=== PATIENT | male | born 1950 | race Caucasian/White ===

== ENCOUNTER 2016-08-07 19:14 | Inpatient (IN) | payer OTHER ==
[~2016-08-07] VITALS: Ht 182.9 cm; Wt 99.8 kg
[~2016-08-07 19:14] MED LIST: ASPEC81 PO; CRS10 PO; FINA5TAB PO; FLUNISOLIDE; METO25TA56 PO; OMEG10007 PO; TERA5CAP PO
[2016-08-07] MEDS ORDERED: SODIUM CHLORIDE 0.9% 1000ML 1,000 ML IV STA (19:28)
[2016-08-07 19:46] LABS: BASO % 0.2 %; BASO ABS # 0.03 K/uL (0-0.2); COMPLETE YES; EOS % 0.6 %; HEMATOCRIT 42.4 % (42-52); IG% 0.2 %; LYMPH ABS # 1.37 K/uL (1.2-3.4); MEAN CELL VOLUME 89.3 fL (80-100); MEAN CORPUSCULAR HEMOGLOBIN 30.9 pg (25-34); MEAN CORPUSCULAR HGB CONC 34.7 g/dl (32-36); MEAN PLATELET VOLUME 11.3 fL (7.4-10.4); MONO % 8.5 %; NEUT % 79.5 %; PLATELET COUNT 212 K/uL (130-400); RED BLOOD COUNT 4.75 M/uL (4.7-6.1); WHITE BLOOD COUNT 12.42 K/uL (4.8-10.8)
[2016-08-07 19:54] LABS: INR 1.1 (0.9-1.1); PROTHROMBIN TIME (PATIENT) 11.5 SECONDS (9.0-12.0)
[2016-08-07 20:07] LABS: BUN/CREATININE RATIO 10.4 (10-20); CALCIUM 8.3 mg/dl (8.5-10.1); CREATININE 1.1 mg/dl (0.60-1.40); MAGNESIUM 2.1 mg/dl (1.8-2.4); POTASSIUM 3.6 mmol/L (3.5-5.1)
[2016-08-07] MEDS ORDERED: MULT-190 PO (20:08)
[2016-08-07] MEDS ORDERED: FLUN0.02 NAE (20:08)
[2016-08-07] MEDS ORDERED: ROSU40TA PO (20:08)
[2016-08-07] MEDS ORDERED: ASPI81TA28 PO (20:09)
--- NOTE | 2016-08-07 20:19 | DIAGNOSTIC IMAGING REPORT ---
SINGLE VIEW CHEST CLINICAL HISTORY: Generalized abdominal pain. FINDINGS: An AP, portable, upright chest radiograph is compared to study dated 12/04/2013. The patient is status post midline sternotomy. The heart is enlarged and there is atherosclerotic calcification of the thoracic aorta. Mild pulmonary vascular congestion is observed. Enlargement of the main pulmonary arteries suggests pulmonary artery hypertension and is similar to previous. Foci of linear atelectasis are present in both lungs. There is no focal consolidation typical for pneumonia or large pleural effusion. No pneumothorax is seen. The skeletal structures are osteopenic. The bony thorax is grossly intact. IMPRESSION: 1. Cardiomegaly with mild pulmonary vascular congestion. 2. No airspace consolidation or large pleural effusion is identified. Electronically signed by: Zac Lopez M.D. 08/07/2016 8:18 PM Dictated Date/Time: 08/07/2016 8:16 PM
[2016-08-07 20:33] LABS: CKMB/CK RATIO 5.1 (0-3.0); THYROID STIMULATING HORMONE 2.62 uIu/ml (0.300-4.500)
[2016-08-07] MEDS ORDERED: POTASSIUM CHLORIDE 10 MEQ TABCR PO STA (21:07)
--- NOTE | 2016-08-07 21:18 | EMERGENCY ROOM VISIT NOTE ---
History Report prepared by Carmen: Marilou Wilder Under the Supervision of: Dr. Jean-Pierre Yarbrough D.O. First contact with patient: 19:21 Chief Complaint: CARDIAC ASSESSMENT Stated Complaint: CARDIAC History of Present Illness The patient is a 65 year old male who presents to the Emergency Room with complaints of persistent epigastric discomfort with onset this evening. Per patient, he started to experience some indigestion after dinner. As the patient has a history of three heart attacks and catheterization he took one dose of nitroglycerin and some aspirin. When EMS arrived, the patient was in SVT. The patient was given one dose of adenosine and the SVT then broke. The patient denies trouble breathing, nausea, vomiting. He is not on blood thinners. Source of History: patient Onset: this evening Position: chest Quality: other (epigastric discomfort ) Timing: other (persistent) Modifying Factors (Relieving): other (aspirin, nitroglycerin) Associated Symptoms: No SOB, No nausea, No vomiting Review of Systems See HPI for pertinent positives & negatives. A total of 10 systems reviewed and were otherwise negative. Past Medical & Surgical Medical Problems: (1) ACS (acute coronary syndrome) (2) PSVT (paroxysmal supraventricular tachycardia) (3) SOB (shortness of breath) Surgical Problems: (1) H/O heart bypass surgery Family History Heart disease Hypertension Social History Smoking Status: Current Every Day Smoker Alcohol Use: none Drug Use: none Marital Status: Occupation Status: retired Current/Historical Medications Scheduled Aspirin (Aspirin Ec), 81 MG PO DAILY Finasteride (Proscar), 5 MG PO HS Metoprolol Tartrate (Lopressor) (Lopressor), 12.5 MG PO BID Ocuvite Preservision (Ocuvite Preservision), 1 TAB PO AMHS Rosuvastatin Calcium (Crestor), 40 MG PO QPM Terazosin (Hytrin), 5 MG PO HS Scheduled PRN Flunisolide (Nasal) (Flunisolide), 1-2 SPRY CHEY HS PRN for Nasal Congestion Allergies Coded Allergies: No Known Allergies (Verified , 11/15/04) Physical Exam Vital Signs Date Time Temp Pulse Resp B/P Pulse Ox O2 Delivery O2 Flow Rate FiO2 08/07/16 20:40 75 20 132/76 96 Room Air 08/07/16 19:29 97 Room Air 08/07/16 19:28 97 Room Air 08/07/16 19:24 77 08/07/16 19:20 77 20 110/72 96 Room Air Physical Exam GENERAL: Patient is awake, alert, and in no acute distress. Patient is resting comfortably and showing no signs of anxiety EYES: The conjunctivae are clear. The pupils are round and reactive. EARS, NOSE, MOUTH AND THROAT: The nose is without any evidence of any deformity. Mucous membranes are moist tongue is midline NECK: The neck is nontender and supple. RESPIRATORY: Normal respiratory effort is noted there is no evidence of wheezing rhonchi or rales CARDIOVASCULAR: Regular rate and rhythm noted there no murmurs rubs or gallops normal S1 normal S2 GASTROINTESTINAL: The abdomen is soft. Bowel sounds are present in all quadrants. Abdomen is nontender MUSCULOSKELETAL/EXTREMITIES: There is no evidence of gross deformity full range of motion is noted in the hips and shoulders SKIN: There is no obvious evidence of any rash. There are no petechiae, pallor or cyanosis noted. NEUROLOGIC: Patient is awake alert and oriented x3 strength is symmetric patellar reflexes are 2+ bilaterally Medical Decision & Procedures ER Provider Diagnostic Interpretation: X ray results and stated below per my interpretation and radiology interpretation. SINGLE VIEW CHEST CLINICAL HISTORY: Generalized abdominal pain. FINDINGS: An AP, portable, upright chest radiograph is compared to study dated 12/04/2013. The patient is status post midline sternotomy. The heart is enlarged and there is atherosclerotic calcification of the thoracic aorta. Mild pulmonary vascular congestion is observed. Enlargement of the main pulmonary arteries suggests pulmonary artery hypertension and is similar to previous. Foci of linear atelectasis are present in both lungs. There is no focal consolidation typical for pneumonia or large pleural effusion. No pneumothorax is seen. The skeletal structures are osteopenic. The bony thorax is grossly intact. IMPRESSION: 1. Cardiomegaly with mild pulmonary vascular congestion. 2. No airspace consolidation or large pleural effusion is identified. Electronically signed by: Zac Lopez M.D. 08/07/2016 8:18 PM Dictated Date/Time: 08/07/2016 8:16 PM Laboratory Results 08/07/16 19:40 Red Blood Count 4.75, Mean Corpuscular Volume 89.3, Mean Corpuscular Hemoglobin 30.9, Mean Corpuscular Hemoglobin Concent 34.7, Mean Platelet Volume 11.3, Neutrophils (%) (Auto) 79.5, Lymphocytes (%) (Auto) 11.0, Monocytes (%) (Auto) 8.5, Eosinophils (%) (Auto) 0.6, Basophils (%) (Auto) 0.2, Neutrophils # (Auto) 9.85, Lymphocytes # (Auto) 1.37, Monocytes # (Auto) 1.06, Eosinophils # (Auto) 0.08, Basophils # (Auto) 0.03 08/07/16 19:40 Test 08/07/16 19:40 08/07/16 20:53 White Blood Count 12.42 K/uL (4.8-10.8) Red Blood Count 4.75 M/uL (4.7-6.1) Hemoglobin 14.7 g/dL (14.0-18.0) Hematocrit 42.4 % (42-52) Mean Corpuscular Volume 89.3 fL (80-100) Mean Corpuscular Hemoglobin 30.9 pg (25-34) Mean Corpuscular Hemoglobin Concent 34.7 g/dl (32-36) Platelet Count 212 K/uL (130-400) Mean Platelet Volume 11.3 fL (7.4-10.4) Neutrophils (%) (Auto) 79.5 % Lymphocytes (%) (Auto) 11.0 % Monocytes (%) (Auto) 8.5 % Eosinophils (%) (Auto) 0.6 % Basophils (%) (Auto) 0.2 % Neutrophils # (Auto) 9.85 K/uL (1.4-6.5) Lymphocytes # (Auto) 1.37 K/uL (1.2-3.4) Monocytes # (Auto) 1.06 K/uL (0.11-0.59) Eosinophils # (Auto) 0.08 K/uL (0-0.5) Basophils # (Auto) 0.03 K/uL (0-0.2) RDW Standard Deviation 43.6 fL (36.4-46.3) RDW Coefficient of Variation 13.3 % (11.5-14.5) Immature Granulocyte % (Auto) 0.2 % Immature Granulocyte # (Auto) 0.03 K/uL (0.00-0.02) Prothrombin Time 11.5 SECONDS (9.0-12.0) Prothromb Time International Ratio 1.1 (0.9-1.1) Activated Partial Thromboplast Time 26.9 SECONDS (21.0-31.0) Partial Thromboplastin Ratio 1.0 Anion Gap 8.0 mmol/L (3-11) Est Creatinine Clear Calc Drug Dose 81.9 ml/min Estimated GFR () 80.6 Estimated GFR (Non- 69.6 BUN/Creatinine Ratio 10.4 (10-20) Calcium Level 8.3 mg/dl (8.5-10.1) Magnesium Level 2.1 mg/dl (1.8-2.4) Total Bilirubin 0.7 mg/dl (0.2-1) Direct Bilirubin 0.1 mg/dl (0-0.2) Aspartate Amino Transf (AST/SGOT) 18 U/L (15-37) Alanine Aminotransferase (ALT/SGPT) 25 U/L (12-78) Alkaline Phosphatase 68 U/L (45-117) Total Creatine Kinase 168 U/L (39-308) Creatine Kinase MB 8.6 ng/ml (0.5-3.6) Creatine Kinase MB Ratio 5.1 (0-3.0) Pro-B-Type Natriuretic Peptide 256 pg/ml (0-900) Total Protein 6.4 gm/dl (6.4-8.2) Albumin 3.5 gm/dl (3.4-5.0) Lipase 163 U/L (73-393) Thyroid Stimulating Hormone (TSH) 2.620 uIu/ml (0.300-4.500) Free Thyroxine 0.91 ng/dl (0.80-1.60) Urine Color YELLOW Urine Appearance CLEAR (CLEAR) Urine pH 6.0 (4.5-7.5) Urine Specific [place] 1.013 (1.000-1.030) Urine Protein NEG (NEG) Urine Glucose (UA) NEG (NEG) Urine Ketones NEG (NEG) Urine Occult Blood NEG (NEG) Urine Nitrite NEG (NEG) Urine Bilirubin NEG (NEG) Urine Urobilinogen NEG (NEG) Urine Leukocyte Esterase TRACE (NEG) Urine WBC (Auto) 5-10 /hpf (0-5) Urine RBC (Auto) 0-4 /hpf (0-4) Urine Hyaline Casts (Auto) 1-5 /lpf (0-5) Urine Epithelial Cells (Auto) 20-30 /lpf (0-5) Urine Bacteria (Auto) NEG (NEG) Laboratory results per my review. Medications Administered Medications (Trade) Dose Ordered Sig/Michaela Route Start Time Stop Time Status Last Admin Dose Admin Sodium Chloride (Nss 1000ml) 1,000 ml @ 999 mls/hr Q1H1M STAT IV 08/07/16 19:28 08/07/16 20:28 DC 08/07/16 19:52 999 MLS/HR Potassium Chloride (Klor-Con M10) 40 meq NOW STAT PO 08/07/16 21:07 08/07/16 21:23 DC 08/07/16 21:41 40 MEQ ECG Indication: other (epigastric discomfort) Rate (beats per minute): 74 Rhythm: normal sinus Findings: no ectopy, other (no acute ST segment abnormalities) Comparison ECG Date: April 11, 2011 Change: no significant change Change: Pre-hospital EKG 1: narrow complex tachycardia, rate of 158, anterior and lateral ST depressions noted, likely related to rate related ischemia Repeat pre-hospital EKG: normal sinus rhythm at a rate of 61, no ectopy, no acute ST segment abnormalities ED Course 1919: The patient was evaluated in room A10. A complete history and physical examination were performed. 1927: NSS 1,000 ml @ 999 mls/hr IV 2040: I discussed the case with Dr. Mendoza (Cardiology); he advised that the further disposition of the patient is up to the patient's wishes. 2044: I updated the patient on my conversation with Dr. Mendoza. I discussed results and treatment plan with the patient. He verbalizes agreement and understanding. The patient will be evaluated for further management and care. 2052: I discussed the case with Dr. Reid ([facility]); he will further evaluate the patient. Medical Decision Differential diagnosis: Etiologies such as cardiac ischemia, aortic dissection, pulmonary embolism, pneumonia, pneumothorax, musculoskeletal, infections, pericarditis, myocarditis , esophageal rupture, gastrointestinal, as well as others were entertained. Nursing notes reviewed. Additional history is obtained from the patient's family members. Additional history is obtained from the prehospital personnel. The patient is a 65-year-old male who presented to the emergency department for an evaluation of epigastric discomfort. The patient has a history of coronary artery disease. He's had bypass in the past. His most recent catheterization was from 2013. It was felt that at that time he still has severe coronary artery disease but is felt to be medical management only no intervention was done at that time. The patient was found to be in SVT with a narrow complex tachycardia close to 160 by the prehospital personnel. He was given a dentist seen. He arrived at the emergency department in normal sinus rhythm. He had significant ST segment depressions noted on his SVT 12-lead that was brought to the emergency department with the patient by the prehospital personnel. I discussed the patient's laboratory and radiographic studies with him. He was treated with IV fluids in the emergency department. He was treated with aspirin and nitroglycerin prior to arrival. He was asymptomatic on final reevaluation. The patient was found have a mild elevation in his troponin. This is likely related to his rate-related ischemia noted on the SVT 12-lead. I discussed his case with the patient's primary marketing analytics analyst. I also discussed his case with the on-call [facility] hospitalist group. They've agreed to evaluate the patient in emergency department for further management and disposition. Given the patient is asymptomatic he will likely require serial troponin measurements to evaluate if this represents an NSTEMI. Consults Time Called: 1938 Consulting Physician: Dr. Mendoza (Cardiology) Returned Call: 1940 I discussed the case with Dr. Mendoza (Cardiology); he advised that the further disposition of the patient is up to the patient's wishes. Additional Consults: Time Called: 2049 Consulted Physician: Dr. Reid ([facility]) Returned Call: 2052 Additional Comments: I discussed the case with Dr. Reid ([facility]); he will further evaluate the patient. Impression Primary Impression: Epigastric abdominal pain Additional Impressions: SVT (supraventricular tachycardia) Elevated troponin Scribe Attestation The scribe's documentation has been prepared under my direction and personally reviewed by me in its entirety. I confirm that the note above accurately reflects all work, treatment, procedures, and medical decision making performed by me. Departure Information Dispostion Being Evaluated By Hospitalist Referrals Patric Butcher M.D. (PCP) Patient Instructions My [facility] Problem Qualifiers
[2016-08-07 21:20] LABS: URINE APPEARANCE CLEAR (CLEAR); URINE BILIRUBIN NEG (NEG); URINE COLOR YELLOW; URINE EPITHELIAL CELL AUTO 20-30 /lpf (0-5); URINE NITRITE NEG (NEG); URINE SPECIFIC GRAVITY 1.013 (1.000-1.030); UROBILINOGEN NEG (NEG)
[2016-08-07 21:26] LABS: MANUAL MICROSCOPIC REQUIRED? NO; REVIEW REQ? NO
[2016-08-07] MEDS ORDERED: IV FLUIDS COMPLETED PRN (22:15)
[2016-08-07] MEDS ORDERED: ACETAMINOPHEN 325 MG TAB PO PRN (22:15)
[2016-08-07] MEDS ORDERED: LACTATED RINGER'S 1000ML 1,000 ML IV SCH (22:15)
[2016-08-07] MEDS ORDERED: ONDANSETRON INJ 2 MG/ML 2 ML VIAL IV PRN (22:15)
[2016-08-07] MEDS ORDERED: NITROGLYCERIN 0.4 MG SL PER TAB CHARGE SL PRN (22:15)
[2016-08-07] MEDS ORDERED: MoRPHine SULFATE 4 MG/ML 1 ML CARP\\VIAL IV PRN (22:15)
[2016-08-07] MEDS ORDERED: TRAMADOL HCL 50 MG TAB PO PRN (22:15)
[2016-08-07] MEDS ORDERED: LORAZEPAM 2 MG/ML 1 ML VIAL IV PRN (22:15)
[2016-08-07 22:50] VITALS: BP 117/79; PULSE 69; TEMP 36.5; O2SAT 97; Ht 182.9 cm; Wt 99.8 kg
[2016-08-07] MEDS ORDERED: CALCIUM GLUCONATE 10% 1,000 MG in SODIUM CHLORIDE 0.9% 50ML 50 ML IV STA (23:04)
[2016-08-07] MEDS ORDERED: METOPROLOL TARTRATE 25 MG TAB PO ONE (23:15)
[2016-08-07] MEDS ORDERED: LORAZEPAM INJ 0.5 MG in SYRINGE 0.75 ML IV PRN (23:15)
[2016-08-08] MEDS ORDERED: IV FLUIDS COMPLETED PRN (01:00)
--- NOTE | 2016-08-08 01:06 | HISTORY & PHYSICAL EXAMINATION ---
DATE OF ADMISSION: 08/07/2016 PRIMARY CARE DOCTOR: Dr. Delgado CHIEF COMPLAINT: Epigastric discomfort. HISTORY OF PRESENT ILLNESS: Medical history is significant for CAD status post CABG, hypertension, BPH, hyperlipidemia and ongoing tobacco abuse. Patient was having dinner last night when he had epigastric discomfort, nonradiating, achy, not burning. No chest pain, no shortness of breath, no diaphoresis, different from heart attack in the past, some relief with nitroglycerin. En route to the hospital the patient was noted to be in SVT. Patient was given adenosine. Patient converted to normal sinus rhythm _ Patient compliant with home medications. Denies unusual stress at home. MEDICAL HISTORY: As above. A 2D echo from December 2013 showed EF of 55-59%_ posterior wall akinesis. SURGERIES: CABG, orthopedic surgery. HOME MEDICATIONS: acetaminophen, metoprolol, cyclobenzaprine, atorvastatin, Flonase, Proscar, terazosin, aspirin and nitroglycerin. ALLERGIES: No known drug allergies. FAMILY HISTORY: Heart disease. PERSONAL AND SOCIAL HISTORY: Smokes 15 cigarettes a day. No chronic intake of alcoholic beverages. Retired from [employer]. REVIEW OF SYSTEMS: As per HPI. All other ROS negative. PHYSICAL EXAMINATION: VITAL SIGNS: Blood pressure was 120/60, pulse rate 77 RR 20, temperature 36.6 and sats 98 on room air. GENERAL: Slightly anxious, no respiratory distress. SKIN: Normal color. HEENT: [place] palpebral conjunctivae. Dry mucosa. NECK: No JVD. Supple. CHEST: Clear to auscultation. HEART: Regular rate and rhythm ABDOMEN: Soft. EXTREMITIES: No edema, no tenderness. NEUROLOGIC: No gross focality. LABORATORIES: Hemoglobin was 14, hematocrit 42 white cells 12.4, platelets 212. Sodium 140, potassium 3.6, chloride 105, CO2 22, BUN 11, creatinine 1.1, glucose was 129. Troponin was noted to be 0.47 BNP was normal. Chest x-ray; cardiomegaly, mild pulmonary congestion. EKG; rate 75, normal sinus rhythm, left atrial enlargement, poor R-wave progression. ASSESSMENT: 1. Epigastric discomfort, troponinemia, paroxysmal supraventricular tachycardia. question of anginal equivalent, hx CAD sp CABG Patient is currently in normal sinus rhythm after IV adenosine given by EMS 2. hypertension stable, 3. hyperlipidemia on statin therapy 4. ongoing tobacco abuse. PLAN: Observation PCU double home beta shalom maintenance dose for now continue aspirin, statin Follow cardiac markers. 2D echo. Cardiology consult. RE PSVT. ER MD already in touch with Dr. Mendoza, supervisor body assembly simulation engineer. Nicotine patch. DVT prophylaxis Lovenox subQ. Full code. MTDD
--- NOTE | 2016-08-08 01:16 | Progress Note ---
Internal Med Progress Note Date of Service: Aug 08, 2016. Provider Documentation: Made aware by RN of 2nd set troponin = 5 AP ACS change to full admission IV heparin NPO/sips for now until seen by Cardio in AM Vital Signs: Date Time Temp Pulse Resp B/P Pulse Ox O2 Delivery O2 Flow Rate FiO2 08/08/16 08:02 36.8 55 18 124/70 95 08/08/16 05:10 37.1 61 18 116/76 97 Room Air 08/08/16 04:00 Room Air 08/08/16 03:52 37.1 61 18 116/76 97 Room Air 08/08/16 00:00 Room Air 08/07/16 22:50 36.5 69 18 117/79 97 Room Air 08/07/16 22:29 50 20 114/72 97 Room Air 08/07/16 20:40 75 20 132/76 96 Room Air 08/07/16 19:29 97 Room Air 08/07/16 19:28 97 Room Air 08/07/16 19:24 77 08/07/16 19:20 77 20 110/72 96 Room Air Lab Results: Results Past 24 Hours Test 08/07/16 19:40 08/07/16 20:53 08/08/16 00:24 08/08/16 06:20 Range/Units White Blood Count 12.42 13.37 4.8-10.8 K/uL Red Blood Count 4.75 4.63 4.7-6.1 M/uL Hemoglobin 14.7 14.2 14.0-18.0 g/dL Hematocrit 42.4 41.9 42-52 % Mean Corpuscular Volume 89.3 90.5 80-100 fL Mean Corpuscular Hemoglobin 30.9 30.7 25-34 pg Mean Corpuscular Hemoglobin Concent 34.7 33.9 32-36 g/dl Platelet Count 212 208 130-400 K/uL Mean Platelet Volume 11.3 11.9 7.4-10.4 fL Neutrophils (%) (Auto) 79.5 66.6 % Lymphocytes (%) (Auto) 11.0 18.8 % Monocytes (%) (Auto) 8.5 12.6 % Eosinophils (%) (Auto) 0.6 1.6 % Basophils (%) (Auto) 0.2 0.3 % Neutrophils # (Auto) 9.85 8.89 1.4-6.5 K/uL Lymphocytes # (Auto) 1.37 2.51 1.2-3.4 K/uL Monocytes # (Auto) 1.06 1.69 0.11-0.59 K/uL Eosinophils # (Auto) 0.08 0.22 0-0.5 K/uL Basophils # (Auto) 0.03 0.04 0-0.2 K/uL RDW Standard Deviation 43.6 45.4 36.4-46.3 fL RDW Coefficient of Variation 13.3 13.7 11.5-14.5 % Immature Granulocyte % (Auto) 0.2 0.1 % Immature Granulocyte # (Auto) 0.03 0.02 0.00-0.02 K/uL Prothrombin Time 11.5 9.0-12.0 SECONDS Prothromb Time International Ratio 1.1 0.9-1.1 Activated Partial Thromboplast Time 26.9 21.0-31.0 SECONDS Partial Thromboplastin Ratio 1.0 Sodium Level 142 144 136-145 mmol/L Potassium Level 3.6 3.9 3.5-5.1 mmol/L Chloride Level 107 110 98-107 mmol/L Carbon Dioxide Level 27 24 21-32 mmol/L Anion Gap 8.0 10.0 3-11 mmol/L Blood Urea Nitrogen 11 11 7-18 mg/dl Creatinine 1.10 0.86 0.60-1.40 mg/dl Est Creatinine Clear Calc Drug Dose 81.9 103.4 ml/min Estimated GFR () 80.6 104.7 Estimated GFR (Non- 69.6 90.4 BUN/Creatinine Ratio 10.4 12.8 10-20 Random Glucose 129 95 70-99 mg/dl Calcium Level 8.3 8.1 8.5-10.1 mg/dl Magnesium Level 2.1 1.8-2.4 mg/dl Total Bilirubin 0.7 0.2-1 mg/dl Direct Bilirubin 0.1 0-0.2 mg/dl Aspartate Amino Transf (AST/SGOT) 18 15-37 U/L Alanine Aminotransferase (ALT/SGPT) 25 12-78 U/L Alkaline Phosphatase 68 45-117 U/L Total Creatine Kinase 168 39-308 U/L Creatine Kinase MB 8.6 0.5-3.6 ng/ml Creatine Kinase MB Ratio 5.1 0-3.0 Troponin I 0.477 5.440 5.830 0-0.045 ng/ml Pro-B-Type Natriuretic Peptide 256 0-900 pg/ml Total Protein 6.4 6.4-8.2 gm/dl Albumin 3.5 3.4-5.0 gm/dl Lipase 163 73-393 U/L Thyroid Stimulating Hormone (TSH) 2.620 0.300-4.500 uIu/ml Free Thyroxine 0.91 0.80-1.60 ng/dl Urine Color YELLOW Urine Appearance CLEAR CLEAR Urine pH 6.0 4.5-7.5 Urine Specific [place] 1.013 1.000-1.030 Urine Protein NEG NEG Urine Glucose (UA) NEG NEG Urine Ketones NEG NEG Urine Occult Blood NEG NEG Urine Nitrite NEG NEG Urine Bilirubin NEG NEG Urine Urobilinogen NEG NEG Urine Leukocyte Esterase TRACE NEG Urine WBC (Auto) 5-10 0-5 /hpf Urine RBC (Auto) 0-4 0-4 /hpf Urine Hyaline Casts (Auto) 1-5 0-5 /lpf Urine Epithelial Cells (Auto) 20-30 0-5 /lpf Urine Bacteria (Auto) NEG NEG Triglycerides Level 85 0-150 mg/dl Cholesterol Level 130 0-200 mg/dl HDL Cholesterol 48 mg/dl LDL Cholesterol, Calculated 65 mg/dl VLDL Cholesterol, Calculated 17 mg/dl Cholesterol/HDL Ratio 2.7 Test 08/08/16 08:03 Range/Units Activated Partial Thromboplast Time 49.9 21.0-31.0 SECONDS Partial Thromboplastin Ratio 1.9
[2016-08-08] MEDS ORDERED: HEPARIN 25,000 UNIT/500ML D5W 500 ML IV PRN (01:45)
[2016-08-08] MEDS ORDERED: LACTATED RINGER'S 1000ML 1,000 ML IV SCH (03:00)
[2016-08-08 03:52] VITALS: BP 116/76; PULSE 61; TEMP 37.1; O2SAT 97
[2016-08-08 05:10] VITALS: BP 116/76; PULSE 61; TEMP 37.1; O2SAT 97
[2016-08-08 06:42] LABS: BASO % 0.3 %; BASO ABS # 0.04 K/uL (0-0.2); COMPLETE YES; EOS % 1.6 %; HEMATOCRIT 41.9 % (42-52); IG% 0.1 %; LYMPH % 18.8 %; LYMPH ABS # 2.51 K/uL (1.2-3.4); MEAN CELL VOLUME 90.5 fL (80-100); MEAN CORPUSCULAR HEMOGLOBIN 30.7 pg (25-34); MEAN CORPUSCULAR HGB CONC 33.9 g/dl (32-36); MEAN PLATELET VOLUME 11.9 fL (7.4-10.4); MONO % 12.6 %; NEUT % 66.6 %; PLATELET COUNT 208 K/uL (130-400); RED BLOOD COUNT 4.63 M/uL (4.7-6.1); WHITE BLOOD COUNT 13.37 K/uL (4.8-10.8)
[2016-08-08 07:16] LABS: BUN/CREATININE RATIO 12.8 (10-20); CALCIUM 8.1 mg/dl (8.5-10.1); CREATININE 0.86 mg/dl (0.60-1.40); POTASSIUM 3.9 mmol/L (3.5-5.1)
[2016-08-08 07:33] LABS: CHOLESTEROL/HDL RATIO 2.7
[2016-08-08 08:02] VITALS: BP 124/70; PULSE 55; TEMP 36.8; O2SAT 95
[2016-08-08 08:25] LABS: PARTIAL THROMBOPLASTIN RATIO 1.9
[2016-08-08] MEDS ORDERED: CEROVITE ADV FORMULA TAB PO SCH (09:00)
[2016-08-08] MEDS ORDERED: ENOXAPARIN 40 MG/0.4 ML SYR SC SCH (09:00)
[2016-08-08] MEDS ORDERED: METOPROLOL TARTRATE 25 MG TAB PO SCH ×2 (09:00)
[2016-08-08] MEDS ORDERED: ASPIRIN 81 MG ECTAB PO SCH (09:00)
[2016-08-08] MEDS ORDERED: NICOTINE 14 MG/24 HR TDSY TD SCH (09:00)
--- NOTE | 2016-08-08 09:45 | Cardiology Consultation ---
Cardiology Consultation Cardiology Consultation: Date: 08/08/16 Requesting Physician: Dr. Guy Attending Loaf Counter: Dr. Mendoza HPI: Patient is a 65 year old male who follows with Dr. Mendoza as an outpatient for routine cardiac care. He carries a PMH significant for atherosclerotic coronary disease status post coronary artery bypass grafting, in 1995, after inferior myocardial infarction, receiving KENNEDY graft to LAD, saphenous vein graft to circumflex and obtuse marginal, saphenous vein graft to the right coronary artery. He had recurrent thrombotic non-ST elevation myocardial infarction, 2004 and acute inferior posterior myocardial infarction, November 2013, secondary saphenous vein graft to the circumflex marginal occlusion per cath at that time and managed conservatively. Other history includes hypertension, chronic tobacco abuse, dyslipidemia and BPH. Patient states he has been in his usual state of health feeling well, except a mild chest cold/cough over the last few weeks which has been slowly improving. Last night he had eaten a large supper and started to experience epigastric pain , which he perceived as indigestion. He went to relax on the sofa and became diaphoretic. Symptoms were ongoing for about 30-45 minutes without improvement. He decided to take 1 SL nitro and called EMS. He states his symptoms greatly improved after 1 SL nitro. EMS found patient to have SVT. Although strips are not currently available to review. Patient is uncertain if he had arrhythmia when they arrived or converted during ambulance ride. He denied symptoms of palpitations or tachypalpitations. He was treated with IV adenosine and SVT resolved en route to hospital. Patient reports feeling much improved upon arrival to ER. No recurrent epigastric pain. No nausea, vomiting. Diaphoresis improved. He was found to have minimally elevated cardiac enzymes with troponin of 0.47. EKG without ischemic changes. Otherwise labs/findings were unremarkable. At time of consult, patient sitting in bed feeling well. He denies chest pain or recurrent epigastric discomfort. No SOB, orthopnea, PND or LE edema. No dizziness or palpitations. No recurrent since admission. Patient denies recent chest pain/anginal symptoms. He has been active around the house as usual without exertional symptoms. He also reports shoveling snow without exertional symptoms. He states his discomfort last night was "different than prior heart attacks", therefore he was attributing his symptoms to indigestion after eating large meal. Review of Systems: See HPI for pertinent positives. All other 10 point review of systems is negative. PMH - As above Surgical History Procedure Laterality Date Comment CABG, ARTERIAL, THREE 1998 Dr. Pastrana REPAIR OF KNEE CARTILAGE 2011 left knee SINUS SURGERY PROCEDURE NEC 5-6 years ago Social History: . Chronic tobacco abuse 1/2-1 PPD for 30+ years. Rare alcohol. Retired from [employer]. Family History: +ischemic heart disease ALLERGIES: Review of patient's allergies indicates: No Known Allergies MEDICATIONS: Reported Home Medications Medications Dose Route/Sig Max Daily Dose Days Date Category Aspirin Ec (Aspirin) 81 Mg Tab 81 Mg PO DAILY 08/07/16 Reported Ocuvite Preservision (Multivitamins/Minerals) 1 Tab Tab 1 Tab PO AMHS 08/07/16 Reported Flunisolide (Flunisolide (Nasal)) 0.025 % Spr 1-2 [place]mann CHEY HS PRN 08/07/16 Reported Crestor (Rosuvastatin Calcium) 40 Mg Tab 40 Mg PO QPM 08/07/16 Reported Lopressor (Metoprolol Tartrate) 25 Mg Tab 12.5 Mg PO BID 07/05/12 Reported Proscar (Finasteride) 5 Mg Tab 5 Mg PO HS 07/30/08 Reported Hytrin (Terazosin HCl) 5 Mg Cap 5 Mg PO HS 07/30/08 Reported PHYSICAL EXAMINATION: Last 8 Hrs Date Time Temp Pulse Resp B/P Pulse Ox O2 Delivery O2 Flow Rate FiO2 08/08/16 08:02 36.8 55 18 124/70 95 08/08/16 05:10 37.1 61 18 116/76 97 Room Air 08/08/16 04:00 Room Air 08/08/16 03:52 37.1 61 18 116/76 97 Room Air General: A+Ox3. NAD Head: Normocephalic atraumatic Eyes: conjunctiva are pink and non-injected, sclera clear Neck: normal jugular venous pulse, no hepatojugular reflux There are no carotid bruits Chest: normal shape and normal respiratory effort Lungs: CTA B/L. No rales or wheezing Cardiac Exam: Regular. No audible murmurs. Abdomen: abdomen soft, non-tender Musculoskeletal: no gait disturbance, no weakness Extremities: No ankle or pretibial edema b/l Neuro: grossly normal exam Psych: appropriate affect and insight. DATA: EKG on admission: Normal sinus rhythm Possible Left atrial enlargement Borderline ECG When compared with ECG of 04-DEC-2013 13:37, No significant change was found Repeat EKG this AM, 08/08/16: Sinus bradycardia Low voltage QRS Borderline ECG When compared with ECG of 07-AUG-2016 19:27, (unconfirmed) Vent. rate has decreased BY 26 BPM Chest xray on admission: IMPRESSION: 1. Cardiomegaly with mild pulmonary vascular congestion. 2. No airspace consolidation or large pleural effusion is identified. Telemetry reviewed - NSR/Sinus bradycardia in 40's and 50's. No tachyarrhythmias. Occ PVC. Labs: Last 24 Hours Test 08/07/16 19:40 08/07/16 20:53 08/08/16 00:24 08/08/16 06:20 White Blood Count 12.42 K/uL 13.37 K/uL Red Blood Count 4.75 M/uL 4.63 M/uL Hemoglobin 14.7 g/dL 14.2 g/dL Hematocrit 42.4 % 41.9 % Mean Corpuscular Volume 89.3 fL 90.5 fL Mean Corpuscular Hemoglobin 30.9 pg 30.7 pg Mean Corpuscular Hemoglobin Concent 34.7 g/dl 33.9 g/dl Platelet Count 212 K/uL 208 K/uL Mean Platelet Volume 11.3 fL 11.9 fL Neutrophils (%) (Auto) 79.5 % 66.6 % Lymphocytes (%) (Auto) 11.0 % 18.8 % Monocytes (%) (Auto) 8.5 % 12.6 % Eosinophils (%) (Auto) 0.6 % 1.6 % Basophils (%) (Auto) 0.2 % 0.3 % Neutrophils # (Auto) 9.85 K/uL 8.89 K/uL Lymphocytes # (Auto) 1.37 K/uL 2.51 K/uL Monocytes # (Auto) 1.06 K/uL 1.69 K/uL Eosinophils # (Auto) 0.08 K/uL 0.22 K/uL Basophils # (Auto) 0.03 K/uL 0.04 K/uL RDW Standard Deviation 43.6 fL 45.4 fL RDW Coefficient of Variation 13.3 % 13.7 % Immature Granulocyte % (Auto) 0.2 % 0.1 % Immature Granulocyte # (Auto) 0.03 K/uL 0.02 K/uL Prothrombin Time 11.5 SECONDS Prothromb Time International Ratio 1.1 Activated Partial Thromboplast Time 26.9 SECONDS Partial Thromboplastin Ratio 1.0 Sodium Level 142 mmol/L 144 mmol/L Potassium Level 3.6 mmol/L 3.9 mmol/L Chloride Level 107 mmol/L 110 mmol/L Carbon Dioxide Level 27 mmol/L 24 mmol/L Anion Gap 8.0 mmol/L 10.0 mmol/L Blood Urea Nitrogen 11 mg/dl 11 mg/dl Creatinine 1.10 mg/dl 0.86 mg/dl Est Creatinine Clear Calc Drug Dose 81.9 ml/min 103.4 ml/min Estimated GFR () 80.6 104.7 Estimated GFR (Non- 69.6 90.4 BUN/Creatinine Ratio 10.4 12.8 Random Glucose 129 mg/dl 95 mg/dl Calcium Level 8.3 mg/dl 8.1 mg/dl Magnesium Level 2.1 mg/dl Total Bilirubin 0.7 mg/dl Direct Bilirubin 0.1 mg/dl Aspartate Amino Transf (AST/SGOT) 18 U/L Alanine Aminotransferase (ALT/SGPT) 25 U/L Alkaline Phosphatase 68 U/L Total Creatine Kinase 168 U/L Creatine Kinase MB 8.6 ng/ml Creatine Kinase MB Ratio 5.1 Troponin I 0.477 ng/ml 5.440 ng/ml 5.830 ng/ml Pro-B-Type Natriuretic Peptide 256 pg/ml Total Protein 6.4 gm/dl Albumin 3.5 gm/dl Lipase 163 U/L Thyroid Stimulating Hormone (TSH) 2.620 uIu/ml Free Thyroxine 0.91 ng/dl Urine Color YELLOW Urine Appearance CLEAR Urine pH 6.0 Urine Specific [place] 1.013 Urine Protein NEG Urine Glucose (UA) NEG Urine Ketones NEG Urine Occult Blood NEG Urine Nitrite NEG Urine Bilirubin NEG Urine Urobilinogen NEG Urine Leukocyte Esterase TRACE Urine WBC (Auto) 5-10 /hpf Urine RBC (Auto) 0-4 /hpf Urine Hyaline Casts (Auto) 1-5 /lpf Urine Epithelial Cells (Auto) 20-30 /lpf Urine Bacteria (Auto) NEG Triglycerides Level 85 mg/dl Cholesterol Level 130 mg/dl HDL Cholesterol 48 mg/dl LDL Cholesterol, Calculated 65 mg/dl VLDL Cholesterol, Calculated 17 mg/dl Cholesterol/HDL Ratio 2.7 Test 08/08/16 08:03 Activated Partial Thromboplast Time 49.9 SECONDS Partial Thromboplastin Ratio 1.9 Prior Data: Echocardiogram reviewed in 2014 s/p NSTEMI: Interpretation Summary The examination is adequate to evaluate the referral indication. There is a small sized posterior wall motion abnormality with akinesis of the segments. The qualitative LV ejection fraction is 55-59% (normal). No significant valvular disease IMPRESSION: 65-year-old male 1. epigastric pain with associated elevated cardiac enzymes, consistent with possible NSTEMI in setting of ischemic heart disease -currently asymptomatic -no ischemic EKG changes -Troponin at 5.8 this AM -continue hep gtt for now -echocardiogram pending -continue ASA, beta shalom, statin and home meds 2. SVT per EMS -converting with adenosine en route to ER -strips not currently available. -metoprolol increased to 25 mg BID on admission. Monitor. May need to reduce back to 12.5 mg BID as he is now mildly bradycardic with HR 45-55. 3. Ischemic heart disease s/p remote CABG in 1995 with KENNEDY to LAD, SVG to LCx and OM, SVG to RCA. -last cardiac cath in 2013 with SVG to OM occlusion. Other grafts patent. Med management recommended at this time -continue home meds -Await echo results Further plans pending completion and review of 2D echocardiogram and evaluation by Dr. Mendoza. Will follow. (Lizet Antunez, PA-C) Patient seen and examined, assessment as above. Rhythm strip, prehospital EKG reflects SVT with rapid ventricular response with normal ekg post conversion to sinus then and this am. Event appears secondary to arrhythmia with demand ischemia base troponin elevation. now asymptomatic Plan Continue metoprolol 25 mg am 12.5 mg pm Stop IV heparin Ambulate If no complaints D/C with OP stress echo to follow Davis Mendoza MD (Davis Mendoza M.D.)
[2016-08-08 11:20] VITALS: BP 128/79; PULSE 56; TEMP 36.8; O2SAT 96
--- NOTE | 2016-08-08 13:41 | ECHOCARDIOGRAM REPORT ---
*NOTICE TO RECEIVING [employer]Y This information is strictly Confidential and protected under [place] law. [place] law prohibits you from making any further disclosure of this information unless further disclosure is expressly permitted by the written consent of the person to whom it pertains or is authorized by law. A general authorization for the release of medical or other information is not sufficient for this purpose. Hospital accepts no responsibility if the information is made available to any other person, INCLUDING THE PATIENT. Interpretation Summary * Name: MICHELLE HERNANDEZ Study Date: 08/08/2016 10:41 AM BP: 116/76 mmHg * Patient Location: C.2E\S\E208\S\1 HR: 61 * : 1950 (M/d/yyyy) Gender: Male Height: 72 in * Age: 65 yrs Ethnicity: CA Weight: 226 lb * Ordering Physician: Jose Guy * Performed By: Yudelka Cheney RDCS * * Reason For Study: SVT * BSA: 2.2 m2 * -- Conclusions -- * The left ventricle is normal in size. * There is mild hypokinesis of the posterior lateral wall with all other wall segments tasha normally. * Left ventricular systolic function is normal. * Ejection Fraction = 55-60%. * Aortic valve sclerosis moderate, without significant aortic valvular stenosis. * There is mild mitral regurgitation. Procedure Details * A complete two-dimensional transthoracic echocardiogram was performed (2D, M-mode, Doppler and color flow Doppler). Left Ventricle * The left ventricle is normal in size. * There is normal left ventricular wall thickness. * Ejection Fraction = 55-60%. * Left ventricular systolic function is normal. * There is mild hypokinesis of the posterior lateral wall with all other wall segments tasha normally. Atria * The left atrium is mildly dilated. * Right atrial size is normal. * No ASD detected; PFO is not assessed. Mitral Valve * The mitral valve anatomy is normal. * There is no mitral valve stenosis. * There is mild mitral regurgitation. Tricuspid Valve * The tricuspid valve anatomy is normal. * There is no tricuspid stenosis. * Significant tricuspid regurgitation is absent. Aortic Valve * The aortic valve is trileaflet. * Aortic valve sclerosis moderate, without significant aortic valvular stenosis. * There is no significant aortic regurgitation. Pulmonic Valve * The pulmonic valve is not well visualized. Great Vessels * The aortic root is normal size. Pericardium/Pleural * There is no pericardial effusion. MMode 2D Measurements and Calculations IVSd 0.95 cm LVIDd 5.7 cm LVIDs 4.0 cm LVPWd 0.92 cm IVS/LVPW 1.0 FS 28.4 % EDV(Teich) 157.0 ml ESV(Teich) 72.0 ml EF(Teich) 54.1 % EDV(cubed) 180.6 ml ESV(cubed) 66.4 ml EF(cubed) 63.3 % LV mass(C)d 204.1 grams LV mass(C)dI 90.9 grams/m\S\2 CO(Teich) 5.1 l/min CI(Teich) 2.3 l/min/m\S\2 SV(Teich) 85.0 ml SI(Teich) 37.9 ml/m\S\2 CO(cubed) 6.9 l/min CI(cubed) 3.1 l/min/m\S\2 SV(cubed) 114.3 ml SI(cubed) 50.9 ml/m\S\2 Ao root diam 3.3 cm Ao root area 8.7 cm\S\2 ACS 1.5 cm LA dimension 4.8 cm asc Aorta Diam 2.5 cm LA/Ao 1.5 LVOT diam 2.0 cm LVOT area 3.1 cm\S\2 LVAd ap4 33.7 cm\S\2 LVLd ap4 8.3 cm EDV(MOD-sp4) 113.0 ml LVAs ap4 19.5 cm\S\2 LVLs ap4 7.3 cm ESV(MOD-sp4) 44.0 ml EF(MOD-sp4) 61.1 % LVAd ap2 31.1 cm\S\2 LVLd ap2 8.3 cm EDV(MOD-sp2) 98.0 ml LVAs ap2 19.2 cm\S\2 LVLs ap2 7.5 cm ESV(MOD-sp2) 42.0 ml EF(MOD-sp2) 57.1 % CO(MOD-sp4) 4.1 l/min CI(MOD-sp4) 1.8 l/min/m\S\2 SV(MOD-sp4) 69.0 ml SI(MOD-sp4) 30.7 ml/m\S\2 CO(MOD-sp2) 3.4 l/min CI(MOD-sp2) 1.5 l/min/m\S\2 SV(MOD-sp2) 56.0 ml SI(MOD-sp2) 25.0 ml/m\S\2 Doppler Measurements and Calculations MV E max jamar 82.4 cm/sec MV A max jamar 55.3 cm/sec MV E/A 1.5 MV dec time 0.23 sec Ao V2 max 123.3 cm/sec Ao max PG 6.1 mmHg Ao max PG (full) 0.52 mmHg RAIZA(V,A) 2.9 cm\S\2 RAIZA(V,D) 2.9 cm\S\2 LV V1 max PG 5.6 mmHg LV V1 max 118.0 cm/sec PA V2 max 97.7 cm/sec PA max PG 3.8 mmHg PA acc slope 306.3 cm/sec\S\2 PA acc time 0.19 sec PI max jamar 171.0 cm/sec PI max PG 11.7 mmHg PI dec slope 89.3 cm/sec\S\2 PI P1/2t 560.8 msec TR max jamar 374.7 cm/sec PA pr(Accel) -6.56 mmHg
[2016-08-08] MEDS ORDERED: METO25TA56 PO (14:54)
--- NOTE | 2016-08-08 14:57 | Discharge Instructions ---
Discharge Instructions Admission Reason for Admission: Cardiac Discharge Discharge Diagnosis / Problem: EPIGASTRIC PAIN, SVT Discharge Goals Goal(s): Decrease discomfort, Improve function Activity Recommendations Activity Limitations: resume your previous activity Lifting Limitations: no more than 5 pounds (UNTIL SEEN BY CARDIOLOGY) . Instructions / Follow-Up Instructions / Follow-Up FOLLOWUP WITH FAMILY DOCTOR ON Aug AT 10:50AM FOLLOWUP WITH CARDIOLOGY SCHEDULED FOR STRESS TEST Current Hospital Diet Patient's current hospital diet: AHA Diet (Heart Healthy) Discharge Diet Recommended Diet: AHA Diet (Heart Healthy) Pending Studies Studies pending at discharge: no Laboratory Results Lipid Panel Test 08/08/16 06:20 Range/Units Triglycerides Level 85 0-150 mg/dl Cholesterol Level 130 0-200 mg/dl HDL Cholesterol 48 mg/dl Cholesterol/HDL Ratio 2.7 LDL Cholesterol, Calculated 65 mg/dl Medical Emergencies . Who to Call and When: Medical Emergencies: If at any time you feel your situation is an emergency, please call 911 immediately. . Non-Emergent Contact Non-Emergency issues call your: Primary Care Provider . . "Provider Documentation" section prepared by Nghia Chow. VTE Core Measure Inpt VTE Proph given/why not?: Other Anticoagulation (IV HEPARIN)
[2016-08-08 14:59] VITALS: BP 128/79; PULSE 56; TEMP 36.8; O2SAT 96
--- NOTE | 2016-08-08 15:01 | PROGRESS NOTE ---
DATE: 08/08/2016 Please refer to full note from earlier today and reviewed all studies. DATA: Echocardiogram demonstrates mild left ventricular hypertrophy with mild hypokinesis of the posterolateral wall consistent with prior outpatient echoes dating back to 2013, ejection fraction 55-60% with moderate aortic sclerosis and no other significant valvular disease other than mild mitral insufficiency. The patient has been ambulatory here in the hallway today without recurrent symptoms or complaints. Telemetry strips reviewed in detail, which demonstrated supraventricular tachycardia with rapid ventricular response with spontaneous conversion to sinus rhythm. IMPRESSION: A 65-year-old male with a history of diffuse coronary disease, remote coronary artery bypass grafting with stable class 2 angina pectoris, admitted with chest discomfort and tachypalpitations secondary to supraventricular tachycardia. Troponins are elevated secondary to heart rate and demand based ischemia. EKGs immediately post-conversion to sinus rhythm were normal, as were the ones this morning. Echocardiogram reveals no acute changes. PLAN: Discharge to home with slightly increased beta shalom as ordered. Follow up with stress echocardiography in the next week's time. Instructed patient in detail regarding monitoring heart rate and pulse, especially with any adverse symptoms. If atrial arrhythmias recur, further investigation may be warranted. Routine followup will be scheduled.
--- NOTE | 2016-08-08 17:30 | Progress Note ---
Internal Med Progress Note Date of Service: Aug 08, 2016. Provider Documentation: SUBJECTIVE: no epigastric pain today no chest pain no sob no nausea afebrile ambulated with out any issues OBJECTIVE: Vital Signs-as noted below Exam: General-alert and oriented ENT-normal hearing Neck-no neck masses Lungs-cta b/l no wheezing no crackles Heart-s1 and s2 heard regular rate and rhythm no murmurs Abdomen-soft bowel sounds present non tender no distension Extremities-no erythema no edema Neuro-alert and awake moves extremities Lab data as noted below. ASSESSMENT & PLAN: 1. Epigastric discomfort, troponinemia, paroxysmal supraventricular tachycardia. received adenosine in Er elevated troponin mostly demand ischemia from SVT as per cardiology Ekg after conversion to SR unremarkable echo no new findings currently asymptomatic Lopressor dose slightly increased to 25mg in am and 12.5mg in pm plan for out patient stress test soon and followup with cardiology cardiology ok for discharge. Hx of cad s/p cabg continue home meds and change in Lopressor as above. 2. hypertension stable, 3. hyperlipidemia on statin therapy. LDL 65. HDL 48. 4. ongoing tobacco abuse. Discharged home Vital Signs: Date Time Temp Pulse Resp B/P Pulse Ox O2 Delivery O2 Flow Rate FiO2 08/08/16 14:59 36.8 56 18 96 Room Air 08/08/16 12:00 Room Air 08/08/16 11:20 36.8 56 18 128/79 96 08/08/16 08:02 36.8 55 18 124/70 95 08/08/16 08:00 Nasal Cannula 08/08/16 05:10 37.1 61 18 116/76 97 Room Air 08/08/16 04:00 Room Air 08/08/16 03:52 37.1 61 18 116/76 97 Room Air 08/08/16 00:00 Room Air 08/07/16 22:50 36.5 69 18 117/79 97 Room Air 08/07/16 22:29 50 20 114/72 97 Room Air 08/07/16 20:40 75 20 132/76 96 Room Air 08/07/16 19:29 97 Room Air 08/07/16 19:28 97 Room Air 08/07/16 19:24 77 08/07/16 19:20 77 20 110/72 96 Room Air Lab Results: Results Past 24 Hours Test 08/07/16 19:40 08/07/16 20:53 08/08/16 00:24 08/08/16 06:20 Range/Units White Blood Count 12.42 13.37 4.8-10.8 K/uL Red Blood Count 4.75 4.63 4.7-6.1 M/uL Hemoglobin 14.7 14.2 14.0-18.0 g/dL Hematocrit 42.4 41.9 42-52 % Mean Corpuscular Volume 89.3 90.5 80-100 fL Mean Corpuscular Hemoglobin 30.9 30.7 25-34 pg Mean Corpuscular Hemoglobin Concent 34.7 33.9 32-36 g/dl Platelet Count 212 208 130-400 K/uL Mean Platelet Volume 11.3 11.9 7.4-10.4 fL Neutrophils (%) (Auto) 79.5 66.6 % Lymphocytes (%) (Auto) 11.0 18.8 % Monocytes (%) (Auto) 8.5 12.6 % Eosinophils (%) (Auto) 0.6 1.6 % Basophils (%) (Auto) 0.2 0.3 % Neutrophils # (Auto) 9.85 8.89 1.4-6.5 K/uL Lymphocytes # (Auto) 1.37 2.51 1.2-3.4 K/uL Monocytes # (Auto) 1.06 1.69 0.11-0.59 K/uL Eosinophils # (Auto) 0.08 0.22 0-0.5 K/uL Basophils # (Auto) 0.03 0.04 0-0.2 K/uL RDW Standard Deviation 43.6 45.4 36.4-46.3 fL RDW Coefficient of Variation 13.3 13.7 11.5-14.5 % Immature Granulocyte % (Auto) 0.2 0.1 % Immature Granulocyte # (Auto) 0.03 0.02 0.00-0.02 K/uL Prothrombin Time 11.5 9.0-12.0 SECONDS Prothromb Time International Ratio 1.1 0.9-1.1 Activated Partial Thromboplast Time 26.9 21.0-31.0 SECONDS Partial Thromboplastin Ratio 1.0 Sodium Level 142 144 136-145 mmol/L Potassium Level 3.6 3.9 3.5-5.1 mmol/L Chloride Level 107 110 98-107 mmol/L Carbon Dioxide Level 27 24 21-32 mmol/L Anion Gap 8.0 10.0 3-11 mmol/L Blood Urea Nitrogen 11 11 7-18 mg/dl Creatinine 1.10 0.86 0.60-1.40 mg/dl Est Creatinine Clear Calc Drug Dose 81.9 103.4 ml/min Estimated GFR () 80.6 104.7 Estimated GFR (Non- 69.6 90.4 BUN/Creatinine Ratio 10.4 12.8 10-20 Random Glucose 129 95 70-99 mg/dl Calcium Level 8.3 8.1 8.5-10.1 mg/dl Magnesium Level 2.1 1.8-2.4 mg/dl Total Bilirubin 0.7 0.2-1 mg/dl Direct Bilirubin 0.1 0-0.2 mg/dl Aspartate Amino Transf (AST/SGOT) 18 15-37 U/L Alanine Aminotransferase (ALT/SGPT) 25 12-78 U/L Alkaline Phosphatase 68 45-117 U/L Total Creatine Kinase 168 39-308 U/L Creatine Kinase MB 8.6 0.5-3.6 ng/ml Creatine Kinase MB Ratio 5.1 0-3.0 Troponin I 0.477 5.440 5.830 0-0.045 ng/ml Pro-B-Type Natriuretic Peptide 256 0-900 pg/ml Total Protein 6.4 6.4-8.2 gm/dl Albumin 3.5 3.4-5.0 gm/dl Lipase 163 73-393 U/L Thyroid Stimulating Hormone (TSH) 2.620 0.300-4.500 uIu/ml Free Thyroxine 0.91 0.80-1.60 ng/dl Urine Color YELLOW Urine Appearance CLEAR CLEAR Urine pH 6.0 4.5-7.5 Urine Specific [place] 1.013 1.000-1.030 Urine Protein NEG NEG Urine Glucose (UA) NEG NEG Urine Ketones NEG NEG Urine Occult Blood NEG NEG Urine Nitrite NEG NEG Urine Bilirubin NEG NEG Urine Urobilinogen NEG NEG Urine Leukocyte Esterase TRACE NEG Urine WBC (Auto) 5-10 0-5 /hpf Urine RBC (Auto) 0-4 0-4 /hpf Urine Hyaline Casts (Auto) 1-5 0-5 /lpf Urine Epithelial Cells (Auto) 20-30 0-5 /lpf Urine Bacteria (Auto) NEG NEG Triglycerides Level 85 0-150 mg/dl Cholesterol Level 130 0-200 mg/dl HDL Cholesterol 48 mg/dl LDL Cholesterol, Calculated 65 mg/dl VLDL Cholesterol, Calculated 17 mg/dl Cholesterol/HDL Ratio 2.7 Hepatitis C Antibody Screen NEG NEG Test 08/08/16 08:03 Range/Units Activated Partial Thromboplast Time 49.9 21.0-31.0 SECONDS Partial Thromboplastin Ratio 1.9
--- NOTE | 2016-08-08 17:46 | Discharge Summary ---
Discharge Summary Admission Date: Aug 08, 2016 at 01:16 Discharge Date: Aug 08, 2016 Discharge Disposition: Home Principal Diagnosis: EPIGASTRIC PAIN ELEVATED TROPONIN SVT Secondary Diagnoses/Problems: CAD status post CABG, hypertension, BPH, hyperlipidemia and ongoing tobacco abuse Procedures: CXR: 1. Cardiomegaly with mild pulmonary vascular congestion. 2. No airspace consolidation or large pleural effusion is identified. ECHO: * The left ventricle is normal in size. * There is mild hypokinesis of the posterior lateral wall with all other wall segments tasha normally. * Left ventricular systolic function is normal. * Ejection Fraction = 55-60%. * Aortic valve sclerosis moderate, without significant aortic valvular stenosis. * There is mild mitral regurgitation. Consultations: CARDIOLOGY Medication Reconciliation New Medications: Metoprolol Tartrate (Lopressor) (Lopressor) 25 Mg Tab 25 MG PO DIRECTED for 30 Days, TAB 1 Refill METOPROLOL 25MG PO DAILY IN AM AND METOPROLOL 12.5MG PO DAILY IN PM. Continued Medications: Aspirin (Aspirin Ec) 81 Mg Tab 81 MG PO DAILY Finasteride (Proscar) 5 Mg Tab 5 MG PO HS, 0 Refills Flunisolide (Nasal) (Flunisolide) 0.025 % Spr 1-2 SPRY CHEY HS PRN for Nasal Congestion, #25 ML 3 Refills Ocuvite Preservision (Ocuvite Preservision) 1 Tab Tab 1 TAB PO AMHS, TAB Rosuvastatin Calcium (Crestor) 40 Mg Tab 40 MG PO QPM, TAB Terazosin (Hytrin) 5 Mg Cap 5 MG PO HS, 0 Refills Discontinued Medications: Metoprolol Tartrate (Lopressor) (Lopressor) 25 Mg Tab 12.5 MG PO BID, TAB Admission Information HPI (per Admitting provider): Medical history is significant for CAD status post CABG, hypertension, BPH, hyperlipidemia and ongoing tobacco abuse. Patient was having dinner last night when he had epigastric discomfort, nonradiating, achy, not burning. No chest pain, no shortness of breath, no diaphoresis, different from heart attack in the past, some relief with nitroglycerin. En route to the hospital the patient was noted to be in SVT. Patient was given adenosine. Patient converted to normal sinus rhythm _ Patient compliant with home medications. Denies unusual stress at home. Physical Exam (per Admitting): VITAL SIGNS: Blood pressure was 120/60, pulse rate 77 RR 20, temperature 36.6 and sats 98 on room air. GENERAL: Slightly anxious, no respiratory distress. SKIN: Normal color. HEENT: [place] palpebral conjunctivae. Dry mucosa. NECK: No JVD. Supple. CHEST: Clear to auscultation. HEART: Regular rate and rhythm ABDOMEN: Soft. EXTREMITIES: No edema, no tenderness. NEUROLOGIC: No gross focality. Hospital Course 1. Epigastric discomfort, troponinemia, paroxysmal supraventricular tachycardia. received adenosine in Er elevated troponin mostly demand ischemia from SVT as per cardiology Ekg after conversion to SR unremarkable echo no new findings currently asymptomatic Lopressor dose slightly increased to 25mg in am and 12.5mg in pm plan for out patient stress test soon and followup with cardiology cardiology ok for discharge. Hx of cad s/p cabg continue home meds and change in Lopressor as above. 2. hypertension stable, 3. hyperlipidemia on statin therapy. LDL 65. HDL 48. 4. ongoing tobacco abuse. Discharged home Total time spent on discharge = 40MINUTES This includes examination of the patient, discharge planning, medication reconciliation, and communication with other providers. Discharge Instructions Discharge Instructions Admission Reason for Admission: Cardiac Discharge Discharge Diagnosis / Problem: EPIGASTRIC PAIN, SVT Discharge Goals Goal(s): Decrease discomfort, Improve function Activity Recommendations Activity Limitations: resume your previous activity Lifting Limitations: no more than 5 pounds (UNTIL SEEN BY CARDIOLOGY) . Instructions / Follow-Up Instructions / Follow-Up FOLLOWUP WITH FAMILY DOCTOR ON Aug AT 10:50AM FOLLOWUP WITH CARDIOLOGY SCHEDULED FOR STRESS TEST Current Hospital Diet Patient's current hospital diet: AHA Diet (Heart Healthy) Discharge Diet Recommended Diet: AHA Diet (Heart Healthy) Pending Studies Studies pending at discharge: no Laboratory Results Lipid Panel Test 08/08/16 06:20 Range/Units Triglycerides Level 85 0-150 mg/dl Cholesterol Level 130 0-200 mg/dl HDL Cholesterol 48 mg/dl Cholesterol/HDL Ratio 2.7 LDL Cholesterol, Calculated 65 mg/dl Medical Emergencies . Who to Call and When: Medical Emergencies: If at any time you feel your situation is an emergency, please call 911 immediately. . Non-Emergent Contact Non-Emergency issues call your: Primary Care Provider . . "Provider Documentation" section prepared by Nghia P Palepu. VTE Core Measure Inpt VTE Proph given/why not?: Other Anticoagulation (IV HEPARIN)
[2016-08-08] MEDS ORDERED: FINASTERIDE 5 MG TAB PO SCH (21:00)
[2016-08-08] MEDS ORDERED: ROSUVASTATIN CALCIUM 20 MG TAB PO SCH (21:00)
== END 2016-08-08 15:13 | disposition home or self-care (01) | DRG 309 ==
LOC: ENRESERVTM → ENRESERVDT → EDBD 19:14 → C.EDA 19:15 → C.2E 21:48 → EDBEDREQ 21:58 → OBSVTOIN 08-08 01:16
PROVIDERS: ADMIT Internal Medicine; ATTEND Internal Medicine
DX: I47.1 Supraventricular tachycardia (principal); I24.8 Other forms of acute ischemic heart disease; R10.13 Epigastric pain; I25.10 Atherosclerotic heart disease of native coronary artery without angina pectoris; I10 Essential (primary) hypertension; N40.0 Benign prostatic hyperplasia without lower urinary tract symptoms; E78.5 Hyperlipidemia, unspecified; F17.210 Nicotine dependence, cigarettes, uncomplicated; I25.2 Old myocardial infarction; Z95.1 Presence of aortocoronary bypass graft; Z79.82 Long term (current) use of aspirin; Z79.899 Other long term (current) drug therapy

== ENCOUNTER 2017-10-14 16:52 | Emergency (ER) | payer OTHER ==
[~2017-10-14] VITALS: Ht 182.9 cm; Wt 102.8 kg
[~2017-10-14 16:52] MED LIST changes: -ASPEC81 PO; -CRS10 PO; +FLUN0.02 NAE; -FLUNISOLIDE; +MULT-190 PO; -OMEG10007 PO; +ROSU40TA PO
[2017-10-14 17:01] VITALS: TEMP 36; Ht 182.9 cm; Wt 102.8 kg
[2017-10-14 17:08] VITALS: O2SAT 100
--- NOTE | 2017-10-14 17:15 | EMERGENCY ROOM VISIT NOTE ---
History Report prepared by Carmen: Roberto Ng Under the Supervision of: Dr. Chelle Brown D.O. First contact with patient: 16:59 Stated Complaint: SYNCOPE History of Present Illness The patient is a 67 year old male who presents to the Emergency Room via EMS with complaints of a syncopal episode that occurred prior to arrival this afternoon. He states that he was driving home from the grocery store, and when he was driving into the garage he started sweating. The patient states that he then started sweating hard when he parked the car, which was unusual for him. He notes that he has a history of a triple bypass surgery 20 years ago. The patient states that he took a Nitro when he walked into the house, and he sat down in the house still sweating but feeling fine otherwise. He notes that he has no fast pulse rate or heavy breathing. The patient says that he got up a few seconds later to urinate, and after he finished urinating, his noted that his hand slid slowly down the wall, and he slowly fell to the ground, wedged between the bath tub and the commode. The patient notes that he was out for 2 to 3 seconds. He says he felt completely fine afterward, and denies any headaches, chest pain, dizziness, abdominal pain, jaw pain, or arm pain. The patient notes that he has never had anything like this before. The patient says his blood sugar was 102 after the incident. He notes that he sees Dr. Mendoza once per year. He says that he had a cold 3 to 4 weeks ago but has gotten over it. He says that he ate a little breakfast (crackers). The patient notes that he has kept up with his fluids recently but is drinking a lot of lemonade. He denies any recent diarrhea, hematochezia, or new urinary symptoms. He says he has never blacked out before. 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 Review of Systems See HPI for pertinent positives & negatives. A total of 10 systems reviewed and were otherwise negative. Past Medical & Surgical Medical Problems: (1) ACS (acute coronary syndrome) (2) PSVT (paroxysmal supraventricular tachycardia) (3) SOB (shortness of breath) Surgical Problems: (1) H/O heart bypass surgery Family History Heart disease Hypertension Social History Smoking Status: Current Every Day Smoker Alcohol Use: none Drug Use: none Marital Status: Occupation Status: retired Current/Historical Medications Scheduled Aspirin (Aspirin Ec), 81 MG PO DAILY Atorvastatin (Lipitor), 80 MG PO HS Finasteride (Proscar), 5 MG PO HS Fluticasone Propionate (Nasal) (Flonase Allergy Relief), 2 SPRAYS CHEY HS Metoprolol Tartrate (Lopressor) (Lopressor), 50 MG PO QAM Metoprolol Tartrate (Lopressor) (Lopressor), 25 MG PO QPM Multivitamin (Multivitamin), 1 TAB PO DAILY Terazosin (Hytrin), 5 MG PO HS Scheduled PRN Cyclobenzaprine Hcl (Flexeril), 10 MG PO HS PRN for Muscle Spasm Allergies Coded Allergies: No Known Allergies (Verified , 11/15/04) Physical Exam Vital Signs Date Time Temp Pulse Resp B/P (MAP) Pulse Ox O2 Delivery O2 Flow Rate FiO2 10/14/17 22:09 62 20 135/85 98 10/14/17 21:53 58 10/14/17 20:34 81 20 129/81 96 Room Air 10/14/17 18:59 60 18 135/94 94 Room Air 10/14/17 18:35 57 121/78 98 Room Air 62 126/80 64 127/82 10/14/17 17:22 56 10/14/17 17:08 100 Room Air 10/14/17 17:01 36.0 60 16 125/78 100 Room Air Physical Exam GENERAL: alert, well appearing, well nourished, no distress, non-toxic EYE EXAM: normal conjunctiva, PERRL and EOM's grossly intact, no visual field deficits OROPHARYNX: no exudate, no erythema, lips, buccal mucosa, and tongue normal and mucous membranes are moist NECK: supple, no nuchal rigidity, no adenopathy, non-tender, no carotid bruits LUNGS: Clear to auscultation. Normal chest wall mechanics, no W/R/R HEART: no murmurs, S1 normal and S2 normal ABDOMEN: abdomen soft, non-tender, normo-active bowel sounds, no masses, no rebound or guarding. No pulsatile mass. BACK: Back is symmetrical on inspection and there is no deformity, no midline tenderness, no CVA tenderness. SKIN: no rashes and no bruising, no petechiae UPPER EXTREMITIES: upper extremities are grossly normal. Full range of motion, normal pulses bilaterally. LOWER EXTREMITIES: No pitting edema. Full range of motion, normal pulses bilaterally. NEURO EXAM: Normal sensorium, cranial nerves II-XII grossly intact, normal speech, no gross weakness of arms, no gross weakness of legs. Normal sensory exam. Steady gait, no facial droop, no ataxia. Medical Decision & Procedures ER Provider Diagnostic Interpretation: Radiology results have been interpreted by the radiologist and reviewed by me. CT SCAN OF THE BRAIN WITHOUT IV CONTRAST CLINICAL HISTORY: Syncope. COMPARISON STUDY: No priors. TECHNIQUE: Unenhanced axial CT scan of the brain is performed from the vertex to the skull base. A dose lowering technique was utilized adhering to the principles of ALARA. CT DOSE: 614.27 mGy.cm FINDINGS: Brain parenchyma: There is minimal subcortical and periventricular microangiopathic change. There is no hemorrhage, mass effect, or evidence of acute territorial ischemia by CT criteria. [place]-white matter is preserved. No extra-axial fluid collection is seen. Ventricles, sulci, cisterns: Prominent secondary to involutional change. Intracranial vasculature: There is atherosclerotic calcification of the cavernous carotid and vertebral arteries. Calvarium: There is no depressed calvarial fracture. Sinuses and mastoids: There is no mucosal thickening and a retention cyst in the right maxillary antrum. Findings suggest previous ethmoid sinus resection. The remaining visualized paranasal sinuses are clear. The mastoid air cells are well pneumatized. Orbits: The bony orbits are grossly intact. IMPRESSION: There is no hemorrhage, mass effect, or evidence of acute territorial ischemia by CT criteria. Electronically signed by: Zac Lopez M.D. 10/14/2017 6:09 PM Dictated Date/Time: 10/14/2017 6:07 PM SINGLE VIEW CHEST CLINICAL HISTORY: Syncope. FINDINGS: An AP, portable, upright chest radiograph is compared to study dated 08/07/2016. The examination is degraded by portable technique and patient rotation. The patient is status post midline sternotomy. The heart is enlarged and there is atherosclerotic calcification of the thoracic aorta. The pulmonary vasculature is noncongested. Bibasilar atelectasis is observed. No airspace consolidation or large pleural effusion is identified. No pneumothorax is seen. The skeletal structures are osteopenic. The bony thorax is grossly intact. IMPRESSION: Cardiomegaly with no acute cardiopulmonary abnormality. Electronically signed by: Zac Lopez M.D. 10/14/2017 5:47 PM Dictated Date/Time: 10/14/2017 5:46 PM Laboratory Results 10/14/17 17:50 Red Blood Count 5.11, Mean Corpuscular Volume 88.3, Mean Corpuscular Hemoglobin 31.3, Mean Corpuscular Hemoglobin Concent 35.5, Mean Platelet Volume 11.6, Neutrophils (%) (Auto) 81.0, Lymphocytes (%) (Auto) 9.2, Monocytes (%) (Auto) 8.7, Eosinophils (%) (Auto) 0.5, Basophils (%) (Auto) 0.3, Neutrophils # (Auto) 12.77, Lymphocytes # (Auto) 1.45, Monocytes # (Auto) 1.37, Eosinophils # (Auto) 0.08, Basophils # (Auto) 0.04 10/14/17 17:50 10/14/17 19:22 Test 10/14/17 17:50 10/14/17 18:20 10/14/17 19:22 10/14/17 21:17 White Blood Count 15.75 K/uL (4.8-10.8) Red Blood Count 5.11 M/uL (4.7-6.1) Hemoglobin 16.0 g/dL (14.0-18.0) Hematocrit 45.1 % (42-52) Mean Corpuscular Volume 88.3 fL (80-100) Mean Corpuscular Hemoglobin 31.3 pg (25-34) Mean Corpuscular Hemoglobin Concent 35.5 g/dl (32-36) Platelet Count 236 K/uL (130-400) Mean Platelet Volume 11.6 fL (7.4-10.4) Neutrophils (%) (Auto) 81.0 % Lymphocytes (%) (Auto) 9.2 % Monocytes (%) (Auto) 8.7 % Eosinophils (%) (Auto) 0.5 % Basophils (%) (Auto) 0.3 % Neutrophils # (Auto) 12.77 K/uL (1.4-6.5) Lymphocytes # (Auto) 1.45 K/uL (1.2-3.4) Monocytes # (Auto) 1.37 K/uL (0.11-0.59) Eosinophils # (Auto) 0.08 K/uL (0-0.5) Basophils # (Auto) 0.04 K/uL (0-0.2) RDW Standard Deviation 44.8 fL (36.4-46.3) RDW Coefficient of Variation 13.8 % (11.5-14.5) Immature Granulocyte % (Auto) 0.3 % Immature Granulocyte # (Auto) 0.04 K/uL (0.00-0.02) Prothrombin Time 10.8 SECONDS (9.0-12.0) Prothromb Time International Ratio 1.0 (0.9-1.1) D-Dimer 240 ug/L FEU (0-500) Anion Gap 10.0 mmol/L (3-11) Est Creatinine Clear Calc Drug Dose 116.9 ml/min Estimated GFR () 109.2 Estimated GFR (Non- 94.3 BUN/Creatinine Ratio 13.7 (10-20) Calcium Level 8.6 mg/dl (8.5-10.1) Total Bilirubin 0.8 mg/dl (0.2-1) Alanine Aminotransferase (ALT/SGPT) 32 U/L (12-78) Alkaline Phosphatase 72 U/L (45-117) Pro-B-Type Natriuretic Peptide 324 pg/ml (0-900) Total Protein 6.8 gm/dl (6.4-8.2) Albumin 3.7 gm/dl (3.4-5.0) Globulin 3.1 gm/dl (2.5-4.0) Albumin/Globulin Ratio 1.2 (0.9-2) Thyroid Stimulating Hormone (TSH) 1.760 uIu/ml (0.300-4.500) Urine Color YELLOW Urine Appearance CLEAR (CLEAR) Urine pH 5.0 (4.5-7.5) Urine Specific [place] 1.015 (1.000-1.030) Urine Protein NEG (NEG) Urine Glucose (UA) NEG (NEG) Urine Ketones NEG (NEG) Urine Occult Blood NEG (NEG) Urine Nitrite NEG (NEG) Urine Bilirubin NEG (NEG) Urine Urobilinogen NEG (NEG) Urine Leukocyte Esterase NEG (NEG) Magnesium Level 2.3 mg/dl (1.8-2.4) Aspartate Amino Transf (AST/SGOT) 21 U/L (15-37) Troponin I 0.029 ng/ml (0-0.045) Laboratory results per my review. ECG Per My Interpretation Indication: syncope Rate (beats per minute): 54 Rhythm: sinus bradycardia Findings: T-wave inversion (in AVL), no acute ischemic change (no other), left axis deviation, no ectopy, other (normal intervals, low voltage) ED Course 1701: The patient was evaluated in room C8. A complete history and physical exam was performed. 1853: I reevaluated the patient and discussed with family. The patient notes no recurrence of any symptoms. 2003: I discussed the patient with Dr. Taran Jones cardiology - he says that if the second troponin is negative, he can go home and follow-up in the office. Medical Decision Differential diagnosis includes etiologies such as vasovagal event, infection, hypoglycemia, electrolyte abnormalities, cardiac sources, intracerebral event, toxicologic, neurologic, as well as others were entertained. Patient with atypical event early this morning. The patient admits to poor p.o. intake in the morning, he states this is normal for him. Otherwise unclear etiology for the patient's sudden diaphoresis without any other coming symptoms. I feel the patient's syncopal event in the bathroom is more likely related to continued exertion following the ingestion of nitroglycerin. The patient had no chest pain or trouble breathing, he felt that he should try his nitroglycerin given his prior cardiac history. He did not sit down or rest during this interval, and following taking his nitroglycerin instead walked through the house to the bathroom. Patient felt himself starting to get dizzy and had prodromal symptoms prior to event. Patient did not sustain any significant trauma as both he and state that he had a "slow crumple" to the floor without striking his head on anything. I feel this is most likely orthostatic hypotension in the setting of nitroglycerin use. Patient with a normal nonfocal neuro exam on arrival here and had no symptoms on my initial as well as subsequent examinations. Patient was stable vital signs throughout. Labs and imaging here reassuring. Given patient's significant cardiac history, continued tobacco abuse, and no other apparent acute changes in routine, or obvious explanation for the sudden diaphoresis this morning. I discussed the case with cardiology. They agreed the given patient's well-appearing and negative evaluation here, if he can continued to remain stable and had a second negative troponin, the patient could be safely discharged to follow closely in their office. I discussed with the patient he may need additional cardiology evaluation as he is uncertain when the last time was that he had an echo or stress test. No dysrhythmia was noted on telemetry throughout his stay. Patient ambulatory with a steady gait, no neuro abnormalities reported by the patient otherwise and none found on physical examination. Patient tolerating p.o. here without difficulty. Patient had no other coming symptoms throughout his stay. Discussed with patient possible differential diagnosis, discussed the results with patient, discussed with him importance of close follow-up as a precaution given his history, discussed symptoms to watch and return for, he verbalized understanding was agreeable with plan. I do not suspect any occult traumatic injury secondary to his syncope. I do not suspect acute vascular etiology such as leaking AAA or dissection. Medication Reconcilliation Current Medication List: was personally reviewed by me Blood Pressure Screening Patient's blood pressure: Normal blood pressure Consults Time Called: 1999 Consulting Physician: Dr. Taran Jones cardiology Returned Call: 2003 I discussed the patient with Dr. Taran Jones cardiology - he says that if the second troponin at 3 hrs is negative, he can go home and follow-up in the office this week. Impression Primary Impression: Syncope Additional Impression: Diaphoresis Scribe Attestation The scribe's documentation has been prepared under my direction and personally reviewed by me in its entirety. I confirm that the note above accurately reflects all work, treatment, procedures, and medical decision making performed by me. Departure Information Dispostion Home / Self-Care Referrals No Doctor, Assigned (PCP) Additional Instructions Please call your research instrumentation technician office in the morning to schedule close follow-up in the office this week. Please continue your regular medications as prescribed. If you have any recurrent episodes of sweating or passing out, develop chest pain or pressure, dizziness, trouble breathing, vomiting, fevers, or you have any other new and concerning symptoms, please return the emergency room. Please consider quitting smoking. Problem Qualifiers Primary Impression: Syncope Syncope type: unspecified Qualified Codes: R55 - Syncope and collapse
[2017-10-14] MEDS ORDERED: FLUT0.15 NAE (17:26)
[2017-10-14] MEDS ORDERED: METO50TA16 PO ×2 (17:26)
[2017-10-14] MEDS ORDERED: CYCL10TA6 PO (17:26)
[2017-10-14] MEDS ORDERED: MULT-506 PO (17:26)
[2017-10-14] MEDS ORDERED: ATOR-26 PO (17:26)
--- NOTE | 2017-10-14 17:49 | DIAGNOSTIC IMAGING REPORT ---
SINGLE VIEW CHEST CLINICAL HISTORY: Syncope. FINDINGS: An AP, portable, upright chest radiograph is compared to study dated 08/07/2016. The examination is degraded by portable technique and patient rotation. The patient is status post midline sternotomy. The heart is enlarged and there is atherosclerotic calcification of the thoracic aorta. The pulmonary vasculature is noncongested. Bibasilar atelectasis is observed. No airspace consolidation or large pleural effusion is identified. No pneumothorax is seen. The skeletal structures are osteopenic. The bony thorax is grossly intact. IMPRESSION: Cardiomegaly with no acute cardiopulmonary abnormality. Electronically signed by: Zac Lopez M.D. 10/14/2017 5:47 PM Dictated Date/Time: 10/14/2017 5:46 PM
[2017-10-14 18:02] LABS: BASO % 0.3 %; BASO ABS # 0.04 K/uL (0-0.2); EOS % 0.5 %; EOS ABS # 0.08 K/uL (0-0.5); HEMATOCRIT 45.1 % (42-52); IG# 0.04 K/uL (0.00-0.02); LYMPH % 9.2 %; LYMPH ABS # 1.45 K/uL (1.2-3.4); MEAN CELL VOLUME 88.3 fL (80-100); MEAN CORPUSCULAR HEMOGLOBIN 31.3 pg (25-34); MEAN CORPUSCULAR HGB CONC 35.5 g/dl (32-36); MEAN PLATELET VOLUME 11.6 fL (7.4-10.4); MONO % 8.7 %; MONO ABS # 1.37 K/uL (0.11-0.59); NEUT ABS # 12.77 K/uL (1.4-6.5); PLATELET COUNT 236 K/uL (130-400); RED CELL DISTRIBUTION WIDTH CV 13.8 % (11.5-14.5); RED CELL DISTRIBUTION WIDTH SD 44.8 fL (36.4-46.3); WHITE BLOOD COUNT 15.75 K/uL (4.8-10.8)
--- NOTE | 2017-10-14 18:10 | DIAGNOSTIC IMAGING REPORT ---
CT SCAN OF THE BRAIN WITHOUT IV CONTRAST CLINICAL HISTORY: Syncope. COMPARISON STUDY: No priors. TECHNIQUE: Unenhanced axial CT scan of the brain is performed from the vertex to the skull base. A dose lowering technique was utilized adhering to the principles of ALARA. CT DOSE: 614.27 mGy.cm FINDINGS: Brain parenchyma: There is minimal subcortical and periventricular microangiopathic change. There is no hemorrhage, mass effect, or evidence of acute territorial ischemia by CT criteria. [place]-white matter is preserved. No extra-axial fluid collection is seen. Ventricles, sulci, cisterns: Prominent secondary to involutional change. Intracranial vasculature: There is atherosclerotic calcification of the cavernous carotid and vertebral arteries. Calvarium: There is no depressed calvarial fracture. Sinuses and mastoids: There is no mucosal thickening and a retention cyst in the right maxillary antrum. Findings suggest previous ethmoid sinus resection. The remaining visualized paranasal sinuses are clear. The mastoid air cells are well pneumatized. Orbits: The bony orbits are grossly intact. IMPRESSION: There is no hemorrhage, mass effect, or evidence of acute territorial ischemia by CT criteria. Electronically signed by: Zac Lopez M.D. 10/14/2017 6:09 PM Dictated Date/Time: 10/14/2017 6:07 PM
[2017-10-14 18:27] LABS: ALBUMIN 3.7 gm/dl (3.4-5.0); CALCIUM 8.6 mg/dl (8.5-10.1); CREATININE 0.75 mg/dl (0.60-1.40); TOTAL PROTEIN 6.8 gm/dl (6.4-8.2)
[2017-10-14] MEDS ORDERED: ASPI81TA28 PO (20:09)
[2017-10-14 20:48] LABS: POTASSIUM 3.9 mmol/L (3.5-5.1)
[2017-10-14 22:09] VITALS: BP 135/85; PULSE 62; O2SAT 98
== END 2017-10-14 22:10 | disposition home or self-care (01) ==
LOC: EDBD 16:52 → C.EDC 16:53
DX: R55 Syncope and collapse (principal); R61 Generalized hyperhidrosis; I24.9 Acute ischemic heart disease, unspecified; I47.1 Supraventricular tachycardia; Z95.1 Presence of aortocoronary bypass graft; Z82.49 Family history of ischemic heart disease and other diseases of the circulatory system; F17.210 Nicotine dependence, cigarettes, uncomplicated; Z79.82 Long term (current) use of aspirin; Z79.899 Other long term (current) drug therapy

== ENCOUNTER 2020-01-28 20:45 | Inpatient (IN) ==
--- OUTSIDE RECORDS SUMMARY | 2020-01-28 20:49 | External Medical Summary | Continuity of Care Document ---
:1950 Author Name Man Fields, Provider Address Unavailable Unavailable , Care Team Providers Name Role Phone Unavailable Unavailable Unavailable STEVIE STERLING M.D. Unavailable Unavailable Unavailable Unavailable Unavailable Problems Enlarged prostate without lower urinary tract symptoms (luts ) (600.00) (N40.0) Atherosclerotic heart disease of [place] coronary artery without angina pectoris (414.01) (I25.10) Hypertension (401.9) (I10) Hypercholesterolemia (272.0) (E78.00) Arthritis (716.90) (M19.90) Agent orange exposure (V87.2) (Z77.098) Hearing loss (389.9) (H91.90) Functional Status Hearing loss Allergies and Adverse Reactions No Known Allergies (Allergy) Medications Lutein OMAYRA M.DThor Refills: 0 Atorvastatin Calcium 80 MG Oral Tablet; TAKE 1 TABLET DAILY. Diamond Start: 18-Oct-2015 Refills: 0 Metoprolol Tartrate 50 MG Oral Tablet; TAKE 1 TABLET TWICE D Diamond [place] Start: 18-Oct-2015 Refills: 0 Terazosin HCl - 5 MG Oral Capsule; TAKE 1 CAPSULE DAILY. Noah Start: 18-Oct-2015 Refills: 0 Aspirin 81 MG TABS; TAKE 1 TABLET DAILY. Diamond Start: 18-Oct-2015 Refills: 0 Finasteride 5 MG Oral Tablet; TAKE 1 TABLET DAILY DIRECTE Diamond [place] Start: 18-Oct-2015 Refills: 0 Meloxicam 15 MG Oral Tablet; TAKE 1 TABLET DAILY NEEDED. Diamond Start: 18-Oct-2015 Refills: 0 Fluticasone Propionate 50 MCG/ACT Nasal Suspension; USE 1 TO 2 SPRAYS IN EACH NOSTRIL ONCE DAILY. Diamond Start: 18-Oct-2015 Refills: 0 Nicotine 21 MG/24HR Transdermal Patch 24 Hour; APPLY 1 PATCH DAILY DIRECTED. Diamond Start: 18-Oct-2015 Refills: 0 Procedures History of Sinus Surgery Status: Complet ed History of Knee Surgery Status: Complete d History of CABG Status: Completed Immunizations Influenza On: May-2015 Zoster (Zostavax) On: Feb-2016 Family History Father Family history of cardiac disorder (V17.49) (Z82.49) Status: Active Family history of myocardial infarction (V17.3) (Z82.49) Sta tus: Active Mother Family history of hypertension (V17.49) (Z82.49) Status: Act satish Sister Family history of diabetes mellitus (V18.0) (Z83.3) Status: Active Social History - Smoking Status Smoker Plan of Treatment Planned Observations Planned Goals not documented Results No Known Results Results not documented
[2020-01-28] MEDS ORDERED: MoRPHine SULFATE 4 MG/ML 1 ML CARP\\VIAL IV STA (20:53)
[2020-01-28] MEDS ORDERED: MoRPHine SULFATE 4 MG/ML 1 ML CARP\\VIAL ONE (20:54)
[2020-01-28] MEDS ORDERED: fentaNYL citrate 100 MCG/2 ML VIAL ONE ×3 (21:06→22:59)
--- NOTE | 2020-01-28 21:09 | Emergency Department Note ---
History of Present Illness General Chief Complaint: Heart Alert Stated Complaint: CHEST PAIN Time Seen by Provider: 01/28/20 20:48 History of Present Illness Provider Complaint: chest pain Onset (ago): day(s) 2 Duration: intermittent Pain Location: substernal Pain Radiation: RUE and LUE Severity: moderate Maximum Pain Intensity: 4 Current Pain Intensity: 4 Quality: + other (pressure) Relieved By: not by nitroglycerin Exacerbated By: + nothing Associated symptoms: + dyspnea Home Medications Home Medications Medication Instructions Recorded Confirmed Type Ophthantiox 1 dose UD 03/05/18 03/05/18 History aspirin [Aspir-81] 1 tab PO QAM 03/05/18 03/05/18 History atorvastatin 80 mg PO PM 03/05/18 03/05/18 History cyclobenzaprine 10 mg PO PM PRN 03/05/18 03/05/18 History finasteride 1 tab PO PM 03/05/18 03/05/18 History fluticasone propionate [Flonase 2 spray INTRANASAL DAILY 03/05/18 03/05/18 History Allergy Relief] metoprolol tartrate 25 mg PO BID 03/05/18 03/05/18 History terazosin 5 mg PO HS 03/05/18 03/05/18 History Allergies Allergy/AdvReac Type Severity Reaction Status Date / Time No Known Allergies Allergy Unknown Verified 03/20/18 10:23 Past Med/Surg History Medical History BPH (benign prostatic hyperplasia) Deep vein thrombosis H/O agent [place] exposure Hearing deficit Hyperlipidemia Hypertension Myocardial Infarction 21 YEARS AGO Osteoarthritis PSVT (paroxysmal supraventricular tachycardia) Typical AVNRT s/p slow pathway modification 01/21/[address] Humphreys. 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 Beliefs That Will Affect Care: None Current Living Situation: Spouse Other Information That Helps Us Care for You: No Feels Safe at Home: Yes Safety Concerns: Feels Safe At This Time Review of Systems A total of 10 systems reviewed and were otherwise negative Physical Exam Vital Signs Vital Signs - 24 hr 01/28/20 20:53 01/28/20 21:12 Temperature 36.9 C Temperature Source Oral Pulse Rate 74 Respiratory Rate 20 Blood Pressure 117/74 Blood Pressure Mean 88 Pulse Oximetry 96 Oxygen Delivery Method Room Air Room Air Sepsis Recent Fever Within 48 Hours No Sepsis New/Unexplained Change in Mental Status No Sepsis Action Taken by Nursing No Action Required Physical Exam GENERAL: He is oriented to person, place, and time. He appears well-developed and well-nourished. He does not appear distressed. HENT: Exam performed. - Head: Normocephalic and atraumatic. - Right Ear: External ear normal. No mastoid tenderness. - Left Ear: External ear normal. No mastoid tenderness. - Mouth/Throat: The oropharynx is clear and moist. No trismus in the jaw. No dental abscesses or uvula swelling. No oropharyngeal exudate or tonsillar abscesses. EYES: Conjunctivae and EOM are normal. Pupils are equal, round, and reactive to light. Right eye exhibits no discharge. Left eye exhibits no discharge. No scleral icterus. NECK: Normal range of motion. Neck supple. No JVD present. No spinous process tenderness present. No carotid bruit present. No rigidity. No tracheal deviation and normal range of motion present. No Brudzinski's sign and no Kernig's sign noted. CV: Normal rate, regular rhythm, normal heart sounds and intact distal pulses. There is no peripheral edema. Palpable radial pulses bue. PULM/CHEST: Effort normal and breath sounds normal. No respiratory distress. No stridor. He has no wheezes. He has no rales. - Chest Wall: He exhibits no tenderness. ABD: The abdomen is soft. Bowel sounds are normal. He has no distension. No mass is present. There is no tenderness. There is no rebound, no guarding, no Min's sign and no tenderness at McBurney's point. Rovsig negative. MUSC/SKEL: Normal range of motion. There is no peripheral edema, tenderness or deformity. LYMPH: No cervical adenopathy. NEURO: He is alert and oriented to person, place, and time. He has normal strength. No cranial nerve deficit or sensory deficit. Coordination and gait normal. GCS eye subscore is 4. GCS verbal subscore is 5. GCS motor subscore is 6. Cerebellar tests wnl. SKIN: Skin is warm and dry. He is not diaphoretic. PSYCH: He has a normal mood and affect. Behavior is normal. Judgment and thought content normal. Course Course 2042: EMS called as the patient is having increasing chest pain. They transmitted to EKGs. First EKG done at 2007 shows sinus rhythm with a rate of 62. MS QRS and QTc intervals are within normal limits. There is no ST elevation or ST depression. PVCs are present. Second EKG which is labeled as EKG #4 done at 2030 showed sinus rhythm with rate of 65. MS QRS and QTc intervals are within normal limits. There is mild ST elevation in leads II, III and aVF with some mild ST depression in leads V2 and V3. I told EMS we would evaluate the patient and repeat EKGs when the patient is in the ER to see if there is truly a STEMI. 2042: The patient was evaluated in room B7. A complete history and physical exam was performed. 2048: Heart alert called 2114: Dr. Parkinson at bedside. 2119: Patient will be taken to Time Study Engineer by Dr. Parkinson. Administered Medications Sodium Chloride (Nss 1000ml) 1,000 mls @ 100 mls/hr IV .Q10H [facility] Stop: 01/29/20 06:44 Last Admin: 01/29/20 00:10 Dose: 100 mls/hr Documented by: [id number] Eptifibatide (Integrilin) 75 mg in 100 mls @ 16.32 mls/hr IV .Q6H8M [facility]; Protocol Stop: 01/29/20 03:00 Last Admin: 01/28/20 23:15 Dose: 2 mcg/kg/min, 16.3 mls/hr Documented by: [id number] Cosigned by: [id number] Discontinued Medications Atropine Sulfate (Atropine Sulfate) Confirm Administered Dose 1 mg IV .STFilmaster-MED ONE Stop: 01/28/20 23:03 Last Admin: 01/28/20 23:04 Dose: 0.5 mg Documented by: [id number] Eptifibatide (Integrilin (Time Study Engineer Use Only)) Confirm Administered Dose 40 mg IV .STK-MED ONE Stop: 01/28/20 21:55 Last Admin: 01/28/20 23:03 Dose: 18 ml Documented by: [id number] Fentanyl Citrate (Fentanyl Citrate) Confirm Administered Dose 100 mcg .ROUTE .STK-MED ONE Stop: 01/28/20 21:07 Last Increment: 01/28/20 21:09 Dose: 50 mcg Documented by: [id number] Fentanyl Citrate (Fentanyl Citrate) Confirm Administered Dose 100 mcg .ROUTE .STK-MED ONE Stop: 01/28/20 21:13 Last Admin: 01/28/20 22:57 Dose: 100 mcg Documented by: [id number] Fentanyl Citrate (Fentanyl Citrate) Confirm Administered Dose 100 mcg .ROUTE .STK-MED ONE Stop: 01/28/20 23:00 Last Admin: 01/28/20 23:04 Dose: 25 mcg Documented by: [id number] Heparin Sodium (Porcine) (Heparin Iv Bolus (Time Study Engineer Use Only)) Confirm Adminis tered Dose 10,000 units .ROUTE .STK-MED ONE Stop: 01/28/20 21:13 Last Admin: 01/28/20 22:57 Dose: 10,000 units Documented by: [id number] Heparin Sodium (Porcine) (Heparin Iv Bolus (Time Study Engineer Use Only)) Confirm Administered Dose 10,000 units .ROUTE .STK-MED ONE Stop: 01/28/20 22:40 Last Admin: 01/28/20 22:58 Dose: 3,000 units Documented by: [id number] Heparin Sodium/Sodium Chloride (Heparin/Nss 1000 Unit/500ml Flush Bag) Confirm Administered Dose 3,000 units IV .STK-MED ONE Stop: 01/28/20 21:13 Last Admin: 01/28/20 22:58 Dose: 3,000 units Documented by: [id number] Midazolam HCl (Versed) Confirm Administered Dose 2 mg .ROUTE .STK-MED ONE Stop: 01/28/20 21:13 Last Admin: 01/28/20 22:58 Dose: 2 mg Documented by: [id number] Morphine Sulfate (Morphine Sulfate) 4 mg IV NOW STA Stop: 01/28/20 20:54 Last Admin: 01/28/20 20:55 Dose: 2 mg Documented by: [id number] Morphine Sulfate (Morphine Sulfate) Confirm Administered Dose 4 mg .ROUTE .STK- MED ONE Stop: 01/28/20 20:55 Last Admin: 01/28/20 21:44 Dose: Not Given Documented by: [id number] Nicardipine HCl (Cardene) Confirm Administered Dose 25 mg .ROUTE .STK-MED ONE Stop: 01/28/20 21:13 Last Admin: 01/28/20 22:57 Dose: 25 mg Documented by: [id number] Nitroglycerin/Dextrose (Nitroglycerin/D5w 100 Mcg/Ml 20ml Syringe) Confirm Administered Dose 2,000 mcg .ROUTE .STK-MED ONE Stop: 01/28/20 21:14 Last Admin: 01/28/20 22:58 Dose: 2,000 mcg Documented by: [id number] Norepinephrine Bitartrate (Levophed (Time Study Engineer Use Only)) Confirm Administered Dose 4 mg .ROUTE .STK-MED ONE Stop: 01/28/20 22:03 Last Admin: 01/28/20 22:58 Dose: Not Given Documented by: [id number] Norepinephrine Bitartrate (Levophed (Time Study Engineer Use Only)) Confirm Administered Dose 4 mg .ROUTE .STK-MED ONE Stop: 01/28/20 22:03 Last Admin: 01/28/20 22:58 Dose: Not Given Documented by: [id number] Ticagrelor (Brilinta) Confirm Administered Dose 180 mg PO .STK-MED ONE Stop: 01/28/20 23:15 Last Admin: 01/28/20 23:25 Dose: 180 mg Documented by: [id number] Medical Decision Making Laboratory Data Result diagrams: 01/28/20 20:15 01/28/20 20:15 Labs: Lab Results 01/28/20 01/28/20 01/28/20 Range/Units 20:15 20:15 20:15 WBC 18.01 H (4.8-10.8) K/uL RBC 5.11 (4.7-6.1) M/uL Hgb 15.9 (14.0-18.0) g/dL Hct 46.0 (42-52) % MCV 90.0 (80-100) fL MCH 31.1 (25-34) pg MCHC 34.6 (32-36) g/dL RDW Std Deviation 46.5 H (36.4-46.3) fL RDW Coeff of Caesar 14.0 (11.5-14.5) % Plt Count 326 (130-400) K/uL MPV 11.3 H (7.4-10.4) fL Immature Gran % (Auto) 0.2 % Neut % (Auto) 80.8 % Lymph % (Auto) 6.7 % [place] % (Auto) 11.8 % Eos % (Auto) 0.3 % Baso % (Auto) 0.2 % Neut # (Auto) 14.55 H (1.4-6.5) K/uL Lymph # (Auto) 1.20 (1.2-3.4) K/uL [place] # (Auto) 2.12 H (0.11-0.59) K/uL Eos # (Auto) 0.06 (0-0.5) K/uL Baso # (Auto) 0.04 (0-0.2) K/uL Immature Gran # (Auto) 0.04 H (0.00-0.02) K/uL PT 11.4 (9.0-12.0) Seconds INR 1.1 (0.9-1.1) APTT 26.5 (21.0-31.0) Seconds PTT Ratio 0.9 Activ Coag Time Kaolin (94-140) SECONDS Sodium 140 (136-145) mmol/L Potassium 3.8 (3.5-5.1) mmol/L Chloride 109 H (98-107) mmol/L Carbon Dioxide 26 (21-32) mmol/L Anion Gap 5.0 (3-11) BUN 16 (7-18) mg/dl Creatinine 1.10 (0.6-1.4) mg/dl Est Cr Clr Drug Dosing 78.4 ml/min Est GFR ( Amer) 78.4 Est GFR (Non-Af Amer) 67.7 BUN/Creatinine Ratio 14.9 (10-20) Glucose 107 H (70-99) mg/dl Calcium 8.6 (8.5-10.1) mg/dl Magnesium 2.3 (1.8-2.4) mg/dl Total Bilirubin 0.9 (0.2-1) mg/dl AST 16 (15-37) U/L ALT 25 (12-78) U/L Alkaline Phosphatase 73 (45-117) U/L Total Creatine Kinase 106 (39-308) U/L CK-MB (CK-2) 3.1 (0.5-3.6) ng/ml CK/CKMB % Calc 2.9 (0-3.0) Troponin I 0.132 H* (0-0.045) ng/ml Total Protein 6.8 (6.4-8.2) gm/dl Albumin 3.6 (3.4-5.0) gm/dl Globulin 3.2 (2.5-4.0) gm/dl Albumin/Globulin Ratio 1.1 (0.9-2) Lipase 102 (73-393) U/L TSH 2.670 (0.300-4.500) uIu/ml 01/28/20 01/28/20 Range/Units 22:04 22:31 WBC (4.8-10.8) K/uL RBC (4.7-6.1) M/uL Hgb (14.0-18.0) g/dL Hct (42-52) % MCV (80-100) fL MCH (25-34) pg MCHC (32-36) g/dL RDW Std Deviation (36.4-46.3) fL RDW Coeff of Caesar (11.5-14.5) % Plt Count (130-400) K/uL MPV (7.4-10.4) fL Immature Gran % (Auto) % Neut % (Auto) % Lymph % (Auto) % [place] % (Auto) % Eos % (Auto) % Baso % (Auto) % Neut # (Auto) (1.4-6.5) K/uL Lymph # (Auto) (1.2-3.4) K/uL [place] # (Auto) (0.11-0.59) K/uL Eos # (Auto) (0-0.5) K/uL Baso # (Auto) (0-0.2) K/uL Immature Gran # (Auto) (0.00-0.02) K/uL PT (9.0-12.0) Seconds INR (0.9-1.1) APTT (21.0-31.0) Seconds PTT Ratio Activ Coag Time Kaolin 219 H 235 H (94-140) SECONDS Sodium (136-145) mmol/L Potassium (3.5-5.1) mmol/L Chloride (98-107) mmol/L Carbon Dioxide (21-32) mmol/L Anion Gap (3-11) BUN (7-18) mg/dl Creatinine (0.6-1.4) mg/dl Est Cr Clr Drug Dosing ml/min Est GFR ( Amer) Est GFR (Non-Af Amer) BUN/Creatinine Ratio (10-20) Glucose (70-99) mg/dl Calcium (8.5-10.1) mg/dl Magnesium (1.8-2.4) mg/dl Total Bilirubin (0.2-1) mg/dl AST (15-37) U/L ALT (12-78) U/L Alkaline Phosphatase (45-117) U/L Total Creatine Kinase (39-308) U/L CK-MB (CK-2) (0.5-3.6) ng/ml CK/CKMB % Calc (0-3.0) Troponin I (0-0.045) ng/ml Total Protein (6.4-8.2) gm/dl Albumin (3.4-5.0) gm/dl Globulin (2.5-4.0) gm/dl Albumin/Globulin Ratio (0.9-2) Lipase (73-393) U/L TSH (0.300-4.500) uIu/ml Imaging Data Chest x-ray: My impression: Chest x-ray negative. Airway clear. No pneumothorax. No consolidation. No cardiomegaly or cephalization.. No free air under the diaphragm. No fractures of the skeletal structures. ECG Data Additional Comments: EKG #1 at 9: Sinus rhythm with rate of 63. MS QRS and QTc intervals within normal limits. Mild ST elevation in leads II, III and aVF. There is ST depression in leads V2, V3 and V4. T wave inversion in lead aVL. The ST elevation, ST depression and T wave inversion are new when compared with the EKG from January 2018. EKG #2 at 2051 was a posterior EKG: Sinus rhythm with rate of 75. MS QRS and Q Tc intervals within normal limits. There is no ST elevation in leads V1 through V4 however there is ST elevation in leads II, III and aVF. [facility] Narrative 2042: EMS called as the patient is having increasing chest pain. They transmitted to EKGs. First EKG done at 2007 shows sinus rhythm with a rate of 62. MS QRS and QTc intervals are within normal limits. There is no ST elevation or ST depression. PVCs are present. Second EKG which is labeled as EKG #4 done at 2030 showed sinus rhythm with rate of 65. MS QRS and QTc intervals are within normal limits. There is mild ST elevation in leads II, III and aVF with some mild ST depression in leads V2 and V3. I told EMS we would evaluate the patient and repeat EKGs when the patient is in the ER to see if there is truly a STEMI. 2042: The patient was evaluated in room B7. A complete history and physical exam was performed. 2048: Heart alert called 2114: Dr. Parkinson at bedside. 2119: Patient will be taken to Time Study Engineer by Dr. Parkinson. Impression & Plan ST elevation (STEMI) myocardial infarction Critical Care Time Critical Care Time: Yes Total Critical Care Time: 37 I have personally spent greater than 37 minutes of critical care time in the direct management of this patient. This includes bedside care, interpretation of diagnostic studies, and testing, discussion with consultants, patient, and family members, and other required patient management activities. This 37 minutes is in excess of all separately billable procedures. Discharge Plan Visit Data *Final* Discharge Date/Time: 01/28/20 21:28 Chief Complaint: Heart Alert Stated Complaint: CHEST PAIN ED Provider: Jaime Garsia Discharge Problem: ST elevation (STEMI) myocardial infarction Patient Disposition: Admitted As Inpatient Discharge Problem: ST elevation (STEMI) myocardial infarction Qualifiers: Involved coronary artery: unspecified coronary artery Qualified Code(s): I21.3 - ST elevation (STEMI) myocardial infarction of unspecified site
[2020-01-28 21:12] LABS: INR 1.1 (0.9-1.1); Partial Thromboplastin Ratio 0.9; Partial Thromboplastin Time 26.5 Seconds (21.0-31.0); Prothrombin Time 11.4 Seconds (9.0-12.0)
[2020-01-28] MEDS ORDERED: HEPARIN (PORCINE) 1000 UNIT/ML 10 ML (CATH LAB USE ONLY) ONE ×2 (21:12→22:39)
[2020-01-28] MEDS ORDERED: NiCARDipine HCL INJ 2.5 MG/ML 10 ML AMP ONE (21:12)
[2020-01-28] MEDS ORDERED: MIDAZOLAM HCL 1 MG/ML 2ML VIAL ONE (21:12)
[2020-01-28] MEDS ORDERED: NITROGLYCERIN/D5W 100MCG/ML 20ML SYR ONE (21:13)
[2020-01-28 21:19] LABS: Basophils # (auto) 0.04 K/uL (0-0.2); Basophils % (auto) 0.2 %; Eosinophils # (auto) 0.06 K/uL (0-0.5); Eosinophils % (auto) 0.3 %; Hemoglobin 15.9 g/dL (14.0-18.0); Immature Granulocytes # (auto) 0.04 K/uL (0.00-0.02); Immature Granulocytes % (auto) 0.2 %; Lymphocytes % (auto) 6.7 %; Mean Corpuscular Hemoglobin 31.1 pg (25-34); Mean Corpuscular Hgb Conc 34.6 g/dL (32-36); Mean Platelet Volume 11.3 fL (7.4-10.4); Monocytes # (auto) 2.12 K/uL (0.11-0.59); Monocytes % (auto) 11.8 %; Neutrophils # (auto) 14.55 K/uL (1.4-6.5); Neutrophils % (auto) 80.8 %; Platelet Count 326 K/uL (130-400); RDW Standard Deviation 46.5 fL (36.4-46.3); Red Blood Count 5.11 M/uL (4.7-6.1); White Blood Count 18.01 K/uL (4.8-10.8)
[2020-01-28 21:29] LABS: Albumin Level 3.6 gm/dl (3.4-5.0); BUN Creatinine Ratio 14.9 (10-20); Calcium 8.6 mg/dl (8.5-10.1); Creatinine Clr Calc Pharmacy 78.4 ml/min; Est GFR (African American) 78.4; Est GFR (Non-African American) 67.7; Magnesium 2.3 mg/dl (1.8-2.4); Potassium 3.8 mmol/L (3.5-5.1)
--- NOTE | 2020-01-28 21:31 | Pre Anesthesia Assessment ---
Date of Service January 28, 2020 Pre Sedation Assessment Vital Signs Temp Pulse Resp BP Pulse Ox 01/28/20 21:12 98.4 F 74 20 117/74 96 Cardiovascular RRR, no murmur, no edema Respiratory normal respiratory effort, lungs clear to auscultation Pre-Sedation Airway Assessment Smoking Status: Current every day smoker Hx Sleep Apnea: No Hx Difficult Intubation: No Short, Thick Neck: No Thyromental Distance: > or= 3.5 Finger Breadths Oral Cavity: + WNL Mallampati Class: III ASA: ASA3 Procedure Planning Contraindications for Sedation: none Current Medications Reviewed: Yes Notes The planned sedation has been discussed with the patient. Informed Consent was obtained. I have identified the patient, determined the appropriateness of sedation and have assessed the patient immediately prior to the procedure. All medicine(s) and interventions are by my order.
--- NOTE | 2020-01-28 21:34 | Cardiology Consultation ---
Date of Consultation January 28, 2020 Assessment & Plan (1) Acute MN: Presentation consistent with inferoposterior STEMI and recommend proceeding with emergent cardiac catheterization and likely primary PCI. No apparent contraindications to procedure. Discussed risks, benefits, alternatives of procedure with patient and they are willing to proceed. Further recommendations pending findings of coronary angiography. History of Present Illness Attending Physician: Paresh Parkinson MD History of Present Illness 69-year-old man here with acute chest pain and ECG concerning for acute MN. Patient seen emergently in the ED after heart alert activated upon arrival. Past cardiac history remarkable for coronary artery disease post three-vessel CABG (KENNEDY to LAD, vein graft to circumflex, vein graft to RCA). Patient with prior MN in 2013 at which time had severely diseased vein graft to circumflex which was managed medically. Also has a history of SVT post ablation. Other medical issues include hypertension, BPH. Chest pain began approximately an hour prior to arrival [place]. Describes substernal chest pressure reminiscent of prior pain with MIs. Given aspirin, sublingual nitroglycerin and morphine upon arrival. Chest pain at time of arrival 09/14. Hemodynamically stable. EKG showed subtle inferior, posterior ST elevations, Allergies Allergy/AdvReac Type Severity Reaction Status Date / Time No Known Allergies Allergy Unknown Verified 03/20/18 10:23 Home Medications Home Medications Medication Instructions Recorded Confirmed Type Ophthantiox 1 dose UD 03/05/18 03/05/18 History aspirin [Aspir-81] 1 tab PO QAM 03/05/18 03/05/18 History atorvastatin 80 mg PO PM 03/05/18 03/05/18 History cyclobenzaprine 10 mg PO PM PRN 03/05/18 03/05/18 History finasteride 1 tab PO PM 03/05/18 03/05/18 History fluticasone propionate [Flonase 2 spray INTRANASAL DAILY 03/05/18 03/05/18 History Allergy Relief] metoprolol tartrate 25 mg PO BID 03/05/18 03/05/18 History terazosin 5 mg PO HS 03/05/18 03/05/18 History Patient History Medical History BPH (benign prostatic hyperplasia) Deep vein thrombosis H/O agent [place] exposure Hearing deficit Hyperlipidemia Hypertension Myocardial Infarction 21 YEARS AGO Osteoarthritis PSVT (paroxysmal supraventricular tachycardia) Typical AVNRT s/p slow pathway modification 01/21/[address] Humphreys. Surgical History H/O sinus surgery History of arthroscopy LEFT KNEE History of cardiac cath X3 - MOST RECENT 2-3 YEARS AGO - NO STENTS/ANGIOPLASTY History of cardiac radiofrequency ablation 3-4 WEEKS AGO AT [facility] R/T PSVT History of coronary artery bypass graft 21 YEARS AGO Social History Smoking Status: Current every day smoker Cigarettes Per Day: 10-15 CIG PER DAY; Hx Alcohol Use: Yes Alcohol type: wine and hard liquor Hx Substance Use: No Preferred Language: Lao Communication Ability: Effective Water Resource Engineering Specialist Required: No Beliefs That Will Affect Care: None Current Living Situation: Spouse Feels Safe at Home: Yes Review of Systems Review of Systems: Not obtained in the setting of emergent situation Physical Exam Physical Exam: General: Comfortable, no acute distress HEENT: Sclerae anicteric, mucous membranes moist Lungs: Clear to auscultation bilaterally, no rhonchi or wheezes Cardiac: Regular rate and rhythm, no murmurs. No JVD. Abdomen: Soft, nontender, nondistended, positive bowel sounds. Extremities: Warm, well perfused, no edema. 2+ radial pulses Skin: No rashes or lesions. Neuro: Nonfocal Psych: Alert orient x3, normal affect and mood Results & Data ([facility]) Vital Signs (Past 12 Hours) Vital Signs Temp Pulse Resp BP Pulse Ox 01/28/20 21:12 98.4 F 74 20 117/74 96 PG Care Time/CCT Total # of Minutes Spent Total Time Spent with Patient: Total time spent is greater than 50% in coordination of care (as documented) at patient's floor/unit and/or counseling patient: Coding Level of Care Code 25722 Initial Inpt Care Lvl 3 Diagnoses Acute MN I21.9
[2020-01-28 21:54] LABS: Albumin Globulin Ratio 1.1 (0.9-2); Bilirubin,Total 0.9 mg/dl (0.2-1); Creatine Kinase MB 3.1 ng/ml (0.5-3.6); Globulin 3.2 gm/dl (2.5-4.0); Thyroid Stimulating Hormone 2.67 uIu/ml (0.300-4.500); Total Protein 6.8 gm/dl (6.4-8.2); Troponin I 0.132 ng/ml (0-0.045)
[2020-01-28] MEDS ORDERED: EPTIFIBATIDE 2 MG/ML 10 ML VIAL (CATH LAB USE ONLY) IV ONE (21:54)
[2020-01-28] MEDS ORDERED: NOREPINEPHRINE BITARTRATE 1 MG/ML 4 ML VIAL (CATH LAB USE ONLY) ONE ×2 (22:02)
[2020-01-28] MEDS ORDERED: ATROPINE SULFATE 0.1 MG/ML 10ML SYR IV ONE (23:02)
[2020-01-28] MEDS ORDERED: TICAGRELOR 90 MG TAB PO ONE (23:14)
[2020-01-28] MEDS ORDERED: ACETAMINOPHEN 325 MG TAB PO PRN (23:15)
[2020-01-28] MEDS ORDERED: EPTIFIBATIDE 75 MG/100 ML VIAL IV SCH (23:15)
[2020-01-28] MEDS ORDERED: STAT IV Infusion **Titration per Protocol STA (23:15)
[2020-01-28] MEDS ORDERED: EPTIFIBATIDE BOLUS/DRIP IV STA (23:15)
[2020-01-28] MEDS ORDERED: NITROGLYCERIN SL 0.4 MG/TAB TAB SL PRN (23:15)
[2020-01-28] MEDS ORDERED: SODIUM CHLORIDE 0.9% 1000ML 1,000 ML IV SCH (23:15)
[2020-01-28] MEDS ORDERED: ICU PROTOCOL FOR HYPERGLYCEMIA PRN (23:20)
--- NOTE | 2020-01-28 23:33 | Cardiac Catheterization ---
ACC Data: Allocation Analyst Cardiac Status Clinical evaluation leading to the procedure CAD Presenation: STEMI Anginal Classification: CCS IV Heart Failure: No Cardiogenic Shock within 24 Hours: No Cardiac Arrest within 24 Hours: No Imaging Studies Past 6 Months: No Stress Studies Past 6 Months: No Diagnostic Physicians Name: Paresh Parkinson MD Status: Emergency Closure Device Percutaneous Entry Location: Femoral Closure Device: StarClose Recommendations: PCI without planned CABG PCI Indication: Immediate PCI for STEMI First Noted: First EKG Lesion Segment Name: Mid vein graft to RCA Culprit Artery: Yes Stenosis Prior to Rx (%): 100 Chronic Total Occlusion: No IVUS: No Pre-Procedure ANI Flow: 0 Previously Treated Lesion: No Lesion Complexity: High/C Lesion Length (mm): 28 Thrombus Present: Yes Bifurcation Lesion: No Guidewire Across Lesion: Stenosis Post-Procedure (%): 0 Post-Procedure ANI Flow: 3 Devices(s) Deployed: Yes Yes Lesion #2 Segment Name: Proximal right PDA Culprit Artery: No Stenosis Prior to Rx (%): 90 Chronic Total Occlusion: No IVUS: No FFR: No Pre-Procedure ANI Flow: 0 Previously Treated Lesion: No Lesion Complexity: Non-High/Non-C Lesion Length (mm): 8 Thrombus Present: No Bifurcation Lesion: No Guidewire Across Lesion: Yes Stenosis Post-Procedure (%): 0 Post-Procedure ANI Flow: 3 Devices(s) Deployed: Yes Intraprocedure Events Significant Disection: No Perforation: No Cardiac Cath Procedure Full Procedure Date January 28, 2020 Pre-Procedure Diagnosis Pre-Procedure Diagnosis: STEMI AUC Score AUC Score: 9 Post-Procedure Diagnosis Post-Procedure Diagnosis: Severe CAD, Successful PCI and Elevated Intracardiac Pressures Procedure(s) Performed Procedure(s) Performed: Coronary Angiography, Left Heart Cath, Drug Eluting Stent, Bypass Graft Angiography and Femoral Artery Angiography Casing Soaker Paresh Parkinson MD Horse Doctor(s) Jc Estimated Blood Loss Estimated Blood Loss: 15 Medication(s) Medication(s): Fentanyl, Heparin, Integrilin, Lidocaine 1%, Nicardipine, Nitroglycerin and Versed Medication(s): Ticagrelor Summary of Findings Indication: STEMI/Heart Alert Access: 6 Fr right common femoral artery Catheters: JR4, AUTUMN, MPA, MPA guide, pigtail, JL4 Findings: LM -medium caliber, luminal regularities LAD -medium caliber vessel, proximal luminal irregularities. 100% chronic total occlusion just after takeoff of large first septal. Gives off a small first diagonal. Circumflex -medium caliber vessel. Small OM 2 with mild diffuse disease. Bifurcating medium caliber OM 3 (prior target of vein graft) fills via left to left collaterals RCA -dominant, medium caliber, 80 to 90% mid segment disease prior to 100% chronic total occlusion just after takeoff of acute marginal KENNEDY to LAD widely patent. Medium caliber LAD after anastomosis with luminal irregularities and wraps around apex. Retrofilled into medium caliber diagonal. Provides left to left collaterals to OM. Vein graft to [id number]% acute mid occlusion. Post reestablish flow had 40% stenosis at the anastomosis and 90% hazy appearing stenosis in proximal aspect of PDA. Vein graft to OM 3occluded at ostium LVEDP -24 -- PCI -- Antithrombotic therapy: Heparin, Integrilin, ticagrelor Procedure: Vein graft to RCA cannulated with MPA guide BMW wire passed across lesion into distal vessel Aspiration thrombectomy performed with export catheter to vein graft Mid vein graft to RCA lesion predilated with 2.5 compliant balloon Dilated vein graft lesion stented with 4.0 x 34 mm [place] drug-eluting stent Stent post-dilated with 4.5 noncompliant balloon After post dilation had no reflow post stent Repeat aspiration thrombectomy performed IC Integrilin, vasodilators administered distally via export catheter Post vasodilators had reestablished flow. Was noted to have a significant hazy stenosis in his proximal PDA PDA wired with dispatcher ship pilot 50 wire and dilated with 2.5 balloon Proximal PDA stented with 3.0 x 12 mm [place] drug-eluting stent Post procedure ANI 3 flow, stents well expanded with minimal residual stenosis and no apparent cardiac complications. Arterial Closure: Multiple attempts to place Angio-Seal but unable to deliver Angio-Seal catheter through dense scar tissue. Eventually placed Star close. Summary: 1. Inferior STEMI/acute 100% mid vein graft to RCA occlusion -90% downstream hazy stenosis in proximal right PDA 2. Severe chronic multivessel disease -100% chronic total occlusion of mid LAD after large septal 100% ostial occlusion of OM 3 100% mid RCA occlusion after acute marginal 3. Patent KENNEDY to LAD 4. Occluded vein graft to OM 3. OM 3 fills via left to left collaterals. 5. Elevated intracardiac filling pressure 6. Successful PCI of mid vein graft to RCA with 4.0 x 34 mm [place] drug-eluting stent (postdilated with 4.5 NC). 7. Successful PCI of proximal right PDA with 3.0 x 12 mm [place] drug-eluting stent. Recommendations: Admit to ICU for continued monitoring Continue Integrilin for 4 hours in the setting of initial no reflow post stenting and likely distal emboli Loaded with ticagrelor 180 mg in Allocation Analyst Continue dual-antiplatelet therapy for at least 1 year, likely extended. Trend troponins until peak, Check Echo Continue beta-shalom, start VARUN High-dose statin Consult cardiac Rehab Hemodynamics Rest Ao:: 106/61/125 Final Ao: 122/68/91 LV: 124/24 Recommendations Recommendations: PCI without planned CABG Specimens Specimens: None Radiation Exposure (mGy) 3180 Contrast (mls) 190 Fluids (cc crystalloids) Fluids (cc crystalloids): 550 Drains Drains: None Anesthesia Moderate Procedural Complication(s) None Disposition ICU I attest to the content of the Intraoperative Record and any orders documented therein. Any exceptions are noted below. [facility] Card Cath Procedure Codes Cardiac Catheterization Procedure 1: Cardiovascular Cath Procedures: 25292 Coronaries & LHC (+/-LV) & Grafts/IM (arterial & venous) Moderate Sedation Procedure 1: Sedation/Anesthesia: 25670 Mod Sedation by the same physician;Init15 Min Child Age 5 & Up Procedure 2: Sedation/Anesthesia: 91166 Mod Sedation by the same physician; Ea [id number] Minutes Stenting Procedure 1: Cardiovascular Stent Procedures: 47196 Perc transluminal revascularization of acute sub/total occl, aMI PG Care Time/CCT Total # of Minutes Spent Total Time Spent with Patient: Total time spent is greater than 50% in coordination of care (as documented) at patient's floor/unit and/or counseling patient:
[2020-01-28] MEDS ORDERED: MoRPHine SULFATE 2 MG/ML CARP IV PRN (23:41)
--- NOTE | 2020-01-29 00:29 | Critical Care Consultation ---
Date of Consultation January 29, 2020 Assessment & Plan (1) Admitted to intensive care unit: Reason Critically Ill: 69-year-old male with acute inferior STEMI status post PTCA with ALEXX x2 requiring close hemodynamic monitoring status post coronary intervention. NEURO - * CAM ICU: NEGATIVE CARDIAC/VASCULAR - * Acute STEMI s/p PTCA w/ ALEXX x1 (PDA x1, RCA Graft x1) * Nearly chest pain-free status post intervention. * Continue Integrilin drip. * Plan to transition to Brilinta per interventionalist. * Continue ASCVD Rx per typical. * Trend troponin. * Monitor on telemetry. RESPIRATORY - * No history of pulmonary disease. * Saturating well on room air. GI/NUTRITION - * Heart healthy diet RENAL/LYTES - * No significant electrolyte derangements. - * No concerns at this time. ENDO - * No h/o DM or Thyroid Dz * BSGs per unit protocol. ISS --> gtt per unit policy. HEME - * Stable H&H * Monitor for s/s of bleeding s/p intervention. ID - * No concerns for infection at this time. LINES/IV ACCESS - * PIVs x2 DVT PROPHYLAXIS - * Hold s/p collaborating supervising physician Rx. * SCDs I have personally spent 35 minutes of critical care time in the direct management of this patient. This is a life/limb threatening event. This includes time spent evaluating patient, direct bedside care, chart review, placing orders , interpretation of diagnostic studies, discussion with consultants, patient, and family members, as well as other required patient management activities. This time is exclusive of all separately billable procedures, and teaching time and separate from and in addition to any other critical care service time. Thank you for allowing us to participate in the care of this patient. Please refer to my attending physician's documentation for any further recommendations. (2) ST elevation (STEMI) myocardial infarction: (3) S/P PTCA (percutaneous transluminal coronary angioplasty): (4) S/P drug eluting coronary stent placement: Supervising Physician Co-Signing Physician Notes I have personally evaluated and examined this patient. I agree with assessment and plan of Mei Hess PA-C. I was advised of this patient from the overnight. Stable for downgrade out of the ICU later today. History of Present Illness Attending Physician: Nghia Chow MD History of Present Illness Patient is a 69-year-old male with a significant past medical history of coronary artery disease status post CABG with AR of graft in 2013 who presented to the emergency department today with abrupt onset of substernal chest pain with radiation to his LEFT-sided back. He reports that he was at [employer] when the pain started. He does note that a few days ago a grandchild did jump in his chest and he was having some discomfort, but felt this to be related to the initial trauma. The pain did resolve with the use of Tylenol. He was not having exertional chest pain. He reports that the pain he is experienced today was different and the pain earlier in the week. He reports feeling diaphoretic as well. The pain was a 5/10 when most intense. He is described the pain as a 0.5-1 out of 10 in intensity at this point. Patient currently denies any headaches, dizziness, lightheadedness, palpitations, pleuritic pain, shortness of breath, nausea, vomiting, or abdominal pain Allergies Allergy/AdvReac Type Severity Reaction Status Date / Time No Known Allergies Allergy Unknown Verified 03/20/18 10:23 Home Medications Home Medications Medication Instructions Recorded Confirmed Type Ophthantiox 1 dose UD 03/05/18 03/05/18 History cyclobenzaprine 10 mg PO PM PRN 03/05/18 03/05/18 History finasteride 1 tab PO PM 03/05/18 03/05/18 History fluticasone propionate [Flonase 2 spray INTRANASAL DAILY 03/05/18 03/05/18 History Allergy Relief] terazosin 5 mg PO HS 03/05/18 03/05/18 History aspirin 81 mg PO QAM 30 Days #30 tab 01/30/20 Rx atorvastatin 80 mg PO PM 30 Days #60 tab 01/30/20 Rx lisinopril [Zestril] 5 mg PO QAM 30 Days #30 tab 01/30/20 Rx metoprolol tartrate 25 mg PO BID 30 Days #60 tab 01/30/20 Rx nicotine [Nicoderm CQ] 21 mg TRANSDERMAL QAM 30 Days #30 01/30/20 Rx ea nitroglycerin [Nitrostat] 0.4 mg SUBLINGUAL UD PRN 30 Days 01/30/20 Rx #30 tab ticagrelor [Brilinta] 90 mg PO BID 30 Days #60 tab 01/30/20 Rx Patient History Medical History BPH (benign prostatic hyperplasia) Deep vein thrombosis H/O agent Justice exposure Hearing deficit Hyperlipidemia Hypertension Myocardial Infarction 21 YEARS AGO Osteoarthritis PSVT (paroxysmal supraventricular tachycardia) Typical AVNRT s/p slow pathway modification 01/21/[address] Humphreys. Surgical History H/O sinus surgery History of arthroscopy LEFT KNEE History of cardiac cath X3 - MOST RECENT 2-3 YEARS AGO - NO STENTS/ANGIOPLASTY History of cardiac radiofrequency ablation 3-4 WEEKS AGO AT [facility] R/T PSVT History of coronary artery bypass graft 21 YEARS AGO Social History Smoking Status: Current every day smoker Cigarettes Per Day: 10-15 CIG PER DAY; Hx Alcohol Use: Yes Alcohol type: hard liquor Hx Substance Use: No Preferred Language: French Communication Ability: Effective Laboratory Aide Required: No Beliefs That Will Affect Care: None Current Living Situation: Spouse Feels Safe at Home: Yes Review of Systems Review of Systems: A complete 10 point review of systems was reviewed with the patient with pertinent positives and negatives as per history of present illness. All else were negative. Physical Exam Physical Exam: VITAL SIGNS - Vital signs and nursing notes were reviewed. GENERAL - 69-year-old male appearing his stated age who is in no acute distress. Communicates well with provider and answers questions appropriately. HEAD - NC/AT. EYES - PERRL with EOMI bilaterally. Sclera anicteric. Palpebral conjunctiva pink and moist with no injection noted. EARS - No deformities of external structures noted on gross examination bilaterally. NOSE - Midline and without cyanosis. MOUTH/OROPHARYNX - Without perioral cyanosis. NECK - Neck with FROM. LUNGS - Chest wall symmetric without accessory muscle use, intercostals retractions, or central cyanosis. Normal vesicular breath sounds CTA B/L. No wheezes, rales, or rhonchi appreciated. CARDIAC - RRR with S1/S2. No murmur, rubs, or gallops appreciated. No reproducible tenderness to palpation appreciated over the anterior chest wall. ABDOMEN - Abdominal contour obese without pulsations or visible masses. BS normoactive all four quadrants. No tenderness, palpable masses, hepatosplenomegaly, or ascites noted. EXTREMITIES - No clubbing or peripheral cyanosis. No pretibial edema present. +3/5 radial and dorsalis pedis pulses palpated throughout. +5/5 strength noted in UE/LE bilaterally. NEUROLOGIC - Cranial nerves II through XII grossly intact. Sensory intact to light touch throughout. PSYCH - A&Ox3 and cooperates fully with examiner. Pt is very pleasant and interacts well with examiner. Results & Data Results & Data ([facility]) Vital Signs (Past 12 Hours) Vital Signs Temp Pulse Pulse Resp BP Pulse Ox 01/29/20 00:13 76 20 129/84 97 01/28/20 23:58 65 18 128/80 96 01/28/20 23:43 75 13 123/84 95 01/28/20 23:32 36.4 C L 73 16 94 01/28/20 23:27 36.7 C 77 20 122/78 95 01/28/20 21:12 36.9 C 74 20 117/74 96 Coding Level of Care Code Critical Care 1st 30-74 mins Diagnoses Admitted to intensive care unit Z78.9 ST elevation (STEMI) myocardial infarction I21.3 Involved coronary artery: unspecified coronary artery S/P PTCA (percutaneous transluminal coronary angioplasty) Z98.61 S/P drug eluting coronary stent placement Z95.5 Time Spent (min) 35 (1) ST elevation (STEMI) myocardial infarction Involved coronary artery: unspecified coronary artery Qualified Code(s): I21.3 - ST elevation (STEMI) myocardial infarction of unspecified site
[2020-01-29] MEDS ORDERED: ICU PROTOCOL FOR HYPERGLYCEMIA PRN (00:56)
--- NOTE | 2020-01-29 01:51 | History and Physical Report ---
DATE OF ADMISSION: 01/29/2020 CHIEF COMPLAINT: Chest pain, ST elevated myocardial infarction. HISTORY OF PRESENT ILLNESS: This 69-year-old male with past medical history significant for hyperlipidemia, history of BPH, CAD status post CABG, history of symptomatic atrioventricular alisa reentry tachycardia status post successful radiofrequency ablation on 01/21/2018, history of non-ST elevated myocardial infarction in 2004, history of inferior posterior NM in November 2013 secondary to saphenous vein graft occlusion to the obtuse marginal, managed conservatively, history of hypertension, chronic tobacco abuse, history of mild ectasia of ascending aorta, presents with chest pain. The patient was at [employer] when he noticed chest pain around 6:20 p.m. on evening. He took nitro, he says the pain in the center of the chest, radiating to the back. Initially he had sweating prior to the pain started, his house was nearby, he walked to the house and took another nitro and came here. EKG showed ST elevated NM in inferior posterior area and was taken to cardiac catheterization, and was found to have 100% occlusion of the mid vein graft to RCA and 90% stenosis in the proximal right PDA status post stent to the vein graft to the RCA and right PDA, and also found to have severe chronic multivessel disease. He has patent KENNEDY to LAD.As there was initial no reflow post-stenting, thought to be likely distal emboli and Cardiology giving Integrilin for 4 hours. Currently, patient is in the ICU, resting comfortably. The patient says the pain is about now 1/10 in severity, feeling fine. No other complaints. No shortness of breath, hemodynamics are stable. Denies any headache, no blurred vision, no runny nose, no sore throat, no cough, no dysphagia. Appetite is okay. No nausea, no abdominal pain. Normal bowel and bladder movements. No blood in stools or black stools. No swelling in the legs. Lives with his . Until this episode, he was active. ALLERGIES: No known drug allergies. PAST MEDICAL HISTORY: As mentioned above. PAST SURGICAL HISTORY: CABG, repair of knee cartilage, sinus surgery, ablation of the subsequent traumatic AVNRT. MEDICATIONS AT HOME: The patient is on Lopressor 25 mg p.o. b.i.d., atorvastatin 80 mg p.o. a.m., multivitamin with minerals 1 tablet daily, Tylenol 500 mg p.o. p.r.n., Lutein 10 mg p.o. daily, Flexeril 10 mg p.o. b.i.d. p.r.n., Flonase 2 puffs in each nostril daily, Proscar 5 mg p.o. daily, terazosin 5 mg p.o. daily, aspirin 81 mg p.o. daily, nitroglycerin 0.4 mg sublingual p.r.n. FAMILY HISTORY: Significant for no family history on file. SOCIAL HISTORY: and lives with his . Smoked 0.5 pack a day for 30 years. Occasional alcohol, occasional rum and vodka. REVIEW OF SYMPTOMS: As per HPI. Rest of review of symptoms negative. PHYSICAL EXAMINATION: GENERAL: The patient is of moderate build, not in acute distress. VITAL SIGNS: Temperature 36.4, pulse 76, respiratory rate 20, blood pressure 129/84, oxygen 97% on room air. HEENT: Atraumatic. NECK: No JVD seen. No neck masses. Supple. CARDIOVASCULAR: S1, S2 heard, regular rate and rhythm, no murmur, no gallop. RESPIRATORY SYSTEM: Normal AP diameter. No accessory muscle use. No wheezing, no crackles. ABDOMEN: Soft, bowel sounds present, nontender. No distention. Right groin cardiac cath site, no oozing seen. CENTRAL NERVOUS SYSTEM: Nonfocal. EXTREMITIES: No edema, no erythema. LABORATORY DATA: WBC 18, hemoglobin 15.9, hematocrit 46, platelets 326. PT 11.4, INR 1.1, APTT 26.5. Sodium 140, potassium 3.8, chloride 109, bicarbonate 26, BUN 16, creatinine 1.1, serum glucose 107, calcium 8.6, magnesium 2.3, total bilirubin 0.9, AST 16, ALT 25, alkaline phosphatase 73. Total creatinine kinase 106. Troponin I 0.13, lipase 102. TSH 2.6. IMAGING: Chest x-ray, no acute findings. EKG: Normal sinus rhythm, rate of 75. ST elevation inferior and posterior regions. ASSESSMENT AND PLAN: This is [id number] male who presents with ST elevated myocardial infarction. 1. ST elevated myocardial infarction inferior posterior region status post stent to the 100% occluded mid vein graft to RCA and 90% occluded proximal right PDA. Post-procedure, the patient is doing okay. Post-catheter management as per cardiology. The patient is on dual platelets, on aspirin, and started on Brilinta. The patient is on high dose statin, which we will continue.Lisinopril is added and home dose of Lopressor was continued.Close monitor. 2. Hyperlipidemia: On statin. Follow lipid profile. 3. Hypertension: Currently on Lopressor and lisinopril. Monitor the blood pressure. 4. Tobacco abuse: Needs counseling. 5. Deep venous thrombosis prophylaxis: Sequential compression devices. DISPOSITION: Closely monitor in the ICU. Level 1 full code. Expect discharge home and follow with family doctor and cardiology. DUSTIN
[2020-01-29 05:13] LABS: Appearance Urine Clear (Clear); Bilirubin Urine Negative (Negative); Blood Urine Negative (Negative); Color Urine Yellow; Glucose Urine UA Negative (Negative); Ketones Urine 1+ (Negative); Leukocyte Esterase Urine Negative (Negative); Nitrite Urine Negative (Negative); Protein Urine Negative (Negative); Specific Gravity Urine > 1.045 (1.000-1.030); Urobilinogen Urine Negative (Negative); pH Urine 5.5 (4.5-7.5)
[2020-01-29 05:23] LABS: Basophils # (auto) 0.05 K/uL (0-0.2); Basophils % (auto) 0.3 %; Eosinophils # (auto) 0.05 K/uL (0-0.5); Eosinophils % (auto) 0.3 %; Hematocrit (blood only) 47.5 % (42-52); Hemoglobin 15.9 g/dL (14.0-18.0); Immature Granulocytes # (auto) 0.04 K/uL (0.00-0.02); Immature Granulocytes % (auto) 0.2 %; Lymphocytes % (auto) 10.1 %; Mean Corpuscular Hemoglobin 30.5 pg (25-34); Mean Corpuscular Hgb Conc 33.5 g/dL (32-36); Mean Platelet Volume 11.3 fL (7.4-10.4); Monocytes # (auto) 2.41 K/uL (0.11-0.59); Monocytes % (auto) 13.6 %; Neutrophils # (auto) 13.39 K/uL (1.4-6.5); Neutrophils % (auto) 75.5 %; Platelet Count 340 K/uL (130-400); RDW Coefficient of Variation 14.3 % (11.5-14.5); RDW Standard Deviation 48.5 fL (36.4-46.3); Red Blood Count 5.22 M/uL (4.7-6.1); White Blood Count 17.74 K/uL (4.8-10.8)
[2020-01-29 05:52] LABS: BUN Creatinine Ratio 20.9 (10-20); Creatinine Clr Calc Pharmacy 123.7 ml/min; Est GFR (African American) 111.5; Est GFR (Non-African American) 96.2; Potassium 3.8 mmol/L (3.5-5.1)
--- NOTE | 2020-01-29 07:38 | XRay Report ---
XR chest 1V portable CLINICAL HISTORY: Chest pain COMPARISON STUDY: Chest radiograph October 14, 2017. FINDINGS: There are mediastinal wires and mediastinal surgical clips. No pneumothorax or pleural effu james is noted. There is no consolidation or evidence for pulmonary edema. The appearance of the chest is unchanged. Left basilar opacity favors atelectasis or scarring. IMPRESSION: No acute cardiopulmonary findings. No change in appearance of the chest. ACT 112: Negative or not required by law. Electronically signed by: Murray Gary M.D. 01/29/2020 7:36 AM
[2020-01-29] MEDS: METOPROLOL TARTRATE 25 MG TAB PO SCH ×2 (07:53→20:34)
[2020-01-29] MEDS: lisinopriL 5 MG TAB PO SCH (07:53)
[2020-01-29] MEDS: TICAGRELOR 90 MG TAB PO SCH ×2 (07:53→20:32)
[2020-01-29] MEDS: ASPIRIN 81 MG ECTAB PO SCH (07:54)
[2020-01-29] MEDS: FLUTICASONE PROPIONATE NA SPR 16 GM BTL SCH (08:04)
--- NOTE | 2020-01-29 09:00 | Cardiology Consultation ---
Date of Consultation January 29, 2020 Assessment & Plan (1) ST elevation (STEMI) myocardial infarction: Inferior STEMI Status post successful PCI of mid vein graft to RCA with 4.0 x 34 mm Eirc drug- eluting stent, PCI of proximal right PDA with 3.0 x 12 mm Sod drug-eluting stent. Hypertension, well controlled. Dyslipidemia, chronically prescribed high intensity status therapy (atorvastatin 80 mg/day) with an LDL cholesterol of 61 mg/dL on 01/29/2020 Chronic tobacco abuse Await resting echocardiography Continue beta-shalom (metoprolol tartrate unless EF decreased and changed to metoprolol succinate) Continue dual-antiplatelet therapy for at least 1 year, likely extended. Continue high intensity statin therapy, atorvastatin 80 mg/day Continue low-dose tana inhibitor therapy (new medication this admission) Tobacco sensation Further recommendations pending evaluation by Dr. Nikko Chirinos. History of Present Illness Reason for Consultation: STEMI Requesting Physician: Claudine Attending Physician: Tyshawn History of Present Illness Patient is a 69-year-old male with past medical history detailed below who was in his usual state of health until last evening. Approximately 20 minutes into [facility] service last night the patient broke out in a cold sweat. This was followed by substernal chest pressure that was highly reminiscent of the discomfort he felt with his prior [place]. He notes taking 2 sublingual nitroglycerin at [facility] then walking home (right next door). At home he took a third sublingual nitroglycerin, each with mild improvement though with persistent pressure. Thereafter he presented to the [facility] ER where EKG showed ST segment elevation inferior posteriorly. He was taken to the cardiac catheterization laboratory by Dr. Parkinson where he was found to have an acute 100% mid vein graft to the RCA occlusion with 90% downstream hazy stenosis in the proximal right PDA, undergoing successful PCI of the mid vein graft to the RCA with a 4.0 x 34 mm eric drug-eluting stent as well as PCI of the proximal right PDA with a 3.0 x 12 mm eric drug-eluting stent. He was loaded with ticagrelor 180 mg in the lab and continued on Integrilin for 4 hours due to initial no reflow post stenting and likely distal emboli. Following cardiac catheterization intervention the patient was admitted to the ICU for continued monitoring. Continuous telemetry monitoring shows no arrhythmias overnight on review as of 8:30 AM. Overnight, he has fared well. He has not had any recurrent chest pressure/angina. He does note, on questioning, some mild chest soreness that is reproducible with palpation. He also notes some mild dizziness that is been present in the past, without positional change, visual changes, blurred vision, etc. Past Medical and Surgical History: ASCVD Multivessel coronary artery disease. Status post coronary artery bypass grafting in 1995 following an inferior myocardial infarction, receiving KENNEDY graft to LAD, saphenous vein graft to circumflex obtuse marginal, saphenous vein graft to the right coronary artery. 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 Hypertension Dyslipidemia Chronic tobacco abuse. BPH Chart history of DVT Osteoarthritis Arthroscopic left knee surgery. Remote sinus surgery. Cataract extraction Recent laser eye surgery, January 2020 Family History: + For heart disease in his father (CAD, ? aneurysm), and uncle (CAD) Social History: Smoker x 55 years. No significant alcohol. Retired from the [employer] [place]. Followed by [facility] Complete review of system is otherwise as stated above, negative, noncontributory. Allergies Allergy/AdvReac Type Severity Reaction Status Date / Time No Known Allergies Allergy Unknown Verified 03/20/18 10:23 Home Medications Home Medications Medication Instructions Recorded Confirmed Type Ophthantiox 1 dose UD 03/05/18 03/05/18 History aspirin [Aspir-81] 1 tab PO QAM 03/05/18 03/05/18 History atorvastatin 80 mg PO PM 03/05/18 03/05/18 History cyclobenzaprine 10 mg PO PM PRN 03/05/18 03/05/18 History finasteride 1 tab PO PM 03/05/18 03/05/18 History fluticasone propionate [Flonase 2 spray INTRANASAL DAILY 03/05/18 03/05/18 History Allergy Relief] metoprolol tartrate 25 mg PO BID 03/05/18 03/05/18 History terazosin 5 mg PO HS 03/05/18 03/05/18 History Patient History Medical History BPH (benign prostatic hyperplasia) Deep vein thrombosis H/O agent [place] exposure Hearing deficit Hyperlipidemia Hypertension Myocardial Infarction 21 YEARS AGO Osteoarthritis PSVT (paroxysmal supraventricular tachycardia) Typical AVNRT s/p slow pathway modification 01/21/[address] Humphreys. Surgical History H/O sinus surgery History of arthroscopy LEFT KNEE History of cardiac cath X3 - MOST RECENT 2-3 YEARS AGO - NO STENTS/ANGIOPLASTY History of cardiac radiofrequency ablation 3-4 WEEKS AGO AT [facility] R/T PSVT History of coronary artery bypass graft 21 YEARS AGO Social History Smoking Status: Current every day smoker Cigarettes Per Day: 10-15 CIG PER DAY; Tobacco Cessation Education Requested by Patient: No Hx Alcohol Use: Yes Alcohol type: hard liquor Hx Substance Use: No Preferred Language: Hungarian Communication Ability: Effective Director Employee Communications Required: No Beliefs That Will Affect Care: None Current Living Situation: Spouse Other Information That Helps Us Care for You: No Feels Safe at Home: Yes Safety Concerns: Feels Safe At This Time Review of Systems Review of Systems: All systems reviewed & are unremarkable except as noted in HPI & below Constitutional: no fever, no chills and no weight loss Ear, Nose, Mouth, Throat: + dizziness Respiratory: + cough, + dyspnea and + dyspnea on exertion; no hemoptysis Cardiovascular: no dyspnea at rest, no paroxysmal nocturnal dyspnea and no edema Gastrointestinal: + nausea; no vomiting Genitourinary: + nocturia Integumentary: no rash Physical Exam Physical Exam: General: A&Ox3. NAD. HEENT: Normocephalic. Atraumatic. PER. Conjunctiva pink, sclera clear. Neck: Bilateral carotid bruits. No overt JVD. Heart: RRR, 66 bpm. Soft systolic murmur. No diastolic murmur. No rub. PMI is nondisplaced. Lungs: Diminished Decreased. Right anterior rhonchi. Right posterior wheeze. Abdomen: +BS. Soft. Nontender. No masses or organomegaly. Extremities: No clubbing, cyanosis, or distal edema. Limited neurological examination is without focal deficits. Pulses: radial=2/4, posterior tibial=1/4. Results & Data ([facility]) Vital Signs (Past 12 Hours) Vital Signs Temp Pulse Pulse Resp BP BP Pulse Ox 01/29/20 08:00 37.2 C 65 64 20 133/91 99 01/29/20 06:08 57 L 25 H 154/89 H 01/29/20 05:37 37.2 C 72 22 137/85 99 01/29/20 04:37 71 23 127/84 96 01/29/20 04:07 60 22 125/76 97 01/29/20 03:37 61 24 125/79 97 01/29/20 03:07 58 L 20 115/77 97 01/29/20 02:37 64 23 132/82 97 01/29/20 01:58 68 25 H 116/82 97 01/29/20 01:43 60 25 H 107/70 95 01/29/20 01:28 69 23 104/74 95 01/29/20 01:13 75 24 114/75 94 01/29/20 00:58 74 24 116/76 95 01/29/20 00:43 77 25 H 121/74 94 01/29/20 00:28 59 L 19 122/72 98 01/29/20 00:13 76 20 129/84 97 01/28/20 23:58 65 18 128/80 96 01/28/20 23:43 75 13 123/84 95 01/28/20 23:32 36.4 C L 73 16 94 01/28/20 23:27 36.7 C 77 20 122/78 95 01/28/20 23:20 91 H 01/28/20 21:12 36.9 C 74 20 117/74 96 Laboratory Results Laboratory Results - last 24 hr 01/28/20 01/28/20 01/28/20 20:15 20:15 20:15 WBC 18.01 H RBC 5.11 Hgb 15.9 Hct 46.0 MCV 90.0 MCH 31.1 MCHC 34.6 RDW Std Deviation 46.5 H RDW Coeff of Caesar 14.0 Plt Count 326 MPV 11.3 H Immature Gran % (Auto) 0.2 Neut % (Auto) 80.8 Lymph % (Auto) 6.7 Kern % (Auto) 11.8 Eos % (Auto) 0.3 Baso % (Auto) 0.2 Neut # (Auto) 14.55 H Lymph # (Auto) 1.20 Kern # (Auto) 2.12 H Eos # (Auto) 0.06 Baso # (Auto) 0.04 Immature Gran # (Auto) 0.04 H PT 11.4 INR 1.1 APTT 26.5 PTT Ratio 0.9 Activ Coag Time Kaolin Sodium 140 Potassium 3.8 Chloride 109 H Carbon Dioxide 26 Anion Gap 5.0 BUN 16 Creatinine 1.10 Est Cr Clr Drug Dosing 78.4 Est GFR ( Amer) 78.4 Est GFR (Non-Af Amer) 67.7 BUN/Creatinine Ratio 14.9 Glucose 107 H Estimat Average Glucose Hemoglobin A1c Calcium 8.6 Phosphorus Magnesium 2.3 Total Bilirubin 0.9 AST 16 ALT 25 Alkaline Phosphatase 73 Total Creatine Kinase 106 CK-MB (CK-2) 3.1 CK/CKMB % Calc 2.9 Troponin I 0.132 H* Total Protein 6.8 Albumin 3.6 Globulin 3.2 Albumin/Globulin Ratio 1.1 Triglycerides Cholesterol LDL Cholesterol, Calc VLDL Cholesterol, Calc HDL Cholesterol Cholesterol/HDL Ratio Lipase 102 TSH 2.670 Urine Color Urine Appearance Urine pH Ur Specific [place] Urine Protein Urine Glucose (UA) Urine Ketones Urine Blood Urine Nitrite Urine Bilirubin Urine Urobilinogen Ur Leukocyte Esterase Nasal Screen MRSA (PCR) 01/28/20 01/28/20 01/28/20 22:04 22:31 23:45 WBC RBC Hgb Hct MCV MCH MCHC RDW Std Deviation RDW Coeff of Caesar Plt Count MPV Immature Gran % (Auto) Neut % (Auto) Lymph % (Auto) Kern % (Auto) Eos % (Auto) Baso % (Auto) Neut # (Auto) Lymph # (Auto) Kern # (Auto) Eos # (Auto) Baso # (Auto) Immature Gran # (Auto) PT INR APTT PTT Ratio Activ Coag Time Kaolin 219 H 235 H Sodium Potassium Chloride Carbon Dioxide Anion Gap BUN Creatinine Est Cr Clr Drug Dosing Est GFR ( Amer) Est GFR (Non-Af Amer) BUN/Creatinine Ratio Glucose Estimat Average Glucose Hemoglobin A1c Calcium Phosphorus Magnesium Total Bilirubin AST ALT Alkaline Phosphatase Total Creatine Kinase CK-MB (CK-2) CK/CKMB % Calc Troponin I Total Protein Albumin Globulin Albumin/Globulin Ratio Triglycerides Cholesterol LDL Cholesterol, Calc VLDL Cholesterol, Calc HDL Cholesterol Cholesterol/HDL Ratio Lipase TSH Urine Color Urine Appearance Urine pH Ur Specific [place] Urine Protein Urine Glucose (UA) Urine Ketones Urine Blood Urine Nitrite Urine Bilirubin Urine Urobilinogen Ur Leukocyte Esterase Nasal Screen MRSA (PCR) Negative 01/29/20 01/29/20 01/29/20 04:30 05:03 05:03 WBC 17.74 H RBC 5.22 Hgb 15.9 Hct 47.5 MCV 91.0 MCH 30.5 MCHC 33.5 RDW Std Deviation 48.5 H RDW Coeff of Caesar 14.3 Plt Count 340 MPV 11.3 H Immature Gran % (Auto) 0.2 Neut % (Auto) 75.5 Lymph % (Auto) 10.1 Kern % (Auto) 13.6 Eos % (Auto) 0.3 Baso % (Auto) 0.3 Neut # (Auto) 13.39 H Lymph # (Auto) 1.80 Kern # (Auto) 2.41 H Eos # (Auto) 0.05 Baso # (Auto) 0.05 Immature Gran # (Auto) 0.04 H PT INR APTT PTT Ratio Activ Coag Time Kaolin Sodium 142 Potassium 3.8 Chloride 113 H Carbon Dioxide 24 Anion Gap 5.0 BUN 14 Creatinine 0.69 D Est Cr Clr Drug Dosing 123.7 Est GFR ( Amer) 111.5 Est GFR (Non-Af Amer) 96.2 BUN/Creatinine Ratio 20.9 H Glucose 103 H Estimat Average Glucose Hemoglobin A1c Calcium 8.0 L Phosphorus 3.0 Magnesium 2.0 Total Bilirubin AST ALT Alkaline Phosphatase Total Creatine Kinase CK-MB (CK-2) CK/CKMB % Calc Troponin I 10.000 H* Total Protein Albumin Globulin Albumin/Globulin Ratio Triglycerides 139 Cholesterol 131 LDL Cholesterol, Calc 61 VLDL Cholesterol, Calc 28 HDL Cholesterol 42 Cholesterol/HDL Ratio 3 Lipase TSH Urine Color Yellow Urine Appearance Clear Urine pH 5.5 Ur Specific [place] > 1.045 H Urine Protein Negative Urine Glucose (UA) Negative Urine Ketones 1+ H Urine Blood Negative Urine Nitrite Negative Urine Bilirubin Negative Urine Urobilinogen Negative Ur Leukocyte Esterase Negative Nasal Screen MRSA (PCR) 01/29/20 05:03 WBC RBC Hgb Hct MCV MCH MCHC RDW Std Deviation RDW Coeff of Caesar Plt Count MPV Immature Gran % (Auto) Neut % (Auto) Lymph % (Auto) Kern % (Auto) Eos % (Auto) Baso % (Auto) Neut # (Auto) Lymph # (Auto) Kern # (Auto) Eos # (Auto) Baso # (Auto) Immature Gran # (Auto) PT INR APTT PTT Ratio Activ Coag Time Kaolin Sodium Potassium Chloride Carbon Dioxide Anion Gap BUN Creatinine Est Cr Clr Drug Dosing Est GFR ( Amer) Est GFR (Non-Af Amer) BUN/Creatinine Ratio Glucose Estimat Average Glucose Pending Hemoglobin A1c Pending Calcium Phosphorus Magnesium Total Bilirubin AST ALT Alkaline Phosphatase Total Creatine Kinase CK-MB (CK-2) CK/CKMB % Calc Troponin I Total Protein Albumin Globulin Albumin/Globulin Ratio Triglycerides Cholesterol LDL Cholesterol, Calc VLDL Cholesterol, Calc HDL Cholesterol Cholesterol/HDL Ratio Lipase TSH Urine Color Urine Appearance Urine pH Ur Specific [place] Urine Protein Urine Glucose (UA) Urine Ketones Urine Blood Urine Nitrite Urine Bilirubin Urine Urobilinogen Ur Leukocyte Esterase Nasal Screen MRSA (PCR) Diagnostic Findings Initial EKG on presentation revealed normal sinus rhythm at 63 bpm with low voltage, mild inferior ST segment elevation, anterior ST segment depression The second available EKG revealed sinus rhythm at 87 bpm with possible left atrial enlargement, incomplete right bundle branch block, left axis deviation, low voltage, old inferior posterior infarct, possible lateral infarct. Telemetry: See above. Patient maintaining sinus rhythm throughout. Current heart rate 66 bpm. No recorded arrhythmias noted overnight. Resting echo: Pending interpretation (performed this morning) (1) ST elevation (STEMI) myocardial infarction Involved coronary artery: unspecified coronary artery Qualified Code(s): I21.3 - ST elevation (STEMI) myocardial infarction of unspecified site
[2020-01-29 09:04] LABS: Estimated Average Glucose 120 mg/dl; Hemoglobin A1C 5.8 % (4.5-5.6)
--- NOTE | 2020-01-29 10:55 | Hospitalist Progress Note ---
Date of Service January 29, 2020 Assessment & Plan (1) ST elevation (STEMI) myocardial infarction: -This is a 69-year-old male who presents with Inferior ST elevated myocardial infarction. -Status post successful PCI of mid vein graft to RCA with 4.0 x 34 mm Sarita drug- eluting stent, PCI of proximal right PDA with 3.0 x 12 mm Aguilar drug-eluting stent. -follow resting echocardiography -on metoprolol tartrate 25 mg BID, lisinopril 5 mg daily, atorvastatin 80 mg daily, aspirin 81 mg daily, Ticagrelor (Brilinta) 90 mg twice a day Hypertension -blood pressure controlled Dyslipidemia -statin Tobacco abuse -he reports he smokes every day. he is advised to quit. he was offered nicotine patch but declined Deep venous thrombosis prophylaxis: Sequential compression devices. Admission and Anticipated Discharge Date Admission Date: January 28, 2020 Subjective Patient breathing on room air. He denies chest pain. no abdomen pain. no groin pain. no leg swelling. no dizziness. no headache Review of Systems Review of Systems: All systems reviewed & are unremarkable except as noted in Subjective Physical Exam Constitutional: comfortable Eyes: PERRL, conjunctivae normal, anicteric sclerae EOM intact bilaterally ENMT: external ear and nose normal, oropharynx normal Neck: trachea midline, no thyromegaly normal visual inspection Respiratory: normal respiratory effort Cardiovascular: Rate/Rhythm: + bradycardic Gastrointestinal (Abdomen): normal bowel sounds, soft, nontender, no hepatosplenomegaly Musculoskeletal: Head/Neck/Chest: normocephalic and head atraumatic Skin: dressing over right groin from cath site. no swelling Neurologic: PERRL, EOMI, accommodation nl, no face palsy, no dysarthria CN's II-XI intact bilaterally Psychiatric: A+Ox3, euthymic affect Results & Data Results & Data ([facility]) Vital Signs (Past 12 Hours) Vital Signs Temp Pulse Pulse Resp BP BP Pulse Ox 01/29/20 10:00 58 L 20 99 01/29/20 09:25 60 28 H 113/87 01/29/20 09:00 58 L 22 01/29/20 08:25 71 22 110/98 100 01/29/20 08:14 73 23 138/84 99 01/29/20 08:00 37.2 C 68 64 20 133/91 98 01/29/20 07:07 67 20 133/91 01/29/20 07:00 82 18 01/29/20 06:37 66 20 131/88 01/29/20 06:08 57 L 25 H 154/89 H 01/29/20 05:37 37.2 C 72 22 137/85 99 01/29/20 04:37 71 23 127/84 96 01/29/20 04:07 60 22 125/76 97 01/29/20 03:37 61 24 125/79 97 01/29/20 03:07 58 L 20 115/77 97 01/29/20 02:37 64 23 132/82 97 01/29/20 01:58 68 25 H 116/82 97 01/29/20 01:43 60 25 H 107/70 95 01/29/20 01:28 69 23 104/74 95 01/29/20 01:13 75 24 114/75 94 01/29/20 00:58 74 24 116/76 95 01/29/20 00:43 77 25 H 121/74 94 01/29/20 00:28 59 L 19 122/72 98 01/29/20 00:13 76 20 129/84 97 01/28/20 23:58 65 18 128/80 96 01/28/20 23:43 75 13 123/84 95 01/28/20 23:32 36.4 C L 73 16 94 01/28/20 23:27 36.7 C 77 20 122/78 95 01/28/20 23:20 91 H (1) ST elevation (STEMI) myocardial infarction Involved coronary artery: unspecified coronary artery Qualified Code(s): I21.3 - ST elevation (STEMI) myocardial infarction of unspecified site
[2020-01-29] MEDS: NICOTINE 21 MG/24 HR TDSY TD SCH (13:03)
--- NOTE | 2020-01-29 13:53 | XCELERA ---
[id number]
--- NOTE | 2020-01-29 15:57 | Electrocardiogram Report ---
Test Reason : Blood Pressure : / mmHG Vent. Rate : 063 BPM Atrial Rate : 063 BPM P-R Int : 162 ms QRS Dur : 110 ms QT Int : 412 ms P-R-T Axes : 071 037 087 degrees QTc Int : 421 ms Normal sinus rhythm Low voltage QRS Cannot rule out Inferior infarct (cited on or before 21-JAN-2018) Inferior injury pattern Posterior injury pattern Abnormal ECG When compared with ECG of 21-JAN-2018 11:17, QRS axis Shifted right Inferoposterior injury pattern now present Confirmed by Jean-Pierre Thompson ([id number]) on 01/29/2020 3:56:34 PM Referred By: REFERRED SELF Confirmed By:Jean-Pierre Thompson
--- NOTE | 2020-01-29 15:57 | Electrocardiogram Report ---
Test Reason : Blood Pressure : / mmHG Vent. Rate : 075 BPM Atrial Rate : 075 BPM P-R Int : 156 ms QRS Dur : 100 ms QT Int : 384 ms P-R-T Axes : 055 048 094 degrees QTc Int : 428 ms Normal sinus rhythm Low voltage QRS Inferior infarct (cited on or before 21-JAN-2018) Inferior injury pattern ACUTE KS / STEMI Consider right ventricular involvement in acute inferior infarct Abnormal ECG When compared with ECG of 28-JAN-2020 20:49, (unconfirmed) Significant changes have occurred Confirmed by Jean-Pierre Thompson ([id number]) on 01/29/2020 3:57:09 PM Referred By: REFERRED SELF Confirmed By:Jean-Pierre Thompson
--- NOTE | 2020-01-29 16:00 | Electrocardiogram Report ---
Test Reason : Blood Pressure : / mmHG Vent. Rate : 087 BPM Atrial Rate : 073 BPM P-R Int : 168 ms QRS Dur : 108 ms QT Int : 402 ms P-R-T Axes : 067 -39 081 degrees QTc Int : 483 ms Sinus rhythm with occasional Premature ventricular complexes Possible Left atrial enlargement Left axis deviation Low voltage QRS Possible Lateral infarct (cited on or before 28-JAN-2020) Inferior-posterior infarct (cited on or before 21-JAN-2018) Abnormal ECG When compared with ECG of 28-JAN-2020 20:52, (unconfirmed) Significant changes have occurred Confirmed by Jean-Pierre Thompson ([id number]) on 01/29/2020 3:59:25 PM Referred By: REFERRED SELF Confirmed By:Jean-Pierre Thompson
[2020-01-29] MEDS ORDERED: ATORVASTATIN 40 MG TAB PO SCH (21:00)
[2020-01-29] MEDS ORDERED: TERAZOSIN HCL 5 MG CAP PO SCH (21:00)
[2020-01-29] MEDS ORDERED: FINASTERIDE 5 MG TAB PO SCH (21:00)
[2020-01-30 07:48] LABS: Calcium 7.9 mg/dl (8.5-10.1); Creatinine Clr Calc Pharmacy 118.7 ml/min; Est GFR (African American) 109.5; Est GFR (Non-African American) 94.5; Potassium 3.8 mmol/L (3.5-5.1)
[2020-01-30] MEDS: lisinopriL 5 MG TAB PO SCH (08:16)
[2020-01-30] MEDS: TICAGRELOR 90 MG TAB PO SCH (08:16)
[2020-01-30] MEDS: METOPROLOL TARTRATE 25 MG TAB PO SCH (08:16)
[2020-01-30] MEDS: ASPIRIN 81 MG ECTAB PO SCH (08:16)
[2020-01-30] MEDS: FLUTICASONE PROPIONATE NA SPR 16 GM BTL SCH (08:17)
[2020-01-30] MEDS: NICOTINE 21 MG/24 HR TDSY TD SCH (08:17)
--- NOTE | 2020-01-30 09:43 | Cardiology Progress Note ---
Date of Service January 30, 2020 Assessment & Plan (1) ST elevation (STEMI) myocardial infarction: (2) S/P PTCA (percutaneous transluminal coronary angioplasty): (3) S/P drug eluting coronary stent placement: (4) H/O heart bypass surgery: The patient is stable enough to be discharged and followed as an outpatient. On telemetry he has had no significant arrhythmias. I would maintain his current medications including dual antiplatelet therapy. He has a follow-up appointment with Dr. Mendoza on February 07. Subjective The patient had an uneventful night. He is sitting comfortably in the chair and has no complaints. Anxious to go home. Review of Systems Review of Systems: All systems reviewed & are unremarkable except as noted in HPI & below Nothing additional to add. Physical Exam Physical Exam: General: no acute distress and stated age Head: normocephalic, no masses, lesions, tenderness or abnormalities Eyes: conjunctiva are pink and non-injected, sclera clear Neck: supple, no adenopathy, no bruits, normal jugular venous pulse, no hepat ojugular reflux Chest: normal shape and normal respiratory effort Lungs: clear to auscultation and percussion Cardiac Exam: - regular rate & rhythm, no murmurs gallops or rubs - normal S1, normal S2 Pulses: 2(+) throughout Abdomen: abdomen soft, non-tender, no abnormal masses and no hepatosplenomegaly Musculoskeletal: no gait disturbance, no joint inflammation, no deforming arthritis Extremities: no edema and no cyanosis Neuro: grossly normal exam Results & Data Vital Signs (Past 12 Hours) Vital Signs Temp Pulse Pulse Resp BP BP Pulse Ox 01/30/20 08:28 36.5 C 85 20 106/68 100 01/30/20 03:26 36.8 C 60 16 102/65 97 01/30/20 00:00 60 01/29/20 23:24 36.9 C 65 18 102/71 98 Laboratory Results Laboratory Results - last 24 hr 01/29/20 01/29/20 01/29/20 11:00 11:27 17:12 Sodium Potassium Chloride Carbon Dioxide Anion Gap BUN Creatinine Est Cr Clr Drug Dosing Est GFR ( Amer) Est GFR (Non-Af Amer) BUN/Creatinine Ratio Glucose POC Glucose 102 H Calcium Troponin I 17.500 H* 16.700 H* 01/30/20 06:58 Sodium 140 Potassium 3.8 Chloride 110 H Carbon Dioxide 27 Anion Gap 3.0 BUN 11 Creatinine 0.72 Est Cr Clr Drug Dosing 118.7 Est GFR ( Amer) 109.5 Est GFR (Non-Af Amer) 94.5 BUN/Creatinine Ratio 15.0 Glucose 88 POC Glucose Calcium 7.9 L Troponin I Diagnostic Findings The patient's echocardiogram indicates a left ventricular ejection fraction of around 45%. He had an old inferior wall myocardial infarction and probably extended it a little bit into the lateral wall or represent myocardial stunning. Medications Administered Current Inpatient Medications Acetaminophen (Tylenol) 650 mg PO Q4H PRN PRN Reason: MILD Pain (Scale 1,2,3) Stop: 02/27/20 23:14 Aspirin (Ecotrin Ectab) 81 mg PO [facility] Stop: 02/28/20 08:59 Last Admin: 01/30/20 08:16 Dose: 81 mg Documented by: Atorvastatin Calcium (Lipitor) 80 mg PO PM [facility] Stop: 02/28/20 20:59 Last Admin: 01/29/20 20:33 Dose: 80 mg Documented by: Finasteride (Proscar) 5 mg PO PM [facility] Stop: 02/28/20 20:59 Last Admin: 01/29/20 20:35 Dose: 5 mg Documented by: Fluticasone Propionate (Flonase) 2 sprays NA DAILY [facility] Stop: 02/28/20 08:59 Last Admin: 01/30/20 08:17 Dose: 2 sprays Documented by: Lisinopril (Zestril) 5 mg PO QAM [facility] Stop: 02/28/20 08:59 Last Admin: 01/30/20 08:16 Dose: 5 mg Documented by: Metoprolol Tartrate (Lopressor) 25 mg PO BID [facility] Stop: 02/28/20 08:59 Last Admin: 01/30/20 08:16 Dose: 25 mg Documented by: Miscellaneous (Remove Nicoderm Patch) 1 ea N/A DAILY@858 [facility] Stop: 02/29/20 08:58 Last Admin: 01/30/20 08:15 Dose: 1 ea Documented by: Nicotine (Nicoderm Cq) 21 mg TD [facility] Stop: 02/28/20 11:29 Last Admin: 01/30/20 08:17 Dose: Not Given Documented by: Nitroglycerin (Nitrostat) 0.4 mg SL PRN PRN PRN Reason: Chest Pain Stop: 02/27/20 23:14 Terazosin HCl (Hytrin) 5 mg PO HS [facility] Stop: 02/28/20 20:59 Last Admin: 01/29/20 20:33 Dose: 5 mg Documented by: Ticagrelor (Brilinta) 90 mg PO BID [facility] Stop: 02/28/20 08:59 Last Admin: 01/30/20 08:16 Dose: 90 mg Documented by: (1) ST elevation (STEMI) myocardial infarction Involved coronary artery: unspecified coronary artery Qualified Code(s): I21.3 - ST elevation (STEMI) myocardial infarction of unspecified site
--- NOTE | 2020-01-30 10:30 | Hospitalist Progress Note ---
Date of Service January 30, 2020 Assessment & Plan (1) ST elevation (STEMI) myocardial infarction: ST elevation (STEMI) myocardial infarction and s/p cardiac catheterization with drug eluting stent placement after a Percutaneous coronary intervention (PCI) on this admission -This is a 69-year-old male who presents with Inferior ST elevated myocardial infarction. -Status post successful PCI of mid vein graft to RCA with 4.0 x 34 mm Aguilar drug- eluting stent, PCI of proximal right PDA with 3.0 x 12 mm Pe Ell drug-eluting stent. -follow up resting echocardiography on this admission (after his cardiac cath) with Ejection Fraction of 45 to 50% and there is lateral wall hypokinesis c ompared to echocardiogram in 08/08/2016 -on metoprolol tartrate 25 mg BID, lisinopril 5 mg daily, atorvastatin 80 mg daily, aspirin 81 mg daily, Ticagrelor (Brilinta) 90 mg twice a day -discharge medications sent electronically to [address] [place] [id number] with medication renewals of some original home medications of nicotine patch to quit smoking, metoprolol tartrate 25 mg BID, lisinopril 5 mg daily, atorvastatin 80 mg daily, aspirin 81 mg daily, Ticagrelor (Brilinta) 90 mg twice a day (discussed with patient that he sould be on dual antiplatelets of aspirin daily and Ticagrelor twice a day for 1 year to keep coronary artery stent patent) also prescription of nitro sublingual which can be take every 5 minutes as needed if chest pain, up to 3 doses in 15 minutes. If chest pain persists, patient to seek immediate medical attention upcoming scheduled appointments 02/05/2020 2:00 PM Provider Taurus Delgado MD Department [facility] 02/08/2020 1:30 PM Provider Davis Mendoza MD Department Cardiology, [facility] Hypertension -blood pressure controlled Dyslipidemia -statin Tobacco abuse -he reports he smokes every day. he is advised to quit. he offered nicotine patch, nicotine patch prescriptions Deep venous thrombosis prophylaxis: Sequential compression devices. Admission and Anticipated Discharge Date Admission Date: January 28, 2020 Subjective patient sitting up in chair. breathing on room air. no distress. no chest pain. no shortness of breath. no palpitations. no vomiting. he is cleared by cardiology for discharge and discharge plans discussed at length Review of Systems Review of Systems: All systems reviewed & are unremarkable except as noted in Subjective Physical Exam Constitutional: comfortable Eyes: PERRL, conjunctivae normal, anicteric sclerae EOM intact bilaterally ENMT: external ear and nose normal, oropharynx normal Neck: trachea midline, no thyromegaly normal visual inspection Respiratory: normal respiratory effort Cardiovascular: Rate/Rhythm: regular rate Gastrointestinal (Abdomen): normal bowel sounds, soft, nontender, no hepatosplenomegaly Musculoskeletal: Head/Neck/Chest: normocephalic and head atraumatic Neurologic: PERRL, EOMI, accommodation nl, no face palsy, no dysarthria CN's II-XI intact bilaterally Psychiatric: A+Ox3, euthymic affect Results & Data Results & Data ([facility]) Vital Signs (Past 12 Hours) Vital Signs Temp Pulse Pulse Resp BP BP Pulse Ox 01/30/20 08:28 36.5 C 85 20 106/68 100 01/30/20 03:26 36.8 C 60 16 102/65 97 01/30/20 00:00 60 01/29/20 23:24 36.9 C 65 18 102/71 98 (1) ST elevation (STEMI) myocardial infarction Involved coronary artery: unspecified coronary artery Qualified Code(s): I21.3 - ST elevation (STEMI) myocardial infarction of unspecified site
--- NOTE | 2020-01-30 10:33 | Discharge Summary ---
Date of Service January 30, 2020 Admission HPI Per Admitting Provider CHIEF COMPLAINT: Chest pain, ST elevated myocardial infarction. 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 The patient was at [employer] when he noticed chest pain around 6:20 p.m. on evening. He took nitro, he says the pain in the center of the chest, radiating to the back. Initially he had sweating prior to the pain started, his house was nearby, he walked to the house and took another nitro and came here. EKG showed ST elevated [place] in inferior posterior area and was taken to cardiac catheterization, and was found to have 100% occlusion of the mid vein graft to RCA and 90% stenosis in the proximal right PDA status post stent to the vein graft to the RCA and right PDA, and also found to have severe chronic multivessel disease. He has patent KENNEDY to LAD.As there was initial no reflow post-stenting, thought to be likely distal emboli and Cardiology giving Integrilin for 4 hours. Currently, patient is in the ICU, resting comfortably. The patient says the pain is about now 1/10 in severity, feeling fine. No other complaints. No shortness of breath, hemodynamics are stable. Denies any headache, no blurred vision, no runny nose, no sore throat, no cough, no dysphagia. Appetite is okay. No nausea, no abdominal pain. Normal bowel and bladder movements. No blood in stools or black stools. No swelling in the legs. Lives with his . Until this episode, he was active. Principal Diagnosis ST elevation (STEMI) myocardial infarction and s/p cardiac catheterization with drug eluting stent placement after a Percutaneous coronary intervention (PCI) on this admission Hypertension Tobacco Abuse Discharge Exam Constitutional comfortable Eyes PERRL, conjunctivae normal, anicteric sclerae EOM intact bilaterally ENMT external ear and nose normal, oropharynx normal Neck trachea midline, no thyromegaly normal visual inspection Respiratory normal respiratory effort Cardiovascular Rate/Rhythm: regular rate Gastrointestinal (Abdomen) normal bowel sounds, soft, nontender, no hepatosplenomegaly Musculoskeletal Head/Neck/Chest: normocephalic and head atraumatic Neurologic PERRL, EOMI, accommodation nl, no face palsy, no dysarthria CN's II-XI intact bilaterally Psychiatric A+Ox3, euthymic affect Discharge Data Allergies Allergy/AdvReac Type Severity Reaction Status Date / Time No Known Allergies Allergy Unknown Verified 03/20/18 10:23 Consultations 01/28/20 23:20 Consult Cardiac Rehabilitation Routine Consult Case Management - Discharge Planning Routine Consult Rubbing Bed Operator Routine 01/29/20 00:57 Consult Case Management - Discharge Planning Routine 01/29/20 08:00 Consult Cardiology Routine Procedures Performed Operation Date: 01/28/20 21:15 Actual Procedures p Aspiration/PCI w/ALEXX for Stemi - Gabriel Parkinson MD s Cath, Left w/Cors Vent Grafts - Gabriel Parkinson MD s Cineradiography w/Routine Exam - Gabriel Prakinson MD s Placement Art Occlusive Device - Gabriel Parkinson MD Ordered Studies 01/28/20 21:14 CL Cath Imgs for PACS use only Stat Hospital Course (1) ST elevation (STEMI) myocardial infarction: ST elevation (STEMI) myocardial infarction and s/p cardiac catheterization with drug eluting stent placement after a Percutaneous coronary intervention (PCI) on this admission -This is a 69-year-old male who presents with Inferior ST elevated myocardial infarction. -Status post successful PCI of mid vein graft to RCA with 4.0 x 34 mm Isabella drug- eluting stent, PCI of proximal right PDA with 3.0 x 12 mm Isabella drug-eluting stent. -follow up resting echocardiography on this admission (after his cardiac cath) with Ejection Fraction of 45 to 50% and there is lateral wall hypokinesis compared to echocardiogram in 08/08/2016 -on metoprolol tartrate 25 mg BID, lisinopril 5 mg daily, atorvastatin 80 mg daily, aspirin 81 mg daily, Ticagrelor (Brilinta) 90 mg twice a day -discharge medications sent electronically to [address] [place] [id number] with medication renewals of some original home medications of nicotine patch to quit smoking, metoprolol tartrate 25 mg BID, lisinopril 5 mg daily, atorvastatin 80 mg daily, aspirin 81 mg daily, Ticagrelor (Brilinta) 90 mg twice a day (discussed with patient that he sould be on dual antiplatelets of aspirin daily and Ticagrelor twice a day for 1 year to keep coronary artery stent patent) also prescription of nitro sublingual which can be take every 5 minutes as needed if chest pain, up to 3 doses in 15 minutes. If chest pain persists, patient to seek immediate medical attention upcoming scheduled appointments 02/05/2020 2:00 PM Provider Taurus Delgado MD Department [facility] 02/08/2020 1:30 PM Provider Davis Mendoza MD Department Cardiology, [facility] Hypertension -blood pressure controlled Dyslipidemia -statin Tobacco abuse -he reports he smokes every day. he is advised to quit. he offered nicotine patch, nicotine patch prescriptions Deep venous thrombosis prophylaxis: Sequential compression devices. Total Time Total Time Spent Total Time Spent (In Minutes): 40 minutes Total Time Includes: Examination of the Patient, Discharge Planning, Medication Reconciliation and Communication With Other Providers Discharge Plan Discharge Items Patient Disposition: Home - Self-Care Reason For Visit: STEMI Discharge Diagnosis: ST elevation (STEMI) myocardial infarction and s/p cardiac catheterization with drug eluting stent placement after a Percutaneous coronary intervention (PCI) on this admission Hypertension Tobacco Abuse Condition on Discharge: Good Activity: Per Instructions section Non-emergency contact: Primary Care Provider Call non-emergency contact if: you have any medication questions and your pain is concerning for you Follow-up/Referrals: Taurus Delgado [Other] Diet: Heart Healthy [facility] Attending Provider Instructions: discharge medications sent electronically to [address] [place] [id number] with medication renewals of some original home medications of nicotine patch to quit smoking, metoprolol tartrate 25 mg BID, lisinopril 5 mg daily, atorvastatin 80 mg daily, aspirin 81 mg daily, Ticagrelor (Brilinta) 90 mg twice a day (discussed with patient that he sould be on dual antiplatelets of aspirin daily and Ticagrelor twice a day for 1 year to keep coronary artery stent patent) also prescription of nitro sublingual which can be take every 5 minutes as needed if chest pain, up to 3 doses in 15 minutes. If chest pain persists, patient to seek immediate medical attention upcoming scheduled appointments 02/05/2020 2:00 PM Provider Taurus Delgado MD Department [facility] 02/08/2020 1:30 PM Provider Davis Mendoza MD Department Cardiology, [facility] Assistant Spa Manager Provider Instructions: This is a 69-year-old male who presents with Inferior ST elevated myocardial infarction. -Status post successful PCI of mid vein graft to RCA with 4.0 x 34 mm Isabella drug- eluting stent, PCI of proximal right PDA with 3.0 x 12 mm Aguilar drug-eluting stent. -follow up resting echocardiography on this admission (after his cardiac cath) with Ejection Fraction of 45 to 50% and there is lateral wall hypokinesis compared to echocardiogram in 08/08/2016 Pending Studies at Discharge: No Stand-Alone Forms: My [employer], Smoking Cessation Medications and DC Order Prescriptions: New lisinopril [Zestril] 5 mg Tablet 5 mg PO QAM 30 Days Qty: 30 RF: 0 atorvastatin 40 mg Tablet 80 mg PO PM 30 Days Qty: 60 RF: 0 aspirin 81 mg Tablet,Delayed Release (Dr/Ec) 81 mg PO QAM 30 Days Qty: 30 RF: 0 nicotine [Nicoderm CQ] 21 mg/24 hr Patch 24 Hour 21 mg transdermal QAM 30 Days Qty: 30 RF: 0 metoprolol tartrate 25 mg Tablet 25 mg PO BID 30 Days Qty: 60 RF: 0 Brilinta 90 mg Tablet 90 mg PO BID 30 Days Qty: 60 RF: 0 nitroglycerin [Nitrostat] 0.4 mg Tablet, Sublingual 0.4 mg sublingual UD PRN (Reason: chest pain) 30 Days Qty: 30 RF: 0 Continued cyclobenzaprine 10 mg Tablet 10 mg PO PM PRN (Reason: Pain) RF: 0 terazosin 5 mg Capsule 5 mg PO HS RF: 0 finasteride 5 mg Tablet 1 tab PO PM RF: 0 Ophthantiox 1 dose UD RF: 0 fluticasone propionate [Flonase Allergy Relief] 50 mcg/actuation [place],Suspension 2 spray INTRANASAL DAILY RF: 0 Discontinued atorvastatin 80 mg Tablet 80 mg PO PM RF: 0 aspirin [Aspir-81] 81 mg Tablet,Delayed Release (Dr/Ec) 1 tab PO QAM RF: 0 metoprolol tartrate 50 mg Tablet 25 mg PO BID RF: 0 Discharge Orders: Discharge Order (Routine); Ordered 01/30/20 Ordered By: Cholo Villagran Admission Data Admit Date/Time: 01/28/20 23:20 Attending Provider: Cholo Villagran Admit Provider: Gabriel Parkinson Primary Care Provider: Taurus Delgado Other Providers: Gerson Warren ; Nikko Chirinos
== END 2020-01-30 11:32 | disposition home or self-care (01) | DRG 247 ==
LOC: ED 20:45 → CC 21:21 → 1E 23:20 → SUATTDRO 23:20 → 2E 01-29 14:27

== ENCOUNTER 2022-05-21 14:51 | Observation (INO) ==
[2022-05-21 16:25] LABS: Alanine Aminotransferase 150 U/L (7-52); Albumin Globulin Ratio 1.2 (0.9-2); Albumin Level 3.6 gm/dl (3.4-5.0); Alkaline Phosphatase 342 U/L (34-104); Anion Gap 7 (3-11); BUN Creatinine Ratio 12.2 (10-20); Bilirubin,Total 1.6 mg/dl (0.2-1.0); Blood Urea Nitrogen 9 mg/dl (6-23); Calcium 8.7 mg/dl (8.5-10.1); Carbon Dioxide 24 mmol/L (21-32); Chloride 104 mmol/L (98-107); Est GFR (African American) 106.8 ml/min; Est GFR (Non-African American) 92.2 ml/min; Glucose 161 mg/dl (70-99(Fasting)); Lipase 49 U/L (11-82); Sodium 135 mmol/L (136-145); Total Protein 6.6 gm/dl (6.0-8.3)
[2022-05-21 17:10] LABS: Basophils # (auto) 0.05 K/uL (0-0.2); Basophils % (auto) 0.5 %; Eosinophils # (auto) 0.12 K/uL (0-0.50); Eosinophils % (auto) 1.3 %; Hematocrit (blood only) 34.2 % (40.1-51.0); Hemoglobin 11.5 g/dl (14.0-18.0); Immature Granulocytes # (auto) 0.03 K/uL (0.00-0.02); Immature Granulocytes % (auto) 0.3 %; Lymphocytes # (auto) 0.98 K/uL (1.2-3.4); Lymphocytes % (auto) 10.4 %; Mean Corpuscular Hemoglobin 29.6 pg (25.0-34.0); Mean Corpuscular Hgb Conc 33.6 g/dL (32.0-36.0); Mean Corpuscular Volume 87.9 fL (80.0-100.0); Mean Platelet Volume 10.9 fL (9.4-12.4); Monocytes # (auto) 1.53 K/uL (0.24-0.82); Monocytes % (auto) 16.2 %; Neutrophils # (auto) 6.73 K/uL (1.4-6.5); Neutrophils % (auto) 71.3 %; Platelet Count 411 K/uL (130-400); RDW Coefficient of Variation 16.6 % (11.5-14.5); RDW Standard Deviation 53.2 fL (36.4-46.3); Red Blood Count 3.89 M/uL (4.63-6.08); White Blood Count 9.44 K/ul (4.8-10.8)
[2022-05-21 17:17] LABS: INR 1.1 (0.9-1.1); Partial Thromboplastin Ratio 0.9; Partial Thromboplastin Time 25.2 Seconds (21.0-31.0); Prothrombin Time 11.6 Seconds (9.0-12.0)
[2022-05-21 17:24] LABS: Albumin Level 3.3 gm/dl (3.4-5.0); Bilirubin Direct 0.6 mg/dl (0-0.2); Bilirubin,Total 1.5 mg/dl (0.2-1.0); Potassium 3.4 mmol/L (3.5-5.1); Total Protein 6.2 gm/dl (6.0-8.3)
--- NOTE | 2022-05-21 17:35 | Emergency Department Note ---
History of Present Illness General Chief Complaint: Abnormal Labs/Diagnostic Testing Stated Complaint: ABDNORMAL TEST, LIVER ISSUES Time Seen by Provider: 05/21/22 16:40 History of Present Illness Provider Complaint: + abnormal lab Description of abnormal result: Elevated liver enzymes Associated symptoms: no fever, no chills, no chest pain or no shortness of breath HPI narrative: 71-year-old male presents emergency department with daughter for elevated liver enzymes. Patient reports 1 week ago he was having abdominal pain and then it resolved after taking deep breaths. He reports no nausea vomiting diarrhea or fever. He was referred here by his PCP after outpatient blood work showed elevated liver enzymes. Home Medications Medication Instructions Recorded Confirmed Type cyclobenzaprine 10 mg tablet 10 mg PO PM PRN Pain 03/05/18 05/21/22 History finasteride 5 mg tablet 1 tab PO PM 03/05/18 05/21/22 History fluticasone propionate 50 2 spray intranasal DAILY 03/05/18 05/21/22 History mcg/actuation nasal spray,suspension (Flonase Allergy Relief) terazosin 5 mg capsule 5 mg PO HS 03/05/18 05/21/22 History PreserVision AREDS-2 1 tab PO DAILY 05/21/22 05/21/22 History atorvastatin 80 mg tablet 80 mg PO DAILY 05/21/22 05/21/22 History lisinopril 5 mg tablet 5 mg PO DAILY 05/21/22 05/21/22 History metoprolol tartrate 25 mg tablet 12.5 mg PO BID 05/21/22 05/21/22 History ticagrelor 90 mg tablet (Brilinta) 90 mg PO BID 05/21/22 05/21/22 History Allergies Allergy/AdvReac Type Severity Reaction Status Date / Time No Known Allergies Allergy Unknown Verified 05/21/22 19:43 Past Med/Surg History Medical History (Updated 05/21/22 @ 22:33 by Jaime Garsia) BPH (benign prostatic hyperplasia) Deep vein thrombosis H/O agent [place] exposure Hearing deficit Hyperlipidemia Hypertension Myocardial Infarction 21 YEARS AGO Osteoarthritis PSVT (paroxysmal supraventricular tachycardia) Typical AVNRT s/p slow pathway modification 01/21/[address] Humphreys. Surgical History (Updated 05/21/22 @ 17:37 by Jaime Garsia) H/O sinus surgery History of appendectomy History of arthroscopy LEFT KNEE History of cardiac cath X3 - MOST RECENT 2-3 YEARS AGO - NO STENTS/ANGIOPLASTY History of cardiac radiofrequency ablation 3-4 WEEKS AGO AT [facility] R/T PSVT History of coronary artery bypass graft 21 YEARS AGO Social History Smoking Status: Current every day smoker Cigarettes Per Day: 10-15 CIG PER DAY; Hx Alcohol Use: Yes Alcohol type: hard liquor Hx Substance Use: No Preferred Language: Beninese Communication Ability: Effective Vault Installer Required: No Beliefs That Will Affect Care: None Current Living Situation: Spouse Feels Safe at Home: Yes Assistive Devices: None Review of Systems A total of 10 systems reviewed and were otherwise negative Physical Exam Vital Signs: Vital Signs - 24 hr 05/21/22 15:08 05/21/22 16:30 05/21/22 18:00 Temperature 36.4 C L Temperature Source Temporal Artery Sc an Pulse Rate 75 Pulse Rate [Finger ] 78 80 Pulse Rhythm Regular Pulse Rhythm [Fing er] Regular Regular Pulse Strength Normal Pulse Strength [Fi nger] Normal Normal Respiratory Rate 16 20 20 Respiratory Effort / Characteristics Non-Labored Sponta neous Non-Labored Non-Labored Respiratory Depth Normal Normal Normal Respiratory Patter n Regular Regular Blood Pressure 124/78 Blood Pressure [Ri ght Arm] 118/70 134/84 Blood Pressure Jerilyn n 93 Blood Pressure Jerilyn n [Right Arm] 86 100 Blood Pressure Pos ition [Right Arm] Lying Pulse Oximetry 99 98 97 Oxygen Delivery Me thod Room Air Room Air Room Air Sepsis Recent Feve r Within 48 Hours No Sepsis New/Unexpla ined Change in Men valencia Status N/A Sepsis Action Take n by Nursing No Action Required 05/21/22 20:00 Temperature Temperature Source Pulse Rate Pulse Rate [Finger ] 77 Pulse Rhythm Pulse Rhythm [Fing er] Regular Pulse Strength Pulse Strength [Fi nger] Normal Respiratory Rate 19 Respiratory Effort / Characteristics Non-Labored Respiratory Depth Normal Respiratory Patter n Regular Blood Pressure Blood Pressure [Ri ght Arm] 134/84 Blood Pressure Jerilyn n Blood Pressure Jerilyn n [Right Arm] 100 Blood Pressure Pos ition [Right Arm] Sitting Pulse Oximetry 99 Oxygen Delivery Me thod Room Air Sepsis Recent Feve r Within 48 Hours Sepsis New/Unexpla ined Change in Men valencia Status Sepsis Action Take n by Nursing Physical Exam: Physical Exam GENERAL: He is oriented to person, place, and time. He appears well-developed and well-nourished. He does not appear distressed. HENT: Exam performed. - Head: Normocephalic and atraumatic. - Right Ear: External ear normal. No mastoid tenderness. - Left Ear: External ear normal. No mastoid tenderness. - Mouth/Throat: The oropharynx is clear and moist. No trismus in the jaw. No dental abscesses or uvula swelling. No oropharyngeal exudate or tonsillar abscesses. EYES: Conjunctivae and EOM are normal. Pupils are equal, round, and reactive to light. Right eye exhibits no discharge. Left eye exhibits no discharge. No scleral icterus. NECK: Normal range of motion. Neck supple. No JVD present. No spinous process tenderness present. No carotid bruit present. No rigidity. No tracheal deviation and normal range of motion present. No Brudzinski's sign and no Kernig's sign noted. CV: Normal rate, regular rhythm, normal heart sounds and intact distal pulses. T here is no peripheral edema. Palpable radial pulses bue. PULM/CHEST: Effort normal and breath sounds normal. No respiratory distress. No stridor. He has no wheezes. He has no rales. - Chest Wall: He exhibits no tenderness. ABD: The abdomen is soft. Bowel sounds are normal. He has no distension. No mass is present. There is no tenderness. There is no rebound, no guarding, no Min's sign and no tenderness at McBurney's point. Rovsig negative. MUSC/SKEL: Normal range of motion. There is no peripheral edema, tenderness or deformity. LYMPH: No cervical adenopathy. NEURO: He is alert and oriented to person, place, and time. He has normal strength. No cranial nerve deficit or sensory deficit. Coordination and gait normal. GCS eye subscore is 4. GCS verbal subscore is 5. GCS motor subscore is 6. Cerebellar tests wnl. SKIN: Lesion on the anterior chest wall approximately 0.5 cm in diameter with irregular borders that has a dark purple color no raised edges. No bleeding. No purulent discharge. PSYCH: He has a normal mood and affect. Behavior is normal. Judgment and thought content normal. Course Course 1640: The patient was evaluated in room A11. A complete history and physical exam was performed Cardiac monitoring: An order was placed for continuous cardiac monitoring. The monitor shows a rate of 80 with sinus rhythm 1930: Vital signs stable. Labs show normal white blood cell count. Potassium 2 .4. Bilirubin 1.6. Direct bilirubin 0.6. AST 50 ALT 150 alkaline phosphatase 342. Lipase within normal limits. Ultrasound of the abdomen shows cholelithiasis but no cholecystitis. There is moderate gallbladder wall thickening. Radiology states this is most likely chronic cholecystitis as oppo sed to acute cholecystitis. No biliary dilatation although the common bile duct is partially obscured. It is thought that the patient's transaminitis could be due to a stone and the patient should be evaluated by GI and possible HIDA scan. Discussed the case with the [facility] hospitalist Dr. Chow who will evaluate the patient. Medical Decision Making Laboratory Data Result diagrams: 05/21/22 16:55 05/21/22 16:55 Lab Results 05/21/22 05/21/22 05/21/22 Range/Units 15:32 15:32 16:55 WBC Cancelled 9.44 RBC Cancelled 3.89 L Hgb Cancelled 11.5 L Hct Cancelled 34.2 L MCV Cancelled 87.9 MCH Cancelled 29.6 MCHC Cancelled 33.6 RDW Std Deviation Cancelled 53.2 H RDW Coeff of Caesar Cancelled 16.6 H Plt Count Cancelled 411 H MPV Cancelled 10.9 Immature Gran % (Auto) Cancelled 0.3 Neut % (Auto) Cancelled 71.3 Lymph % (Auto) Cancelled 10.4 Calloway % (Auto) Cancelled 16.2 Eos % (Auto) Cancelled 1.3 Baso % (Auto) Cancelled 0.5 Neut # (Auto) Cancelled 6.73 H Lymph # (Auto) Cancelled 0.98 L Calloway # (Auto) Cancelled 1.53 H Eos # (Auto) Cancelled 0.12 Baso # (Auto) Cancelled 0.05 Immature Gran # (Auto) Cancelled 0.03 H Absolute Nucleated RBC Cancelled Nucleated RBC % (auto) Cancelled Neutrophils % (Manual) Cancelled Band Neutrophils % Cancelled Lymphocytes % (Manual) Cancelled Prolymphocyte % Cancelled Reactive Lymphs % (Man) Cancelled Monocytes % (Manual) Cancelled Eosinophils % (Manual) Cancelled Basophils % (Manual) Cancelled Metamyelocytes % (Man) Cancelled Myelocytes % (Man) Cancelled Promyelocytes % (Man) Cancelled Blast Cells % (Manual) Cancelled Plasma Cell % (Manual) Cancelled Other Cells % Cancelled Nucleated RBC % Cancelled Neutrophils # (Manual) Cancelled Band Neutrophils # Cancelled Total Absolute Neuts Cancelled Lymphocytes # (Manual) Cancelled Prolymphocyte # Cancelled Reactive Lymphs # Cancelled Total Abs Lymphocytes Cancelled Monocytes # (Manual) Cancelled Eosinophils # (Manual) Cancelled Basophils # (Manual) Cancelled Metamyelocytes # (Man) Cancelled Myelocytes # (Manual) Cancelled Promyelocytes # (Man) Cancelled Blast Cells # (Man) Cancelled Plasma Cell # (Manual) Cancelled Other Cells # Cancelled Nucleated RBCs # (Man) Cancelled Hypersegmented Neuts Cancelled Hyposegmented Neuts Cancelled Hypogranular Neuts Cancelled Large Granular Lymphs Cancelled # Lrg Granular Lymphs Cancelled Hairy Cells Cancelled Smudge Cells Cancelled Toxic Granulation Cancelled Toxic Vacuolation Cancelled Dohle Bodies Cancelled Dayday Rods Cancelled Platelet Estimate Cancelled Hypogranular Platelets Cancelled Clumped Platelets Cancelled Giant Platelets Cancelled Platelet Satelliting Cancelled RBC Morphology Cancelled Polychromasia Cancelled Hypochromasia Cancelled Poikilocytosis Cancelled Basophilic Stippling Cancelled Anisocytosis Cancelled Microcytosis Cancelled Macrocytosis Cancelled Spherocytes Cancelled Pappenheimer Bodies Cancelled Sickle Cells Cancelled Target Cells Cancelled Tear Drop Cells Cancelled Ovalocytes Cancelled Stomatocytes Cancelled [place] Bodies Cancelled Echinocytes Cancelled Acanthocytes (Spur) Cancelled Rouleaux Cancelled RBC Agglutinates Cancelled Schistocytes Cancelled Sezary Cell Cancelled PT (9.0-12.0) Seconds INR (0.9-1.1) APTT (21.0-31.0) Seconds PTT Ratio Sodium 135 L (136-145) mmol/L Potassium TNP Chloride 104 (98-107) mmol/L Carbon Dioxide 24 (21-32) mmol/L Anion Gap 7 (3-11) BUN 9 (6-23) mg/dl Creatinine 0.74 (0.6-1.4) mg/dl Est Cr Clr Drug Dosing 102.0 ml/min Est GFR ( Amer) 106.8 ml/min Est GFR (Non-Af Amer) 92.2 ml/min BUN/Creatinine Ratio 12.2 (10-20) Glucose 161 H (70-99(Fasting)) mg/dl Calcium 8.7 (8.5-10.1) mg/dl Magnesium (1.7-2.4) mg/dl Total Bilirubin 1.6 H (0.2-1.0) mg/dl Direct Bilirubin (0-0.2) mg/dl AST TNP ALT 150 H (7-52) U/L Alkaline Phosphatase 342 H (34-104) U/L Total Protein 6.6 (6.0-8.3) gm/dl Albumin 3.6 (3.4-5.0) gm/dl Globulin 3.0 (2.5-4.0) gm/dl Albumin/Globulin Ratio 1.2 (0.9-2) Lipase 49 (11-82) U/L SARS-CoV-2, RNA, NAAT (NEGATIVE) Blood Parasites ID Cancelled 05/21/22 05/21/22 05/21/22 Range/Units 16:55 16:55 20:20 WBC RBC Hgb Hct MCV MCH MCHC RDW Std Deviation RDW Coeff of Caesar Plt Count MPV Immature Gran % (Auto) Neut % (Auto) Lymph % (Auto) Calloway % (Auto) Eos % (Auto) Baso % (Auto) Neut # (Auto) Lymph # (Auto) Calloway # (Auto) Eos # (Auto) Baso # (Auto) Immature Gran # (Auto) Absolute Nucleated RBC Nucleated RBC % (auto) Neutrophils % (Manual) Band Neutrophils % Lymphocytes % (Manual) Prolymphocyte % Reactive Lymphs % (Man) Monocytes % (Manual) Eosinophils % (Manual) Basophils % (Manual) Metamyelocytes % (Man) Myelocytes % (Man) Promyelocytes % (Man) Blast Cells % (Manual) Plasma Cell % (Manual) Other Cells % Nucleated RBC % Neutrophils # (Manual) Band Neutrophils # Total Absolute Neuts Lymphocytes # (Manual) Prolymphocyte # Reactive Lymphs # Total Abs Lymphocytes Monocytes # (Manual) Eosinophils # (Manual) Basophils # (Manual) Metamyelocytes # (Man) Myelocytes # (Manual) Promyelocytes # (Man) Blast Cells # (Man) Plasma Cell # (Manual) Other Cells # Nucleated RBCs # (Man) Hypersegmented Neuts Hyposegmented Neuts Hypogranular Neuts Large Granular Lymphs # Lrg Granular Lymphs Hairy Cells Smudge Cells Toxic Granulation Toxic Vacuolation Dohle Bodies Dayday Rods Platelet Estimate Hypogranular Platelets Clumped Platelets Giant Platelets Platelet Satelliting RBC Morphology Polychromasia Hypochromasia Poikilocytosis Basophilic Stippling Anisocytosis Microcytosis Macrocytosis Spherocytes Pappenheimer Bodies Sickle Cells Target Cells Tear Drop Cells Ovalocytes Stomatocytes [place] Bodies Echinocytes Acanthocytes (Spur) Rouleaux RBC Agglutinates Schistocytes Sezary Cell PT 11.6 (9.0-12.0) Seconds INR 1.1 (0.9-1.1) APTT 25.2 (21.0-31.0) Seconds PTT Ratio 0.9 Sodium (136-145) mmol/L Potassium 3.4 L Chloride (98-107) mmol/L Carbon Dioxide (21-32) mmol/L Anion Gap (3-11) BUN (6-23) mg/dl Creatinine (0.6-1.4) mg/dl Est Cr Clr Drug Dosing ml/min Est GFR ( Amer) ml/min Est GFR (Non-Af Amer) ml/min BUN/Creatinine Ratio (10-20) Glucose (70-99(Fasting)) mg/dl Calcium (8.5-10.1) mg/dl Magnesium 2.0 (1.7-2.4) mg/dl Total Bilirubin 1.5 H (0.2-1.0) mg/dl Direct Bilirubin 0.6 H (0-0.2) mg/dl AST 50 H ALT 136 H (7-52) U/L Alkaline Phosphatase 307 H (34-104) U/L Total Protein 6.2 (6.0-8.3) gm/dl Albumin 3.3 L (3.4-5.0) gm/dl Globulin (2.5-4.0) gm/dl Albumin/Globulin Ratio (0.9-2) Lipase (11-82) U/L SARS-CoV-2, RNA, NAAT NEGATIVE (NEGATIVE) Blood Parasites ID Imaging Data Radiologist's Impression: Gallbladder Ultrasound 05/21/22 16:49 US gallbladder CLINICAL HISTORY: elevated liver enzymes COMPARISON STUDY: CT of the abdomen and pelvis August 22, 2007. FINDINGS: A 9 mm right hepatic lobe cyst is noted. No intrahepatic biliary ductal dilatation is identified. The common bile duct is largely obscured on this exam. Visualized portions are normal caliber. There are numerous gallstones within the gallbladder. No sonographic Min sign was elicited. The gallbladder wall is thickened, measuring 6 mm in thickness. Pancreatic body is normal. Head and tail are obscured. Mild to moderate right hydronephrosis of uncertain etiology is noted. An 8 mm cyst within the lower pole of the right kidney is noted. This contains a thin septation. IMPRESSION: 1. Cholelithiasis and moderate gallbladder wall thickening. However, no sonographic Min sign. Therefore, acute cholecystitis is considered unlikely and the findings could reflect chronic cholecystitis. 2. No biliary ductal dilatation although common bile duct partially obscured. Partially obscured pancreas. 3. Mild to moderate right hydronephrosis of uncertain etiology. 4. 8 cm right renal cyst. ACT 112: Negative or not required by law. Electronically signed by: Murray Gary M.D. 05/21/2022 6:41 PM MDM Narrative Vital signs stable. Labs show normal white blood cell count. Potassium 2.4. Bilirubin 1.6. Direct bilirubin 0.6. AST 50 ALT 150 alkaline phosphatase 342. Lipase within normal limits. Ultrasound of the abdomen shows cholelithiasis but no cholecystitis. There is moderate gallbladder wall thickening. Radiology states this is most likely chronic cholecystitis as opposed to acute cholecystitis. No biliary dilatation although the common bile duct is partially obscured. It is thought that the patient's transaminitis could be due to a stone and the patient should be evaluated by GI and possible HIDA scan. Discussed the case with the [facility] hospitalist Dr. Chow who will evaluate the patient. Impression & Plan Transaminitis Discharge Plan Visit Data Chief Complaint: Abnormal Labs/Diagnostic Testing Stated Complaint: ABDNORMAL TEST, LIVER ISSUES ED Provider: Jaime Garsia Discharge Problem: Transaminitis Patient Disposition: Being Evaluated by Hospitalist Forms Stand Alone Forms: My [facility] [employer] Prescriptions Prescriptions: No Action cyclobenzaprine 10 mg Tablet 10 mg PO PM PRN (Reason: Pain) terazosin 5 mg Capsule 5 mg PO HS finasteride 5 mg Tablet 1 tab PO PM fluticasone propionate [Flonase Allergy Relief] 50 mcg/actuation [place],Suspension 2 spray INTRANASAL DAILY metoprolol tartrate 25 mg Tablet 12.5 mg PO BID atorvastatin 80 mg Tablet 80 mg PO DAILY lisinopril 5 mg Tablet 5 mg PO DAILY Brilinta 90 mg Tablet 90 mg PO BID PreserVision AREDS-2 1 tab 1 tab PO DAILY Referrals Referrals: Taurus Delgado MD [Primary Care Provider] -
--- NOTE | 2022-05-21 18:43 | Ultrasound Report ---
US gallbladder CLINICAL HISTORY: elevated liver enzymes COMPARISON STUDY: CT of the abdomen and pelvis August 22, 2007. FINDINGS: A 9 mm right hepatic lobe cyst is noted. No intrahepatic biliary ductal dilatation is ident ified. The common bile duct is largely obscured on this exam. Visualized portions are normal caliber. There are numerous gallstones within the gallbladder. No sonographic Min sign was elicited. The g allbladder wall is thickened, measuring 6 mm in thickness. Pancreatic body is normal. Head and tail a re obscured. Mild to moderate right hydronephrosis of uncertain etiology is noted. An 8 mm cyst withi n the lower pole of the right kidney is noted. This contains a thin septation. IMPRESSION: 1. Cholelithiasis and moderate gallbladder wall thickening. However, no sonographic Min sign. Ther efore, acute cholecystitis is considered unlikely and the findings could reflect chronic cholecystiti s. 2. No biliary ductal dilatation although common bile duct partially obscured. Partially obscured panc reas. 3. Mild to moderate right hydronephrosis of uncertain etiology. 4. 8 cm right renal cyst. ACT 112: Negative or not required by law. Electronically signed by: Murray Gary M.D. 05/21/2022 6:41 PM
[2022-05-21] MEDS ORDERED: POTASSIUM CHLORIDE CRTAB 20 MEQ TABCR PO ONE (22:59)
[2022-05-21] MEDS ORDERED: POLYETHYLENE (MIRALAX) 17 GM PACK PO PRN (22:59)
[2022-05-21] MEDS ORDERED: PIPERACILLIN/TAZOBACTAM 4.5 GM in DEXTROSE 5% 100 ML IV ONE (23:30)
[2022-05-21] MEDS: FINASTERIDE 5 MG TAB PO SCH (23:49)
[2022-05-21] MEDS: METOPROLOL TARTRATE 25 MG TAB PO SCH (23:50)
[2022-05-21] MEDS: TERAZOSIN HCL 5 MG CAP PO SCH (23:50)
[2022-05-21] MEDS: TICAGRELOR 90 MG TAB PO SCH (23:50)
[2022-05-21] MEDS: D5W AND 1/2NSS 1,000 ML IV SCH (23:52)
--- NOTE | 2022-05-22 00:09 | History and Physical Report ---
DATE OF ADMISSION: 05/21/2022. CHIEF COMPLAINT: Elevated LFTs. HISTORY OF PRESENT ILLNESS: This is a 71-year-old male with past medical history significant for hyperlipidemia, prediabetes, history of atrioventricular alisa reentry tachycardia, status post successful radiofrequency ablation on 01/21/2018, history of CAD, status post CABG in 1995, history of non-ST elevated OH in 2004, history of acute ST elevation in January 2020 secondary to occlusion of saphenous vein graft to right coronary artery s/p drug-eluting stent through vein graft and posterior descending artery, history of hypertension, ongoing tobacco abuse, history of mild ectasia, ascending aorta, history of SVT, history of sinus bradycardia, history of BPH, history of iron deficiency anemia. Received iron transfusion a couple of weeks ago and he had followup labs on 05/18/2022, which showed white count of 20,000. Total bilirubin was 4.7, AST 487, ALT 566, alkaline phosphatase 425, and advised to come to the hospital. Today here in the ER, his LFTs are total bilirubin 1.5, AST 50, ALT 136, and alkaline phosphatase 307. The patient says about a week ago like last weekend he had abdominal pain, significant not able to sleep but it lasted for 2 days and it went away and he did not did not have any symptoms since then. His gallbladder ultrasound in the ER done today shows cholelithiasis and moderate gallbladder wall thickening; however, no sonographic Min sign, possibly most likely reflects chronic cholecystitis, no biliary ductal dilation, although common bile duct partially obscured, and also has [id number] right hydronephrosis of uncertain etiology. The patient is currently resting comfortably, hemodynamically stable. Denies any chest pain, no shortness of breath, no cough, no fever, no chills. Appetite is good. He wants to eat now. Though denies any headache, has chronic ringing noise in the ears. No runny nose, no sore throat, no cough, no difficulty swallowing. No nausea, no vomiting. Normal bowel and bladder movements. No swelling in the legs. ALLERGIES: No known drug allergies. PAST MEDICAL HISTORY: As mentioned above. PAST SURGICAL HISTORY: CABG, cardiac catheterization and stent placement, repair of the left knee cartilage, sinus surgery. MEDICATIONS: The patient is on atorvastatin 80 mg p.o. daily, cyclobenzaprine 10 mg p.o. b.i.d. p.r.n., finasteride 1 mg one tablet daily, Flonase 2 sprays intranasal daily, lisinopril 5 mg p.o. daily, metoprolol tartrate 25 mg p.o. b.i.d., PreserVision AREDS one tablet daily, terazosin 5 mg p.o. at bedtime, Brilinta 90 mg p.o. b.i.d. FAMILY HISTORY: Significant for no family history on file. SOCIAL HISTORY: , currently smoking 1 pack a day for many years. Alcohol occasional. No drug use. REVIEW OF SYSTEMS: As per HPI. Rest of the review of systems is negative. PHYSICAL EXAMINATION: GENERAL: The patient is of moderate build, not in acute distress. VITAL SIGNS: Temperature 36.4, pulse 80, respiratory rate 20, blood pressure 134/84, oxygen 97% on room air. HEENT: Pupils equal, round, and reactive to light. Oral mucosa moist. NECK: No JVD, no neck masses. CARDIOVASCULAR: S1 and S2 heard. Regular rate and rhythm. No murmur, no gallop. RESPIRATORY SYSTEM: Normal AP diameter. No accessory muscle use. No wheezing, no crackles. ABDOMEN: Soft, bowel sounds present. Mild tenderness in the epigastric region. No guarding, no rigidity, no distention. CENTRAL NERVOUS SYSTEM: Cranial nerves II-XII grossly intact, nonfocal. EXTREMITIES: No edema, no erythema. LABORATORY DATA: WBC 9.4, hemoglobin 11.5, hematocrit 34.2, platelets 411. PT 11.6, INR 1.1, APTT 25.2. Sodium 135, potassium 3.4, chloride 104, CO2 of 24, BUN 9, creatinine 0.7, serum glucose 161, calcium 8.7, magnesium 2, total bilirubin 1.5, direct bilirubin 0.6, AST 50, ALT 136, alkaline phosphatase 307. IMAGING DATA: Gallbladder ultrasound shows cholelithiasis and moderate gallbladder wall thickening; however, no sonographic Min sign, therefore acute cholecystitis considered unlikely and the findings could reflect chronic cholecystitis, no biliary ductal dilatation, although common bile duct partially obscured, partially obscured pancreas, [id number] right hydronephrosis of uncertain etiology, 8 mm right renal cyst. ASSESSMENT AND PLAN: This 71-year-old male was brought in because of abnormal labs, for elevated LFTs. 1. Elevated LFTs, done as outpatient, labs done on 05/18/2022 after his transfusion a couple of weeks ago, showed a white count of 20, bilirubin of 4, and elevated AST and ALT, and alkaline phosphatase, improving labs today. He had some abdominal pain last weekend, but it resolved. 2. Possible chronic cholecystitis, on ultrasound with gallstones. We will keep him n.p.o. after midnight. IV fluids, empirical Zosyn. Will f/u cultures. Consult GI in the a.m. for further evaluation and recommendations. Follow LFTs in the a.m. 3. Iron deficiency anemia and chronic thrombocytosis and also leukocytosis. He is following with hem/onc. 4. History of coronary artery disease, status post coronary artery bypass grafting, status post stent, history of non-ST elevated OH and history of ST elevated OH. Continue his home medication of atorvastatin, Brilinta, beta blockers, currently stable. 5. Benign prostatic hypertrophy: Continue his home medications. 6. Hypertension: Continue lisinopril, metoprolol. 7. Prediabetes: Follow HbA1c levels. 8. Tobacco abuse: Needs counseling. 9. Deep venous thrombosis prophylaxis: Sequential compression devices. DISPOSITION: Closely monitor in the medical floor. PT/OT prior to discharge. Social service to help with discharge planning. Job ID: [id number]
[2022-05-22] MEDS ORDERED: INFLUENZA VACCINE HIGH DOSE PF 65+ 0.7 ML SYR IM ONE (00:31)
[2022-05-22 06:02] LABS: Basophils # (auto) 0.09 K/uL (0-0.2); Basophils % (auto) 0.9 %; Eosinophils # (auto) 0.24 K/uL (0-0.50); Eosinophils % (auto) 2.3 %; Hemoglobin 12.9 g/dl (14.0-18.0); Immature Granulocytes # (auto) 0.06 K/uL (0.00-0.02); Immature Granulocytes % (auto) 0.6 %; Lymphocytes # (auto) 1.25 K/uL (1.2-3.4); Mean Corpuscular Hemoglobin 29.6 pg (25.0-34.0); Mean Corpuscular Hgb Conc 34.9 g/dL (32.0-36.0); Mean Corpuscular Volume 84.9 fL (80.0-100.0); Mean Platelet Volume 10.8 fL (9.4-12.4); Monocytes # (auto) 1.77 K/uL (0.24-0.82); Monocytes % (auto) 16.9 %; Neutrophils # (auto) 7.05 K/uL (1.4-6.5); Neutrophils % (auto) 67.3 %; Platelet Count 492 K/uL (130-400); RDW Coefficient of Variation 16.5 % (11.5-14.5); RDW Standard Deviation 51.8 fL (36.4-46.3); Red Blood Count 4.36 M/uL (4.63-6.08); White Blood Count 10.46 K/ul (4.8-10.8)
[2022-05-22] MEDS: PIPERACILLIN/TAZOBACTAM 3.375 GM in DEXTROSE 5% 100 ML IV SCH ×3 (06:10→22:37)
[2022-05-22] MEDS: D5W AND 1/2NSS 1,000 ML IV SCH ×2 (06:13→14:15)
[2022-05-22 06:31] LABS: Albumin Level 3.1 gm/dl (3.4-5.0); BUN Creatinine Ratio 14.3 (10-20); Bilirubin Direct 0.5 mg/dl (0-0.2); Bilirubin,Total 1.2 mg/dl (0.2-1.0); Creatinine Clr Calc Pharmacy 107.8 ml/min; Est GFR (African American) 109.3 ml/min; Est GFR (Non-African American) 94.3 ml/min; Potassium 3.7 mmol/L (3.5-5.1); Total Protein 5.8 gm/dl (6.0-8.3)
[2022-05-22 07:50] LABS: Estimated Average Glucose 120 mg/dl; Hemoglobin A1C 5.8 % (4.5-5.6)
[2022-05-22] MEDS: ATORVASTATIN 40 MG TAB PO SCH (08:37)
[2022-05-22] MEDS: lisinopril 5 MG TAB PO SCH (08:37)
[2022-05-22] MEDS: TICAGRELOR 90 MG TAB PO SCH ×2 (08:38→20:28)
[2022-05-22] MEDS: FLUTICASONE PROPIONATE NA SPR 16 GM BTL SCH (08:39)
[2022-05-22] MEDS: CEROVITE ADV FORMULA TAB PO SCH (08:39)
[2022-05-22] MEDS: METOPROLOL TARTRATE 25 MG TAB PO SCH ×2 (08:39→20:27)
--- NOTE | 2022-05-22 09:37 | Gastrointestinal Consultation ---
Date of Consultation May 22, 2022 Assessment & Plan (1) Transaminitis: 71 year old male with history of HTN, dyslipidemia, atrioventricular alisa reentry tachycardia s/p ablation 2018, CAD s/p CABG, NSTEMI in 2005, acute ST elevation in 2019 due to occlusion of saphenous vein graft to right coronary artery s/p drug-eluting stent presenting with abnormal LFTs. His transaminases have significantly improved from initial results and he notes resolution of his previously described abdominal pain. DDX discussed, including passage of a CBD stone Recommend general surgery consultation regarding gallbladder wall thickening Can continue NPO status for anticipated MRCP for biliary evaluation Trend LFTs If LFTs continue to improve and MRCP negative, no acute indication for endoscopic evaluation Thank you for allowing us to participate in the care of this patient. Please call with any acute changes, questions or concerns. Please see addendum below with additional recommendation from my supervising physician. Supervising Physician Co-Signing Physician Notes I have personally seen and examined the patient with JUDE Limon. Her note reflects my exam and findings. I agree with her impression and plan. Liver enzymes are slowly improving. Agree with further imaging. Nader Iglesias M.D. History of Present Illness Reason for Consultation: elevated LFTs Requesting Physician: Trey Attending Physician: Kiana Yang MD History of Present Illness 71 year old male with history of HTN, dyslipidemia, history of atrioventricular alisa reentry tachycardia, status post successful radiofrequency ablation on 01/21/2018, CAD s/p CABG, NSTEMI in 2005, acute ST elevation in 2020 due to occlusion of saphenous vein graft to right coronary artery s/p drug-eluting stent through vein graft and posterior descending artery, PAGE others below who presents for abnormal labs, elevated LFTs. [facility] was seen and evaluated,[facility] given [facility]. Pt notes from a GI standpoint today, he is feeling well. However, he does report a history of upper abd pain, severe, without radiation which occurred for about four days last week. Denied any associated nausea/vomiting or GERD. No change in bowel habits. Denies black or bloody stools or emesis. TB 4.7 --> 1.6 --> 1.2 AST 487--> 50 --> 37 ALT 566--> 150 --> 105 ALKP 425--> 342 --> 274 lipase 49 ABD US 2021: . Cholelithiasis and moderate gallbladder wall thickening. However, no sonographic Min sign. Therefore, acute cholecystitis is considered unlikely and the findings could reflect chronic cholecystitis. No biliary ductal dilatation although common bile duct partially obscured. Partially obscured pancreas. Mild to moderate right hydronephrosis of uncertain etiology. 8 cm right renal cyst. Allergies Allergy/AdvReac Type Severity Reaction Status Date / Time No Known Allergies Allergy Unknown Verified 05/21/22 19:43 Home Medications Medication Instructions Recorded Confirmed Type cyclobenzaprine 10 mg tablet 10 mg PO PM PRN Pain 03/05/18 05/21/22 History finasteride 5 mg tablet 1 tab PO PM 03/05/18 05/21/22 History fluticasone propionate 50 2 spray intranasal DAILY 03/05/18 05/21/22 History mcg/actuation nasal spray,suspension (Flonase Allergy Relief) terazosin 5 mg capsule 5 mg PO HS 03/05/18 05/21/22 History PreserVision AREDS-2 1 tab PO DAILY 05/21/22 05/21/22 History atorvastatin 80 mg tablet 80 mg PO DAILY 05/21/22 05/21/22 History lisinopril 5 mg tablet 5 mg PO DAILY 05/21/22 05/21/22 History metoprolol tartrate 50 mg tablet 25 mg PO BID 05/21/22 05/21/22 History ticagrelor 90 mg tablet (Brilinta) 90 mg PO BID 05/21/22 05/21/22 History Patient History Medical History BPH (benign prostatic hyperplasia) Deep vein thrombosis H/O agent [place] exposure Hearing deficit Hyperlipidemia Hypertension Myocardial Infarction 21 YEARS AGO Osteoarthritis PSVT (paroxysmal supraventricular tachycardia) Typical AVNRT s/p slow pathway modification 01/21/[address] Humphreys. 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 Beliefs That Will Affect Care: Alevism Alevism Beliefs: presybeterian marital status: Current Living Situation: Spouse Feels Safe at Home: Yes Safety Concerns: Feels Safe At This Time Assistive Devices: None Review of Systems Review of Systems: All systems reviewed & are unremarkable except as noted in HPI & below Physical Exam Constitutional: WD/WN, vitals as above Respiratory: normal respiratory effort, lungs clear to auscultation Cardiovascular: Rate/Rhythm: regular rate and regular rhythm Gastrointestinal (Abdomen): normal bowel sounds, soft, nontender, no hepatosplenomegaly Skin: no rashes, warm and dry Results & Data ([facility]) Vital Signs (Past 12 Hours) Vital Signs Temp Pulse Pulse Resp BP BP Pulse Ox 05/22/22 07:54 36.8 C 55 L 18 126/77 94 05/21/22 22:30 36.6 C 67 16 154/88 H 97 05/21/22 22:44 O2 Del Method 05/22/22 07:54 Room Air 05/21/22 22:30 Room Air 05/21/22 22:44 Room Air Laboratory Results 05/22/22 05/22/22 05/22/22 Range/Units 05:30 05:30 05:30 WBC 10.46 RBC 4.36 L Hgb 12.9 L Hct 37.0 L MCV 84.9 MCH 29.6 MCHC 34.9 RDW Std Deviation 51.8 H RDW Coeff of Caesar 16.5 H Plt Count 492 H MPV 10.8 Immature Gran % (Auto) 0.6 Neut % (Auto) 67.3 Lymph % (Auto) 12.0 [place] % (Auto) 16.9 Eos % (Auto) 2.3 Baso % (Auto) 0.9 Neut # (Auto) 7.05 H Lymph # (Auto) 1.25 [place] # (Auto) 1.77 H Eos # (Auto) 0.24 Baso # (Auto) 0.09 Immature Gran # (Auto) 0.06 H Absolute Nucleated RBC Nucleated RBC % (auto) Neutrophils % (Manual) Band Neutrophils % Lymphocytes % (Manual) Prolymphocyte % Reactive Lymphs % (Man) Monocytes % (Manual) Eosinophils % (Manual) Basophils % (Manual) Metamyelocytes % (Man) Myelocytes % (Man) Promyelocytes % (Man) Blast Cells % (Manual) Plasma Cell % (Manual) Other Cells % Nucleated RBC % Neutrophils # (Manual) Band Neutrophils # Total Absolute Neuts Lymphocytes # (Manual) Prolymphocyte # Reactive Lymphs # Total Abs Lymphocytes Monocytes # (Manual) Eosinophils # (Manual) Basophils # (Manual) Metamyelocytes # (Man) Myelocytes # (Manual) Promyelocytes # (Man) Blast Cells # (Man) Plasma Cell # (Manual) Other Cells # Nucleated RBCs # (Man) Hypersegmented Neuts Hyposegmented Neuts Hypogranular Neuts Large Granular Lymphs # Lrg Granular Lymphs Hairy Cells Smudge Cells Toxic Granulation Toxic Vacuolation Dohle Bodies Dayday Rods Platelet Estimate Hypogranular Platelets Clumped Platelets Giant Platelets Platelet Satelliting RBC Morphology Polychromasia Hypochromasia Poikilocytosis Basophilic Stippling Anisocytosis Microcytosis Macrocytosis Spherocytes Pappenheimer Bodies Sickle Cells Target Cells Tear Drop Cells Ovalocytes Stomatocytes [place] Bodies Echinocytes Acanthocytes (Spur) Rouleaux RBC Agglutinates Schistocytes Sezary Cell PT (9.0-12.0) Seconds INR (0.9-1.1) APTT (21.0-31.0) Seconds PTT Ratio Sodium 135 L (136-145) mmol/L Potassium 3.7 Chloride 107 (98-107) mmol/L Carbon Dioxide 24 (21-32) mmol/L Anion Gap 4 (3-11) BUN 10 (6-23) mg/dl Creatinine 0.70 (0.6-1.4) mg/dl Est Cr Clr Drug Dosing 107.8 ml/min Est GFR ( Amer) 109.3 ml/min Est GFR (Non-Af Amer) 94.3 ml/min BUN/Creatinine Ratio 14.3 (10-20) Glucose 128 H (70-99(Fasting)) mg/dl Estimat Average Glucose 120 mg/dl Hemoglobin A1c 5.8 H (4.5-5.6) % Calcium 8.0 L (8.5-10.1) mg/dl Magnesium 2.0 (1.7-2.4) mg/dl Total Bilirubin 1.2 H (0.2-1.0) mg/dl Direct Bilirubin 0.5 H (0-0.2) mg/dl AST 37 ALT 105 H (7-52) U/L Alkaline Phosphatase 274 H (34-104) U/L Total Protein 5.8 L (6.0-8.3) gm/dl Albumin 3.1 L (3.4-5.0) gm/dl Globulin (2.5-4.0) gm/dl Albumin/Globulin Ratio (0.9-2) Lipase (11-82) U/L SARS-CoV-2, RNA, NAAT (NEGATIVE) Blood Parasites ID 05/21/22 05/21/22 05/21/22 Range/Units 20:20 16:55 16:55 WBC RBC Hgb Hct MCV MCH MCHC RDW Std Deviation RDW Coeff of Caesar Plt Count MPV Immature Gran % (Auto) Neut % (Auto) Lymph % (Auto) [place] % (Auto) Eos % (Auto) Baso % (Auto) Neut # (Auto) Lymph # (Auto) [place] # (Auto) Eos # (Auto) Baso # (Auto) Immature Gran # (Auto) Absolute Nucleated RBC Nucleated RBC % (auto) Neutrophils % (Manual) Band Neutrophils % Lymphocytes % (Manual) Prolymphocyte % Reactive Lymphs % (Man) Monocytes % (Manual) Eosinophils % (Manual) Basophils % (Manual) Metamyelocytes % (Man) Myelocytes % (Man) Promyelocytes % (Man) Blast Cells % (Manual) Plasma Cell % (Manual) Other Cells % Nucleated RBC % Neutrophils # (Manual) Band Neutrophils # Total Absolute Neuts Lymphocytes # (Manual) Prolymphocyte # Reactive Lymphs # Total Abs Lymphocytes Monocytes # (Manual) Eosinophils # (Manual) Basophils # (Manual) Metamyelocytes # (Man) Myelocytes # (Manual) Promyelocytes # (Man) Blast Cells # (Man) Plasma Cell # (Manual) Other Cells # Nucleated RBCs # (Man) Hypersegmented Neuts Hyposegmented Neuts Hypogranular Neuts Large Granular Lymphs # Lrg Granular Lymphs Hairy Cells Smudge Cells Toxic Granulation Toxic Vacuolation Dohle Bodies Dayday Rods Platelet Estimate Hypogranular Platelets Clumped Platelets Giant Platelets Platelet Satelliting RBC Morphology Polychromasia Hypochromasia Poikilocytosis Basophilic Stippling Anisocytosis Microcytosis Macrocytosis Spherocytes Pappenheimer Bodies Sickle Cells Target Cells Tear Drop Cells Ovalocytes Stomatocytes [place] Bodies Echinocytes Acanthocytes (Spur) Rouleaux RBC Agglutinates Schistocytes Sezary Cell PT 11.6 (9.0-12.0) Seconds INR 1.1 (0.9-1.1) APTT 25.2 (21.0-31.0) Seconds PTT Ratio 0.9 Sodium (136-145) mmol/L Potassium 3.4 L Chloride (98-107) mmol/L Carbon Dioxide (21-32) mmol/L Anion Gap (3-11) BUN (6-23) mg/dl Creatinine (0.6-1.4) mg/dl Est Cr Clr Drug Dosing ml/min Est GFR ( Amer) ml/min Est GFR (Non-Af Amer) ml/min BUN/Creatinine Ratio (10-20) Glucose (70-99(Fasting)) mg/dl Estimat Average Glucose mg/dl Hemoglobin A1c (4.5-5.6) % Calcium (8.5-10.1) mg/dl Magnesium 2.0 (1.7-2.4) mg/dl Total Bilirubin 1.5 H (0.2-1.0) mg/dl Direct Bilirubin 0.6 H (0-0.2) mg/dl AST 50 H ALT 136 H (7-52) U/L Alkaline Phosphatase 307 H (34-104) U/L Total Protein 6.2 (6.0-8.3) gm/dl Albumin 3.3 L (3.4-5.0) gm/dl Globulin (2.5-4.0) gm/dl Albumin/Globulin Ratio (0.9-2) Lipase (11-82) U/L SARS-CoV-2, RNA, NAAT NEGATIVE (NEGATIVE) Blood Parasites ID 05/21/22 05/21/22 05/21/22 Range/Units 16:55 15:32 15:32 WBC 9.44 Cancelled RBC 3.89 L Cancelled Hgb 11.5 L Cancelled Hct 34.2 L Cancelled MCV 87.9 Cancelled MCH 29.6 Cancelled MCHC 33.6 Cancelled RDW Std Deviation 53.2 H Cancelled RDW Coeff of Caesar 16.6 H Cancelled Plt Count 411 H Cancelled MPV 10.9 Cancelled Immature Gran % (Auto) 0.3 Cancelled Neut % (Auto) 71.3 Cancelled Lymph % (Auto) 10.4 Cancelled [place] % (Auto) 16.2 Cancelled Eos % (Auto) 1.3 Cancelled Baso % (Auto) 0.5 Cancelled Neut # (Auto) 6.73 H Cancelled Lymph # (Auto) 0.98 L Cancelled [place] # (Auto) 1.53 H Cancelled Eos # (Auto) 0.12 Cancelled Baso # (Auto) 0.05 Cancelled Immature Gran # (Auto) 0.03 H Cancelled Absolute Nucleated RBC Cancelled Nucleated RBC % (auto) Cancelled Neutrophils % (Manual) Cancelled Band Neutrophils % Cancelled Lymphocytes % (Manual) Cancelled Prolymphocyte % Cancelled Reactive Lymphs % (Man) Cancelled Monocytes % (Manual) Cancelled Eosinophils % (Manual) Cancelled Basophils % (Manual) Cancelled Metamyelocytes % (Man) Cancelled Myelocytes % (Man) Cancelled Promyelocytes % (Man) Cancelled Blast Cells % (Manual) Cancelled Plasma Cell % (Manual) Cancelled Other Cells % Cancelled Nucleated RBC % Cancelled Neutrophils # (Manual) Cancelled Band Neutrophils # Cancelled Total Absolute Neuts Cancelled Lymphocytes # (Manual) Cancelled Prolymphocyte # Cancelled Reactive Lymphs # Cancelled Total Abs Lymphocytes Cancelled Monocytes # (Manual) Cancelled Eosinophils # (Manual) Cancelled Basophils # (Manual) Cancelled Metamyelocytes # (Man) Cancelled Myelocytes # (Manual) Cancelled Promyelocytes # (Man) Cancelled Blast Cells # (Man) Cancelled Plasma Cell # (Manual) Cancelled Other Cells # Cancelled Nucleated RBCs # (Man) Cancelled Hypersegmented Neuts Cancelled Hyposegmented Neuts Cancelled Hypogranular Neuts Cancelled Large Granular Lymphs Cancelled # Lrg Granular Lymphs Cancelled Hairy Cells Cancelled Smudge Cells Cancelled Toxic Granulation Cancelled Toxic Vacuolation Cancelled Dohle Bodies Cancelled Dayday Rods Cancelled Platelet Estimate Cancelled Hypogranular Platelets Cancelled Clumped Platelets Cancelled Giant Platelets Cancelled Platelet Satelliting Cancelled RBC Morphology Cancelled Polychromasia Cancelled Hypochromasia Cancelled Poikilocytosis Cancelled Basophilic Stippling Cancelled Anisocytosis Cancelled Microcytosis Cancelled Macrocytosis Cancelled Spherocytes Cancelled Pappenheimer Bodies Cancelled Sickle Cells Cancelled Target Cells Cancelled Tear Drop Cells Cancelled Ovalocytes Cancelled Stomatocytes Cancelled Tee-[place]ur[place] Bodies Cancelled Echinocytes Cancelled Acanthocytes (Spur) Cancelled Rouleaux Cancelled RBC Agglutinates Cancelled Schistocytes Cancelled Sezary Cell Cancelled PT (9.0-12.0) Seconds INR (0.9-1.1) APTT (21.0-31.0) Seconds PTT Ratio Sodium 135 L (136-145) mmol/L Potassium TNP Chloride 104 (98-107) mmol/L Carbon Dioxide 24 (21-32) mmol/L Anion Gap 7 (3-11) BUN 9 (6-23) mg/dl Creatinine 0.74 (0.6-1.4) mg/dl Est Cr Clr Drug Dosing 102.0 ml/min Est GFR ( Amer) 106.8 ml/min Est GFR (Non-Af Amer) 92.2 ml/min BUN/Creatinine Ratio 12.2 (10-20) Glucose 161 H (70-99(Fasting)) mg/dl Estimat Average Glucose mg/dl Hemoglobin A1c (4.5-5.6) % Calcium 8.7 (8.5-10.1) mg/dl Magnesium (1.7-2.4) mg/dl Total Bilirubin 1.6 H (0.2-1.0) mg/dl Direct Bilirubin (0-0.2) mg/dl AST TNP ALT 150 H (7-52) U/L Alkaline Phosphatase 342 H (34-104) U/L Total Protein 6.6 (6.0-8.3) gm/dl Albumin 3.6 (3.4-5.0) gm/dl Globulin 3.0 (2.5-4.0) gm/dl Albumin/Globulin Ratio 1.2 (0.9-2) Lipase 49 (11-82) U/L SARS-CoV-2, RNA, NAAT (NEGATIVE) Blood Parasites ID Cancelled
--- NOTE | 2022-05-22 12:56 | Surgery Consultation ---
Date of Consultation May 22, 2022 Assessment & Plan (1) Transaminitis: This is a 71yM with a PMH of CABG, ALEXX on Brilinta, h/o TX, PAGE who presents to the [facility] ED on 05/21/22 as referred by his Doctor for elevated LFTs found on blood work last week. In the ER a RUQ US revealed + cholelithiasis and moderate gallbladder wall thickening. Acute cholecystitis is considered unlikely and the findings could reflect chronic cholecystitis. As well as no biliary ductal dilatation although common bile duct partially obscured. Labs today show WBC 10.4. Downtrend in LFTs: Tb 1.2 (1.5), AST: 37, ALT: 105, AlkP: 274. Patients vital signs are stable. On examination patient's abdomen is soft, non distended, not tender. GI has been consulted and recommending an MRCP for further evaluation. We will follow up on this study. Patient does not have evidence of acute cholecystitis at this time. He will need cardiac clearance as well as holding his Brillinta prior to any surgical procedure for 5-7 days. Pending findings he may be able to advance diet and follow up with us as an outpatient if no procedures acutely warranted this admission. Supervising Physician Co-Signing Physician Notes Patient seen and examined, labs image reviewed, agree with above. 71-year-old male with outpatient labs that showed transaminitis and hyperbilirubinemia on Saturday, called back into the ER on Saturday and admitted. Evidence of cholelithiasis and chronic gallbladder wall thickening with no obvious cholecystitis. GI has seen the patient and his awaiting results of an MRCP. He denies any postprandial pain. Did have some mild epigastric discomfort but seems to be improving. On exam he is afebrile with stable vitals. His abdomen is soft, nontender, nondistended. LFTs downtrending. Await results of MRCP. Patient is on Brilinta, and this will need to be held for 5 to 7 days prior to surgery. He would also need cardiac clearance prior to intervention given his extensive cardiac history. If the MRCP is positive then ERCP will treat the choledocholithiasis, and he can undergo cholecystectomy as an outpatient. If MRCP is negative then the diet may be advanced and cholecystectomy can be performed as an outpatient. Surgery will continue to follow, call with questions or concerns. History of Present Illness Attending Physician: Kiana Yang MD History of Present Illness This is a 71yM with a PMH of CABG, ALEXX on Brilinta, h/o TX, PAGE who presents to the [facility] ED on 05/21/22 as referred by his Doctor for elevated LFTs. He had an iron transfusion and follow up blood work he had done last Saturday showed the elevation in both WBC and LFTs, therefore they called to have him come in. In the ER a RUQ US revealed + cholelithiasis and moderate gallbladder wall thickening. Acute cholecystitis is considered unlikely and the findings could reflect chronic cholecystitis. As well as no biliary ductal dilatation although common bile duct partially obscured. Patient currently denies any abdominal pain at rest, but feels discomfort when palpated upon. No issues with eating currently. Had some pain last week in the upper/mid abdomen that radiated down the midline. No fevers/chills. Prior abdominal surgical history of perforated appendicitis years ago. Allergies Allergy/AdvReac Type Severity Reaction Status Date / Time No Known Allergies Allergy Unknown Verified 05/21/22 19:43 Home Medications Medication Instructions Recorded Confirmed Type cyclobenzaprine 10 mg tablet 10 mg PO PM PRN Pain 03/05/18 05/21/22 History finasteride 5 mg tablet 1 tab PO PM 03/05/18 05/21/22 History fluticasone propionate 50 2 spray intranasal DAILY 03/05/18 05/21/22 History mcg/actuation nasal spray,suspension (Flonase Allergy Relief) terazosin 5 mg capsule 5 mg PO HS 03/05/18 05/21/22 History PreserVision AREDS-2 1 tab PO DAILY 05/21/22 05/21/22 History atorvastatin 80 mg tablet 80 mg PO DAILY 05/21/22 05/21/22 History lisinopril 5 mg tablet 5 mg PO DAILY 05/21/22 05/21/22 History metoprolol tartrate 50 mg tablet 25 mg PO BID 05/21/22 05/21/22 History ticagrelor 90 mg tablet (Brilinta) 90 mg PO BID 05/21/22 05/21/22 History Patient History Medical History BPH (benign prostatic hyperplasia) Deep vein thrombosis H/O agent [place] exposure Hearing deficit Hyperlipidemia Hypertension Myocardial Infarction 21 YEARS AGO Osteoarthritis PSVT (paroxysmal supraventricular tachycardia) Typical AVNRT s/p slow pathway modification 01/21/[address] Humphreys. Surgical History H/O sinus surgery History of appendectomy History of arthroscopy LEFT KNEE History of cardiac cath X3 - MOST RECENT 2-3 YEARS AGO - NO STENTS/ANGIOPLASTY History of cardiac radiofrequency ablation 3-4 WEEKS AGO AT [facility] R/T PSVT History of coronary artery bypass graft 21 YEARS AGO Social History Smoking Status: Current every day smoker Cigarettes Per Day: 1 PPD; Hx Alcohol Use: No Hx Substance Use: No Preferred Language: Armenian Communication Ability: Effective Air Hammer Stripper Required: No Beliefs That Will Affect Care: Mandaeism Mandaeism Beliefs: bahai marital status: Current Living Situation: Spouse Feels Safe at Home: Yes Safety Concerns: Feels Safe At This Time Assistive Devices: None Review of Systems Constitutional: no fever, no chills and no anorexia Respiratory: no dyspnea Gastrointestinal: + abdominal pain (last week); no nausea and no vomiting Physical Exam Physical Exam: awake/alert Constitutional: well developed and well nourished; no acute distress Respiratory: normal respiratory effort Gastrointestinal (Abdomen): Inspection/Auscultation: abdomen not distended Percussion/Palpation: + abdomen tender (no overt discomfort to palpation ) and abdomen soft Results & Data ([facility]) Vital Signs (Past 12 Hours) Vital Signs Temp Pulse Resp BP Pulse Ox O2 Del Method 05/22/22 07:54 36.8 C 55 L 18 126/77 94 Room Air Diagnostic Findings US gallbladder CLINICAL HISTORY: elevated liver enzymes COMPARISON STUDY: CT of the abdomen and pelvis August 22, 2007. FINDINGS: A 9 mm right hepatic lobe cyst is noted. No intrahepatic biliary ductal dilatation is identified. The common bile duct is largely obscured on this exam. Visualized portions are normal caliber. There are numerous gallstones within the gallbladder. No sonographic Min sign was elicited. The gallbladder wall is thickened, measuring 6 mm in thickness. Pancreatic body is normal. Head and tail are obscured. Mild to moderate right hydronephrosis of uncertain etiology is noted. An 8 mm cyst within the lower pole of the right kidney is noted. This contains a thin septation. IMPRESSION: 1. Cholelithiasis and moderate gallbladder wall thickening. However, no sonographic Min sign. Therefore, acute cholecystitis is considered unlikely and the findings could reflect chronic cholecystitis. 2. No biliary ductal dilatation although common bile duct partially obscured. Partially obscured pancreas. 3. Mild to moderate right hydronephrosis of uncertain etiology. 4. 8 cm right renal cyst. ACT 112: Negative or not required by law. Electronically signed by: Murray Gary M.D. 05/21/2022 6:41 PM PG Care Time/CCT Total # of Minutes Spent Total Time Spent with Patient: Total time spent is greater than 50% in coordination of care (as documented) at patient's floor/unit and/or counseling patient: Coding Level of Care Code 46609 Initial Inpt Care Lvl 1 Diagnoses Transaminitis R74.01
--- NOTE | 2022-05-22 16:09 | Hospitalist Progress Note ---
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 He is being managed for the following: Elevated LFTs on outpatient 05/18/2022 Possible chronic cholecystitis Right renal cyst seen on GB US --> 8 mm w/ thin spetation, outpatient follow-up with PCP, likely will need renal USG or CT. Patient reports having upper abdominal pain for 7 days OVEN ATTENDANT, improving. Patient advised to come to the ED due to abnormal outpatient labs [see above] Admitting gallbladder ultrasound: Cholelithiasis and moderate gallbladder wall thickening, suggestive of chronic cholecystitis. 8 cm right renal cyst. LFT downtrending, labs in a.m. GI evaluated, recommends MRCP, GI following. Surgery evaluated, will make recommendation pending MRCP f/u blood cx. Continue with Zosyn, patient reports improving upper belly pain. NPO, C/w IVF. Hepatitis panel in AM. Iron deficiency anemia: Patient follows with hematology and oncology, received iron transfusion a couple of weeks ago OVEN ATTENDANT. Hemoglobin stable. Other chronic medical conditions: Extensive cardiac history [see above], BPH, HTN, prediabetes, tobacco abuse --> resume home meds as able. Patient advised/c ounseled against tobacco use. DVT prophylaxis: Heparin sq Admission and Anticipated Discharge Date Admission Date: May 21, 2022 Subjective Patient seen and examined at bedside as a follow-up of elevated LFTs done outpatient and possible chronic cholecystitis. Patient was lying in bed, on room air, NAD, denies any new acute event overnight, reports improving upper belly pain, reports his upper belly pain started almost a week ago OVEN ATTENDANT, patient is n.p.o. until evaluated by GI and surgery, patient reports having no bowel movement since last 5 to 6 days [usual baseline is 2 to 4 days], is moving gas, denies any headache/fever/chills/chest pain/palpitation/other review of symptoms. Physical Exam Physical Exam: GENERAL: Alert and oriented x3. NAD, on RA. HEENT: No pallor, no icterus. Pupils equal, round and reactive to light. Oral mucosa moist. NECK: No JVD, no neck masses. HEART: S1 and S2 heard. Regular rate and rhythm. No murmur, no gallop. RESPIRATORY SYSTEM: Normal AP diameter. No accessory muscle use. No wheezing, no crackles. ABDOMEN: Soft, bowel sounds present, minimal RUQ & epigastric tender/no facial grimacing though, no distention. CENTRAL NERVOUS SYSTEM: No facial droop. Speech is clear. Obeys simple commands. Moves extremities. EXTREMITIES: No edema, no erythema seen. Results & Data Results & Data ([facility]) Vital Signs (Past 12 Hours) Vital Signs Temp Pulse Resp BP Pulse Ox O2 Del Method 05/22/22 07:54 36.8 C 55 L 18 126/77 94 Room Air
--- NOTE | 2022-05-22 17:14 | Magnetic Resonance Report ---
MRCP CLINICAL HISTORY: elevated lfts, evaluate biliary system. TECHNIQUE: Utilizing a 1.5 Poonam magnet and dedicated coil, multiplanar, multiecho imaging of the [facility] abdomen was performed utilizing heavily T2 weighted pulsing sequences without IV contrast. COMPARISON STUDY: Right upper quadrant ultrasound May 21, 2022. CT of the abdomen August 22, 2007. FINDINGS: Multiple gallstones within the gallbladder are noted. The gallbladder is not distended. The gallbladder wall is thickened. No pericholecystic fluid or stranding is identified. This exam is com promised by motion artifact. However, there is no biliary ductal dilatation and no common bile duct c alculi are identified. The caliber of the main pancreatic duct is normal. There is no peripancreatic fluid. A few T2 hyperintense hepatic lesions measure up to 1 cm. These favor cysts. Liver morphology is normal. Mild splenomegaly is similar to prior CT. Adrenal glands and pancreas are unremarkable on this unenhanced exam. T2 hyperintense bilateral renal lesions favor cysts. These measure up to 7.7 cm . Moderate bilateral hydroureteronephrosis is likely due to bladder distention, partially imaged on t his exam. Bladder wall trabeculation is suspected. There is no abdominal lymphadenopathy. IMPRESSION: 1. Cholelithiasis and gallbladder wall thickening. In the absence of right upper quadrant pain, the f indings favor chronic cholecystitis. 2. Exam compromised by motion artifact. However, no biliary ductal dilatation and no common bile duct calculi identified. 3. Moderate bilateral hydroureteronephrosis, likely due to bladder distention. 4. Multiple suspected renal cysts. ACT 112: Negative or not required by law. Electronically signed by: Murray Gary M.D. 05/22/2022 5:12 PM
[2022-05-22] MEDS: TERAZOSIN HCL 5 MG CAP PO SCH (20:27)
[2022-05-22] MEDS: FINASTERIDE 5 MG TAB PO SCH (20:27)
[2022-05-22] MEDS: HEPARIN SOD 5,000 UNIT/0.5 ML VIAL SQ SCH (20:29)
[2022-05-23] MEDS: D5W AND 1/2NSS 1,000 ML IV SCH ×2 (00:03→09:22)
[2022-05-23] MEDS ORDERED: MELATONIN 3 MG TAB PO PRN (00:10)
[2022-05-23] MEDS: PIPERACILLIN/TAZOBACTAM 3.375 GM in DEXTROSE 5% 100 ML IV SCH (06:17)
[2022-05-23 06:31] LABS: Hematocrit (blood only) 38.8 % (40.1-51.0); Hemoglobin 12.9 g/dl (14.0-18.0); Mean Corpuscular Hemoglobin 29.1 pg (25.0-34.0); Mean Corpuscular Hgb Conc 33.2 g/dL (32.0-36.0); Mean Corpuscular Volume 87.6 fL (80.0-100.0); Mean Platelet Volume 10.9 fL (9.4-12.4); Platelet Count 505 K/uL (130-400); RDW Coefficient of Variation 15.7 % (11.5-14.5); RDW Standard Deviation 50.5 fL (36.4-46.3); Red Blood Count 4.43 M/uL (4.63-6.08); White Blood Count 11.27 K/ul (4.8-10.8)
[2022-05-23 07:00] LABS: Albumin Globulin Ratio 1.1 (0.9-2); Albumin Level 3.2 gm/dl (3.4-5.0); BUN Creatinine Ratio 6.4 (10-20); Bilirubin,Total 1.4 mg/dl (0.2-1.0); Calcium 8.4 mg/dl (8.5-10.1); Creatinine Clr Calc Pharmacy 96.7 ml/min; Est GFR (African American) 104.5 ml/min; Est GFR (Non-African American) 90.2 ml/min; Globulin 2.8 gm/dl (2.5-4.0); Potassium 4.4 mmol/L (3.5-5.1)
[2022-05-23] MEDS: HEPARIN SOD 5,000 UNIT/0.5 ML VIAL SQ SCH (07:39)
[2022-05-23] MEDS: FLUTICASONE PROPIONATE NA SPR 16 GM BTL SCH (07:39)
[2022-05-23] MEDS: ATORVASTATIN 40 MG TAB PO SCH (07:39)
[2022-05-23] MEDS: METOPROLOL TARTRATE 25 MG TAB PO SCH (07:40)
[2022-05-23] MEDS: TICAGRELOR 90 MG TAB PO SCH (07:40)
[2022-05-23] MEDS: lisinopril 5 MG TAB PO SCH (07:40)
[2022-05-23] MEDS: CEROVITE ADV FORMULA TAB PO SCH (07:40)
--- NOTE | 2022-05-23 08:55 | Gastroenterology Progress Note ---
Date of Service May 23, 2022 Assessment & Plan (1) Transaminitis: Plan: 71 year old male with history of HTN, dyslipidemia, atrioventricular alisa reentry tachycardia s/p ablation 2017, CAD s/p CABG, NSTEMI in 2004, acute ST elevation in 2019 due to occlusion of saphenous vein graft to right coronary artery s/p drug-eluting stent presenting with abnormal LFTs. His transaminases have significantly improved from initial results and he notes resolution of his previously described abdominal pain. DDX discussed, including passage of a CBD stone. MRCP reviewed, no biliary dilation, LFTs improving, feeling well No acute indication for EUS Recommend general surgery consultation regarding gallbladder wall thickening Trend LFTs Plan for OP EUS Will sign off. Thank you for allowing us to participate in the care of this patient. Please call with any acute changes, questions or concerns. Please see addendum below with additional recommendation from my supervising physician. Admission and Anticipated Discharge Date Admission Date: May 21, 2022 Supervising Physician Co-Signing Physician Notes I have personally seen and examined the patient with JUDE Limon. Her note reflects my exam and findings. I agree with her impression and plan. Liver enzymes cont to improve. Out pt EUS. Nader Iglesias M.D. Subjective Pt was seen and evaluated, chart reviewed. S/P MRCP. Feeling well. Denies abd pain. No nausea, vomiting. Denies black or bloody stools. TB 4.7 --> 1.6 --> 1.2 AST 487--> 50 --> 37 ALT 566--> 150 --> 105 ALKP 425--> 342 --> 274 lipase 49 ABD US 2021: . Cholelithiasis and moderate gallbladder wall thickening. However, no sonographic Min sign. Therefore, acute cholecystitis is considered unlikely and the findings could reflect chronic cholecystitis. No biliary ductal dilatation although common bile duct partially obscured. Partially obscured pancreas. Mild to moderate right hydronephrosis of uncertain etiology. 8 cm right renal cyst. MRCP 2021:Cholelithiasis and gallbladder wall thickening. In the absence of right upper quadrant pain, the findings favor chronic cholecystitis. Exam compromised by motion artifact. However, no biliary ductal dilatation and no common bile duct calculi identified. Review of Systems Review of Systems: All systems reviewed & are unremarkable except as noted in HPI & below Physical Exam Constitutional: WD/WN, vitals as above Respiratory: normal respiratory effort, lungs clear to auscultation Cardiovascular: Rate/Rhythm: regular rate and regular rhythm Gastrointestinal (Abdomen): normal bowel sounds, soft, nontender, no hepatosplenomegaly Skin: no rashes, warm and dry Results & Data ([facility]) Vital Signs (Past 12 Hours) Vital Signs Temp Pulse Resp BP Pulse Ox O2 Del Method 05/23/22 07:15 37 C 59 L 16 147/84 H 98 Room Air Laboratory Results 05/23/22 05/23/22 05/23/22 Range/Units 05:46 05:46 05:46 WBC 11.27 H (4.8-10.8) K/ul RBC 4.43 L (4.63-6.08) M/uL Hgb 12.9 L (14.0-18.0) g/dl Hct 38.8 L (40.1-51.0) % MCV 87.6 (80.0-100.0) fL MCH 29.1 (25.0-34.0) pg MCHC 33.2 (32.0-36.0) g/dL RDW Std Deviation 50.5 H (36.4-46.3) fL RDW Coeff of Caesar 15.7 H (11.5-14.5) % Plt Count 505 H (130-400) K/uL MPV 10.9 (9.4-12.4) fL Sodium 138 (136-145) mmol/L Potassium 4.4 (3.5-5.1) mmol/L Chloride 108 H (98-107) mmol/L Carbon Dioxide 27 (21-32) mmol/L Anion Gap 3 (3-11) BUN 5 L (6-23) mg/dl Creatinine 0.78 (0.6-1.4) mg/dl Est Cr Clr Drug Dosing 96.7 ml/min Est GFR ( Amer) 104.5 ml/min Est GFR (Non-Af Amer) 90.2 ml/min BUN/Creatinine Ratio 6.4 L (10-20) Glucose 115 H (70-99(Fasting)) mg/dl Calcium 8.4 L (8.5-10.1) mg/dl Total Bilirubin 1.4 H (0.2-1.0) mg/dl AST 44 H (13-39) U/L ALT 97 H (7-52) U/L Alkaline Phosphatase 246 H (34-104) U/L Total Protein 6.0 (6.0-8.3) gm/dl Albumin 3.2 L (3.4-5.0) gm/dl Globulin 2.8 (2.5-4.0) gm/dl Albumin/Globulin Ratio 1.1 (0.9-2) Hepatitis A IgM Ab Pending Hep Bs Antigen Pending Hep Bs Ag Confirmation Pending Hep B Core IgM Ab Pending Hepatitis C Ab (EIA) Pending Hep C Ab Signal/Cutoff Pending
--- NOTE | 2022-05-23 09:19 | Surgery Progress Note ---
Date of Service May 23, 2022 Assessment & Plan (1) Transaminitis: Plan: Patient here with elevated LFTs MRCP obtained yesterday revealed cholelithiasis, gallbladder wall thickening, with evidence of chronic cholecystitis. No CBD stones Labs today- WBC: 11.9, Tb: 1.4 (1.2), AST: 44, ALT: 97, AlkP: 246 Patient denies any abdominal pain/n/v. Having + bowel function. is hungry GI without plans for any inpt procedures, appreciate their recs. From our standpoint patient may trial a diet and follow up as an outpt to schedule elective cholecystectomy. Will need cardiac clearance prior to OR in addition to holding his Brilinta for 5-7 days...this is preferred vs spending week in hospital to hold antiplatelet Admission and Anticipated Discharge Date Admission Date: May 21, 2022 Supervising Physician Co-Signing Physician Notes Patient seen examined, labs image reviewed, agree with above. 71-year-old male admitted with elevated LFTs and cholelithiasis. His MRCP was negative for choledocholithiasis. He states his gallbladder wall has been thickened for 25 years. Likely passed a small stone. Patient is scheduled for discharge this afternoon. He may follow-up with general surgery as an outpatient. GI is recommending outpatient EUS and he can follow-up after this is completed. Recommend low-fat diet as an outpatient. Subjective Patient is doing well. Denies any abdominal pain, nausea/vomiting. Having + bowel function. Is hungry. Physical Exam Physical Exam: awake/alert, no distress Gastrointestinal (Abdomen): Inspection/Auscultation: abdomen not distended Percussion/Palpation: abdomen soft; abdomen nontender Results & Data ([facility] [place]) Vital Signs (Past 12 Hours) Vital Signs Temp Pulse Resp BP Pulse Ox O2 Del Method 05/23/22 07:15 37 C 59 L 16 147/84 H 98 Room Air PG Care Time/CCT Total # of Minutes Spent Total Time Spent with Patient: Total time spent is greater than 50% in coordination of care (as documented) at patient's floor/unit and/or counseling patient: Coding Level of Care Code 49136 Subseq Hosp Care Lvl 1 Diagnoses Transaminitis R74.01
--- NOTE | 2022-05-23 12:38 | Discharge Summary ---
Date of Service May 23, 2022 Admission HPI Per Admitting Provider CHIEF COMPLAINT: Elevated LFTs. HISTORY OF PRESENT ILLNESS: This is a 71-year-old male with past medical history significant for hyperlipidemia, prediabetes, history of atrioventricular alisa reentry tachycardia, status post successful radiofrequency ablation on 01/21/2018, history of CAD, status post CABG in 1995, history of non-ST elevated [place] in 2004, history of acute ST elevation in January 2020 secondary to occlusion of saphenous vein graft to right coronary artery s/p drug-eluting stent through vein graft and posterior descending artery, history of hypertension, ongoing tobacco abuse, history of mild ectasia, ascending aorta, history of SVT, history of sinus bradycardia, history of BPH, history of iron deficiency anemia. Received iron transfusion a couple of weeks ago and he had followup labs on , which showed white count of 20,000. Total bilirubin was 4.7, AST 487, ALT 566, alkaline phosphatase 425, and advised to come to the hospital. Today here in the ER, his LFTs are total bilirubin 1.5, AST 50, ALT 136, and alkaline phosphatase 307. The patient says about a week ago like last weekend he had abdominal pain, significant not able to sleep but it lasted for 2 days and it went away and he did not did not have any symptoms since then. His gallbladder ultrasound in the ER done today shows cholelithiasis and moderate gallbladder wall thickening; however, no sonographic Min sign, possibly most likely reflects chronic cholecystitis, no biliary ductal dilation, although common bile duct partially obscured, and also has [id number] right hydronephrosis of uncertain etiology. The patient is currently resting comfortably, hemodynamically stable. Denies any chest pain, no shortness of breath, no cough, no fever, no chills. Appetite is good. He wants to eat now. Though denies any headache, has chronic ringing noise in the ears. No runny nose, no sore throat, no cough, no difficulty swallowing. No nausea, no vomiting. Normal bowel and bladder movements. No swelling in the legs. ALLERGIES: No known drug allergies. PAST MEDICAL HISTORY: As mentioned above. PAST SURGICAL HISTORY: CABG, cardiac catheterization and stent placement, repair of the left knee cartilage, sinus surgery. MEDICATIONS: The patient is on atorvastatin 80 mg p.o. daily, cyclobenzaprine 10 mg p.o. b.i.d. p.r.n., finasteride 1 mg one tablet daily, Flonase 2 sprays intranasal daily, lisinopril 5 mg p.o. daily, metoprolol tartrate 25 mg p.o. b.i.d., PreserVision AREDS one tablet daily, terazosin 5 mg p.o. at bedtime, Brilinta 90 mg p.o. b.i.d. FAMILY HISTORY: Significant for no family history on file. SOCIAL HISTORY: , currently smoking 1 pack a day for many years. Alcohol occasional. No drug use. REVIEW OF SYSTEMS: As per HPI. Rest of the review of systems is negative. Admission Exam Per Admitting Provider GENERAL: The patient is of moderate build, not in acute distress. VITAL SIGNS: Temperature 36.4, pulse 80, respiratory rate 20, blood pressure 134/84, oxygen 97% on room air. HEENT: Pupils equal, round, and reactive to light. Oral mucosa moist. NECK: No JVD, no neck masses. CARDIOVASCULAR: S1 and S2 heard. Regular rate and rhythm. No murmur, no gallop. RESPIRATORY SYSTEM: Normal AP diameter. No accessory muscle use. No wheezing, no crackles. ABDOMEN: Soft, bowel sounds present. Mild tenderness in the epigastric region. No guarding, no rigidity, no distention. CENTRAL NERVOUS SYSTEM: Cranial nerves II-XII grossly intact, nonfocal. EXTREMITIES: No edema, no erythema. Principal Diagnosis Chronic cholecystitis Right renal cyst History of iron deficiency anemia Extensive cardiac history Discharge Exam GENERAL: Alert and oriented x3. NAD, on RA. HEENT: No pallor, no icterus. Pupils equal, round and reactive to light. Oral mucosa moist. NECK: No JVD, no neck masses. HEART: S1 and S2 heard. Regular rate and rhythm. No murmur, no gallop. RESPIRATORY SYSTEM: Normal AP diameter. No accessory muscle use. No wheezing, no crackles. ABDOMEN: Soft, bowel sounds present, nontender, no distention. CENTRAL NERVOUS SYSTEM: No facial droop. Speech is clear. Obeys simple commands. Moves extremities. EXTREMITIES: No edema, no erythema seen. Discharge Data Allergies Allergy/AdvReac Type Severity Reaction Status Date / Time No Known Allergies Allergy Unknown Verified 05/21/22 19:43 Consultations 05/22/22 08:00 Consult Gastroenterology Routine 05/22/22 12:08 Consult General Surgery Routine Ordered Studies 05/21/22 16:49 US gallbladder Stat 05/22/22 09:37 MR MRCP Routine Hospital Course (1) Transaminitis: Plan 71-year-old male with PMH of HLD, prediabetes, AV alisa reentry tachycardia, status post successful radiofrequency ablation 01/21/2018, CAD, status post CABG in 1995, NSTEMI in 2004, acute ST elevation in January 2020 secondary to occlusion of saphenous vein graft to right coronary artery status post ALEXX through vein graft and posterior descending artery, HTN, ongoing tobacco abuse, SVT, sinus bradycardia, BPH, iron deficiency anemia [had received iron transfusion couple of weeks ago [employer] and had follow-up labs on 05/18/2022 which showed elevated WBC and elevated LFT] presented to the ED 05/21 due to abnormal outpatient labs. He was managed for the following: Elevated LFTs on outpatient 05/18/2022 Possible chronic cholecystitis Right renal cyst seen on GB US --> 8 mm w/ thin spetation, outpatient follow-up with PCP, likely will need renal USG or CT. Patient reports having upper abdominal pain for 7 days [employer], improving. Patient advised to come to the ED due to abnormal outpatient labs [see above] Admitting gallbladder ultrasound: Cholelithiasis and moderate gallbladder wall thickening, suggestive of chronic cholecystitis. 8 cm right renal cyst. LFT downtrending, labs in a.m. GI evaluated, MRCP done, no indication for ERCP. Surgery evaluated, advance diet as tolerated, DC with plan for cardiology clearance for elective cholecystectomy. f/u blood cx. Continue with Zosyn, patient tolerating diet and no belly pain, transition to oral antibiotic upon discharge. Hepatitis panel pending. Iron deficiency anemia: Patient follows with hematology and oncology, received iron transfusion a couple of weeks ago [employer]. Hemoglobin stable. Other chronic medical conditions: Extensive cardiac history [see above], BPH, HTN, prediabetes, tobacco abuse --> resume home meds as able. Patient advi sed/counseled against tobacco use. Patient reports that he has nicotine patches at home. Patient being discharged home with following instruction at the point of discharge: Follow-up with your primary care physician within a week time and likely you will need blood test CBC/CMP. Follow-up [in coordination with your PCP] on your final results of the blood culture and acute hepatitis panel that were done while you were inpatient. As discussed at the bedside, set up an appointment with cardiology for surgical clearance for cholecystectomy upon discharge. Follow-up with your surgery doctor in 1 to 2 weeks time for evaluation for gallbladder surgery. You will need to hold your Brilinta for 5 to 7 days prior to your scheduled gallbladder surgery. You will be discharged on oral antibiotic, take them as prescribed. You were incidentally diagnosed with right renal cyst while getting a scan for your gallbladder, you will need outpatient renal ultrasound for defining the cyst. Coordinate with your primary care physician's office to set up the outpatient test. Continue with low-fat diet and soft diet, advance slowly towards a regular consistency as you find tolerable. Take your medications as prescribed. Please make sure that you are able to get your medications today by calling your pharmacy before you leave the hospital so that your treatment continuity is not broken. Home Health Attestation I certify that this patient is under my care and that I, or a physicians fast food assistant restaurant manager working with me, had a face to-face encounter that meets the home health [id number] encounter requirements with this patient. The encounter with the patient was in whole, or in part, for the following medical condition, which is the primary reason for home health care (list medical condition): I certify that, based on my findings, the following services are medically necessary home health services: My clinical findings support the need for the above services because: Further, I certify that my clinical findings support that this patient is homebound (i.e. absences from home require considerable and taxing effort and are for medical reasons or judaism services or infrequently or of short duration when for other reasons) because: Certification for Home Health Services: Based on the above findings, I certify that this patient is confined to the home and needs intermittent shelter care, physical therapy and/or speech therapy or continues to need occupational therapy. The patient is under my care, and I have initiated the establishment of the plan of care. This patient will be followed by a physician who will periodically review the plan of care. Total Time Total Time Spent Total Time Spent (In Minutes): 45 Discharge Plan Discharge Items Patient Disposition: Home - Self-Care Reason For Visit: ELEVATED LFT, GALLSTONES Discharge Diagnosis: Chronic cholecystitis Right renal cyst History of iron deficiency anemia Extensive cardiac history Activity: Resume your previous activity Non-emergency contact: Primary Care Provider Call non-emergency contact if: you have any medication questions, your symptoms worsen and your temperature is above 101 Follow-up/Referrals: Nikko Nielsen DO, FACS [Physician] - (Please call to schedule follow up in clinic within 1 week for surgical planning) Taurus Delgado MD [Primary Care Provider] - (Date & Time 05/29/2022 11:20 AM Provider Taurus Delgado MD [facility] ) Diet: Heart Healthy and Low Fat Addtl Attending Provider Instructions: Follow-up with your primary care physician within a week time and likely you will need blood test CBC/CMP. Follow-up [in coordination with your PCP] on your final results of the blood culture and acute hepatitis panel that were done while you were inpatient. As discussed at the bedside, set up an appointment with cardiology for surgical clearance for cholecystectomy upon discharge. Follow-up with your surgery doctor in 1 to 2 weeks time for evaluation for gallbladder surgery. You will need to hold your Brilinta for 5 to 7 days prior to your scheduled gallbladder surgery. You will be discharged on oral antibiotic, take them as prescribed. You were incidentally diagnosed with right renal cyst while getting a scan for your gallbladder, you will need outpatient renal ultrasound for defining the cyst. Coordinate with your primary care physician's office to set up the outpatient test. Continue with low-fat diet and soft diet, advance slowly towards a regular consistency as you find tolerable. Take your medications as prescribed. Please make sure that you are able to get your medications today by calling your pharmacy before you leave the hospital so that your treatment continuity is not broken. Pending Studies at Discharge: Yes (Admitting blood culture final results.) Stand-Alone Forms: My [employer], Smoking Cessation Medications and DC Order Prescriptions: New amoxicillin-pot clavulanate 875-125 mg tablet 1 tab PO BID 7 Days Qty: 14 0RF Probiotic 3 billion cell capsule 3,000 mmu cells PO DAILY 10 Days Qty: 10 0RF Rx Instructions: administer with a meal Continued cyclobenzaprine 10 mg Tablet 10 mg PO PM PRN (Reason: Pain) terazosin 5 mg Capsule 5 mg PO HS finasteride 5 mg Tablet 1 tab PO PM fluticasone propionate [Flonase Allergy Relief] 50 mcg/actuation [place],Suspension 2 spray INTRANASAL DAILY atorvastatin 80 mg Tablet 80 mg PO DAILY lisinopril 5 mg Tablet 5 mg PO DAILY Brilinta 90 mg Tablet 90 mg PO BID PreserVision AREDS-2 1 tab 1 tab PO DAILY metoprolol tartrate 50 mg Tablet 25 mg PO BID Discharge Orders: Discharge Order (Routine); Ordered 05/23/22 Ordered By: Kiana Yang Admission Data Admit Date/Time: 05/21/22 20:13 Attending Provider: Kiana Yang Admit Provider: Nghia Chow Primary Care Provider: Taurus Delgado Other Providers: Kelsea Sheriff ; Julio Garcia ; Cecilia Bautista ; Sandra Kim ; Natasha Rm ; Fawn Scanlon ; Joaquin Hitchcock ; Keena Le ; Vish Mukherjee ; Alona Zamarripa ; Melissa Curran ; Nader Iglesias ; Maryanne Hinton ; Marilou Grewal ; Esme Cdoy ; Aurelia Daniel ; Torie Tellez ; Johnny Márquez ; Ángel Vazquez ; Darcy Murphy ; Harmeet Funes Jr ; Nikko Nielsen
[2022-05-24 10:47] LABS: HBSAG NON-REACTIVE (NON-REACTIVE); Hepatitis A Antibody IgM NON-REACTIVE (NON-REACTIVE); Hepatitis B Core Antibody IgM NON-REACTIVE (NON-REACTIVE)
== END 2022-05-23 14:07 | disposition home or self-care (01) ==
LOC: 3N 14:51 → ED 14:51 → SUATTDRO 20:13 → 3N 22:44

== ENCOUNTER 2023-11-11 19:19 | Inpatient (IN) ==
--- NOTE | 2023-11-11 19:39 | Emergency Department Note ---
Impression & Plan Syncope, Hx of coronary artery disease, Acute UTI ED Provider Note Provider: Bob Hunter MD DATE OF SERVICE: 11/11/2023 CHIEF COMPLAINT: Syncope HISTORY OF PRESENT ILLNESS: Patient is a 73-year-old gentleman extensive past medical history including CAD with stents, bypass, and arrhythmia presenting here today via ambulance from [facility]. He was therefore family concerts when walking in the building again to stumble and weak and very brief syncopal episode during which time family lowered him to the floor. Quickly awoke. Bystanders did maybe 1 or 2 compressions but the patient was awakened does not appear to have been in cardiac arrest. Patient denies complaint now. Denies feeling significant chest pain or shortness of breath or palpitations today. Was well earlier today as well. Did have some urology appointments regarding a bladder mass today but did have dinner. No alcohol reported today. No history of similar syncopal type episodes. Again no significant trauma or falls. Family stated appear to be a greater weight earlier but this is improved. PAST MEDICAL HISTORY: As noted above MEDICATIONS: Reviewed home medication SOCIAL HISTORY: smoker PHYSICAL EXAM: GENERAL: alert and oriented in no acute distress on stretcher Head: normocephalic and atraumatic EYES: No injection, discharge or icterus. PERRL, EOMI. NECK: Trachea midline. ENT: Mucous membranes pink and moist. LUNGS: Airway patent. No retractions. Breath sounds clear HEART: Regular rate and rhythm. No chest wall tenderness ABDOMEN: Soft and non-tender, without guarding or rebound. SKIN: Acyanotic, warm, dry, without rashes EXTREMITIES: Without swelling, tenderness or deformity NEUROLOGICAL: No focal deficits. No aphasia. No facial droop or slurred speech. Normal strength and tone in the extremities. Sensation to gross touch normal. Ambulatory. EK bpm. Normal sinus rhythm. No PVC or PAC. No acute ST segment elevation or depression with a QTc of 444 CONTINUOUS CARDIAC MONITORING: was ordered and showed a heart rate of 60s-70s bpm in normal sinus rhythm 1 view chest x-ray per my interpretation: Sternotomy wires without evidence of pneumothorax or pneumonia. No free air or significant effusions or pulmonary edema appreciated. Patient's laboratory studies and imaging reviewed. Differential includes Vasovagal event, dehydration, infection, hypoglycemia, electrolyte abnormalities, cardiac sources, intracerebral event, pulmonary embolism, seizure, toxicologic, neurologic, as well as other pathologies. IMPRESSION/MEDICAL DECISION MAKING: Patient with significant cardiac history. Denies chest pain or palpitations. EKG here reassuring upon arrival. Will complete troponin. Chest x-ray be obtained. No actual trauma or focal neurological deficit I doubt acute CVA or intracranial bleed. No other infectious symptoms reported today. Benign abdomen. Doubt this represents PE given his lack of tachycardia hypoxia and quick resolution of symptomatologies. Given some IV fluid and electrolytes were checked. Reviewed [facility] medical records from urology visit today and apparently had a cystoscopy. Chest x-ray reassuring here without significant pulmonary pathology noted or free air or severe cardiomegaly. Blood with a slight leukocytosis of 12.9 nonspecific in nature. No anemia or thrombocytopenia noted. No significant lecture light abnormalities signs of acute renal dysfunction. Troponin normal. No signs of hepatic dysfunction or thyroid dysfunction. Self cath urine sample was sent to exclude infection given recent instrumentation and this bladder mass. UA is concerning for infection and will be sent for culture. Had antibiotic earlier but will give a dose ceftriaxone at this time. Do not feel he is septic. Patient feeling well on reevaluation. Discussed with him and family at bedside findings. Recommend we monitor him overnight given the syncope and history of CAD. He was in agreement. Hospitalist contacted. DIAGNOSIS: Syncope, history of CAD, acute UTI DISPOSITION: Hospitalist will evaluate Patient was agreeable with this plan. Past Med/Surg History Medical History BPH (benign prostatic hyperplasia) CAD (coronary artery disease) CABG x3 (1995), stents x2 (2019) Deep vein thrombosis Entered into hx 4+ years ago H/O agent [place] exposure Hearing deficit Hyperlipidemia Hypertension Myocardial Infarction Multiple, most recent 2019 Osteoarthritis PSVT (paroxysmal supraventricular tachycardia) Typical AVNRT s/p slow pathway modification Surgical History H/O sinus surgery History of appendectomy History of arthroscopy LEFT KNEE History of cardiac cath 4 total, most recent 2019 > stents x2 History of cardiac radiofrequency ablation 2017 AT [facility] R/T PSVT History of left cataract surgery S/P triple vessel bypass 1995 Family History Other No family history of adverse response to anesthesia Social History Smoking Status: Current every day smoker Tobacco Type: Cigarettes Cigarettes Per Day: 1 PPD (advised on policy); Second Hand Exposure: No; Do You Dip or Chew Tobacco: No; Hx Alcohol Use: No Hx Substance Use: No Preferred Language: Bengali Communication Ability: Effective Feller Seam Operator Required: No Beliefs That Will Affect Care: Tenriism Tenriism Beliefs: taoism marital status: Current Living Situation: Spouse Feels Safe at Home: Yes Assistive Devices: Glasses Allergies Allergies Allergy/AdvReac Type Severity Reaction Status Date / Time No Known Allergies Allergy Unknown Verified 11/11/23 20:09 Home Meds Home Medications Medication Instructions Recorded Confirmed cyclobenzaprine 10 mg tablet 10 mg PO PM PRN Pain 03/05/18 11/11/23 finasteride 5 mg tablet (Proscar) 1 tab PO PM 03/05/18 11/11/23 fluticasone propionate 50 2 spray intranasal HS 03/05/18 11/11/23 mcg/actuation nasal spray,suspension (Flonase Allergy Relief) terazosin 5 mg capsule 5 mg PO HS 03/05/18 11/11/23 atorvastatin 80 mg tablet (Lipitor) 80 mg PO HS 05/21/22 11/11/23 lisinopril 5 mg tablet 5 mg PO HS 05/21/22 11/11/23 metoprolol tartrate 50 mg tablet 25 mg PO BID 05/21/22 11/11/23 ticagrelor 90 mg tablet (Brilinta) 90 mg PO BID 05/21/22 11/11/23 cholecalciferol (vitamin D3) 25 25 mcg PO QAM 07/02/22 11/11/23 mcg (1,000 unit) capsule (Vitamin D3) diclofenac sodium 1 % topical gel 2 g topical HS PRN Pain 07/02/22 11/11/23 terazosin 2 mg capsule 2 mg PO HS 07/02/22 11/11/23 vit C 250 mg-vit E 90 mg-zinc 40 1 tab PO BID 07/02/22 11/11/23 mg-copper 1 [id number] capsule (PreserVision AREDS-2) aspirin 81 mg tablet,delayed 81 mg PO DAILY 11/11/23 11/11/23 release Results & Data (ED) Vital Signs Vital Signs - 24 hr 11/11/23 19:25 11/11/23 19:25 11/11/23 21:53 Temperature 37.1 C Temperature Source Oral Pulse Rate - Lying 74 Pulse Rate - Sitting 77 Pulse Rate - Standing 85 Pulse Rate 75 69 Pulse Rhythm Regular Pulse Strength Normal Respiratory Rate 17 Respiratory Effort / Characteristics Non-Labored Spontaneous Respiratory Depth Normal Respiratory Pattern Regular Blood Pressure - Lying 119/67 Blood Pressure - Sitting 122/67 Blood Pressure- Standing 97/58 L Blood Pressure 113/65 Blood Pressure Mean 81 Pulse Oximetry 95 Oxygen Delivery Method Room Air Sepsis Recent Fever Within 48 Hours No Sepsis New/Unexplained Change in Mental Status No Sepsis Action Taken by Nursing No Action Required Laboratory Data 11/11/23 19:25 11/11/23 19:25 Lab Results 11/11/23 11/11/23 11/11/23 Range/Units 19:25 20:37 20:40 WBC 12.96 H (4.8-10.8) K/ul RBC 4.49 L (4.70-6.10) M/uL Hgb 14.6 (14.0-18.0) g/dl Hct 43.8 (42.0-52.0) % MCV 97.6 (80.0-100.0) fL MCH 32.5 (25.0-34.0) pg MCHC 33.3 (32.0-36.0) g/dL RDW Std Deviation 64.6 H (36.4-46.3) fL RDW Coeff of Caesar 18.2 H (11.5-14.5) % Plt Count 309 (130-400) K/uL MPV 10.1 (9.4-12.4) fL Immature Gran % (Auto) 0.5 % Neut % (Auto) 90.4 % Lymph % (Auto) 3.6 % [place] % (Auto) 4.9 % Eos % (Auto) 0.2 % Baso % (Auto) 0.4 % Neut # (Auto) 11.71 H (1.40-6.50) K/uL Lymph # (Auto) 0.47 L (1.20-3.40) K/uL [place] # (Auto) 0.63 H (0.11-0.59) K/uL Eos # (Auto) 0.03 (0.00-0.50) K/uL Baso # (Auto) 0.05 (0.00-0.20) K/uL Immature Gran # (Auto) 0.07 (0.01-0.20) K/uL PT Cancelled 11.2 INR Cancelled 1.0 APTT Cancelled 24 PTT Ratio Cancelled 0.9 Sodium 138 (136-145) mmol/L Potassium 3.8 (3.5-5.1) mmol/L Chloride 106 (98-107) mmol/L Carbon Dioxide 25 (21-32) mmol/L Anion Gap 7 (3-11) BUN 23 (6-23) mg/dl Creatinine 1.28 (0.6-1.4) mg/dl Est Cr Clr Drug Dosing 62.0 ml/min Est GFR ( Amer) 63.5 ml/min Est GFR (Non-Af Amer) 54.8 ml/min BUN/Creatinine Ratio 18.0 (10-20) Glucose 117 H (70-99(Fasting)) mg/dl Calcium 8.6 (8.6-10.3) mg/dl Magnesium 1.9 (1.7-2.4) mg/dl Total Bilirubin 0.9 (0.2-1.0) mg/dl AST 17 (13-39) U/L ALT 15 (7-52) U/L Alkaline Phosphatase 81 (34-104) U/L Troponin I High Sens 7.5 (0-20) pg/ml Total Protein 6.7 (6.0-8.3) gm/dl Albumin 3.8 (3.4-5.0) gm/dl Globulin 2.9 (2.5-4.0) gm/dl Albumin/Globulin Ratio 1.3 (0.9-2) TSH 2.892 (0.300-4.500) uIu/ml Urine Color Yellow Urine Appearance Cloudy A (Clear) Urine pH 5.5 (4.5-7.5) Ur Specific [place] 1.010 (1.000-1.030) Urine Protein Trace H (Negative) Urine Glucose (UA) Negative (Negative) Urine Ketones Negative (Negative) Urine Blood Trace H (Negative) Urine Nitrite Positive A (Negative) Urine Bilirubin Negative (Negative) Urine Urobilinogen Negative (Negative) Ur Leukocyte Esterase 1+ H (Negative) Urine WBC (Auto) 21-50 H (0-5) /hpf Urine RBC (Auto) 3-5 H (0-2) /hpf U Hyaline Cast (Auto) 0-2 (0-2) /lpf U Epithel Cells (Auto) 0-2 (0-2) /hpf Urine Bacteria (Auto) 4+ H (None Seen) Administered Medications Magnesium Sulfate/Dextrose (Magnesium Sulfate / D5w) 1 gm in 100 mls @ 50 mls/hr IV ONE ONE Stop: 11/11/23 23:37 Last Admin: 11/11/23 22:01 Dose: 50 mls/hr Documented By: AYSE Potassium Chloride/Sodium Chloride (Normal Saline W/20 Meq Kcl) 20 meq in 1,000 mls @ 75 mls/hr IV .[id number] ONE; Protocol Stop: 11/12/23 10:58 Last Admin: 11/11/23 22:01 Dose: 75 mls/hr Documented By: AYSE Discontinued Medications Sodium Chloride (Nss) 500 mls @ 999 mls/hr IV .Q31M [place] Stop: 11/11/23 20:15 Last Infusion: 11/11/23 20:16 Dose: Infused Documented By: Admin: 11/11/23 19:45 Dose: 999 mls/hr Documented By: AYSE Ceftriaxone Sodium (Rocephin) 2,000 mg in 50 mls @ 100 mls/hr IV NOW STA Stop: 11/11/23 22:00 Last Admin: 11/11/23 22:01 Dose: 100 mls/hr Documented By: AYSE Discharge Plan Visit Data Chief Complaint: Syncope Stated Complaint: SYNCOPE ED Provider: Bob Hunter Discharge Problem: Syncope, Hx of coronary artery disease, Acute UTI Patient Disposition: Being Evaluated by Hospitalist Forms Stand Alone Forms: My [facility] Prescriptions Prescriptions: No Action cyclobenzaprine 10 mg Tablet 10 mg PO PM PRN (Reason: Pain) terazosin 5 mg Capsule 5 mg PO HS Rx Instructions: TOTAL DOSE 7 MG--TAKES WITH 2 MG CAP. finasteride [Proscar] 5 mg Tablet 1 tab PO PM fluticasone propionate [Flonase Allergy Relief] 50 mcg/actuation [place],Suspension 2 spray INTRANASAL HS terazosin 2 mg Capsule 2 mg PO HS Patient Comments: with 5mg capsule Rx Instructions: TOTAL DOSE 7 MG--TAKES WITH 5 MG CAP. PreserVision AREDS-2 250-90-40-1 mg Capsule 1 tab PO BID diclofenac sodium 1 % Gel 2 g TOPICAL HS PRN (Reason: Pain) cholecalciferol (vitamin D3) [Vitamin D3] 25 mcg (1,000 unit) Capsule 25 mcg PO QAM atorvastatin [Lipitor] 80 mg Tablet 80 mg PO HS lisinopril 5 mg Tablet 5 mg PO HS Brilinta 90 mg Tablet 90 mg PO BID metoprolol tartrate 50 mg Tablet 25 mg PO BID aspirin 81 mg Tablet,Delayed Release (Dr/Ec) 81 mg PO DAILY Referrals Referrals: Taurus Delgado MD [Primary Care Provider] -
[2023-11-11] MEDS: SODIUM CHLORIDE 0.9% 500 ML IV SCH (19:45)
[2023-11-11 19:48] LABS: Hematocrit (blood only) 43.8 % (42.0-52.0); Hemoglobin 14.6 g/dl (14.0-18.0); Mean Corpuscular Hemoglobin 32.5 pg (25.0-34.0); Mean Corpuscular Hgb Conc 33.3 g/dL (32.0-36.0); Mean Corpuscular Volume 97.6 fL (80.0-100.0); Mean Platelet Volume 10.1 fL (9.4-12.4); Platelet Count 309 K/uL (130-400); RDW Coefficient of Variation 18.2 % (11.5-14.5); RDW Standard Deviation 64.6 fL (36.4-46.3); Red Blood Count 4.49 M/uL (4.70-6.10); White Blood Count 12.96 K/ul (4.8-10.8)
[2023-11-11 20:05] LABS: Albumin Globulin Ratio 1.3 (0.9-2); Albumin Level 3.8 gm/dl (3.4-5.0); Bilirubin,Total 0.9 mg/dl (0.2-1.0); Calcium 8.6 mg/dl (8.6-10.3); Est GFR (African American) 63.5 ml/min; Est GFR (Non-African American) 54.8 ml/min; Globulin 2.9 gm/dl (2.5-4.0); Magnesium 1.9 mg/dl (1.7-2.4); Potassium 3.8 mmol/L (3.5-5.1); Total Protein 6.7 gm/dl (6.0-8.3)
[2023-11-11 20:06] LABS: Basophils # (auto) 0.05 K/uL (0.00-0.20); Basophils % (auto) 0.4 %; Eosinophils # (auto) 0.03 K/uL (0.00-0.50); Eosinophils % (auto) 0.2 %; Immature Granulocytes # (auto) 0.07 K/uL (0.01-0.20); Immature Granulocytes % (auto) 0.5 %; Lymphocytes # (auto) 0.47 K/uL (1.20-3.40); Lymphocytes % (auto) 3.6 %; Monocytes # (auto) 0.63 K/uL (0.11-0.59); Monocytes % (auto) 4.9 %; Neutrophils # (auto) 11.71 K/uL (1.40-6.50); Neutrophils % (auto) 90.4 %
[2023-11-11 20:12] LABS: Troponin I High Sensitivity 7.5 pg/ml (0-20)
[2023-11-11 20:21] LABS: Thyroid Stimulating Hormone 2.892 uIu/ml (0.300-4.500)
[2023-11-11 21:06] LABS: Partial Thromboplastin Ratio 0.9; Partial Thromboplastin Time 24 Seconds (21-31); Prothrombin Time 11.2 Seconds (9.0-12.0)
[2023-11-11 21:22] LABS: Appearance Urine Cloudy (Clear); Bacteria Urine Automated 4+ (None Seen); Bilirubin Urine Negative (Negative); Blood Urine Trace (Negative); Cast Urine Automated 0-2 /lpf (0-2); Color Urine Yellow; Epithelial Cell Urine Auto 0-2 /hpf (0-2); Glucose Urine UA Negative (Negative); Ketones Urine Negative (Negative); Leukocyte Esterase Urine 1+ (Negative); Nitrite Urine Positive (Negative); Protein Urine Trace (Negative); Urobilinogen Urine Negative (Negative); WBC Urine Automated 21-50 /hpf (0-5); pH Urine 5.5 (4.5-7.5)
[2023-11-11] MEDS: cefTRIAXone SODIUM 2,000 MG/50 ML BAG IV STA (22:01)
[2023-11-11] MEDS: NSS + 20MEQ KCL 20 MEQ/1,000 ML BAG IV ONE (22:01)
[2023-11-11] MEDS: MAGNESIUM SULFATE / D5W 1 GM/100 ML BAG IV ONE (22:01)
--- NOTE | 2023-11-11 22:45 | History & Physical Report ---
Date of Service November 11, 2023 Assessment & Plan (1) Syncope: Plan: Multifactorial: Orthostatic hypotension Paroxysmal A-fib, new onset Complicated UTI, recent instrumentation, no sepsis for now chronic systolic heart failure, patient on the dry side hx CAD status post CABG history SVT status post ablation valvular heart disease (moderate MR, mild TR) hyperlipidemia, on statin Rx BPH, TURP contemplated by urologist prediabetes, hemoglobin A1c of 5.9 last year ongoing tobacco abuse PCU IVF Continue home beta-shalom at current dose. Hold terazosin and lisinopril for now TTE, Cardiology consult RE paroxysmal A-fib (I transmitted image of EMS EKG to Dr. Mendoza via [employer] who concurs with A- fib rhythm.) IV heparin for thromboembolic prophylaxis for new onset A-fib Urine CS, Ceftriaxone DVT prophylaxis with IV heparin Full code Text document was generated using [employer] voice recognition software. It may contain grammatical or spelling errors. Kindly contact undersigned for clarification of any documentation item in question. History of Present Illness Chief Complaint: Syncope Primary Care Provider: Taurus Delgado MD History obtained from patient and records. Medical history significant for chronic systolic heart failure EF 45%, TTE 2019, CAD status post CABG, history SVT status post ablation, valvular heart disease (moderate MR, mild TR), hypertension, hyperlipidemia, BPH, prediabetes, ongoing tobacco abuse. Last confinement May 2022 for chronic cholecystitis status post antibiotic Rx. Patient seen at [facility] urologist office on follow-up visit today for BPH symptoms. Outpatient cystoscopy done. TURP contemplated. Patient prescribed Bactrim course postprocedure. Patient got off his car to walk towards a local elementary school to attend [employer] performance. [place] lightheaded on getting up. Witnessed syncopal event by family. Patient fell down but was caught by son-in-law. No tongue biting or incontinence. Patient denies chest pain or SOB. Family started CPR because they were not sure if he had a pulse. Patient woke up after 1-2 compressions as per report. Patient denies abdominal pain, hematuria, fever, chills Atrial fibrillation noted in one of multiple EKGs done by EMS prior to ED transport. Abnormal orthostatic VS noted at the ER. IV ceftriaxone administered at the ER for UTI. Medical History as above Surgical History : Urologic procedures, CABG, knee surgery, sinus surgery Family History : Heart disease Personal/Social history : 1/2 pack daily, occasional EtOH intake, retired [employer] employee Allergies Allergy/AdvReac Type Severity Reaction Status Date / Time No Known Allergies Allergy Unknown Verified 11/11/23 20:09 Home Medications Medication Instructions Recorded Confirmed Type cyclobenzaprine 10 mg tablet 10 mg PO PM PRN Pain 03/05/18 11/11/23 History finasteride 5 mg tablet (Proscar) 1 tab PO PM 03/05/18 11/11/23 History fluticasone propionate 50 2 spray intranasal HS 03/05/18 11/11/23 History mcg/actuation nasal spray,suspension (Flonase Allergy Relief) terazosin 5 mg capsule 5 mg PO HS 03/05/18 11/11/23 History atorvastatin 80 mg tablet (Lipitor) 80 mg PO HS 05/21/22 11/11/23 History lisinopril 5 mg tablet 5 mg PO HS 05/21/22 11/11/23 History metoprolol tartrate 50 mg tablet 25 mg PO BID 05/21/22 11/11/23 History ticagrelor 90 mg tablet (Brilinta) 90 mg PO BID 05/21/22 11/11/23 History cholecalciferol (vitamin D3) 25 25 mcg PO QAM 07/02/22 11/11/23 History mcg (1,000 unit) capsule (Vitamin D3) diclofenac sodium 1 % topical gel 2 g topical HS PRN Pain 07/02/22 11/11/23 History terazosin 2 mg capsule 2 mg PO HS 07/02/22 11/11/23 History vit C 250 mg-vit E 90 mg-zinc 40 1 tab PO BID 07/02/22 11/11/23 History mg-copper 1 [id number] capsule (PreserVision AREDS-2) aspirin 81 mg tablet,delayed 81 mg PO DAILY 11/11/23 11/11/23 History release Past Med/Surg History Medical History BPH (benign prostatic hyperplasia) CAD (coronary artery disease) CABG x3 (1995), stents x2 (2019) Deep vein thrombosis Entered into hx 4+ years ago H/O agent [place] exposure Hearing deficit Hyperlipidemia Hypertension Myocardial Infarction Multiple, most recent 2019 Osteoarthritis PSVT (paroxysmal supraventricular tachycardia) Typical AVNRT s/p slow pathway modification Surgical History H/O sinus surgery History of appendectomy History of arthroscopy LEFT KNEE History of cardiac cath 4 total, most recent 2019 > stents x2 History of cardiac radiofrequency ablation 2018 AT [facility] R/T PSVT History of left cataract surgery S/P triple vessel bypass 1995 Family History Other No family history of adverse response to anesthesia Social History Smoking Status: Current every day smoker Tobacco Type: Cigarettes Cigarettes Per Day: 20; Second Hand Exposure: No; Do You Dip or Chew Tobacco: No; Tobacco Cessation Education Requested by Patient: No Hx Alcohol Use: Yes Alcohol type: beer Hx Substance Use: No Preferred Language: Yoruba Communication Ability: Effective Medical Assisting Program Director Required: No Beliefs That Will Affect Care: None marital status: Current Living Situation: Spouse Other Information That Helps Us Care for You: No Feels Safe at Home: Yes Assistive Devices: None Review of Systems Review of Systems: As per HPI, all other systems reviewed and negative Physical Exam Physical Exam: GENERAL: Comfortable, pleasant, no respiratory distress SKIN: Normal color, warm HEENT: [place] palpebral conjunctivae, no ptosis, dry buccal mucosa NECK : Supple, no tenderness CHEST : CTA, no tenderness HEART : RRR, no obvious murmurs ABDOMEN: Some distention, nontender EXTREMITIES : No LE swelling/tenderness, no other conspicuous deformities noted NEUROLOGIC : Coherent, no facial asymmetry, no other gross focality Results & Data Results & Data Vital Signs (Past 12 Hours) Vital Signs Temp Pulse Resp BP Pulse Ox O2 Del Method O2 Flow Rate 11/11/23 21:30 74 34 H 112/67 95 11/11/23 21:00 73 32 H 117/69 93 11/11/23 20:15 71 23 127/65 97 11/11/23 20:01 72 23 114/65 98 11/11/23 19:45 70 20 114/64 96 11/11/23 19:30 69 32 H 101/65 97 11/11/23 19:25 69 11/11/23 19:25 37.1 C 75 17 113/65 95 Room Air 11/11/23 19:12 Room Air 97 Laboratory Results Laboratory Results WBC 12.96 K/ul (4.8-10.8) H 11/11/23 19:25 RBC 4.49 M/uL (4.70-6.10) L 11/11/23 19:25 Hgb 14.6 g/dl (14.0-18.0) 11/11/23 19:25 Hct 43.8 % (42.0-52.0) 11/11/23 19:25 MCV 97.6 fL (80.0-100.0) 11/11/23 19:25 MCH 32.5 pg (25.0-34.0) 11/11/23 19: MCHC 33.3 g/dL (32.0-36.0) 11/11/23 19: RDW Std Deviation 64.6 fL (36.4-46.3) H 11/11/23 19:25 RDW Coeff of Caesar 18.2 % (11.5-14.5) H 11/11/23 19: Plt Count 309 K/uL (130-400) 11/11/23 19:25 MPV 10.1 fL (9.4-12.4) 11/11/23 19:25 Immature Gran % (Auto) 0.5 % 11/11/23 19:25 Neut % (Auto) 90.4 % 11/11/23 19:25 Lymph % (Auto) 3.6 % 11/11/23 19:25 [place] % (Auto) 4.9 % 11/11/23 19:25 Eos % (Auto) 0.2 % 11/11/23 19:25 Baso % (Auto) 0.4 % 11/11/23 19:25 Neut # (Auto) 11.71 K/uL (1.40-6.50) H 11/11/23 19:25 Lymph # (Auto) 0.47 K/uL (1.20-3.40) L 11/11/23 19:25 [place] # (Auto) 0.63 K/uL (0.11-0.59) H 11/11/23 19:25 Eos # (Auto) 0.03 K/uL (0.00-0.50) 11/11/23 19:25 Baso # (Auto) 0.05 K/uL (0.00-0.20) 11/11/23 19:25 Immature Gran # (Auto) 0.07 K/uL (0.01-0.20) 11/11/23 19:25 PT 11.2 Seconds (9.0-12.0) 11/11/23 20:37 INR 1.0 (0.9-1.1) 11/11/23 20:37 APTT 24 Seconds (21-31) 11/11/23 20:37 PTT Ratio 0.9 11/11/23 20:37 Sodium 138 mmol/L (136-145) 11/11/23 19:25 Potassium 3.8 mmol/L (3.5-5.1) 11/11/23 19:25 Chloride 106 mmol/L (98-107) 11/11/23 19:25 Carbon Dioxide 25 mmol/L (21-32) 11/11/23 19:25 Anion Gap 7 (3-11) 11/11/23 19:25 BUN 23 mg/dl (6-23) 11/11/23 19:25 Creatinine 1.28 mg/dl (0.6-1.4) 11/11/23 19:25 Est Cr Clr Drug Dosing 62.0 ml/min 11/11/23 19:25 Est GFR ( Amer) 63.5 ml/min 11/11/23 19:25 Est GFR (Non-Af Amer) 54.8 ml/min 11/11/23 19:25 BUN/Creatinine Ratio 18.0 (10-20) 11/11/23 19:25 Glucose 117 mg/dl (70-99(Fasting)) H 11/11/23 19:25 Calcium 8.6 mg/dl (8.6-10.3) 11/11/23 19:25 Magnesium 1.9 mg/dl (1.7-2.4) 11/11/23 19:25 Total Bilirubin 0.9 mg/dl (0.2-1.0) 11/11/23 19:25 AST 17 U/L (13-39) 11/11/23 19:25 ALT 15 U/L (7-52) 11/11/23 19:25 Alkaline Phosphatase 81 U/L (34-104) 11/11/23 19:25 Troponin I High Sens 7.5 pg/ml (0-20) 11/11/23 19:25 Total Protein 6.7 gm/dl (6.0-8.3) 11/11/23 19: Albumin 3.8 gm/dl (3.4-5.0) 11/11/23 19: Globulin 2.9 gm/dl (2.5-4.0) 11/11/23 19: Albumin/Globulin Ratio 1.3 (0.9-2) 11/11/23 19:25 TSH 2.892 uIu/ml (0.300-4.500) 11/11/23 19:25 Urine Color Yellow 11/11/23 20:40 Urine Appearance Cloudy (Clear) A 11/11/23 20:40 Urine pH 5.5 (4.5-7.5) 11/11/23 20:40 Ur Specific [place] 1.010 (1.000-1.030) 11/11/23 20:40 Urine Protein Trace (Negative) H 11/11/23 20:40 Urine Glucose (UA) Negative (Negative) 11/11/23 20:40 Urine Ketones Negative (Negative) 11/11/23 20:40 Urine Blood Trace (Negative) H 11/11/23 20:40 Urine Nitrite Positive (Negative) A 11/11/23 20:40 Urine Bilirubin Negative (Negative) 11/11/23 20:40 Urine Urobilinogen Negative (Negative) 11/11/23 20:40 Ur Leukocyte Esterase 1+ (Negative) H 11/11/23 20:40 Urine WBC (Auto) 21-50 /hpf (0-5) H 11/11/23 20:40 Urine RBC (Auto) 3-5 /hpf (0-2) H 11/11/23 20:40 U Hyaline Cast (Auto) 0-2 /lpf (0-2) 11/11/23 20:40 U Epithel Cells (Auto) 0-2 /hpf (0-2) 11/11/23 20:40 Urine Bacteria (Auto) 4+ (None Seen) H 11/11/23 20:40 Diagnostic Findings Chest x-ray as per my interpretation no congestion EKG as per my interpretation : Rate 70, NSR, LAD, LAFB, no ischemia
[2023-11-11] MEDS ORDERED: ACETAMINOPHEN 325 MG TAB PO PRN ×2 (22:51→23:50)
[2023-11-11] MEDS ORDERED: PROMETHAZINE HCL 6.25 MG in SODIUM CHLORIDE 0.9% 50 ML IV PRN (22:51)
[2023-11-11] MEDS ORDERED: traMADol HCL 50 MG TABLET PO PRN (22:51)
[2023-11-11] MEDS: Heparin IV Adult Wt-Based Standard *NO* INITIAL Bolus Protocol IV STA (23:39)
[2023-11-11] MEDS ORDERED: NITROGLYCERIN SL 0.4 MG/TAB TAB SL PRN (23:50)
[2023-11-12] MEDS: HEPARIN SODIUM/DEXTROSE 25,000 UNITS/500 ML BAG IV SCH (00:23)
[2023-11-12] MEDS: Heparin IV Adult Wt-Based Low-Dose *NO* INITIAL Bolus Protocol IV SCH (01:37)
[2023-11-12 07:11] LABS: Basophils # (auto) 0.07 K/uL (0.00-0.20); Basophils % (auto) 0.5 %; Eosinophils # (auto) 0.12 K/uL (0.00-0.50); Eosinophils % (auto) 0.9 %; Hematocrit (blood only) 40.2 % (42.0-52.0); Hemoglobin 13.3 g/dl (14.0-18.0); Immature Granulocytes # (auto) 0.07 K/uL (0.01-0.20); Immature Granulocytes % (auto) 0.5 %; Lymphocytes # (auto) 1.06 K/uL (1.20-3.40); Lymphocytes % (auto) 7.8 %; Mean Corpuscular Hemoglobin 32.3 pg (25.0-34.0); Mean Corpuscular Hgb Conc 33.1 g/dL (32.0-36.0); Mean Corpuscular Volume 97.6 fL (80.0-100.0); Mean Platelet Volume 10.4 fL (9.4-12.4); Monocytes # (auto) 1.08 K/uL (0.11-0.59); Neutrophils # (auto) 11.13 K/uL (1.40-6.50); Neutrophils % (auto) 82.3 %; Platelet Count 269 K/uL (130-400); RDW Coefficient of Variation 18.4 % (11.5-14.5); RDW Standard Deviation 65.4 fL (36.4-46.3); Red Blood Count 4.12 M/uL (4.70-6.10); White Blood Count 13.53 K/ul (4.8-10.8)
[2023-11-12 07:51] LABS: BUN Creatinine Ratio 19.8 (10-20); Calcium 7.6 mg/dl (8.6-10.3); Creatinine Clr Calc Pharmacy 68.8 ml/min; Est GFR (African American) 71.5 ml/min; Est GFR (Non-African American) 61.7 ml/min; Potassium 4.1 mmol/L (3.5-5.1)
[2023-11-12] MEDS: ASPIRIN 81 MG ECTAB PO SCH (08:54)
[2023-11-12] MEDS: CEROVITE ADV FORMULA TAB PO SCH (08:54)
[2023-11-12] MEDS: TICAGRELOR 90 MG TAB PO SCH (08:55)
[2023-11-12] MEDS: METOPROLOL TARTRATE 25 MG TAB PO SCH (08:55)
--- NOTE | 2023-11-12 09:10 | XRay Report ---
XR chest 1V portable CLINICAL HISTORY: syncope TECHNIQUE: Single frontal radiograph of the chest was obtained. Comparison: None available at the time of this dictation. FINDINGS: Median sternotomy wires are unchanged. Cardiomegaly is noted. The lungs are clear. No evidence of ple ural effusion or pneumothorax. IMPRESSION: No acute chest disease. ACT 112: Negative or not required by law. Electronically signed by: Charly Cerda M.D. 11/12/2023 9:09 AM
--- NOTE | 2023-11-12 11:07 | Cardiology Consultation ---
Date of Consultation November 12, 2023 Assessment & Plan (1) Acute UTI: (2) Orthostatic hypotension: (3) ASCVD (arteriosclerotic cardiovascular disease): (4) Tobacco abuse disorder: Plan 73-year-old male seen in cardiology consultation due to concern for possible paroxysmal atrial fibrillation. Fortunately for this patient, the EKG of concern is for a different patient. There is no evidence of atrial fibrillation observed in or around the time of EMS evaluation, at the [facility] ER, or via continuous inpatient telemetry monitoring. Recommend discontinuation of heparin. DVT prophylaxis as per hospitalist. Continue metoprolol tartrate, aspirin, Brilinta, and high intensity statin therapy (atorvastatin 80 mg/day). Tobacco cessation recommended. I spent a total of 60 minutes on the date of service in preparation, delivery, and documentation of the care provided to this patient excluding any time spent in the performance of separately billed services. This visit was a split-shared visit with the substantive portion of the medical decision making performed by the supervising overhead crane technician/billing provider. Supervising Physician Co-Signing Physician Notes Patient was seen and personally examined. Chart records reviewed. Assessment and plan as well outlined above, discussed with advanced provider and fully endorsed As above referral diagnosis of paroxysmal atrial fibrillation based on EKG not associated with this patient EKG discrepancy discussed with admitting physician via [place] Text Diagnosis of atrial fibrillation removed, IV anticoagulation to be discontinued I spent a total of 60 minutes on the date of service in preparation, delivery, and documentation of the care provided to this patient excluding any time spent in the performance of separately billed services. History of Present Illness Reason for Consultation: Paroxysmal atrial fibrillation Requesting Physician: Dr. Guy Attending Physician: Dr. Reid History of Present Illness Mr. Shubham Calles is a 73 year old male who is being seen today due to concern regarding paroxysmal atrial fibrillation. Patient is notably followed by Dr. Fisher with a history of BPH. He performs self catheterizations twice a day. Yesterday he was in to see Dr. Fisher around 2 PM for cystoscopy. After the procedure he returned home where he stayed until leaving to watch his grandsons play around 6:30 PM. When [facility] to [facility] he and his stayed in the car for a few minutes talking. When they realized that everyone was inside that exited their car and walked in to the school. Patient notes feeling woozy when getting out of the car, staggering left to right. When he went into the double doors he fell forward into his . He was caught by his son-in-law who helped lower him to the ground. He believes he lost consciousness for about 2 to 3 seconds only. This was around 6:30 PM. EMS was summoned. Patient transferred to the [facility] ER where he was evaluated and treated with IV fluids and ceftriaxone. Orthostatic vital signs observed in the ER as well as on the floor. Cardiology consultation requested due to an EKG performed by EMS revealing atrial fibrillation. IV heparin initiated on admission for thromboembolic prophylaxis for the new onset atrial fibrillation. The first available EKG on the patient's chart is dated November 11, 2023 at 13:35:26, revealing atrial fibrillation with a ventricular rate of 92 bpm. This EKG is for a male patient age 70 with a different ID number than the two other EKGs on this patient's chart. The other two EMS EKGs on this patient's chart are dated November 11, 2023 at 18:58:07 and 18:58:40. They have a different ID# as well as a different age (73), both revealing sinus rhythm in the 60s without acute ST segment change. Continuous clinical research monitor review reveals sinus rhythm/sinus bradycardia throughout. No atrial fibrillation. No significant pauses. Patient denies chest pain, palpitations, unusual shortness of breath, orthopnea, PND, edema, fevers, chills, melena, hematochezia, or hematuria. Past Medical and Surgical History: Atherosclerotic coronary disease Status post coronary bypass grafting in 1995 following inferior myocardial infarction, receiving KENNEDY graft to LAD, saphenous vein graft to circumflex obtuse marginal, saphenous vein graft to the right coronary artery. Non-ST elevation myocardial infarction, thrombotic, 2004. Inferoposterior myocardial infarction in November of 2013 secondary to saphenous vein graft occlusion to the obtuse marginal, managed conservatively. Acute ST-elevation myocardial infarction January 28, 2020 secondary to occlusion of a saphenous vein graft to right coronary artery receiving drug-eluting stent to vein graft and posterior descending artery distal to vein graft anastomosis ([facility]) Systolic heart failure, EF 45%. 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 Remote sinus surgery. Cholecystitis. Family History: Positive for CAD in mother and father Social History: Smoker, 1/2 to 1 pack per day x 40 years. No significant alcohol. Retired from the [employer]. [place], [place]. Originally from [place]. Lives in [facility]. Allergies Allergy/AdvReac Type Severity Reaction Status Date / Time No Known Allergies Allergy Unknown Verified 11/11/23 20:09 Home Medications Medication Instructions Recorded Confirmed Type cyclobenzaprine 10 mg tablet 10 mg PO PM PRN Pain 03/05/18 11/11/23 History finasteride 5 mg tablet (Proscar) 1 tab PO PM 03/05/18 11/11/23 History fluticasone propionate 50 2 spray intranasal HS 03/05/18 11/11/23 History mcg/actuation nasal spray,suspension (Flonase Allergy Relief) terazosin 5 mg capsule 5 mg PO HS 03/05/18 11/11/23 History atorvastatin 80 mg tablet (Lipitor) 80 mg PO HS 05/21/22 11/11/23 History lisinopril 5 mg tablet 5 mg PO HS 05/21/22 11/11/23 History metoprolol tartrate 50 mg tablet 25 mg PO BID 05/21/22 11/11/23 History ticagrelor 90 mg tablet (Brilinta) 90 mg PO BID 05/21/22 11/11/23 History cholecalciferol (vitamin D3) 25 25 mcg PO QAM 07/02/22 11/11/23 History mcg (1,000 unit) capsule (Vitamin D3) diclofenac sodium 1 % topical gel 2 g topical HS PRN Pain 07/02/22 11/11/23 History terazosin 2 mg capsule 2 mg PO HS 07/02/22 11/11/23 History vit C 250 mg-vit E 90 mg-zinc 40 1 tab PO BID 07/02/22 11/11/23 History mg-copper 1 [id number]-rqopgi capsule (PreserVision AREDS-2) aspirin 81 mg tablet,delayed 81 mg PO DAILY 11/11/23 11/11/23 History release Patient History Medical History CAD (coronary artery disease) CABG x3 (1995), stents x2 (2019) H/O agent [place] exposure Osteoarthritis BPH (benign prostatic hyperplasia) Hearing deficit Deep vein thrombosis Entered into hx 4+ years ago Hyperlipidemia Hypertension Myocardial Infarction Multiple, most recent 2020 PSVT (paroxysmal supraventricular tachycardia) Typical AVNRT s/p slow pathway modification Surgical History History of left cataract surgery S/P triple vessel bypass 1995 History of appendectomy History of arthroscopy LEFT KNEE H/O sinus surgery History of cardiac radiofrequency ablation 2018 AT [facility] R/T PSVT History of cardiac cath 4 total, most recent 2019 > stents x2 Family History Other No family history of adverse response to anesthesia Social History Smoking Status: Current every day smoker Tobacco Type: Cigarettes Cigarettes Per Day: 20; Second Hand Exposure: No; Do You Dip or Chew Tobacco: No; Tobacco Cessation Education Requested by Patient: No Hx Alcohol Use: Yes Alcohol type: beer Hx Substance Use: No Preferred Language: Lithuanian Communication Ability: Effective Photographic Laboratory Supervisor Required: No Beliefs That Will Affect Care: None marital status: Current Living Situation: Spouse Other Information That Helps Us Care for You: No Feels Safe at Home: Yes Assistive Devices: None Review of Systems Review of Systems: Complete Review of Systems is as stated above, negative, or noncontributory. Physical Exam Physical Exam: General: A&Ox3. NAD. HENT: Normocephalic. Atraumatic. Eyes: PER. Conjunctiva pink, sclera clear. Neck: Carotid bruits. No JVD. Heart: RRR. Soft systolic murmur. No diastolic murmur. No rub. Lungs: Diminished. Clear to auscultation. No wheeze. Abdomen: +BS. Soft. Nontender. No masses or organomegaly. Extremities: No clubbing, cyanosis, or edema. Limited neurological examination is without focal deficits. Pulses: radial=2/4, posterior tibial=2/4. Results & Data Vital Signs (Past 12 Hours) Vital Signs Temp Pulse Pulse Resp BP BP Pulse Ox 11/12/23 10:00 63 11/12/23 08:49 37.2 C 63 16 128/74 97 11/12/23 02:45 69 11/12/23 02:42 11/12/23 02:31 37.3 C 67 18 141/75 H 97 11/12/23 02:12 37.3 C 70 20 141/75 H 98 11/12/23 00:30 66 26 H 85/48 L 11/12/23 00:01 67 27 H 99/49 L 11/11/23 23:18 75 O2 Del Method 11/12/23 10:00 11/12/23 08:49 Room Air 11/12/23 02:45 11/12/23 02:42 Room Air 11/12/23 02:31 Room Air 11/12/23 02:12 Room Air 11/12/23 00:30 11/12/23 00:01 11/11/23 23:18 Laboratory Results Cardiac Enzymes 11/11/23 Range/Units 19:25 AST 17 (13-39) U/L Troponin I High Sens 7.5 (0-20) pg/ml Coagulation 11/11/23 11/11/23 Range/Units 19:25 20:37 PT Cancelled 11.2 APTT Cancelled 24 CBC 11/11/23 11/12/23 Range/Units 19:25 06:01 WBC 12.96 H 13.53 H (4.8-10.8) K/ul RBC 4.49 L 4.12 L (4.70-6.10) M/uL Hgb 14.6 13.3 L (14.0-18.0) g/dl Hct 43.8 40.2 L (42.0-52.0) % Plt Count 309 269 (130-400) K/uL Neut # (Auto) 11.71 H 11.13 H (1.40-6.50) K/uL Lymph # (Auto) 0.47 L 1.06 L (1.20-3.40) K/uL Nelson # (Auto) 0.63 H 1.08 H (0.11-0.59) K/uL Eos # (Auto) 0.03 0.12 (0.00-0.50) K/uL Baso # (Auto) 0.05 0.07 (0.00-0.20) K/uL Comprehensive Metabolic Panel 11/11/23 11/12/23 Range/Units 19:25 06:01 Sodium 138 137 (136-145) mmol/L Potassium 3.8 4.1 (3.5-5.1) mmol/L Chloride 106 108 H (98-107) mmol/L Carbon Dioxide 25 22 (21-32) mmol/L BUN 23 23 (6-23) mg/dl Creatinine 1.28 1.16 (0.6-1.4) mg/dl Glucose 117 H 103 H (70-99(Fasting)) mg/dl Calcium 8.6 7.6 L (8.6-10.3) mg/dl AST 17 (13-39) U/L ALT 15 (7-52) U/L Alkaline Phosphatase 81 (34-104) U/L Total Protein 6.7 (6.0-8.3) gm/dl Albumin 3.8 (3.4-5.0) gm/dl Intake and Output 11/11/23 11/12/23 11/12/23 22:59 06:59 14:59 Intake Total 550 / 850 300 / 850 1141.917 / 1141.917 Output Total 550 / 550 Balance 0 / 300 300 / 300 1141.917 / 1141.917 Intake: IV 550 / 650 100 / 650 1141.917 / 1141.917 Heparin Sodium/Dextrose 25,000 160.667 / 160.667 units In 500 ml @ 1,000 UNITS/ HR 20 mls/hr IV .Q24H [facility] Rx#: [id number] Magnesium Sulfate / D5w 1 gm In 100 / 100 100 ml @ 50 mls/hr IV ONE ONE Rx#:[id number] Nss + 20Meq KCl 20 meq In 1,000 981.25 / 981.25 ml @ 75 mls/hr IV .[id number] ONE Rx#:[id number] Sodium Chloride 0.9% 500 ml @ 500 / 500 999 mls/hr IV .Q31M [facility] Rx#: [id number] cefTRIAXone SODIUM 2,000 mg In 50 / 50 50 ml @ 100 mls/hr IV NOW STA Rx#:[id number] Oral 200 / 200 Output: Urine 550 / 550 Other: Weight 96.7 kg 97.9 kg Weight Measurement Method [facility] Diagnostic Findings Telemetry: Sinus bradycardia/sinus with heart rates in the upper 50's and 60's.
--- OUTSIDE RECORDS SUMMARY | 2023-11-12 15:55 | External Medical Summary ---
Author Name Unknown Address Unknown Organization [id number]:[facility] [place] [facility] [place] [address] [facility] [address] Laboratory Report Ordering Provider Test Date Status JUANJO HERMOSILLO 11/05/2023 10:46:04 Final Observation Date Value Abnormality Reference (Units ) Status WBC, Total 11/05/2023 10:46:04 10.70 4.00-10.80 (K/uL) Final RBC 11/05/2023 10:46:04 4.50 4.50-5.25 (M/uL) Final Hemoglobin 11/05/2023 10:46:04 14.7 14.0-16.8 (g/dL) Final HCT 11/05/2023 10:46:04 45.7 40.0-48.4 (%) Final MCV 11/05/2023 10:46:04 101.6 82.0-99.5 (fL) Final MCH 11/05/2023 10:46:04 32.7 27.0-34.0 (pg) Final MCHC 11/05/2023 10:46:04 32.2 32.0-36.0 (g/dL) Final RDW 11/05/2023 10:46:04 18.3 11.5-15.5 (%) Final Platelets 11/05/2023 10:46:04 343 140-400 (K/uL) Final MPV 11/05/2023 10:46:04 10.6 6.6-11.1 (fL) Final Nucleated erythrocytes/100 leukocytes [Ratio] in Blood by Automated count 11/05/2023 10:46:04 0 <=0 (/100 WBCs) Final Performing Location [facility] [address] [facility] [id number]
--- OUTSIDE RECORDS SUMMARY | 2023-11-12 15:55 | External Medical Summary | Summary of Care ---
Author Name Unknown Organization [facility] Address [address] [facility] [place] [address] Phone [phone] Care Team Providers Care Marketing Analytics Lead Name Role Phone Taurus Delgado MD Primary Care Provider Reason for Visit * Reason Comments Outpatient Testing Encounter Details Date Type Department Care Team (Latest Contact Info) Description 11/05/2023 11:00 AM EDT Laboratory Laboratory, [facility] [address] [place] [address] [facility] [address] [place] [address] Essential thrombocythemia (HCC) Allergies No known active allergiesdocumented as of this encounter (statuses as of 11/05/2023) Medications Medication Sig Dispensed Refills Start Date End Date Status NITROGLYCERIN 0.[address] under the tongue. times 3 doses 25 11 01/02/2005 Active PROSCAR 5 MG PO TABSIndications:Chr onic coronary artery disease 1 TABLET DAILY 30 0 04/17/2007 Active FLONASE 50 MCG/ACT NA SUSPIndications:Dys lipidemia, goal to be determined,Sleep apnea,Aortocoronary bypass status,Chronic coronary artery disease 2 puffs each nostril daily 1 34 04/26/2008 Active cyclobenzaprine (FLEXERIL) 10 MG Tablet Take 1 Tablet by mouth 2 times a day as needed for Muscle spasms. 20 Tab 0 03/20/2016 Active acetaminophen (TYLENOL) 500 MG Tablet 0 Active Multiple Vitamins-Minerals (PRESERVISION AREDS 2+MULTI VIT) CAPS Take by mouth. 0 Act satish atorvaSTATin (LIPITOR) 80 MG Tablet Take 1 Tablet by mouth in the morning. Takes in the evening . 30 Tab 0 02/14/2018 Active metoprolol tartrate (LOPRESSOR) 50 MG TabletIndications:A ortocoronary bypass status Take 1/2 tab in the am and 1/2 tab in the evening 50 Tab 0 03/12/2018 Active BRILINTA 90 MG Tablet Take 1 Tab by mouth 2 times a day. 180 Tab 3 02/08/2020 Active Cholecalciferol 25 MCG (1000 UT) Oral Tablet TAKE ONE TABLET BY MOUTH EVERY DAY SAME VITAMIN D3 FOR VITAMIN D DEFICIENCY 0 2021 Active Diclofenac Sodium 1 % External Gel Apply topically to affected area . Apply to back 0 Active Zoster Vac Recomb Adjuvanted 50 MCG/0.5ML Intramuscular Suspension Reconstituted (Shingrix)Indicatio ns:Need for vaccination for zoster Inject 0.5 mL into a large muscle now and repeat dose in 60 to 180 days 1 Each 0 08/07/2022 Active Terazosin HCl 5 MG Oral Capsule (Hytrin)Indications :Chronic coronary artery disease Take 1 Capsule by mouth in the morning. 100 Capsule 3 08/07/2022 Active Terazosin HCl 2 MG Oral CapsuleIndications: BPH without obstruction/lower urinary tract symptoms Take 1 Capsule by mouth at bedtime. 30 Capsule 5 08/07/2022 Active Aspirin 81 MG Oral Tablet Delayed ReleaseIndications: JAK2 V617F mutation Take 1 Tablet by mouth in the morning. 30 Tablet 5 05/21/2023 Active Hydroxyurea 500 MG Oral Capsule (Hydrea)Indications :JAK2 V617F mutation Take one 500mg cap by mouth daily Saturday, Saturday, and Saturday and two 500mg caps (1000mg total) by mouth daily Saturday, Saturday, , Saturday 50 Capsule 5 07/23/2023 Active Additional Information Patient taking differently: Take one 500mg cap by mouth daily Saturday, Saturday, Saturday, and Saturday and two 500mg caps (1000mg total) by mouth daily Saturday, Saturday, and , Reported on 08/07/2023 documented as of this encounter (statuses as of 11/05/2023) Active Problems Problem Noted Date Diagnosed Date Chronic kidney disease, stage 3a 05/20/2023 Overview: Per CKD protocol JAK2 V617F mutation 12/20/2022 Iron deficiency anemia 02/01/2022 Abnormal CBC 11/09/2021 Overview: Meets criteria - higher risk for lower GI bleed. 11/09/21 Pt Refused further evaluation ie colonoscopy. Prediabetes 11/15/2020 Overview: Per Prediabetes protocol Sinus bradycardia 11/29/2017 SVT (supraventricular tachycardia) 11/29/2017 Hyperlipidemia with target LDL less than 100 BPH without obstruction/lower urinary tract symp toms 12/07/2013 Tobacco abuse 12/07/2013 Aortocoronary bypass status 01/02/2005 Chronic coronary artery disease 01/02/2005 Hyperplasia of prostate with out lower urinary tract symptoms (LUTS) 01/02/2005 ADVANCE DIRECTIVE INFORMATION 01/02/2005 Overview: No, Advance Directive brochure given to patient. documented as of this encounter (statuses as of 11/05/2023) Resolved Problems Problem Noted Date Diagnosed Date Resolved Date NSTEMI (non-ST elevated myoc ardial infarction) 12/07/2013 12/07/2013 documented as of this encounter (statuses as of 11/05/2023) Immunizations Name Administration Dates Next Due Pneumococcal Conjugate Vacc, 13 Valent (Prevnar) 11/30/2015 Pneumococcal Polysaccharide PPV23 (Pneumovax) 03/18/2017,03/13/2009 Season Influenza, Quad, PF, Adjuvanted, 65+ Yrs, IM (FLUAD) 05/15/2022,05/15/2020,05/05/2020,05/15,05/15/2013 Seasonal Influenza, PF, 6 M & above, IM , (FluLaval or Fluzone) 04/30/2018,05/17/2017 Seasonal Influenza, Quadriva lent Hd (Fluzone Hd) 04/10/2023,04/06/2021 Seasonal Influenza, Split, I IV3, No Preserve, Inj 05/12/2014 Seasonal Influenza, Trivalen t, Adjuvanted, 65+ yrs 05/05/2019 TDAP (age 10 and older)(Boostrix) 02/20/2023, Varicella Zoster Vaccine (Adult) 01/27/2016 documented as of this encounter Social History Tobacco Use Types Packs/Day Years Used Date Smoking Tobacco: Every Day Cigarettes 0.8 30 Smokeless Tobacco: Never Alcohol Use Standard Drinks/Week Comments Yes 0 (1 standard drink = 0.6 oz pur e alcohol) occassional rum and vodka AUDIT-C Answer Date Recorded Q1: How often do you have a drink containing alc ohol? Monthly or less 01/05/2021 Q2: How many drinks containi ng alcohol do you have on a typical day when you are drinking? Not asked 01/05/2021 Q3: How often do you have si x or more drinks on one occasion? Not asked 01/05/2021 PHQ-2 Answer Date Recorded PHQ-2 Score 0 02/05/2020 Hunger Vital Sign Answer Date Recorded Worried About Running Out of Food in the Last Ye ar Never true 02/05/2020 Ran Out of Food in the Last Year Never true 02/05/2020 Sex and Gender Information Value Date Recorded Sex Assigned at Male 08/07/2022 9:19 AM EST Gender Identity Male 08/07/2022 9:19 AM EST Sexual Orientation Straight 08/07/2022 9: 19 AM EST Job Start Date Occupation Industry Not on file Not on file Not on file documented as of this encounter Functional Status Functional Status Response Date of Assess ment Are you deaf or do you have serious difficulty h earing? No 12/04/2013 Are you blind or do you have serious difficulty seeing, even when wearing glasses? No 12/04/2013 Do you have serious difficul ty walking or climbing stairs? (5 years old or older) No 12/04/2013 Do you have difficulty dress ing or bathing? (5 years old or older) No 12/04/2013 Because of a physical, menta l, or emotional condition, do you have difficulty doing errands alone such as visiting a doctor s office or shopping? (15 years old or older) No 12/05/19 14 Cognitive Status Response Date of Assessm ent Because of a physical, menta l, or emotional condition, do you have serious difficulty concentrating, remembering, or making decisions? (5 years old or older) No 12/04/2013 documented as of this encounter Plan of Treatment Upcoming Encounters Date Type Department Care Team (Latest Contact Info) Description 11/06/2023 9:00 AM EDT Pharmacy Pharmacy Hematology Oncology [facility] [address] [place] [address] [facility] Hem/Onc [address] [place] [address] 11/11/2023 2:00 PM EDT Office Visit Urology, [facility] [address] [place] [address] Kp Fisher MD [address] [address] [place] [address] 01/14/2024 11:00 AM EDT Laboratory Laboratory, [place] [address] [place] [phone] [facility] Laboratory [facility] [place] [address] 02/12/2024 1:00 PM EDT Hospital Encounter ENDO OSSC, Endoscopy Room [facility] [address] [place] [phone] Vish Mukherjee MD [address] [place] [address] 02/12/2024 1:00 PM EDT - 02/12/2024 1:30 PM EDT Surgery ENDO OSS[facility], Endoscopy Room [facility] [address] [place] [phone] Vish Mukherjee MD [address] [place] [address] COLONOSCOPY FLEXIBLE PROXIMAL DIAGNOSTIC 03/06/2024 3:00 PM EDT Office Visit Cardiology, [facility] [address] [place] [address] Maria Dolores Mas PA-C [address] [place] [address] 03/16/2024 10:30 AM EDT Office Visit Hematology/Oncolog y [employer] [address] [facility] [place] [address] Gopi Cheung MD [address] [place] [address] Pending Results Name Type Priority Associated Diagnoses Date /Time CBC WITH WBC DIFFERENTIAL Lab STAT Essential thrombocythemia (HCC) 11/05/2023 10:46 AM EDT COMPREHENSIVE METABOLIC PANEL Lab STAT Essential thrombocythemia ([facility]) 11/05/2023 10:46 AM EDT CBC Lab STAT Essential thrombocythemia ([facility]) 11/05/2023 10:46 AM EDT DIFFERENTIAL, AUTOMATED Lab STAT Essential thrombocythemia ([facility]) 11/05/2023 10:46 AM EDT Scheduled Procedures Name Priority Associated Diagnoses Date/Ti me COLONOSCOPY FLEXIBLE PROXIMAL DIAGNOSTIC Screen for colon cancer 02/12/2024 1:00 PM EDT Health Maintenance Due Date Last Done Comments DISCUSS TOBACCO CESSATION (REFER TO SMARTSET #3291) 1950 COVID-19 Vaccine (#1) 1954 Albumin/Creatinine Ratio 10/13/1967 CKD PHOS USE SMARTSET 85270 10/13/1967 Colonoscopy 1994 Sigmoidoscopy 1994 Zoster Vaccines (1 of 2) 03/23/2016 01/27/2016 Depression Screening 02/04/2021 02/05/2020 Cologuard 03/25/2021 03/25/2018 Colorectal Cancer Screening 10/23/2022 Fecal Occult Blood Test 10/23/2022 10/23/2021 GFR 04/02/2024 10/01/2023, 08/08, 08/06/2023, Additional history exists HbA1c 05/03/2024 05/03/2023, 04/0 12/2020, 10/09/2018 CKD HGB USE SMARTSET 54005 09/30/202409/30, 10/01/2023, 08/26/2023, Additional history exists DTaP,Tdap,and Td Vaccines (3 - Td or Tdap) 02/20/2033 02/20/2023, 09/25/2012 Pneumococcal Vaccine: 65+ Years Completed 03/18/2017, 11/30/2015, 03/13/2009 Lung Cancer Screening Completed 10/06/2021 , 05/24/2017, 12/04/2016 AAA Screening Completed 06/05/2022, 11/15/2014 Influenza Vaccine (FLU shot) Completed 10/2022, 05/15/2022, 04/06/2021, Additional history exists GARDASIL-HPV IMMUNIZATION SERIES Aged Out No longer eligible based on patient's age to complete this topic Hepatitis B Aged Out No longer eligi ble based on patient's age to complete this topic MENINGOCOCCAL (MENACTRA/MENVEO) Aged Out No longer eligible based on patient's age to complete this topic documented as of this encounter Medical Devices Not on filedocumented as of this encounter Visit Diagnoses Diagnosis Essential thrombocythemia (HCC) Essential thrombocythemia Screen for colon cancer Special screening for malignant neoplasms, colon documented in this encounter Advance Directives Latest Code Status on File Code Status Date Activated Date Inactivated Comments Full Code 12/06/2013 1:46 PM 12/07/2013 7:34 PM This or chastity reflects the patients wishes and were consensually agreed upon. Question Answer Comments Discussion of Advance Directives occurred with: Patient Care Teams Marketing Analytics Lead Relationship Specialty Start Date End Date Taurus Delgado MD [address] [place] [address] PCP - General Family Medicine 03/20/16 documented as of this encounter
--- OUTSIDE RECORDS SUMMARY | 2023-11-12 15:55 | External Medical Summary | Summary of Care ---
Author Name Unknown Organization [facility] Address [address] [place] [address] Phone [phone] Care Team Providers Care Training Developer Name Role Phone Taurus Delgado MD Primary Care Provider [phone] Reason for Visit * Reason Comments Medication Management Encounter Details Date Type Department Care Team (Late st Contact Info) Description 11/06/2023 9:00 AM EDT Pharmacy Pharmacy Hematology Oncology [facility] [address] [place] [address] [facility] Hem/Onc [address] [place] [address] JAK2 V617F mutation* Allergies No known active allergiesdocumented as of this encounter (statuses as of 11/06/2023) Medications Medication Sig Dispensed Refills Start Date [...] as of this encounter (statuses as of 11/06/2023) Active Problems Problem Noted Date Diagnosed Date [...] as of this encounter (statuses as of 11/06/2023) Resolved Problems Problem Noted Date Diagnosed Date Resolved Date NSTEMI (non-ST elevated myoc ardial infarction) 12/07/2013 12/07/2013 documented as of this encounter (statuses as of 11/06/2023) Immunizations Name Administration Dates Next Due Pneumococcal [...] No 12/04/2013 documented as of this encounter Progress Notes * Pat Tolliver, [facility] - 11/06/2023 10:51 AM EDT MEDICATION THERAPY MANAGEMENT HYDROXYUREA TREATMENT PROGRESS NOTE Shubham Calles [phone] Patient Phone Numbers Preferred Lab: [facility]: [facility] Communication: Spoke to: Patient Treatment: Medication: Hydroxyurea (Hydrea) Indication/Staging/Diagnosis Code: ET, 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 Cheung Prophylactic Meds: ASA 81mg daily Dose adjustment / medication hold: 06/11/23: dose increase to 500mg M-F and 1000mg Sat/Sun 07/03/23: dose increase to 500mg M-Th and 1000mg Fr/Sat/Sun 07/23/23: dose increase to 500mg MWF and 1000mg AOD 08/07/23: dose reduce to 1000mg three days per week and 500mg four days per week Interval History: States he had labs completed at the [facility] 10/18/23 and inquiring if those were sent to [facility] for PCP review No concerns, tolerating therapy well Changes to medication list since last visit? No Assessment and Plan: PLT at goal HCT > 45% but declining. Will monitor closely All other labs stable Reassured pt VA labs in pt's chart and all is stable. Pt replied with appreciation and understanding Continue current hydrea dose and monthly labs (scheduled 12/10 @1100) Assessment of compliance: compliant Dose adjustment needed based on lab or adverse drug reaction? No Follow up: 12/11 Pat Tolliver, PharmD, BCOP Clinical Pharmacist, [facility] Oral Chemotherapy [facility] 11/06/2023, 11:02 AM Monitoring Parameters: Estimated CrCl Serum creatinine: 1.2 mg/dL 11/05/23 1046 Estimated creatinine clearance: 66 mL/min Hepatitis panel Latest Reference Range & Units 06/10/23 11:00 Hepatitis B Surface Antigen Negative Negative Hepatitis B Surface Antibody, Quantitative mIU/mL <3.5 HEPATITIS B SURFACE ANTIBODY Rpt Hepatitis B Surface Antibody, Interpretation NOT immune to Hepatitis B Virus Hepatitis B Surface Antibody, Qualitative Negative Hepatitis B Core Antibodies IgG and IgM Negative Negative test N/A Suggested lab monitoring Suggested labs (antineoplastic): CBCd weekly until stable, then monthly; CMP q3-4mon; status prior to initiation (if of reproductive potential) Treatment Parameters PLT < 400K Pertinent Labs: Latest Reference Range & Units 08/26/23 13:07 10/01/23 10:47 11/05/23 10:46 WBC 4.00 - 10.80 K/uL 12.08 (H) 9.92 10.70 RBC 4.50 - 5.25 M/uL 4.73 4.83 4.50 HGB 14.0 - 16.8 g/dL 14.9 15.8 14.7 HCT 40.0 - 48.4 % 46.7 48.6 (H) 45.7 MCV 82.0 - 99.5 fL 98.7 100.6 101.6 MCH 27.0 - 34.0 pg 31.5 32.7 32.7 MCHC 32.0 - 36.0 g/dL 31.9 32.5 32.2 RDW 11.5 - 15.5 % 19.2 18.2 18.3 PLT 140 - 400 K/uL 336 310 343 MPV 6.6 - 11.1 fL 11.2 10.7 10.6 CBC WITH WBC DIFFERENTIAL Rpt ! Rpt ! Rpt ! Absolute Neutrophils 1.80 - 7.70 K/uL 8.84 (H) 7.28 7.68 Time Spent on Encounter: 6 - 10 minutes Encounter Group: Hematology Encounter Interventions Item Category: Oral Chemotherapy Hydroxurea Problem/Rationale: Effectiveness: Needs additional monitoring - Medication Requires monitoring Safety: Needs additional monitoring - Medication Requires monitoring Pharmacist Intervention(s): Care coordination, Lab monitoring, and Toxicity monitoring Magnitude of Intervention: Monitoring with direction (Level 1) documented in this encounter Plan of Treatment Upcoming Encounters Date Type Department Care Team (Latest Contact Info) Description 11/11/2023 2:00 PM EDT Office Visit Urology, [address] [place] [address] Kp Fisher MD [address] [facility] [address] [place] [address] 12/11/2023 11:00 AM EDT Laboratory Laboratory, [facility] [address] [place] [facility] [address] [facility] [address] [place] [facility] [address] 12/12/2023 9:00 AM EDT Pharmacy Pharmacy Hematology Oncology [facility] [address] [place] [address] [facility], [facility] Hem/Onc [address] [place] [address] 01/14/2024 11:00 AM EDT Laboratory Laboratory, [facility] [address] [place] [facility] [phone] [facility] Laboratory [address] [place] [facility] [place] [address] 02/12/2024 1:00 PM EDT Hospital Encounter ENDO OSS, Endoscopy Room [facility] [address] [place] [phone] Vish Mukherjee MD [address] [place] [address] 02/12/2024 1:00 PM EDT - 02/12/2024 1:30 PM EDT Surgery ENDO OSS, Endoscopy Room [facility] [address] [place] [phone] Vish Mukherjee MD [address] [place] [address] COLONOSCOPY FLEXIBLE PROXIMAL DIAGNOSTIC 03/06/2024 3:00 PM EDT Office Visit Cardiology, [facility] [address] [facility] [place] [address] Maria Dolores Mas PA-C [address] [facility] [place] [phone] 03/16/2024 10:30 AM EDT Office Visit Hematology/Oncolog y [facility] [address] [place] [address] Gopi Cheung MD [address] [place] [address] Scheduled Procedures Name Priority Associated Diagnoses Date/Ti me COLONOSCOPY FLEXIBLE PROXIMAL DIAGNOSTIC Screen for colon cancer 02/12/2024 1:00 PM EDT Health Maintenance Due Date Last Done Comments DISCUSS TOBACCO CESSATION (REFER TO SMARTSET #3291) 1950 COVID-19 Vaccine (#1) 1954 Albumin/Creatinine Ratio 10/13/1967 CKD PHOS USE SMARTSET 53445 10/13/1967 Colonoscopy 1994 Sigmoidoscopy 1994 Zoster Vaccines (1 of 2) 03/23/2016 01/27/2016 Depression Screening 02/04/2021 02/05/2020 Cologuard 03/25/2021 03/25/2018 Colorectal Cancer Screening 10/23/2022 Fecal Occult Blood Test 10/23/2022 10/23/2021 GFR 05/06/2024 11/05/2023, 10/06, 10/01/2023, Additional history exists HbA1c 10/16/2024 10/17/2023, 04/08, 10/11/2020, Additional history exists CKD HGB USE SMARTSET 76465 11/04/202411/04, 11/05/2023, 10/17/2023, Additional history exists DTaP,Tdap,and Td Vaccines (3 [...] as of this encounter Visit Diagnoses Diagnosis JAK2 V617F mutation- Primary Other ill-defined conditions Screen for colon cancer Special screening for malignant neoplasms, colon documented in this encounter Advance Directives Latest Code Status on File Code Status Date Activated Date Inactivated Comments Full Code 12/06/2013 1:46 PM 12/07/2013 7:34 PM This or chastity reflects the patients wishes and were consensually agreed upon. Question Answer Comments Discussion of Advance Directives occurred with: Patient Care Teams Training Developer Relationship Specialty Start Date End Date Taurus Delgado MD [address] [place] [address] PCP - General Family Medicine 03/20/16 documented as of this encounter
--- OUTSIDE RECORDS SUMMARY | 2023-11-12 15:55 | External Medical Summary ---
Author Name Unknown Address Unknown Organization K01:LABORATORY [facility] - [address] [place] [address] Laboratory Report Ordering Provider Test Date Status JUANJO HERMOSILLO 11/05/2023 10:46:04 Final Observation Date Value Abnormality Reference (Units ) Status SYNC LEUKOCYTES IN BLOOD BY AUTOMATED COUNT 11/05/2023 10:46:04 10.70 4.00-10.80 (K/uL) Final Segs 11/05/2023 10:46:04 71.9 40.0-75.0 (%) Final Lymphs % 11/05/2023 10:46:04 15.0 Below low normal 18.0-42.0 (%) Final Monos 11/05/2023 10:46:04 11.0 1.0-11.0 (%) Final Eosinophils 11/05/2023 10:46:04 1.0 0.0-6.0 (%) Final Basos 11/05/2023 10:46:04 0.7 0.0-2.0 (%) Final Immature Granulocyte, Percent 11/05/2023 10:46:04 0.4 0.0-2.0 (%) Final Absolute Segs 11/05/2023 10:46:04 7.68 1.80-7.70 (K/uL) Final Lymphs, absolute 11/05/2023 10:46:04 1.61 1.00-4.80 (K/ul) Final Monos, Abs 11/05/2023 10:46:04 1.18 Above high normal 0.00-1.10 (K/uL) Final Eos, Abs 11/05/2023 10:46:04 0.11 0.00-0.70 (K/uL) Final Basos, Abs 11/05/2023 10:46:04 0.08 0.00-0.20 (K/uL) Final Immature Granulocytes, Number 11/05/2023 10:46:04 0.04 0.00-0.20 (K/uL) Final Performing Location LABORATORY [facility] - [facility] [place] [address]
--- OUTSIDE RECORDS SUMMARY | 2023-11-12 15:55 | External Medical Summary | Summary of Care ---
Author Name Unknown Organization [facility] Address [address] [facility] [place] [address] Phone [phone] Care Team Providers Care Test Desk Operator Name Role Phone Taurus Delgado MD Primary Care Provider Encounter Details Date Type Department Care Team (Late st Contact Info) Description 11/06/2023 Orders Only [facility] [address] [place] [address] Taurus Delgado MD [address] [place] [address] Allergies No known active allergiesdocumented as of [...] 11/11/2023 2:00 PM EDT Office Visit Urology, [facility] [address] [place] [address] Kp Fisher MD 27 [facility] [address] [place] [address] 01/14/2024 11:00 AM EDT Laboratory Laboratory, [place] [address] [facility] [phone] [facility] [address] [facility] [place] [address] 02/12/2024 1:00 PM EDT Hospital Encounter ENDO OSS[facility], Endoscopy Room [facility] [address] [place] [phone] Vish Mukherjee MD 132 [facility] [place] [address] 02/12/2024 1:00 PM EDT - 02/12/2024 1:30 PM EDT Surgery ENDO [facility], Endoscopy Room [facility] [address] [place] [phone] Vish [facility]herjee [facility] [place] [address] COLONOSCOPY FLEXIBLE PROXIMAL DIAGNOSTIC 03/06/2024 3:00 PM EDT Office Visit Cardiology, [facility] [address] [place] [address] Maria Dolores Mas PA-C [address] [place] [address] [place] [address] 03/16/2024 10:30 AM EDT Office Visit Hematology/Oncolog y Malaika Andrews [place] [address] [place] [phone] Gopi Cheung MD 200 [facility], [place] [id number] Scheduled Procedures Name Priority Associated Diagnoses Date/Ti me COLONOSCOPY FLEXIBLE PROXIMAL DIAGNOSTIC Screen for colon cancer 02/12/2024 1:00 PM EDT Health Maintenance Due Date Last Done Comments DISCUSS TOBACCO CESSATION (REFER TO SMARTSET #8893) 1949 COVID-19 Vaccine (#1) 1954 Albumin/Creatinine Ratio 10/13/1967 CKD PHOS USE SMARTSET 32946 10/13/1967 Colonoscopy 1994 Sigmoidoscopy 1994 Zoster Vaccines (1 of 2) 03/23/2016 01/27/2016 Depression Screening 02/04/2021 02/05/2020 Cologuard 03/25/2021 03/25/2018 Colorectal Cancer Screening 10/23/2022 Fecal Occult Blood Test 10/23/2022 10/23/2021 HbA1c 05/03/2024 10/17/2023, 04/08, 10/11/2020, Additional history exists GFR 05/06/2024 11/05/2023, 10/06, 10/01/2023, Additional history exists CKD HGB USE SMARTSET 50406 11/04/202411/04, 11/05/2023, 10/17/2023, Additional history exists DTaP,Tdap,and [...] Not on filedocumented as of this encounter Procedures Procedure Name Priority Date/Time Associated Diagnosis Comments CHEMISTRY-OUTSIDE Routine 10/17/2023 documented in this encounter Results * (ABNORMAL) CHEMISTRY-OUTSIDE (10/17/2023) Not all results display below - see scan for full detail OUTSIDE LAB (SEE SCANNED REPORT) Comment:SCAN INCLUDES: CBCD, CMP, LIPID PANEL, PSA, HGB A1C, VIT D 25-OH CREATININE-OUTSID E LAB 1.2 0.6 - 1.5 MG/DL OUTSIDE LAB (SEE SCANNED REPORT) EGFR-OUTSIDE LAB 63 ML/MIN OUT SIDE LAB (SEE SCANNED REPORT) POTASSIUM-OUTSIDE LAB 4.8 3.6 - 5.1 MMOL/L OUTSIDE LAB (SEE SCANNED REPORT) GLUCOSE-OUTSIDE LAB 120(A) 70 - 99 MG/DL OUTSIDE LAB (SEE SCANNED REPORT) HOURS FASTING OUTSID E LAB (SEE SCANNED REPORT) TRIGLYCERIDES-OUT SIDE LAB 97 <=150 MG/DL OUTSIDE LAB (SEE SCANNED REPORT) CHOLESTEROL-OUTSI DE LAB 134 <=200 MG/DL OUTSIDE LAB (SEE SCANNED REPORT) HDL-OUTSIDE LAB 41.2 40 - 60 MG/DL OUTSIDE LAB (SEE SCANNED REPORT) CHOL/HDL RATIO-OUTSIDE LAB OUTSIDE LA B (SEE SCANNED REPORT) LDL (CALCULATED)-OUTS FRANKO LAB 73 <=100 MG/DL OUTSIDE LAB (SEE SCANNED REPORT) LDL (DIRECT MEASURE)-OUTSIDE LAB OUTSIDE LAB (SEE SCANNED REPORT) HEMOGLOBIN, H4P-VNIBRDK LAB 6.2 4.3 - 6.2 % OUTSIDE LAB (SEE SCANNED REPORT) PHOSPHORUS-OUTSID E LAB OUTSIDE LAB (SEE SCANNED REPORT) PTH-OUTSIDE LAB OUTS FRANKO LAB (SEE SCANNED REPORT) MICROALBUMIN RATIO-OUTSIDE LAB OUTSIDE LA B (SEE SCANNED REPORT) PROTEIN, UA-OUTSIDE LAB OUTSIDE LAB (SEE SCANNED REPORT) HGB 14.5 12.4 - 17.3 G/DL OUTSIDE LAB (SEE SCANNED REPORT) 10/17/2023 [facility] OUTSIDE LAB (SEE SCANNED REPORT) documented in this encounter Advance Directives Latest Code Status on File Code Status Date Activated Date Inactivated Comments Full Code 12/06/2013 1:46 PM 12/07/2013 7:34 PM This or chastity reflects the patients wishes and were consensually agreed upon. Question Answer Comments Discussion of Advance Directives occurred with: Patient Care Teams Test Desk Operator Relationship Specialty Start Date End Date Taurus Delgado MD [address] [facility] [place] [address] PCP - General Family Medicine 03/20/16 documented as of this encounter
--- OUTSIDE RECORDS SUMMARY | 2023-11-12 15:56 | External Medical Summary | Summary of Care ---
Author Name Unknown Organization [facility] Address [address] [place] [address] Phone [phone] Care Team Providers Care Mutuel Department Manager Name Role Phone Tomy Delgado MD Primary Care Provider [phone] Reason for Referral * Precert (Within 10 days (routine)) - Authorized Specialty Diagnoses / Procedures Referred By Contac t Referred To Contact Radiology Diagnoses BPH with obstruction/lower urinary tract symptoms Hydronephrosis, bilateral Incomplete emptying of bladder Procedures CT ABD/PELVIS WO IV/ORAL CONTRAST Kp Fisher MD [address] [address] Referral ID Status Reason Start Date Expiration Date V isits Requested Visits Authorized [id number] Authorized Precert 09/04/2023 03/02/2024 999 999 Reason for Visit * Reason Comments Follow Up Encounter Details Date Type Department Care Team (Latest Contact Info) Description 09/04/2023 9:00 AM EST Telemedicine Urology Amanda Anthony [address] [address] Kp Fisher MD [address] [address] 7, Telemed [facility] Urology Ex [address] [place] [address] BPH with obstruction/lower urinary tract symptoms*; Hydronephrosis, bilateral; Incomplete emptying of bladder; Renal insufficiency Allergies No known active allergiesdocumented as of this encounter (statuses as of 09/04/2023) Medications Medication Sig Dispensed Refills Start Date [...] as of this encounter (statuses as of 09/04/2023) Active Problems Problem Noted Date Diagnosed Date [...] as of this encounter (statuses as of 09/04/2023) Resolved Problems Problem Noted Date Diagnosed Date Resolved Date NSTEMI (non-ST elevated myoc ardial infarction) 12/07/2013 12/07/2013 documented as of this encounter (statuses as of 09/04/2023) Immunizations Name Administration Dates Next Due Influenza, Whole Virus 04/25/1999 Pneumococcal Conjugate Vacc, 13 Valent (Prevnar) 11/30/2015 [...] as of this encounter Progress Notes * Kp Fisher MD - 09/04/2023 9:00 AM EST [id number] PCP: TOMY DELGADO [address] [place] [id number] Shubham Calles is a 72 year old male, who presents for 1 year follow-up of his history of BPH and complex renal cyst. Patient's past notes reviewed. His numerous cancelled visits are noted. Patient feels his voiding is relatively stable. [facility] deterioration in thepatient's creatinine is appreciated. Stable PSA is noted. Complex renal cyst: Presented to Urology June of 2022. BPH: Patient is being seen for BPH today. He has previously had the following symptoms: slow stream, intermittency, postvoid dribbling, nocturia x 2-3, hesitancy and incomplete emptying. Severity is moderate. He has tried finasteride and terazosin, obtains via [facility]. He has previously had prostate biopsy done, no cancer. Problem has been present for years. Problem is stable. Renal US November 2022: IMPRESSION 1. Minimally enlarged spleen. 2. Moderate right hydronephrosis. 3. Moderate left hydronephrosis. 4. Distended urinary bladder. Creatinine Results: Lab Results Component Value Date/Time CREATININE 0.8 07/28/1996 09:45 AM CREATININE 1.0 06/10/1996 04:00 AM CREATININE 1.1 06/09/1996 04:00 AM CREATININE - [facility] 1.3 (H) 08/26/2023 01:07 PM CREATININE - [facility] 1.3 (H) 08/06/2023 10:51 AM CREATININE - [facility] 1.3 (H) 07/30/2023 10:39 AM CREATININE - [facility] 0.8 01/03/2018 11:48 AM CREATININE - [facility] 0.8 12/07/2013 04:54 AM CREATININE - [facility] 0.8 12/06/2013 06:21 AM CREATININE-OUTSIDE LAB 1.1 10/19/2022 12:00 AM CREATININE-OUTSIDE LAB 0.8 10/11/2020 12:00 AM CREATININE-OUTSIDE LAB 0.8 10/09/2018 12:00 AM PSA Results: Lab Results Component Value Date/Time PSA - [facility] 1.13 07/30/2023 10:39 AM PSA - [facility] 1.67 06/25/2022 10:47 AM Current Outpatient Medications Medication Sig Dispense Refill NITROGLYCERIN 0.[address] under the tongue. times 3 doses 25 11 PROSCAR 5 MG PO TABS 1 TABLET DAILY 30 0 FLONASE 50 MCG/ACT NA SUSP 2 puffs each nostril daily 1 34 cyclobenzaprine (FLEXERIL) 10 MG Tablet Take 1 Tablet by mouth 2 times a day as needed for Muscle spasms. 20 Tab 0 acetaminophen (TYLENOL) 500 MG Tablet Multiple Vitamins-Minerals (PRESERVISION AREDS 2+MULTI VIT) CAPS Take by mouth. atorvaSTATin (LIPITOR) 80 MG Tablet Take 1 Tablet by mouth in the morning. Takes in the evening . 30 Tab metoprolol tartrate (LOPRESSOR) 50 MG Tablet Take 1/2 tab in the am and 1/2 tab in the evening 50 Tab 0 BRILINTA 90 MG Tablet Take 1 Tab by mouth 2 times a day. 180 Tab 3 Cholecalciferol 25 MCG (1000 UT) Oral Tablet TAKE ONE TABLET BY MOUTH EVERY DAY SAME VITAMIN D3 FOR VITAMIN D DEFICIENCY Diclofenac Sodium 1 % External Gel Apply topically to affected area . Apply to back Zoster Vac Recomb Adjuvanted 50 MCG/0.5ML Intramuscular Suspension Reconstituted (Shingrix) Inject 0.5 mL into a large muscle now and repeat dose in 60 to 180 days 1 Each 0 Terazosin HCl 5 MG Oral Capsule (Hytrin) Take 1 Capsule by mouth in the morning. 100 Capsule 3 Terazosin HCl 2 MG Oral Capsule Take 1 Capsule by mouth at bedtime. 30 Capsule 5 Aspirin 81 MG Oral Tablet Delayed Release Take 1 Tablet by mouth in the morning. 30 Tablet 5 Hydroxyurea 500 MG Oral Capsule (Hydrea) Take one 500mg cap by mouth daily Saturday, Saturday, and Saturday and two 500mg caps (1000mg total) by mouth daily Saturday, Saturday, , Saturday (Patient taking differently: Take one 500mg cap by mouth daily Saturday, Saturday, Saturday, and Saturday and two 500mg caps (1000mg total) by mouth daily Saturday, Saturday, and ) 50 Capsule 5 No current facility-administered medications for this visit. Review of patient's allergies indicates: No Known Allergies Social History: Social History Tobacco Use Smoking status: Every Day Current packs/day: 0.75 Average packs/day: 0.8 packs/day for 30.0 years (22.5 ttl pk-yrs) Types: Cigarettes Smokeless tobacco: Never Substance Use Topics Alcohol use: Yes Comment: occassional rum and vodka Vaping/E-Cigarette Use Vaping/E-Cigarette Use Never User Vaping/E-Cigarette Substances Vaping/E-Cigarette Devices Family History Problem Relation Age of Onset Heart attack Mother Heart attack Father Past Surgical History: Procedure Laterality Date CABG, ARTERIAL, THREE 07/08/1998 Dr. Perez EGD, FLEXIBLE, DIAGNOSTIC 12/20/2022 + H pylori / ESOPHAGOGASTRODUODENOSCOPY (EGD), FLEXIBLE, TRANSORAL, DIAGNOSTIC performed by Aurelia Daniel MD at ENDOSCOPY [facility] REPAIR OF KNEE CARTILAGE 07/08/2010 left knee SINUS SURGERY PROCEDURE NEC 5-6 years ago Past Medical History: Diagnosis Date BPH (benign prostatic hyperplasia) Dyslipidemia Hypertension [place] (myocardial infarction) (HCC) 5-6 years ago Tobacco abuse 1 ppd for 30 years Patient Active Problem List Diagnosis Code Aortocoronary bypass status Z95.1 Chronic coronary artery disease I25.10 Hyperplasia of prostate without lower urinary tract symptoms (LUTS) N40.0 ADVANCE DIRECTIVE INFORMATION BPH without obstruction/lower urinary tract symptoms N40.0 Tobacco abuse Z72.0 Hyperlipidemia with target LDL less than 100 E78.5 Sinus bradycardia R00.1 SVT (supraventricular tachycardia) I47.10 Prediabetes R73.03 Abnormal CBC R79.89 Iron deficiency anemia D50.9 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 Constitutional: General: He is not in acute distress. Appearance: He is not ill-appearing or toxic-appearing. HENT: Head: Normocephalic and atraumatic. Right Ear: External ear normal. Left Ear: External ear normal. Nose: Nose normal. Mouth/Throat: Mouth: Mucous membranes are moist. Eyes: Extraocular Movements: Extraocular movements intact. Pulmonary: Effort: Pulmonary effort is normal. No respiratory distress. Abdominal: General: There is no distension. Musculoskeletal: Cervical back: Normal range of motion. No rigidity. Skin: Coloration: Skin is not pale. Neurological: General: No focal deficit present. Mental Status: He is oriented to person, place, and time. Motor: No weakness. Gait: Gait normal. Psychiatric: Behavior: Behavior normal. Thought Content: Thought content normal. Impression/Plan: 72-year-old male with worsening bladder outlet obstruction. Ultrasound images are reviewed with patient via screen share. This suggests continued decompensation of the detrusor with worsening renal function. Importance of follow-up of the patient's condition to avoid permanent renal damage and detrusor decompensation resulting in retention are reviewed. Patient was scheduled for a cystoscopy a year ago, canceled secondary to reported symptomatic improvement. Will reschedule cystoscopy, obtain a noncontrast CT scan to evaluate for progressive upper tractdeterioration. I suspect the patient will require surgical intervention of some kind to alleviate his ongoing difficulties. Above content is personally reviewed. Patient vocalizes good understanding of the treatment plan. Kp Fisher MD 7:57 AM 09/04/2023 documented in this encounter Nursing Notes * Raine Villar LPN - 09/04/2023 8:49 AM EST Pt presents in office for 1 yr ret BPH Terazosin PSA Results: Lab Results Component Value Date/Time PSA - [facility] 1.13 07/30/2023 10:39 AM PSA - [facility] 1.67 06/25/2022 10:47 AM C/o- nocturia x 2-3, incontinence, states he was told by a doctor a long time ago he has a thick bladder [id number] ml Per PVR results Dr Fisher advised patient CIC TID/QID, 180 medical order placed. Patient verbalizedunderstanding of CIC education, will call if he has questions. Pt unable to pass straight catheter d/t BPH, patient needs Coude catheters. documented in this encounter Miscellaneous Notes * Addendum Note - Kp Fisher MD - 09/04/2023 9:18 AM ESTAddended by: KP FISHER on: 09/04/2023 09:18 AM Modules accepted: Orders documented in this encounter Plan of Treatment Upcoming Encounters Date Type Department Care Team (Latest Contact Info) Description 09/10/2023 9:15 AM EST Imaging Radiology [facility] [facility] [address] [facility] [place] [address] 09/11/2023 11:00 AM EST Office Visit Hematology/Oncology [facility] Juliana [place] [address] [place] [phone] Gopi Cheung MD [address] [place] [address] 09/24/2023 9:00 AM EDT Pharmacy Pharmacy Hematology Oncology [facility] [place] [address] [place] [address] [facility] Hem/Onc [address] [place] [address] 11/04/2023 2:30 PM EDT Procedure Only [facility]rology, [facility] [place] [address] Kp Fisher MD [address] [address] [place] [address] 11/11/2023 1:30 PM EDT Office Visit Cardiology, [facility] [address] [facility] [place] [address] Maria Dolores Mas PA-C [address] [place] [address] [place] [address] 02/12/2024 1:00 PM EDT Hospital Encounter ENDO OSS, Endoscopy Room [facility] [address] [place] [phone] Vish Mukherjee MD 132 [facility] [place] [address] 02/12/2024 1:00 PM EDT - 02/12/2024 1:30 PM EDT Surgery ENDO O[facility]C, Endoscopy Room [facility] [address] [place] [phone] Vish Mukherjee MD 132 [facility] [place] [address] COLONOSCOPY FLEXIBLE PROXIMAL DIAGNOSTIC Scheduled Orders Name Type Priority Associated Diagnoses Orde r Schedule CT ABD/PELVIS WO IV/ORAL CONTRAST Medical Imaging Routine BPH with obstruction/lower urinary tract symptoms Hydronephrosis, bilateral Incomplete emptying of bladder Expected: 09/04/2023, Expires: 10/02/2024 Scheduled Procedures Name Priority Associated Diagnoses Date/Ti me COLONOSCOPY FLEXIBLE PROXIMAL DIAGNOSTIC Screen for colon cancer 02/12/2024 1:00 PM EDT Health Maintenance Due Date Last Done Comments DISCUSS TOBACCO CESSATION (REFER TO SMARTSET #9833) 1950 COVID-19 Vaccine (#1) 1954 Albumin/Creatinine Ratio 10/13/1967 CKD PHOS USE SMARTSET 43658 10/13/1967 Colonoscopy 1994 Sigmoidoscopy 1994 Zoster Vaccines (1 of 2) 03/23/2016 01/27/2016 Depression Screening 02/04/2021 02/05/2020 Cologuard 03/25/2021 03/25/2018 Colorectal Cancer Screening 10/23/2022 Fecal Occult Blood Test 10/23/2022 10/23/2021 GFR 02/24/2024 08/26/2023, 07/10, 07/30/2023, Additional history exists HbA1c 05/03/2024 05/03/2023, 04/0 12/2020, 10/09/2018 CKD HGB USE SMARTSET 47499 08/26/202408/26, 08/26/2023, 08/13/2023, Additional history exists DTaP,Tdap,and Td Vaccines (3 - Td or Tdap) 02/20/2033 02/20/2023, 09/25/2012 Pneumococcal Vaccine: 65+ Years Completed 03/18/2017, 11/30/2015, 03/13/2009 LUNG CANCER SCREENING - USE SMARTSET 05016 Completed 10/06/2021, 05/24/2017, 12/04/2016 AAA Screening Completed 06/05/2022, 11/15/2014 [...] as of this encounter Visit Diagnoses Diagnosis BPH with obstruction/lower urinary tract symptoms- Primary Hypertrophy of prostate with urinary obstruction and other lower urinary tract symptoms (LUTS) Hydronephrosis, bilateral Hydronephrosis Incomplete emptying of bladder Incomplete bladder emptying Renal insufficiency Unspecified disorder of kidney and ureter Screen for colon cancer Special screening for malignant neoplasms, colon documented in this encounter Advance Directives Latest Code Status on File Code Status Date Activated Date Inactivated Comments Full Code 12/06/2013 1:46 PM 12/07/2013 7:34 PM This or chastity reflects the patients wishes and were consensually agreed upon. Question Answer Comments Discussion of Advance Directives occurred with: Patient Care Teams Mutuel Department Manager Relationship Specialty Start Date End Date Tomy Delgado MD [address] [place] [address] PCP - General Family Medicine 03/20/16 documented as of this encounter
--- OUTSIDE RECORDS SUMMARY | 2023-11-12 15:56 | External Medical Summary | Summary of Care ---
Author Name Unknown Organization [facility] Address [address] [place] [address] Phone [phone] Care Team Providers Care Air Operations Manager Name Role Phone Taurus Delgado MD Primary Care Provider [phone] Reason for Visit * Reason Comments Medication Management Encounter Details Date Type Department Care Team (Late st Contact Info) Description 10/02/2023 9:00 AM EDT Pharmacy Pharmacy Hematology Oncology [facility] ([facility]3] [address] [place] [address] [facility] [place] [facility] Hem/Onc [address] [place] [address] JAK2 V617F mutation* Allergies No known active allergiesdocumented as of this encounter (statuses as of 10/02/2023) Medications Medication Sig Dispensed Refills Start Date [...] as of this encounter (statuses as of 10/02/2023) Active Problems Problem Noted Date Diagnosed Date [...] as of this encounter (statuses as of 10/02/2023) Resolved Problems Problem Noted Date Diagnosed Date Resolved Date NSTEMI (non-ST elevated myoc ardial infarction) 12/07/2013 12/07/2013 documented as of this encounter (statuses as of 10/02/2023) Immunizations Name Administration Dates Next Due Pneumococcal [...] this encounter Progress Notes * Pat Tolliver, [facility] - 10/02/2023 10:10 AM EDT MEDICATION THERAPY MANAGEMENT HYDROXYUREA TREATMENT PROGRESS NOTE Shubham Calles [id number] Patient Phone Numbers Preferred Lab: [facility]: [facility] Communication: Left message Treatment: Medication: Hydroxyurea (Hydrea) Indication/Staging/Diagnosis Code: ET, JAK2+ / D47.3 Dose: 1000mg three days per week and 500mg four days per week ( 08/07/23) Administration: +/- food Start Date: 06/03/23 PLT goal: < 400K Primary Unit Receptionist/Oncologist: Dr. Cheung Prophylactic Meds: ASA 81mg daily Dose adjustment / medication hold: 06/11/23: dose increase to 500mg M-F and 1000mg Sat/Sun 07/03/23: dose increase to 500mg M-Th and 1000mg Fr/Sat/Sun 07/23/23: dose increase to 500mg MWF and 1000mg AOD 08/07/23: dose reduce to 1000mg three days per week and 500mg four days per week Interval History: N/A Changes to medication list since last visit? No Assessment and Plan: PLT at goal WBC declining to WNL HCT > 45%. Will monitor closely All other labs stable Continue current hydrea dose Lab monitoring extended to monthly due to stable labs Assessment of compliance: N/A Dose adjustment needed based on lab or adverse drug reaction? No Follow up: 1 month Pat Tolliver, PharmD, BCOP Clinical Pharmacist, [facility] Oral Chemotherapy [facility] 10/02/2023, 10:14 AM Monitoring Parameters: Estimated CrCl Serum creatinine: 1.3 mg/dL (H) 10/01/23 1047 Estimated creatinine clearance: 61.8 mL/min (A) Hepatitis panel Latest Reference Range & Units [...] Pertinent Labs: Latest Reference Range & Units 08/13/23 10:48 08/26/23 13:07 10/01/23 10:47 WBC 4.00 - 10.80 K/uL 11.10 (H) 12.08 (H) 9.92 RBC 4.50 - 5.25 M/uL 4.63 4.73 4.83 HGB 14.0 - 16.8 g/dL 14.2 14.9 15.8 HCT 40.0 - 48.4 % 44.5 46.7 48.6 (H) MCV 82.0 - 99.5 fL 96.1 98.7 100.6 MCH 27.0 - 34.0 pg 30.7 31.5 32.7 MCHC 32.0 - 36.0 g/dL 31.9 31.9 32.5 RDW 11.5 - 15.5 % 19.6 19.2 18.2 PLT 140 - 400 K/uL 380 336 310 MPV 6.6 - 11.1 fL 10.9 11.2 10.7 CBC WITH WBC DIFFERENTIAL Rpt ! Rpt ! Rpt ! Absolute Neutrophils 1.80 - 7.70 K/uL 7.96 (H) 8.84 (H) 7.28 Time Spent on Encounter: 6 - 10 minutes Encounter Group: Hematology Encounter Interventions Item Category: Oral Chemotherapy Hydroxurea Problem/Rationale: Effectiveness: Needs additional monitoring - Medication Requires monitoring Safety: Needs additional monitoring - Medication Requires monitoring Pharmacist Intervention(s): Lab monitoring Magnitude of Intervention: Monitoring with direction (Level 1) documented in this encounter Plan of Treatment Upcoming Encounters Date Type Department Care Team (Latest Contact Info) Description 10/30/2023 9:00 AM EDT Pharmacy Pharmacy Hematology Oncology [facility]3] [address] [place] [address] [facility] [facility] Hem/Onc [address] [place] [address] 11/11/2023 11:30 AM EDT Office Visit Urology, [facility] [address] [place] [address] Kp Fisher MD [address] [place] [address] [place] [address] 01/14/2024 11:00 AM EDT Laboratory Laboratory, [place] [address] [place] [place] [address] [facility] [address] [place] [facility] [place] [address] 02/12/2024 1:00 PM EDT Hospital Encounter ENDO [facility], Endoscopy Room [facility] [address] [place] [phone] Vish Mukherjee MD [address] [facility] [place] [address] 02/12/2024 1:00 PM EDT - 02/12/2024 1:30 PM EDT Surgery ENDO [facility], Endoscopy Room [facility] [address] [facility] [facility] [place] [phone] Vihs Mukherjee MD [address] [facility] [place] [address] COLONOSCOPY FLEXIBLE PROXIMAL DIAGNOSTIC 03/06/2024 3:00 PM EDT Office Visit Cardiology, [facility] [address] [place] [address] Maria Dolores Mas PA-C [address] [place] [address] [place] [address] 03/16/2024 10:30 AM EDT Office Visit Hematology/Oncolog y [place] [address] [place] [phone] Gopi Cheung MD [address] [place] [address] Scheduled Procedures Name Priority Associated Diagnoses Date/Ti me COLONOSCOPY FLEXIBLE PROXIMAL DIAGNOSTIC Screen for colon cancer 02/12/2024 1:00 PM EDT Health Maintenance Due Date Last Done Comments DISCUSS TOBACCO CESSATION (REFER TO SMARTSET #2745) 1950 COVID-19 Vaccine (#1) 1954 Albumin/Creatinine Ratio 10/13/1967 CKD PHOS USE SMARTSET 60405 10/13/1967 Colonoscopy 1994 Sigmoidoscopy 1994 Zoster Vaccines (1 of 2) 03/23/2016 01/27/2016 Depression Screening 02/04/2021 02/05/2020 Cologuard 03/25/2021 03/25/2018 Colorectal Cancer Screening 10/23/2022 Fecal Occult Blood Test 10/23/2022 10/23/2021 GFR 04/02/2024 10/01/2023, 08/08, 08/06/2023, Additional history exists HbA1c 05/03/2024 05/03/2023, 04/0 12/2020, 10/09/2018 CKD HGB USE SMARTSET 83135 09/30/202409/30, 10/01/2023, 08/26/2023, Additional history exists DTaP,Tdap,and Td Vaccines (3 - Td or Tdap) 02/20/2033 02/20/2023, 09/25/2012 Pneumococcal Vaccine: 65+ Years Completed 03/18/2017, 11/30/2015, 03/13/2009 LUNG CANCER SCREENING - USE SMARTSET 44064 Completed 10/06/2021, 05/24/2017, 12/04/2016 AAA Screening Completed [...] Advance Directives occurred with: Patient Care Teams Air Operations Manager Relationship Specialty Start Date End Date Taurus Delgado MD [address] [place] [address] PCP - General Family Medicine 03/20/16 documented as of this encounter
--- OUTSIDE RECORDS SUMMARY | 2023-11-12 15:56 | External Medical Summary ---
Author Name Unknown Address Unknown Organization K01:[facility] - [address] [place] [address] Laboratory Report Ordering Provider Test Date Status JUANJO HERMOSILLO 10/01/2023 10:47:50 Final Observation Date Value Abnormality Reference (Units ) Status Walnut cells [Presence] in Blood by Light microscopy 10/01/2023 10:47:50 Moderate Abnormal None Seen Final Schistocytes 10/01/2023 10:47:50 Few Abnormal None Seen Final Performing Location LABORATORY C - [address] [place] [address]
--- OUTSIDE RECORDS SUMMARY | 2023-11-12 15:56 | External Medical Summary | Summary of Care ---
Author Name Unknown Organization [facility] Address [address] [place] [address] Phone [phone] Care Team Providers Care Chief Operator Hydroformer Name Role Phone Taurus Delgado MD Primary Care Provider [phone] Reason for Visit * Reason Comments Medication Management Encounter Details Date Type Department Care Team (Late st Contact Info) Description 09/24/2023 9:00 AM EDT Pharmacy Pharmacy Hematology Oncology [facility] [address] [place] [address] [facility] [place] [facility] Hem/Onc [address] [place] [address] JAK2 V617F mutation* Allergies No known active allergiesdocumented as of this encounter (statuses as of 09/24/2023) Medications Medication Sig Dispensed Refills Start Date [...] as of this encounter (statuses as of 09/24/2023) Active Problems Problem Noted Date Diagnosed Date [...] as of this encounter (statuses as of 09/24/2023) Resolved Problems Problem Noted Date Diagnosed Date Resolved Date NSTEMI (non-ST elevated myoc ardial infarction) 12/07/2013 12/07/2013 documented as of this encounter (statuses as of 09/24/2023) Immunizations Name Administration Dates Next Due Pneumococcal [...] as of this encounter Progress Notes * Chelle Vargas OSA - 09/24/2023 9:00 AM EDT MEDICATION THERAPY MANAGEMENT HYDROXYUREA TREATMENT PROGRESS NOTE Shubham Calles [id number] Patient Phone Numbers Preferred Lab: [facility]: [facility] Communication: Spoke to: Patient Treatment: Medication: Hydroxyurea (Hydrea) Indication/Staging/Diagnosis Code: ET, 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 Cheung Labs scheduled for 10/01/23 in [place] [facility] [employer] [facility] Hematology Oncology Oral Chemotherapy Clinic Medication Therapy Disease Management [facility] 09/24/23 9:52 AM Time Spent on Encounter: 6 - 10 minutes Encounter Group: Hematology Encounter Interventions Item Category: Oral Chemotherapy Hydroxurea Problem/Rationale: Effectiveness: Needs additional monitoring - Medication Requires monitoring Safety: Needs additional monitoring - Medication Requires monitoring Pharmacist Intervention(s): Lab work requested Magnitude of Intervention: Monitoring with no interventions (Level 0) documented in this encounter Plan of Treatment Upcoming Encounters Date Type Department Care Team (Latest Contact Info) Description 10/01/2023 11:00 AM EDT Laboratory Laboratory, [place] [address] [place] [address] [facility] Laboratory [address] [place] [address] 10/02/2023 9:00 AM EDT Pharmacy Pharmacy Hematology Oncology [place] [address] [place] [address] [facility] Hem/Onc [facility] [place] [address] 11/11/2023 11:30 AM EDT Office Visit Urology, [facility] [address] [facility] [place] [address] Kp Fisher MD 27 [facility] [address] [place] [address] 11/11/2023 1:30 PM EDT Office Visit Cardiology, [facility] [address] [place] [address] Maria Dolores Mas PA-C [address] [facility] [place] [phone] 01/14/2024 11:00 AM EDT Laboratory Laboratory, [place] [address] [place] [phone] [place] [address] [place] [address] 02/12/2024 1:00 PM EDT Hospital Encounter ENDO [facility], Endoscopy Room [facility] [address] [facility] [place] [phone] Vish Mukherjee MD [address] [facility] [place] [address] 02/12/2024 1:00 PM EDT - 02/12/2024 1:30 PM EDT Surgery ENDO [facility], Endoscopy Room [facility] [address] [place] [phone] Vish Mukherjee MD [facility] [place] [address] COLONOSCOPY FLEXIBLE PROXIMAL DIAGNOSTIC 03/16/2024 10:30 AM EDT Office Visit Hematology/Oncolog y [facility] [address] [place] [phone] Gopi Cheung MD [address] [place] [address] Scheduled Procedures Name Priority Associated Diagnoses Date/Ti me COLONOSCOPY FLEXIBLE PROXIMAL DIAGNOSTIC Screen for colon cancer 02/12/2024 1:00 PM EDT Health Maintenance Due Date Last Done Comments DISCUSS TOBACCO CESSATION (REFER TO SMARTSET #0569) 1950 COVID-19 Vaccine (#1) 1954 Albumin/Creatinine Ratio 10/13/1967 CKD PHOS USE SMARTSET 87615 10/13/1967 Colonoscopy 1994 Sigmoidoscopy 1994 Zoster Vaccines (1 of 2) 03/23/2016 01/27/2016 Depression Screening 02/04/2021 02/05/2020 Cologuard 03/25/2021 03/25/2018 Colorectal Cancer Screening 10/23/2022 Fecal Occult Blood Test 10/23/2022 10/23/2021 GFR 02/24/2024 08/26/2023, 07/10, 07/30/2023, Additional history exists HbA1c 05/03/2024 05/03/2023, 04/0 12/2020, 10/09/2018 CKD HGB USE SMARTSET 88659 08/26/202408/26, 08/26/2023, 08/13/2023, Additional history exists DTaP,Tdap,and Td Vaccines (3 - Td or Tdap) 02/20/2033 02/20/2023, 09/25/2012 Pneumococcal Vaccine: 65+ Years Completed 03/18/2017, 11/30/2015, 03/13/2009 LUNG CANCER SCREENING - USE SMARTSET 97872 Completed 10/06/2021, 05/24/2017, 12/04/2016 AAA Screening Completed [...] Advance Directives occurred with: Patient Care Teams Chief Operator Hydroformer Relationship Specialty Start Date End Date Taurus Delgado MD [address] [place], [place] [id number] PCP - General Family Medicine 03/20/16 documented as of this encounter
--- OUTSIDE RECORDS SUMMARY | 2023-11-12 15:56 | External Medical Summary | Summary of Care ---
Author Name Unknown Organization [facility] Address [address] [place] [address] Phone [phone] Care Team Providers Care Press Assistant And Feeder Name Role Phone Taurus Delgado MD Primary Care Provider [phone] Reason for Visit * Reason Comments Medication Management Encounter Details Date Type Department Care Team (Late st Contact Info) Description 10/30/2023 9:00 AM EDT Pharmacy Pharmacy Hematology Oncology [facility] [address] [place] [address] [facility] Hem/Onc [address] [place] [address] JAK2 V617F mutation* Allergies No known active allergiesdocumented as of this encounter (statuses as of 10/30/2023) Medications Medication Sig Dispensed Refills Start Date [...] as of this encounter (statuses as of 10/30/2023) Active Problems Problem Noted Date Diagnosed Date [...] as of this encounter (statuses as of 10/30/2023) Resolved Problems Problem Noted Date Diagnosed Date Resolved Date NSTEMI (non-ST elevated myoc ardial infarction) 12/07/2013 12/07/2013 documented as of this encounter (statuses as of 10/30/2023) Immunizations Name Administration Dates Next Due Pneumococcal [...] Progress Notes * Chelle Vargas OSA - 10/30/2023 9:00 AM EDT MEDICATION THERAPY MANAGEMENT HYDROXYUREA TREATMENT PROGRESS NOTE Shubham Calles [phone] Patient Phone Numbers Preferred Lab: [facility]: [facility] Communication: Spoke to: Patient Treatment: Medication: Hydroxyurea (Hydrea) Indication/Staging/Diagnosis Code: ET, 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 Cheung Labs scheduled for 11/05/23 in [place] [facility] [employer] [facility] Hematology Oncology Oral Chemotherapy Clinic Medication Therapy Disease Management [facility] 10/30/23 9:15 AM Time Spent on Encounter: 6 - [...] Description 11/05/2023 11:00 AM EDT Laboratory Laboratory, [place] [address] [place] [address] [facility] Laboratory [address] [place] [address] 11/06/2023 9:00 AM EDT Pharmacy Pharmacy Hematology Oncology [address] [address] [facility] Hem/Onc [facility] [place] [place] [address] 11/11/2023 2:00 PM EDT Office Visit Urology, [facility] [address] [facility] [place] [address] Kp Fisher MD [address] [place] [address] [place] [address] 01/14/2024 11:00 AM EDT Laboratory Laboratory, [place] [address] [place] [phone] [facility] [address] [place] [address] 02/12/2024 1:00 PM EDT Hospital Encounter ENDO [facility], Endoscopy Room [facility] [address] [place] [phone] Vish Mukherjee MD 132 [facility] [place] [address] 02/12/2024 1:00 PM EDT - 02/12/2024 1:30 PM EDT Surgery ENDO [facility], Endoscopy Room [facility] 132 [facility] [place] [phone] Vish Mukherjee MD 132 [facility] [place] [address] COLONOSCOPY FLEXIBLE PROXIMAL DIAGNOSTIC 03/06/2024 3:00 PM EDT Office Visit Cardiology, [facility] [place] [address] Maria Dolores Mas PA-C [address] [place] [address] [place] [address] 03/16/2024 10:30 AM EDT Office Visit Hematology/Oncolog y [facility] [address] [place] [address] Gopi Cheung MD [address] [place] [address] Scheduled Procedures Name Priority Associated Diagnoses Date/Ti me COLONOSCOPY FLEXIBLE PROXIMAL DIAGNOSTIC Screen for colon cancer 02/12/2024 1:00 PM EDT Health Maintenance Due Date Last Done Comments DISCUSS TOBACCO CESSATION (REFER TO SMARTSET #7160) 1950 COVID-19 Vaccine (#1) 1954 Albumin/Creatinine Ratio 10/13/1967 CKD PHOS USE SMARTSET 54334 10/13/1967 Colonoscopy 1994 Sigmoidoscopy 1994 Zoster Vaccines (1 of 2) 03/23/2016 01/27/2016 Depression Screening 02/04/2021 02/05/2020 Cologuard 03/25/2021 03/25/2018 Colorectal Cancer Screening 10/23/2022 Fecal Occult Blood Test 10/23/2022 10/23/2021 GFR 04/02/2024 10/01/2023, 08/08, 08/06/2023, Additional history exists HbA1c 05/03/2024 05/03/2023, 04/0 12/2020, 10/09/2018 CKD HGB USE SMARTSET 86378 09/30/202409/30, 10/01/2023, 08/26/2023, Additional history exists DTaP,Tdap,and [...] Advance Directives occurred with: Patient Care Teams Press Assistant And Feeder Relationship Specialty Start Date End Date Taurus Delgado MD [address] [place] [address] PCP - General Family Medicine 03/20/16 documented as of this encounter
--- OUTSIDE RECORDS SUMMARY | 2023-11-12 15:56 | External Medical Summary | Summary of Care ---
Author Name Unknown Organization [facility] Address [address] [facility] [place] [address] Phone [phone] Care Team Providers Care Boiler/Chiller Operator Name Role Phone Taurus Delgado MD Primary Care Provider [phone] Reason for Visit * Reason Comments Outpatient Testing Encounter Details Date Type Department Care Team (Latest Contact Info) Description 10/01/2023 11:00 AM EDT Laboratory Laboratory, [place] [address] [place] [address] [place], [facility] [address] [place] [address] Essential thrombocythemia (HCC) Allergies No known active allergiesdocumented as of this encounter (statuses as of 10/01/2023) Medications Medication Sig Dispensed Refills Start Date [...] as of this encounter (statuses as of 10/01/2023) Active Problems Problem Noted Date Diagnosed Date [...] as of this encounter (statuses as of 10/01/2023) Resolved Problems Problem Noted Date Diagnosed Date Resolved Date NSTEMI (non-ST elevated myoc ardial infarction) 12/07/2013 12/07/2013 documented as of this encounter (statuses as of 10/01/2023) Immunizations Name Administration Dates Next Due Pneumococcal [...] Department Care Team (Latest Contact Info) Description 10/02/2023 9:00 AM EDT Pharmacy Pharmacy Hematology Oncology [facility] [address] [place] [address] [facility] Hem[facility]Onc [address] [place] [address] 11/11/2023 11:30 AM EDT Office Visit Urology, [facility] [address] [place] [address] Kp Fisher MD [address] [place] [address] [place] [address] 01/14/2024 11:00 AM EDT Laboratory Laboratory, [place] [address] [place] [phone] [facility] Laboratory [facility] [place] [address] 02/12/2024 1:00 PM EDT Hospital Encounter ENDO [facility], Endoscopy Room [facility] [address] [place] [phone] Vish Mukherjee MD [address] [place] [address] 02/12/2024 1:00 PM EDT - 02/12/2024 1:30 PM EDT Surgery ENDO [facility], Endoscopy Room [facility] [address] [place] [phone] Vish Mukherjee MD [address] [place] [address] COLONOSCOPY FLEXIBLE PROXIMAL DIAGNOSTIC 03/06/2024 3:00 PM EDT Office Visit Cardiology, [facility] [address] [place] [address] Maria Dolores Mas PA-C [address] [place] [address] 03/16/2024 10:30 AM EDT Office Visit Hematology/Oncolog y [employer] 200 [facility] [place] [address] Gopi Cheung MD [address] [place] [address] Pending Results Name Type Priority Associated Diagnoses Date /Time CBC WITH WBC DIFFERENTIAL Lab STAT Essential thrombocythemia ([facility]) 10/01/2023 10:47 AM EDT COMPREHENSIVE METABOLIC PANEL Lab STAT Essential thrombocythemia ([facility]) 10/01/2023 10:47 AM EDT CBC Lab STAT Essential thrombocythemia ([facility]) 10/01/2023 10:47 AM EDT DIFFERENTIAL, AUTOMATED Lab STAT Essential thrombocythemia ([facility]) 10/01/2023 10:47 AM EDT Scheduled Procedures Name Priority Associated Diagnoses Date/Ti me COLONOSCOPY FLEXIBLE PROXIMAL DIAGNOSTIC Screen for colon cancer 02/12/2024 1:00 PM EDT Health Maintenance Due Date Last Done Comments DISCUSS TOBACCO CESSATION (REFER TO SMARTSET #3291) 1950 COVID-19 Vaccine (#1) 1954 Albumin/Creatinine Ratio 10/13/1967 CKD PHOS USE SMARTSET 00157 10/13/1967 Colonoscopy 1994 Sigmoidoscopy 1994 Zoster Vaccines (1 of 2) 03/23/2016 01/27/2016 Depression Screening 02/04/2021 02/05/2020 Cologuard 03/25/2021 03/25/2018 Colorectal Cancer Screening 10/23/2022 Fecal Occult Blood Test 10/23/2022 10/23/2021 GFR 02/24/2024 08/26/2023, 07/10, 07/30/2023, Additional history exists HbA1c 05/03/2024 05/03/2023, 04/0 12/2020, 10/09/2018 CKD HGB USE SMARTSET 20580 08/26/202408/26, 08/26/2023, 08/13/2023, Additional history exists DTaP,Tdap,and Td Vaccines (3 - Td or Tdap) 02/20/2033 02/20/2023, 09/25/2012 Pneumococcal Vaccine: 65+ Years Completed 03/18/2017, 11/30/2015, 03/13/2009 LUNG CANCER SCREENING - USE SMARTSET 38515 Completed 10/06/2021, 05/24/2017, 12/04/2016 AAA Screening Completed [...] Advance Directives occurred with: Patient Care Teams Boiler/Chiller Operator Relationship Specialty Start Date End Date Taurus Delgado MD [address] [place] [facility] [place] [address] PCP - General Family Medicine 03/20/16 documented as of this encounter
--- OUTSIDE RECORDS SUMMARY | 2023-11-12 15:56 | External Medical Summary | Summary of Care ---
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) Procedures eval/treat Vish Hernandez CRNP [address] [place] [address] Referral ID Status Reason Start Date Expiration Date Visits Requested Visits Authorized [id number] Authorized Specialty Services Required 10/11/2022 12/19/[phone] Encounter Details Date Type Department Care Team (Late st Contact Info) Description 09/11/2023 11:00 AM EST Office Visit Hematology/Oncology Malaika Andrews [place] [address] [place] [address] Gopi Cheung MD 200 [facility] [place] [address] JAK2 V617F mutation*; Iron deficiency anemia, unspecified iron deficiency anemia type Allergies No known active allergiesdocumented as of this encounter (statuses as of 09/11/2023) Medications Medication Sig Dispensed Refills Start Date [...] as of this encounter (statuses as of 09/11/2023) Active Problems Problem Noted Date Diagnosed Date [...] as of this encounter (statuses as of 09/11/2023) Resolved Problems Problem Noted Date Diagnosed Date Resolved Date NSTEMI (non-ST elevated myoc ardial infarction) 12/07/2013 12/07/2013 documented as of this encounter (statuses as of 09/11/2023) Immunizations Name Administration Dates Next Due Pneumococcal [...] Day Cigarettes 0.8 30 Smokeless Tobacco: Never Tobacco Cessation:Ready to Q uit: Not Asked; Counseling Given: Not Answered Alcohol Use Standard Drinks/Week Comments Yes 0 [...] on file documented as of this encounter Last Filed Vital Signs Vital Sign Reading Time Taken Comments Blood Pressure 133/85 09/11/2023 10:57 AM EST Pulse 62 09/11/2023 10:57 AM EST Temperature 36.9 C (98.5 F) 09/11/2023 10:[address] Respiratory Rate 16 09/11/2023 10:57 AM EST Oxygen Saturation 98% 09/11/2023 10:57 AM EST Inhaled Oxygen Concentration - - Weight 96.2 kg (212 lb) 09/11/2023 10:57 AM EST Height - - Body Mass Index 27.98 02/20/2023 10:19 AM EDT documented in this encounter Functional Status Functional Status Response [...] as of this encounter Progress Notes * Goip Cheung MD - 09/11/2023 10:58 AM EST Images from the original note were not included. Outpatient Consult Note Data Source: Patient, Epic record. Data Source: Patient, Epic record. 09/11/2023 10:58 AM Darrinleonora Canela Marli [id number] 72 year old Patient Encounter: HEMATOLOGY/ONCOLOGY [facility] Diagnosis: Patient was seen by Razia Sheriff. 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 Previous Treatment: IV Monoferric received on 02/09/2022 and 12/31/2022 History : 72-year-old male was seen by Razia Sheriff with the above diagnosis. Patient struggles with chronic joint pains for many years. Tolerable with oral medications. Feels that this may have gotten worseover the last year. Was having issues with bruising on DAPT. Reviewed with his looper fixer a couple months ago. Ok to stop aspirin. Remains on Brillinta. Was recently treated for a UTI but this has now resolved. Does not currently follow with a urologist. Recently increased his Terazosin d/t urinary frequency and weak stream. This has now improved. Denies fevers, chills or night sweats. Denies unexplained weight loss. Has been intentionally losing weight with dietary changes. Denies any melena or hematochezia. Denies any hematuria. No history of splenectomy. Patient is a current smoker of 3/4 PPD. History of pulmonary nodules that is being followed by his PCP. Very seldom drinks alcohol. Denies erythromelalgia, flushing, pruritus. Denies early satiety, abdominal pain or bloating. Patient does believe he has a history of DVT in his lower extremity that was found when he had one of his AL. Believes this was found at [facility]. Has never had a colonoscopy. Does do cologuard testing. Interval History: Apart from the bladder and prostate problems clinically he is doing well without any new symptoms of complain. Denies any headache, dizziness, blurred vision, chest pain, shortness of breath palpitation, abdominal pain or distention, nausea, vomiting, fever, night sweats. LABS/IMAGING: Results for orders placed or performed in visit on 08/26/23 COMPREHENSIVE METABOLIC PANEL Result Value Ref Range BUN 28 (H) 6 - 20 mg/dL Creatinine 1.3 (H) 0.6 - 1.2 mg/dL Estimated Glomerular Filtration Rate 61 >=60 mL/min Sodium 139 135 - 146 mmol/L Potassium 5.0 3.5 - 5.1 mmol/L Chloride 104 98 - 107 mmol/L CO2 23 22 - 32 mmol/L Anion Gap 12 7 - 15 mmol/L Glucose 114 70 - 120 mg/dL Albumin 4.5 3.8 - 5.0 g/dL AST 18 10 - 50 U/L Alkaline Phosphatase 98 35 - 130 U/L Bilirubin, Total 0.4 <=1.2 mg/dL Calcium 9.3 8.4 - 10.2 mg/dL Protein 6.9 6.0 - 8.3 g/dL ALT 20 10 - 50 U/L CBC Result Value Ref Range WBC 12.08 (H) 4.00 - 10.80 K/uL RBC 4.73 4.50 - 5.25 M/uL HGB 14.9 14.0 - 16.8 g/dL HCT 46.7 40.0 - 48.4 % MCV 98.7 82.0 - 99.5 fL MCH 31.5 27.0 - 34.0 pg MCHC 31.9 32.0 - 36.0 g/dL RDW 19.2 11.5 - 15.5 % PLT 336 140 - 400 K/uL MPV 11.2 6.6 - 11.1 fL nRBCs 0 <=0 /100 WBCs DIFFERENTIAL, AUTOMATED Result Value Ref Range WBC 12.08 (H) 4.00 - 10.80 K/uL Neutrophils % 73.2 40.0 - 75.0 % Lymphocytes % 13.2 (L) 18.0 - 42.0 % Monocytes % 10.4 1.0 - 11.0 % Eosinophils % 1.7 0.0 - 6.0 % Basophils % 1.1 0.0 - 2.0 % Immature Granulocytes % 0.4 0.0 - 2.0 % Absolute Neutrophils 8.84 (H) 1.80 - 7.70 K/uL Absolute Lymphocytes 1.59 1.00 - 4.80 K/ul Absolute Monocytes 1.26 (H) 0.00 - 1.10 K/uL Absolute Eosinophils 0.21 0.00 - 0.70 K/uL Absolute Basophils 0.13 0.00 - 0.20 K/uL Absolute Immature Granulocytes 0.05 0.00 - 0.20 K/uL Creatinine is 1.3 which is stable and the rest of the electrolytes and LFTs are within normal limit. Platelet counts are normal with normal hemoglobin and white cell counts were 12.08. REVIEW OF SYSTEMS: General: No Fever, chills, night sweats, or weight loss. HEENT: No change in visual acuity, blurred or double vision. No epistaxis, facial pain, nasal discharge or change in hearing. Denies dysphagia, no muscosal ulceration, or sores noted. Cardiovascular: No chest pain, SHIN, or palpitations Respiratory: No shortness of breath, cough, hemoptysis, or pleuritic chest pain Gastrointestinal: No abdominal pain, nausea, vomiting, diarrhea, rectal pain or bleeding Genitourinary: He is issues with the prostate and following Urology Musculoskeletal: No bone pain Psychiatric: No vegetative signs of depression Endocrine: No symptoms of hypothyroidism or hyperglycemia Hematologic: No bleeding or lymph nodes noted As mentioned above, all of the systems were reviewed in full and are unremarkable. Past Medical History: Diagnosis Date BPH (benign prostatic hyperplasia) Dyslipidemia Hypertension AL (myocardial infarction) (HCC) 5-6 years ago Tobacco abuse 1 ppd for 30 years Current Outpatient Medications Medication Sig Dispense Refill [...] No current facility-administered medications for this visit. Social History Tobacco Use Smoking status: Every Day Current packs/day: 0.75 Average packs/day: 0.8 packs/day for 30.0 years (22.5 ttl pk-yrs) Types: Cigarettes Smokeless tobacco: Never Vaping Use Vaping Use: Never used Substance Use Topics Alcohol use: Yes Comment: occassional rum and vodka Drug use: Never Review of patient's allergies indicates: No Known Allergies PHYSICAL EXAMINATION: General Appearance: Healthy appearing patient in no acute distress BP 133/85 (BP Site: Left Arm, BP Position: Sitting, BP Cuff Size: Large) | Pulse 62 | Temp 36.9 C(98.5 F) (Tympanic) | Resp 16 | Wt 96.2 kg (212 lb) | SpO2 98% | BMI 27.98 kg/m | BSA 2.23 m Vitals reviewed. HEENT: No oral or pharyngeal masses, ulceration or thrush noted, no sinus tenderness. Neck is supple with no thyromegaly or JVD noted. Lymph Nodes: No lymphadenopathy noted in the occipital, pre and post auricular, cervical, supra andinfraclavicular, axillary, epitrochlear, inguinal, and popliteal region. Lungs/Thorax: Clear to auscultation, no accessory muscles of respiration being used. Heart: Regular rate and rhythm, normal S1, S2 Abdomen: Soft, nontender, bowel sounds present, no appreciable hepatosplenomegaly, no palpable masses Extremeties: Good pulses bilaterally, no peripheral edema. ASSESSMENT: 72-year-old male with history of iron deficiency anemia JAK2 mutation with myeloproliferative disease and thrombocytosis return to clinic for follow-up. He received mono ferric iron infusion in February 2022 and had decreasing hemoglobin level. He also has a ferritin level which is trending downward with low transferrin saturation. There was also significant increase in the platelet counts. Increase in the platelet counts maybe because of the combination of iron deficiency and underlying myeloproliferative disease. He is scheduled for the upper endoscopy tomorrow. He received 2nd dose of mono ferric iron infusion on 12/31/2022. Overall clinically he is stable without any new symptoms. His hemoglobin is normal. Currently he is taking hydroxyurea for myeloproliferative disorder/essential thrombocytosis with good tolerance and without any significant side effects toxicity. All his blood counts are in acceptable range with normalization of the platelet counts. Discussed with the patient about the diagnosis and reviewed all the available blood test result with him. We will continue the current dose of hydroxyurea and he will continue followed by the [facility] pharmacy. PLAN: As above. He will return clinic for follow-up in 4 months with CBC and CMP. The patient voiced understanding of all of the above. All questions and concerns were addressed in an apparently satisfactory manner. Gopi Cheung MD (This note was completed using the dictation program Fluency Direct. As such, there may be misspellings, word substitutions, or other variations that should not change the essence of the clinical content of this encounter note. If there is need for further clarification, please direct questions to me.) documented in this encounter Nursing Notes * Chela Albarran LPN - 09/11/2023 10:57 AM EST Patient identifed by name and birthdate Do you have any concerns about pain management for today's visit? No Living Will or Advance Directive for Health Care as noted on the problem list. [facility] is a way you can talk to your provider on line through e-mail. Would you like to sign up? I can activate it for you? ALREADY ACTIVE Filed Vitals: 09/11/23 1057 BP: 133/85 Pulse: 62 Resp: 16 Temp: 36.9 C (98.5 F) TempSrc: Tympanic SpO2: 98% Weight: 96.2 kg (212 lb) Patient was instructed to not get up on the exam table/exam chair until directed and assisted by their provider; patient is to remain seated in the chair/ wheelchair/ exam table/ exam chair for fall prevention and safety reasons. Patient is aware to have assistance to step down off exam table/exam chair with personnel. Patient voiced full comprehension of instructions. documented in this encounter Plan of Treatment Upcoming Encounters Date Type Department Care Team (Latest Contact Info) Description 09/24/2023 9:00 AM EDT Pharmacy Pharmacy Hematology Oncology [facility] [address] [place] [address] c, [facility] Hem/Onc [address] [place] [address] 11/04/2023 2:30 PM EDT Procedure Only Urology, [facility] [address] [facility] [place] [address] Kp Fisher MD [address] [address] [place] [address] 11/11/2023 1:30 PM EDT Office Visit Cardiology, [facility] [address] [facility] [place] [address] Maria Dolores Mas PA-C [address] [facility] [place] [phone] 01/14/2024 11:00 AM EDT Laboratory Laboratory[address] [phone] [address] [address] 02/12/2024 1:00 PM EDT Hospital Encounter [facility]O [facility], Endoscopy Room [facility] [address] [place] [phone] Vish Mukherjee MD [address] [place] [address] 02/12/2024 1:00 PM EDT - 02/12/2024 1:30 PM EDT Surgery ENDO [facility], Endoscopy Room [facility] [address] [place] [phone] Vish Mukherjee MD [address] [place] [address] COLONOSCOPY FLEXIBLE PROXIMAL DIAGNOSTIC 03/16/2024 10:30 AM EDT Office [facility] [address] [place] [phone] Gopi Cheung MD [address] [place] [address] Scheduled Orders Name Type Priority Associated Diagnoses Orde r Schedule CBC WITH WBC DIFFERENTIAL Lab Routine JAK2 V617F mutation Iron deficiency anemia, unspecified iron deficiency anemia type Expected: 01/20/2024, Expires: 08/24/2024 COMPREHENSIVE METABOLIC PANEL Lab Routine JAK2 V617F mutation Iron deficiency anemia, unspecified iron deficiency anemia type Expected: 01/20/2024, Expires: 08/24/2024 Scheduled Procedures Name Priority Associated Diagnoses Date/Ti me COLONOSCOPY FLEXIBLE PROXIMAL DIAGNOSTIC Screen for colon cancer 02/12/2024 1:00 PM EDT Health Maintenance Due Date Last Done Comments DISCUSS TOBACCO CESSATION (REFER TO SMARTSET #3291) 1950 COVID-19 Vaccine (#1) 1954 Albumin/Creatinine Ratio 10/13/1967 CKD PHOS USE SMARTSET 07214 10/13/1967 Colonoscopy 1994 Sigmoidoscopy 1994 Zoster Vaccines (1 of 2) 03/23/2016 01/27/2016 Depression Screening 02/04/2021 02/05/2020 Cologuard 03/25/2021 03/25/2018 Colorectal Cancer Screening 10/23/2022 Fecal Occult Blood Test 10/23/2022 10/23/2021 GFR 02/24/2024 08/26/2023, 07/10, 07/30/2023, Additional history exists HbA1c 05/03/2024 05/03/2023, 04/0 12/2020, 10/09/2018 CKD HGB USE SMARTSET 54789 08/26/202408/26, 08/26/2023, 08/13/2023, Additional history exists DTaP,Tdap,and Td Vaccines (3 - Td or Tdap) 02/20/2033 02/20/2023, 09/25/2012 Pneumococcal Vaccine: 65+ Years Completed 03/18/2017, 11/30/2015, 03/13/2009 LUNG CANCER SCREENING - USE SMARTSET 18592 Completed 10/06/2021, 05/24/2017, 12/04/2016 AAA Screening Completed [...] JAK2 V617F mutation- Primary Other ill-defined conditions Iron deficiency anemia, unspecified iron deficiency anemia type Screen for colon cancer Special screening for malignant neoplasms, colon documented in this encounter Advance Directives Latest Code Status on File Code Status Date Activated Date Inactivated Comments Full Code 12/06/2013 1:46 PM 12/07/2013 7:34 PM This or chastity reflects the patients wishes and were consensually agreed upon. Question Answer Comments Discussion of Advance Directives occurred with: Patient Care Teams Strategy Analyst Relationship Specialty Start Date End Date Taurus Delgado MD [address] [facility] [place] [address] PCP - General Family Medicine 03/20/16 documented as of this encounter"
--- OUTSIDE RECORDS SUMMARY | 2023-11-12 15:56 | External Medical Summary ---
Author Name Unknown Address Unknown Organization K01:[place] [place] [address] [facility] [address] Laboratory Report Ordering Provider Test Date Status JUANJO HERMOSILLO 10/01/2023 10:47:50 Final Observation Date Value Abnormality Reference (Units ) Status WBC, Total 10/01/2023 10:47:50 9.92 4.00-10.80 (K/uL) Final RBC 10/01/2023 10:47:50 4.83 4.50-5.25 (M/uL) Final Hemoglobin 10/01/2023 10:47:50 15.8 14.0-16.8 (g/dL) Final HCT 10/01/2023 10:47:50 48.6 Above high normal 40.0-48.4 (%) Final MCV 10/01/2023 10:47:50 100.6 82.0-99.5 (fL) Final MCH 10/01/2023 10:47:50 32.7 27.0-34.0 (pg) Final MCHC 10/01/2023 10:47:50 32.5 32.0-36.0 (g/dL) Final RDW 10/01/2023 10:47:50 18.2 11.5-15.5 (%) Final Platelets 10/01/2023 10:47:50 310 140-400 (K/uL) Final MPV 10/01/2023 10:47:50 10.7 6.6-11.1 (fL) Final Nucleated erythrocytes/100 leukocytes [Ratio] in Blood by Automated count 10/01/2023 10:47:50 0 <=0 (/100 WBCs) Final Performing Location [facility] [place] [address] [place] [address]
--- OUTSIDE RECORDS SUMMARY | 2023-11-12 15:56 | External Medical Summary ---
Author Name Unknown Address Unknown Organization K01:[facility]ORY [facility] [place] - [address] [facility] [address] Laboratory Report Ordering Provider Test Date Status JUANJO HERMOSILLO 10/01/2023 10:47:50 Final Observation Date Value Abnormality Reference (Units ) Status SYNC LEUKOCYTES IN BLOOD BY AUTOMATED COUNT 10/01/2023 10:47:50 9.92 4.00-10.80 (K/uL) Final Segs 10/01/2023 10:47:50 73.4 40.0-75.0 (%) Final Lymphs % 10/01/2023 10:47:50 13.9 Below low normal 18.0-42.0 (%) Final Monos 10/01/2023 10:47:50 9.2 1.0-11.0 (%) Final Eosinophils 10/01/2023 10:47:50 1.9 0.0-6.0 (%) Final Basos 10/01/2023 10:47:50 1.2 0.0-2.0 (%) Final Immature Granulocyte, Percent 10/01/2023 10:47:50 0.4 0.0-2.0 (%) Final Absolute Segs 10/01/2023 10:47:50 7.28 1.80-7.70 (K/uL) Final Lymphs, absolute 10/01/2023 10:47:50 1.38 1.00-4.80 (K/ul) Final Monos, Abs 10/01/2023 10:47:50 0.91 0.00-1.10 (K/uL) Final Eos, Abs 10/01/2023 10:47:50 0.19 0.00-0.70 (K/uL) Final Basos, Abs 10/01/2023 10:47:50 0.12 0.00-0.20 (K/uL) Final Immature Granulocytes, Number 10/01/2023 10:47:50 0.04 0.00-0.20 (K/uL) Final Performing Location [facility]ORY [facility] [place] - [facility] [address] [facility] [address]
--- OUTSIDE RECORDS SUMMARY | 2023-11-12 15:56 | External Medical Summary ---
Author Name Unknown Address Unknown Organization K01:LAB[facility]ATORY [facility] [place] - [address] [facility] [place] [address] Laboratory Report Ordering Provider Test Date Status JUANJO HERMOSILLO 11/05/2023 10:46:04 Final Observation Date Value Abnormality Reference (Units ) Status BUN 11/05/2023 10:46:04 21 Above high normal 6-20 (mg/dL) Final Creatinine 11/05/2023 10:46:04 1.2 0.6-1.2 (mg/dL) Final Glomerular filtration rate/1.73 sq M.predicted [Volume Rate/Area] in Serum, Plasma or Blood by Creatinine-based formula (CKD-EPI) 11/05/2023 10:46:04 63 >=60 (mL/min) Final eGFR is calculated based on the CKD-EPI 2020 equation Sodium 11/05/2023 10:46:04 139 135-146 (m mol/L) Final Potassium 11/05/2023 10:46:04 4.7 3.5-5.1 (m mol/L) Final Cl 11/05/2023 10:46:04 104 98-107 (mm ol/L) Final CO2 11/05/2023 10:46:04 22 22-32 (mmo l/L) Final Anion gap 11/05/2023 10:46:04 13 7-15 (mmol /L) Final Glucose 11/05/2023 10:46:04 108 70-120 (mg /dL) Final Albumin 11/05/2023 10:46:04 4.2 3.8-5.0 (g /dL) Final AST (Aspartate aminotransferase) 11/05/2023 10:46:04 20 10-50 (U/L) Final Result may be falsely elevat ed due to hemolysis. Alk Phos 11/05/2023 10:46:04 107 35-130 (U/ L) Final Bilirubin, Total 11/05/2023 10:46:04 0.8 <=1 .2 (mg/dL) Final Calcium 11/05/2023 10:46:04 9.2 8.4-10.2 ( mg/dL) Final Protein 11/05/2023 10:46:04 6.7 6.0-8.3 (g /dL) Final ALT (Alanine aminotransferase) 11/05/2023 10:46:04 22 10-50 (U/L) Final Performing Location LABORATORY [facility] [place] - [address] [facility] [address]
--- OUTSIDE RECORDS SUMMARY | 2023-11-12 15:57 | External Medical Summary | Summary of Care ---
Author Name Unknown Organization [facility] Address [address] [place] [address] Phone [phone] Care Team Providers Care Manager Therapy Name Role Phone Tomy Delgado MD Primary Care Provider [phone] Reason for Referral * Precert (Within 10 days (routine)) - Pending Review Specialty Diagnoses / Procedures Referred By Contac t Referred To Contact Radiology Diagnoses BPH with obstruction/lower urinary tract symptoms Hydronephrosis, bilateral Incomplete emptying of bladder Procedures CT ABD/PELVIS WO IV/ORAL CONTRAST Kp Fisher MD [address] [place] [address] Referral ID Status Reason Start Date Expiration Date V isits Requested Visits Authorized [id number] Pending Review 09/04/2023 999 999 Reason for Visit * Reason Comments Follow Up Encounter Details Date Type Department Care Team (Latest Contact Info) Description 09/04/2023 9:00 AM EST Telemedicine Urology Amanda Anthony [address] [place] [address] Kp Fisher MD [address] [place] [address] 7, Telemed [facility] Urology Ex Rm [address] [place] [address] BPH with obstruction/lower urinary tract symptoms*; Hydronephrosis, [...] Fisher MD - 09/04/2023 9:00 AM EST [id number] PCP: TOMY DELGADO [address] [place] [address] Shubham Calles is a 72 year old [...] has tried finasteride and terazosin, obtains via [facility]. He has previously had prostate biopsy [...] performed by Aurelia Daniel MD at ENDOSCOPY [facility] REPAIR OF KNEE CARTILAGE 07/08/2010 left knee SINUS SURGERY PROCEDURE NEC 5-6 years ago Past Medical History: Diagnosis Date BPH (benign prostatic hyperplasia) Dyslipidemia Hypertension [place] (myocardial infarction) (HCC) 5-6 years ago Tobacco [...] time ago he has a thick bladder documented in this encounter Miscellaneous Notes * Addendum Note - Kp Fisher MD - 09/04/2023 9:18 AM ESTAddended by: KP FISHER on: 09/04/2023 09:18 AM Modules accepted: Orders documented in this encounter Plan of Treatment Upcoming Encounters Date Type Department Care Team (Latest Contact Info) Description 09/11/2023 11:00 AM EST Office Visit Hematology/Oncology [facility] [address] [place] [address] Gopi Cheung MD [address] [facility] [place] [address] 09/24/2023 9:00 AM EDT Pharmacy Pharmacy Hematology Oncology [address] [address] [place] [address] [facility], [facility] Hem/Onc [address] [place] [address] 11/04/2023 2:30 PM EDT Procedure Only Urology, [facility] [address] [facility] [place] [address] Kp Fisher MD [address] [address] [place] [address] 11/11/2023 1:30 PM EDT Office Visit Cardiology, [facility] [address] [place] [address] Maria Dolores Mas PA-C [address] [facility] [place] [address] 02/12/2024 1:00 PM EDT Hospital Encounter ENDO [facility], Endoscopy Room [facility] [address] [place] [phone] Vish Mukherjee MD [address] [place] [address] 02/12/2024 1:00 PM EDT - 02/12/2024 1:30 PM EDT Surgery ENDO OSS, Endoscopy Room [facility] [place] [phone] Vish Mukherjee MD [address] [place] [address] COLONOSCOPY FLEXIBLE PROXIMAL DIAGNOSTIC Scheduled Orders Name [...] Comments DISCUSS TOBACCO CESSATION (REFER TO SMARTSET #0034) 1950 COVID-19 Vaccine (#1) 1954 Albumin/Creatinine Ratio 10/13/1967 CKD PHOS USE SMARTSET 95542 10/13/1967 Colonoscopy 1994 Sigmoidoscopy 1994 Zoster Vaccines (1 of 2) 03/23/2016 01/27/2016 Depression Screening 02/04/2021 02/05/2020 Cologuard 03/25/2021 03/25/2018 Colorectal Cancer Screening 10/23/2022 Fecal Occult Blood Test 10/23/2022 10/23/2021 GFR 02/24/2024 08/26/2023, 07/10, 07/30/2023, Additional history exists HbA1c 05/03/2024 05/03/2023, 04/0 12/2020, 10/09/2018 CKD HGB USE SMARTSET 72915 08/26/202408/26, 08/26/2023, 08/13/2023, Additional history exists DTaP,Tdap,and Td Vaccines (3 - Td or Tdap) 02/20/2033 02/20/2023, 09/25/2012 Pneumococcal Vaccine: 65+ Years Completed 03/18/2017, 11/30/2015, 03/13/2009 LUNG CANCER SCREENING - USE SMARTSET 95765 Completed 10/06/2021, 05/24/2017, 12/04/2016 AAA Screening Completed [...] Advance Directives occurred with: Patient Care Teams Manager Therapy Relationship Specialty Start Date End Date Tomy Delgado MD [address] [place] [address] PCP - General Family Medicine 03/20/16 documented as of this encounter
--- OUTSIDE RECORDS SUMMARY | 2023-11-12 15:57 | External Medical Summary ---
Author Name Unknown Address Unknown Organization K01:[facility]ATORY [facility] - [address] [facility] [address] Laboratory Report Ordering Provider Test Date Status JUANJO HERMOSILLO 08/26/2023 13:07:10 Final Observation Date Value Abnormality Reference (Units ) Status SYNC LEUKOCYTES IN BLOOD BY AUTOMATED COUNT 08/26/2023 13:07:10 12.08 Above high normal 4.00-10.80 (K/uL) Final Segs 08/26/2023 13:07:10 73.2 40.0-75.0 (%) Final Lymphs % 08/26/2023 13:07:10 13.2 Below low normal 18.0-42.0 (%) Final Monos 08/26/2023 13:07:10 10.4 1.0-11.0 (%) Final Eosinophils 08/26/2023 13:07:10 1.7 0.0-6.0 (%) Final Basos 08/26/2023 13:07:10 1.1 0.0-2.0 (%) Final Immature Granulocyte, Percent 08/26/2023 13:07:10 0.4 0.0-2.0 (%) Final Absolute Segs 08/26/2023 13:07:10 8.84 Above high normal 1.80-7.70 (K/uL) Final Lymphs, absolute 08/26/2023 13:07:10 1.59 1.00-4.80 (K/ul) Final Monos, Abs 08/26/2023 13:07:10 1.26 Above high normal 0.00-1.10 (K/uL) Final Eos, Abs 08/26/2023 13:07:10 0.21 0.00-0.70 (K/uL) Final Basos, Abs 08/26/2023 13:07:10 0.13 0.00-0.20 (K/uL) Final Immature Granulocytes, Number 08/26/2023 13:07:10 0.05 0.00-0.20 (K/uL) Final Performing Location LAB[facility]ATORY [facility] - [facility] [place] [address]el Ruby. [facility] [address]
--- OUTSIDE RECORDS SUMMARY | 2023-11-12 15:57 | External Medical Summary | Summary of Care ---
Author Name Unknown Organization [facility] Address [address] [place] [address] Phone [phone] Care Team Providers Care Paper Twister Tender Name Role Phone Tomy Delgado MD Primary Care Provider [phone] Reason for Referral * Precert (Within 10 days (routine)) - Pending Review Specialty Diagnoses / Procedures Referred By Contac t Referred To Contact Radiology Diagnoses BPH with obstruction/lower urinary tract symptoms Hydronephrosis, bilateral Incomplete emptying of bladder Procedures CT ABD/PELVIS WO IV/ORAL CONTRAST Kp Fisher MD [address] [place] [address] Referral ID Status Reason Start Date Expiration Date V isits Requested Visits Authorized [id number] Pending Review 09/04/2023 999 999 Reason for Visit * Reason Comments Follow Up Encounter Details Date Type Department Care Team (Latest Contact Info) Description 09/04/2023 9:00 AM EST Telemedicine Urology Amanda Anthony [address] [place] [address] Kp Fisher MD [address] [place] [address] 7, Telemed [facility] Urology Ex Rm [address] [place] [address] BPH with obstruction/lower urinary tract symptoms*; Hydronephrosis, [...] Fisher MD - 09/04/2023 9:00 AM EST [id number] PCP: TOMY DELGADO [address] [place] [address] Shubham Calles is a 72 year [...] has tried finasteride and terazosin, obtains via [facility]. He has previously had prostate biopsy [...] performed by Aurelia Daniel MD at ENDOSCOPY [facility] REPAIR OF KNEE CARTILAGE 07/08/2010 left knee SINUS SURGERY PROCEDURE NEC 5-6 years ago Past Medical History: Diagnosis Date BPH (benign prostatic hyperplasia) Dyslipidemia Hypertension SC (myocardial infarction) (HCC) 5-6 years ago Tobacco [...] education, will call if he has questions. documented in this encounter Miscellaneous Notes * Addendum Note - Kp Fisher MD - 09/04/2023 9:18 AM ESTAddended by: KP FISHER on: 09/04/2023 09:18 AM Modules accepted: Orders documented in this encounter Plan of Treatment Upcoming Encounters Date Type Department Care Team (Latest Contact Info) Description 09/10/2023 9:15 AM EST Imaging Radiology [facility] 1st [facility] 132 [facility] [place] [address] 09/11/2023 11:00 AM EST Office Visit Hematology/Oncology [place] [address] [place] [phone] Gopi Cheung MD [address] [place] [address] 09/24/2023 9:00 AM EDT Pharmacy Pharmacy Hematology Oncology [facility] [place] [address] [place] [address] [facility] [place] Hem/Onc [address] [place] [address] 11/04/2023 2:30 PM EDT Procedure Only Urology, [facility] 132 [facility] [place] [address] Kp Fisher MD 27 [facility] [address] [place] [address] 11/11/2023 1:30 PM EDT Office Visit Cardiology, [facility] 132 [facility] [place] [address] Maria Dolores Mas PA-C 400 [place] [address] 02/12/2024 1:00 PM EDT Hospital Encounter ENDO OSS, Endoscopy Room [facility] 132 [facility] [place] [phone] Vish Mukherjee MD 132 [facility] [place] [address] 02/12/2024 1:00 PM EDT - 02/12/2024 1:30 PM EDT Surgery ENDO OSS, Endoscopy Room [facility] 132 [facility] [place] [phone] Vish Mukherjee MD 132 [facility] [place] [address] COLONOSCOPY FLEXIBLE PROXIMAL DIAGNOSTIC Scheduled Orders Name [...] Comments DISCUSS TOBACCO CESSATION (REFER TO SMARTSET #4211) 1949 COVID-19 Vaccine (#1) 1954 Albumin/Creatinine Ratio 10/13/1967 CKD PHOS USE SMARTSET 04233 10/13/1967 Colonoscopy 1994 Sigmoidoscopy 1994 Zoster Vaccines (1 of 2) 03/23/2016 01/27/2016 Depression Screening 02/04/2021 02/05/2020 Cologuard 03/25/2021 03/25/2018 Colorectal Cancer Screening 10/23/2022 Fecal Occult Blood Test 10/23/2022 10/23/2021 GFR 02/24/2024 08/26/2023, 07/10, 07/30/2023, Additional history exists HbA1c 05/03/2024 05/03/2023, 04/0 12/2020, 10/09/2018 CKD HGB USE SMARTSET 04019 08/26/202408/26, 08/26/2023, 08/13/2023, Additional history exists DTaP,Tdap,and Td Vaccines (3 - Td or Tdap) 02/20/2033 02/20/2023, 09/25/2012 Pneumococcal Vaccine: 65+ Years Completed 03/18/2017, 11/30/2015, 03/13/2009 LUNG CANCER SCREENING - USE SMARTSET 34727 Completed 10/06/2021, 05/24/2017, 12/04/2016 AAA Screening Completed [...] Advance Directives occurred with: Patient Care Teams Paper Twister Tender Relationship Specialty Start Date End Date Tomy Delgado MD [address] [place] [address] PCP - General Family Medicine 03/20/16 documented as of this encounter
--- OUTSIDE RECORDS SUMMARY | 2023-11-12 15:57 | External Medical Summary | Summary of Care ---
Author Name Unknown Organization [facility] Address [address] [place] [address] Phone [phone] Care Team Providers Care Cripple Worker Name Role Phone Taurus Delgado MD Primary Care Provider [phone] Reason for Visit * Reason Onset Date Comments Appointment 08/23/2023 Encounter Details Date Type Department Care Team (Late st Contact Info) Description 08/23/2023 Telephone [facility]rology, [facility] [address] Services, Scheduling [address] [place] [address] Appointment Allergies No known active allergiesdocumented as of this encounter (statuses as of 08/23/2023) Medications Medication Sig Dispensed Refills Start Date [...] as of this encounter (statuses as of 08/23/2023) Active Problems Problem Noted Date Diagnosed Date [...] as of this encounter (statuses as of 08/23/2023) Resolved Problems Problem Noted Date Diagnosed Date Resolved Date NSTEMI (non-ST elevated myoc ardial infarction) 12/07/2013 12/07/2013 documented as of this encounter (statuses as of 08/23/2023) Immunizations Name Administration Dates Next Due Pneumococcal [...] No 12/04/2013 documented as of this encounter Miscellaneous Notes * Telephone Encounter - Ian Floyd OSA - 08/23/2023 12:13 PM EST Patient scheduled 09/02/23. * Telephone Encounter - Alecia Rubin OSA - 08/23/2023 9:18 AM EST Patient needs appointment rescheduled from 08/28/23 - 1 yr return visit documented in this encounter Plan of Treatment Upcoming Encounters Date Type Department Care Team (Latest Contact Info) Description 08/27/2023 9:00 AM EST Pharmacy Pharmacy Hematology Oncology [address] [address] [facility] [place] Hem/Onc [address] [place] [address] 09/02/2023 3:00 PM EST Telemedicine Urology Amanda Anthony [address] [place] [address] Kp Fisher MD [address] [place] [address] 7, Telemed [facility] Urology Ex 132 [facility] [place] [address] 09/11/2023 11:00 AM EST Office Visit Hematology/Oncolog y [place] [address] [place] [address] Gopi Cheung MD [address] [place] [address] 09/25/2023 1:00 PM EDT Hospital Encounter ENDO OSSC, Endoscopy Room OSS [address] [place] [phone] Dacry Murphy, DO [address] [place] [address] 09/25/2023 1:00 PM EDT - 09/25/2023 1:30 PM EDT Surgery ENDO [facility], Endoscopy Room [facility] [address] [place] [phone] Darcy Murphy DO [address] [place] [address] COLONOSCOPY FLEXIBLE PROXIMAL DIAGNOSTIC 11/11/2023 1:30 PM EDT Office Visit Cardiology, [facility] [address] [place] [address] Maria Dolores Mas PA-C [address] [place] [phone] Scheduled Procedures Name Priority Associated Diagnoses Date/Ti me COLONOSCOPY FLEXIBLE PROXIMAL DIAGNOSTIC Screen for colon cancer 09/25/2023 1:00 PM EDT Health Maintenance Due Date Last Done Comments DISCUSS TOBACCO CESSATION (REFER TO SMARTSET #9042) 1950 COVID-19 Vaccine (#1) 1954 Albumin/Creatinine Ratio 10/13/1967 CKD PHOS USE SMARTSET 02575 10/13/1967 Colonoscopy 1994 Sigmoidoscopy 1994 Zoster Vaccines (1 of 2) 03/23/2016 01/27/2016 Depression Screening 02/04/2021 02/05/2020 Cologuard 03/25/2021 03/25/2018 Colorectal Cancer Screening 10/23/2022 Fecal Occult Blood Test 10/23/2022 10/23/2021 GFR 02/04/2024 08/06/2023, 07/09, 07/02/2023, Additional history exists HbA1c 05/03/2024 05/03/2023, 04/0 12/2020, 10/09/2018 CKD HGB USE SMARTSET 51615 08/13/202408/13, 08/13/2023, 08/06/2023, Additional history exists DTaP,Tdap,and Td Vaccines (3 - Td or Tdap) 02/20/2033 02/20/2023, 09/25/2012 Pneumococcal Vaccine: 65+ Years Completed 03/18/2017, 11/30/2015, 03/13/2009 LUNG CANCER SCREENING - USE SMARTSET 92104 Completed 10/06/2021, 05/24/2017, 12/04/2016 AAA Screening Completed [...] Not on filedocumented as of this encounter Advance Directives Latest Code Status on File Code Status Date Activated Date Inactivated Comments Full Code 12/06/2013 1:46 PM 12/07/2013 7:34 PM This or chastity reflects the patients wishes and were consensually agreed upon. Question Answer Comments Discussion of Advance Directives occurred with: Patient Care Teams Cripple Worker Relationship Specialty Start Date End Date Taurus Delgado MD [address] [place] [address] PCP - General Family Medicine 03/20/16 documented as of this encounter
--- OUTSIDE RECORDS SUMMARY | 2023-11-12 15:57 | External Medical Summary | Summary of Care ---
Author Name Unknown Organization [facility] Address [address] [place] [facility] [place] [address] Phone [phone] Care Team Providers Care Flash Designer Name Role Phone Taurus Delgado MD Primary Care Provider Reason for Visit * Reason Onset Date Comments Health Maintenance 08/23/2023 Encounter Details Date Type Department Care Team (Late st Contact Info) Description 08/23/[address] [facility] [address] [place] [address] Taurus Delgado MD [address] [place] [address] Health Maintenance Allergies No known active allergiesdocumented as of [...] encounter Miscellaneous Notes * Telephone Encounter - Debbie Tyler LPN - 08/23/2023 2:43 PM EST Care Gaps Comprehensive Care Outreach Last Office/Telemedicine Visit: 02/20/2023 (in office), 07/04/2020 (telemedicine) Next Office Visit: Visit date not found Hemoglobin AIC Results: Lab Results Component Value Date/Time HEMOGLOBIN A1C - [facility] 5.9 (H) 05/03/2023 09:11 AM BP Readings from Last 1 Encounters: 05/20/23 162/86 Reviewed Health Maintenance below: Health Maintenance Topic Date Due DISCUSS TOBACCO CESSATION (REFER TO SMARTSET #3291) Never done COVID-19 Vaccine (1) Never done Albumin/Creatinine Ratio Never done CKD PHOS USE SMARTSET 01429 Never done Zoster Vaccines (1 of 2) 03/23/2016 Depression Screening 02/04/2021 Colorectal Cancer Screening 10/23/2022 GFR 02/04/2024 Ov Labs Colon already scheduled Care Gap Outreach Action Taken: Left message documented in this encounter Plan of Treatment Upcoming Encounters Date Type Department Care Team (Latest Contact Info) Description 08/27/2023 9:00 AM EST Pharmacy Pharmacy Hematology Oncology [place] [address] [place] [address] Gm, [facility] Hem/Onc [address] [place] [address] 09/02/2023 3:00 PM EST Telemedicine Urology Amanda Anthony [address] [place] [address] Kp Fisher MD [address] [place] [address] 7, Telemed [facility] Urology Ex Rm [address] [place] [address] 09/11/2023 11:00 AM EST Office [facility] [address] [place], [place] [address] Gopi Cheung MD [address] [place] [address] 09/25/2023 1:00 PM EDT Hospital Encounter ENDO OSS, Endoscopy Room O[facility] [address] [place] [phone] Darcy Murphy DO [address] [place] [address] 09/25/2023 1:00 PM EDT - 09/25/2023 1:30 PM EDT Surgery ENDO [facility], Endoscopy Room [facility] [address] [place] [phone] Darcy Murphy DO [address] [place] [address] COLONOSCOPY FLEXIBLE PROXIMAL DIAGNOSTIC 11/11/2023 1:30 PM EDT Office Visit Cardiology, [facility] [address] [place] [address] Maria Dolores Mas PA-C 400 [facility] [place] [phone] Scheduled Procedures Name Priority Associated Diagnoses Date/Ti me COLONOSCOPY FLEXIBLE PROXIMAL DIAGNOSTIC Screen for colon cancer 09/25/2023 1:00 PM EDT Health Maintenance Due Date Last Done Comments DISCUSS TOBACCO CESSATION (REFER TO SMARTSET #4001) 1950 COVID-19 Vaccine (#1) 1954 Albumin/Creatinine Ratio 10/13/1967 CKD PHOS USE SMARTSET 90143 10/13/1967 Colonoscopy 1994 Sigmoidoscopy 1994 Zoster Vaccines (1 of 2) 03/23/2016 01/27/2016 Depression Screening 02/04/2021 02/05/2020 Cologuard 03/25/2021 03/25/2018 Colorectal Cancer Screening 10/23/2022 Fecal Occult Blood Test 10/23/2022 10/23/2021 GFR 02/04/2024 08/06/2023, 07/09, 07/02/2023, Additional history exists HbA1c 05/03/2024 05/03/2023, 04/0 12/2020, 10/09/2018 CKD HGB USE SMARTSET 72104 08/13/202408/13, 08/13/2023, 08/06/2023, Additional history exists DTaP,Tdap,and Td Vaccines (3 - Td or Tdap) 02/20/2033 02/20/2023, 09/25/2012 Pneumococcal Vaccine: 65+ Years Completed 03/18/2017, 11/30/2015, 03/13/2009 LUNG CANCER SCREENING - USE SMARTSET 40926 Completed 10/06/2021, 05/24/2017, 12/04/2016 AAA Screening Completed [...] Advance Directives occurred with: Patient Care Teams Flash Designer Relationship Specialty Start Date End Date Taurus Delgado MD [address] [facility] [place] [address] PCP - General Family Medicine 03/20/16 documented as of this encounter
--- OUTSIDE RECORDS SUMMARY | 2023-11-12 15:57 | External Medical Summary | Summary of Care ---
Author Name Unknown Organization [facility] Address [address] [facility] [place] [address] Phone [phone] Care Team Providers Care Color Straining Bag Washer Name Role Phone Taurus Delgado MD Primary Care Provider Reason for Visit * Reason Comments Outpatient Testing Encounter Details Date Type Department Care Team (Latest Contact Info) Description 08/13/2023 11:00 AM EST Laboratory Laboratory, [place] [address] [place] [address] [place], Laboratory [address] [place] [address] Essential thrombocythemia (HCC) Allergies No known active allergiesdocumented as of this encounter (statuses as of 08/13/2023) Medications Medication Sig Dispensed Refills Start Date [...] as of this encounter (statuses as of 08/13/2023) Active Problems Problem Noted Date Diagnosed Date [...] as of this encounter (statuses as of 08/13/2023) Resolved Problems Problem Noted Date Diagnosed Date Resolved Date NSTEMI (non-ST elevated myoc ardial infarction) 12/07/2013 12/07/2013 documented as of this encounter (statuses as of 08/13/2023) Immunizations Name Administration Dates Next Due Pneumococcal [...] Department Care Team (Latest Contact Info) Description 08/14/2023 9:00 AM EST Pharmacy Pharmacy Hematology Oncology [facility] [address] [place] [address] [facility], [facility] Hem/Onc [address] [place] [address] 08/19/2023 1:30 PM EST Procedure Only Urology, [facility] [address] [facility] [address] Kp Fisher MD 27 [facility] [address] [place] [address] 08/26/2023 12:20 PM EST Office Visit [facility] [address] [place] [address] Taurus Delgado MD [address] [place] [address] 09/11/2023 11:00 AM EST Office Visit Hematology/Oncology [facility] 200 [facility] [place] [address] Gopi Cheung MD 200 [facility] [place] [address] 09/25/2023 1:00 PM EDT Hospital Encounter ENDO [facility], Endoscopy Room [facility] [address] [place] [phone] Nader Iglesias MD 09/25/2023 1:00 PM EDT - 09/25/2023 1:30 PM EDT Surgery ENDO [facility], Endoscopy Room [facility] [address] [place] [phone] Nader Iglesias MD COLONOSCOPY FLEXIBLE PROXIMAL DIAGNOSTIC 11/11/2023 1:30 PM EDT Office Visit Cardiology, [facility] 132 [facility] [place] [address] Maria Dolores Mas PA-C [address] [place] [address] [place] [address] Pending Results Name Type Priority Associated Diagnoses Date /Time CBC WITH WBC DIFFERENTIAL Lab STAT Essential thrombocythemia (HCC) 08/13/2023 10:48 AM EST CBC Lab STAT Essential thrombocythemia (HCC) 08/13/2023 10:48 AM EST DIFFERENTIAL, AUTOMATED Lab STAT Essential thrombocythemia (HCC) 08/13/2023 10:48 AM EST Scheduled Procedures Name Priority Associated Diagnoses Date/Ti me COLONOSCOPY FLEXIBLE PROXIMAL DIAGNOSTIC Screen for colon cancer 09/25/2023 1:00 PM EDT Health Maintenance Due Date Last Done Comments DISCUSS TOBACCO CESSATION (REFER TO SMARTSET #3291) 1950 COVID-19 Vaccine (#1) 1954 Albumin/Creatinine Ratio 10/13/1967 CKD PHOS USE SMARTSET 65003 10/13/1967 Colonoscopy 1994 Sigmoidoscopy 1994 Zoster Vaccines (1 of 2) 03/23/2016 01/27/2016 Depression Screening 02/04/2021 02/05/2020 Cologuard 03/25/2021 03/25/2018 Colorectal Cancer Screening 10/23/2022 Fecal Occult Blood Test 10/23/2022 10/23/2021 GFR 02/04/2024 08/06/2023, 07/09, 07/02/2023, Additional history exists HbA1c 05/03/2024 05/03/2023, 04/0 12/2020, 10/09/2018 CKD HGB USE SMARTSET 63515 08/06/202408/06, 08/06/2023, 07/30/2023, Additional history exists DTaP,Tdap,and Td Vaccines (3 - Td or Tdap) 02/20/2033 02/20/2023, 09/25/2012 Pneumococcal Vaccine: 65+ Years Completed 03/18/2017, 11/30/2015, 03/13/2009 LUNG CANCER SCREENING - USE SMARTSET 99932 Completed 10/06/2021, 05/24/2017, 12/04/2016 AAA Screening Completed [...] Advance Directives occurred with: Patient Care Teams Color Straining Bag Washer Relationship Specialty Start Date End Date Taurus Delgado MD [address] [place] [facility] [place] [address] PCP - General Family Medicine 03/20/16 documented as of this encounter
--- OUTSIDE RECORDS SUMMARY | 2023-11-12 15:57 | External Medical Summary | Summary of Care ---
Author Name Unknown Organization [facility] Address [address] [facility] [address] Phone [phone] Care Team Providers Care Grocery Cashier Name Role Phone Taurus Delgado MD Primary Care Provider Reason for Visit * Reason Comments Outpatient Testing Encounter Details Date Type Department Care Team (Latest Contact Info) Description 08/26/2023 2:10 PM EST Laboratory Laboratory, [place] [address] [place] [address] [place], Laboratory [address] [place] [address] Essential thrombocythemia (HCC) Allergies No known active allergiesdocumented as of this encounter (statuses as of 08/26/2023) Medications Medication Sig Dispensed Refills Start Date [...] as of this encounter (statuses as of 08/26/2023) Active Problems Problem Noted Date Diagnosed Date [...] as of this encounter (statuses as of 08/26/2023) Resolved Problems Problem Noted Date Diagnosed Date Resolved Date NSTEMI (non-ST elevated myoc ardial infarction) 12/07/2013 12/07/2013 documented as of this encounter (statuses as of 08/26/2023) Immunizations Name Administration Dates Next Due Pneumococcal [...] 9:00 AM EST Pharmacy Pharmacy Hematology Oncology [facility] [address] [place] [address] [facility] [place], [facility] Hem/Onc [address] [place] [address] 09/02/2023 3:00 PM EST Telemedicine Urology Amanda Anthony [address] [place] [address] Kp Fisher MD [address] [place] [address] 7, Telemed [facility] Urology Ex [address] [place] [address] 09/11/2023 11:00 AM EST Office Visit Hematology/Oncolog y [facility] [place] [address] [place] [phone] Gopi Cheung MD [address] [place] [address] 09/25/2023 1:00 PM EDT Hospital Encounter ENDO [facility], Endoscopy Room [facility] [address] [place] [address] Darcy Murphy DO [address] [place] [address] 09/25/2023 1:00 PM EDT - 09/25/2023 1:30 PM EDT Surgery ENDO [facility], Endoscopy Room [facility] [address] [place] [phone] Darcy Murphy DO [address] [place] [address] COLONOSCOPY FLEXIBLE PROXIMAL DIAGNOSTIC 11/11/2023 1:30 PM EDT Office Visit Cardiology, [facility] 132 [facility] [place] [address] Maria Dolores Mas PA-C [address] [place] [address] Pending Results Name Type Priority Associated Diagnoses Date /Time CBC WITH WBC DIFFERENTIAL Lab STAT Essential thrombocythemia (HCC) 08/26/2023 1:07 PM EST COMPREHENSIVE METABOLIC PANEL Lab STAT Essential thrombocythemia ([facility]) 08/26/2023 1:07 PM EST CBC Lab STAT Essential thrombocythemia ([facility]) 08/26/2023 1:07 PM EST DIFFERENTIAL, AUTOMATED Lab STAT Essential thrombocythemia ([facility]) 08/26/2023 1:07 PM EST Scheduled Procedures Name Priority Associated Diagnoses Date/Ti ri COLONOSCOPY FLEXIBLE PROXIMAL DIAGNOSTIC Screen for colon cancer 09/25/2023 1:00 PM EDT Health Maintenance Due Date Last Done Comments DISCUSS TOBACCO CESSATION (REFER TO SMARTSET #3291) 1950 COVID-19 Vaccine (#1) 1954 Albumin/Creatinine Ratio 10/13/1967 CKD PHOS USE SMARTSET 46778 10/13/1967 Colonoscopy 1994 Sigmoidoscopy 1994 Zoster Vaccines (1 of 2) 03/23/2016 01/27/2016 Depression Screening 02/04/2021 02/05/2020 Cologuard 03/25/2021 03/25/2018 Colorectal Cancer Screening 10/23/2022 Fecal Occult Blood Test 10/23/2022 10/23/2021 GFR 02/04/2024 08/06/2023, 07/09, 07/02/2023, Additional history exists HbA1c 05/03/2024 05/03/2023, 0412/2020, 10/09/2018 CKD HGB USE SMARTSET 03774 08/13/202408/13, 08/13/2023, 08/06/2023, Additional history exists DTaP,Tdap,and Td Vaccines (3 - Td or Tdap) 02/20/2033 02/20/2023, 09/25/2012 Pneumococcal Vaccine: 65+ Years Completed 03/18/2017, 11/30/2015, 03/13/2009 LUNG CANCER SCREENING - USE SMARTSET 09546 Completed 10/06/2021, 05/24/2017, 12/04/2016 AAA Screening Completed [...] Advance Directives occurred with: Patient Care Teams Grocery Cashier Relationship Specialty Start Date End Date Taurus Delgado MD [address] [place] [facility] [place] [address] PCP - General Family Medicine 03/20/16 documented as of this encounter
--- OUTSIDE RECORDS SUMMARY | 2023-11-12 15:57 | External Medical Summary | Summary of Care ---
Author Name Unknown Organization [facility] Address [address] [place] [address] Phone [phone] Care Team Providers Care Legal Receptionist Name Role Phone Tomy Delgado MD Primary Care Provider [phone] Reason for Referral * Precert (Within 10 days (routine)) - Pending Review Specialty Diagnoses / Procedures Referred By Contac t Referred To Contact Radiology Diagnoses BPH with obstruction/lower urinary tract symptoms Hydronephrosis, bilateral Incomplete emptying of bladder Procedures CT ABD/PELVIS WO IV/ORAL CONTRAST Kp Fisher MD [address] [place] [address] Referral ID Status Reason Start Date Expiration Date V isits Requested Visits Authorized [id number] Pending Review 09/04/2023 999 999 Reason for Visit * Reason Comments Follow Up Encounter Details Date Type Department Care Team (Latest Contact Info) Description 09/04/2023 9:00 AM EST Telemedicine Urology Amanda Anthony [address] [place] [address] Kp Fisher MD [address] [place] [address] 7, Telemed [facility] Urology Ex Rm [address] [place] [address] BPH with obstruction/lower urinary tract symptoms*; Hydronephrosis, [...] Fisher MD - 09/04/2023 9:00 AM EST [id number] PCP: TOMY DELGADO [address] [place] [address] Shubham Calles is a 72 year [...] has tried finasteride and terazosin, obtains via [facility]. He has previously had prostate biopsy [...] performed by Aurelia Daniel MD at ENDOSCOPY [facility] REPAIR OF KNEE CARTILAGE 07/08/2010 left knee SINUS SURGERY PROCEDURE NEC 5-6 years ago Past Medical History: Diagnosis Date BPH (benign prostatic hyperplasia) Dyslipidemia Hypertension [place] (myocardial infarction) (HCC) 5-6 years ago Tobacco [...] he has a thick bladder [id number] ml documented in this encounter Miscellaneous Notes * Addendum Note - Kp Fisher MD - 09/04/2023 9:18 AM ESTAddended by: KP FISHER on: 09/04/2023 09:18 AM Modules accepted: Orders documented in this encounter Plan of Treatment Upcoming Encounters Date Type Department Care Team (Latest Contact Info) Description 09/10/2023 9:15 AM EST Imaging Radiology [facility] 1st [facility], [address] [place] [address] 09/11/2023 11:00 AM EST Office Visit Hematology/Oncology Malaika Andrews [place] [address] [place] [phone] Gopi Cheung MD [facility] [place] [address] 09/24/2023 9:00 AM EDT Pharmacy Pharmacy Hematology Oncology [facility] [address] [place] [address] [facility], [facility] Hem/Onc [address] [place] [address] 11/04/2023 2:30 PM EDT Procedure Only Urology, [facility] [address] [place] [address] Kp Fisher MD [address] [address] [place] [address] 11/11/2023 1:30 PM EDT Office Visit Cardiology, [facility] 132 [facility] [place] [address] Maria Dolores Mas PA-C 400 [facility] [place] [address] 02/12/2024 1:00 PM EDT Hospital Encounter ENDO [facility], Endoscopy Room [facility] [place] [phone] Vish Mukherjee MD [address] [place] [address] 02/12/2024 1:00 PM EDT - 02/12/2024 1:30 PM EDT Surgery ENDO [facility], Endoscopy Room [facility] [address] [place] [phone] Vish Mukherjee MD [address] [place] [address] COLONOSCOPY FLEXIBLE PROXIMAL DIAGNOSTIC Scheduled Orders Name [...] Comments DISCUSS TOBACCO CESSATION (REFER TO SMARTSET #5390) 1949 COVID-19 Vaccine (#1) 1954 Albumin/Creatinine Ratio 10/13/1967 CKD PHOS USE SMARTSET 44241 10/13/1967 Colonoscopy 1994 Sigmoidoscopy 1994 Zoster Vaccines (1 of 2) 03/23/2016 01/27/2016 Depression Screening 02/04/2021 02/05/2020 Cologuard 03/25/2021 03/25/2018 Colorectal Cancer Screening 10/23/2022 Fecal Occult Blood Test 10/23/2022 10/23/2021 GFR 02/24/2024 08/26/2023, 07/10, 07/30/2023, Additional history exists HbA1c 05/03/2024 05/03/2023, 12/2020, 10/09/2018 CKD HGB USE SMARTSET 20952 08/26/202408/26, 08/26/2023, 08/13/2023, Additional history exists DTaP,Tdap,and Td Vaccines (3 - Td or Tdap) 02/20/2033 02/20/2023, 09/25/2012 Pneumococcal Vaccine: 65+ Years Completed 03/18/2017, 11/30/2015, 03/13/2009 LUNG CANCER SCREENING - USE SMARTSET 47070 Completed 10/06/2021, 05/24/2017, 12/04/2016 AAA Screening Completed [...] Advance Directives occurred with: Patient Care Teams Legal Receptionist Relationship Specialty Start Date End Date Tomy Delgado MD [address] [place] [address] PCP - General Family Medicine 03/20/16 documented as of this encounter
--- OUTSIDE RECORDS SUMMARY | 2023-11-12 15:57 | External Medical Summary | Summary of Care ---
Author Name Unknown Organization [facility] Address [address] [place] [address] Phone [phone] Care Team Providers Care Bone Plant Supervisor Name Role Phone Taurus Delgado MD Primary Care Provider [phone] Reason for Visit * Reason Comments Medication Management Encounter Details Date Type Department Care Team (Late st Contact Info) Description 08/27/2023 9:00 AM [facility] Pharmacy Pharmacy Hematology Oncology [facility] [address] [place] [address] [facility], [facility] Hem/Onc [address] [place] [address] JAK2 [id number] mutation* Allergies No known active allergiesdocumented as of this encounter (statuses as of 08/27/2023) Medications Medication Sig Dispensed Refills Start Date [...] as of this encounter (statuses as of 08/27/2023) Active Problems Problem Noted Date Diagnosed Date [...] as of this encounter (statuses as of 08/27/2023) Resolved Problems Problem Noted Date Diagnosed Date Resolved Date NSTEMI (non-ST elevated myoc ardial infarction) 12/07/2013 12/07/2013 documented as of this encounter (statuses as of 08/27/2023) Immunizations Name Administration Dates Next Due Pneumococcal [...] this encounter Progress Notes * Pat Tolliver, [facility] - 08/27/2023 9:25 AM EST MEDICATION THERAPY MANAGEMENT HYDROXYUREA TREATMENT PROGRESS NOTE Shubham Calles [id number] Patient Phone Numbers Preferred Lab: [facility]: [facility] Communication: Left message Treatment: Medication: Hydroxyurea (Hydrea) Indication/Staging/Diagnosis Code: ET, JAK2+ / D47.3 Dose: 1000mg three days per week and 500mg four days per week ( 08/07/23) Administration: +/- food Start Date: 06/03/23 PLT goal: < 400K Primary Clinical Research Specialist/Oncologist: Dr. Cheung Prophylactic Meds: ASA 81mg daily [...] Assessment and Plan: PLT at goal WBC elevated but stable All other labs stable Continue current hydrea dose Repeat labs in 2 weeks with OV Assessment of compliance: N/A Dose adjustment needed based on lab or adverse drug reaction? No Follow up: 2 weeks OV/labs; 4 weeks MTM Pat Tolliver, PharmD, BCOP Clinical Pharmacist, [facility] Oral Chemotherapy [facility] 08/27/2023, 10:09 AM Monitoring Parameters: Estimated CrCl Serum creatinine: 1.3 mg/dL (H) 08/26/23 1307 Estimated creatinine clearance: 57.2 mL/min (A) Hepatitis panel Latest Reference Range [...] Pertinent Labs: Latest Reference Range & Units 08/06/23 10:51 08/13/23 10:48 08/26/23 13:07 WBC 4.00 - 10.80 K/uL 13.04 (H) 11.10 (H) 12.08 (H) HGB 14.0 - 16.8 g/dL 14.2 14.2 14.9 HCT 40.0 - 48.4 % 47.1 44.5 46.7 MCV 82.0 - 99.5 fL 101.5 96.1 98.7 PLT 140 - 400 K/uL 239 380 336 Absolute Neutrophils 1.80 - 7.70 K/uL 9.98 (H) 7.96 (H) 8.84 (H) Time Spent on Encounter: 6 - 10 [...] Department Care Team (Latest Contact Info) Description 09/02/2023 3:00 PM EST Telemedicine Urology Amanda Anthony [address] [place] [address] Kp Fisher MD [address] [place] [address] [place] [address] 7, Telemed [facility] Urology Ex Rm [address] [place] [address] 09/11/2023 11:00 AM EST Office Visit Hematology/Oncolog [facility] [address] [place] [phone] Gopi Cheung MD [address] [place] [address] 09/24/2023 9:00 AM EDT Pharmacy Pharmacy Hematology Oncology [facility] [address] [place] [address] [facility], [facility] Hem/Onc [address] [place] [address] 09/25/2023 1:00 PM EDT Hospital Encounter ENDO [facility], Endoscopy Room [facility] [address] [address] [place] [phone] Darcy Murphy DO [address] [place] [address] 09/25/2023 1:00 PM EDT - 09/25/2023 1:30 PM EDT Surgery ENDO [facility], Endoscopy Room [facility] [address] [address] [place] [phone] Darcy Murphy DO [address] [place] [address] COLONOSCOPY FLEXIBLE PROXIMAL DIAGNOSTIC 11/11/2023 1:30 PM EDT Office Visit Cardiology, [facility] [address] [place] [address] Maria Dolores Mas PA-C [address] [place] [address] [place] [phone] Scheduled Procedures Name Priority Associated Diagnoses Date/Ti me COLONOSCOPY FLEXIBLE PROXIMAL DIAGNOSTIC Screen for colon cancer 09/25/2023 1:00 PM EDT Health Maintenance Due Date Last Done Comments DISCUSS TOBACCO CESSATION (REFER TO SMARTSET #4852) 1950 COVID-19 Vaccine (#1) 1954 Albumin/Creatinine Ratio 10/13/1967 CKD PHOS USE SMARTSET 79008 10/13/1967 Colonoscopy 1994 Sigmoidoscopy 1994 Zoster Vaccines (1 of 2) 03/23/2016 01/27/2016 Depression Screening 02/04/2021 02/05/2020 Cologuard 03/25/2021 03/25/2018 Colorectal Cancer Screening 10/23/2022 Fecal Occult Blood Test 10/23/2022 10/23/2021 GFR 02/24/2024 08/26/2023, 07/10, 07/30/2023, Additional history exists HbA1c 05/03/2024 05/03/2023, 04/0 12/2020, 10/09/2018 CKD HGB USE SMARTSET 44506 08/26/202408/26, 08/26/2023, 08/13/2023, Additional history exists DTaP,Tdap,and Td Vaccines (3 - Td or Tdap) 02/20/2033 02/20/2023, 09/25/2012 Pneumococcal Vaccine: 65+ Years Completed 03/18/2017, 11/30/2015, 03/13/2009 LUNG CANCER SCREENING - USE SMARTSET 18089 Completed 10/06/2021, 05/24/2017, 12/04/2016 AAA Screening Completed [...] Advance Directives occurred with: Patient Care Teams Bone Plant Supervisor Relationship Specialty Start Date End Date Taurus Delgado MD [address] [place] [address] PCP - General Family Medicine 03/20/16 documented as of this encounter
--- OUTSIDE RECORDS SUMMARY | 2023-11-12 15:57 | External Medical Summary | Summary of Care ---
Author Name Unknown Organization [facility] Address [address] [place] [address] Phone [phone] Care Team Providers Care Charge Entry Name Role Phone Tomy Delgado MD Primary Care Provider [phone] Reason for Referral * Precert (Within 10 days (routine)) - Pending Review Specialty Diagnoses / Procedures Referred By Contac t Referred To Contact Radiology Diagnoses BPH with obstruction/lower urinary tract symptoms Hydronephrosis, bilateral Incomplete emptying of bladder Procedures CT ABD/PELVIS WO IV/ORAL CONTRAST Kp Fisher MD [address] [place] [address] Referral ID Status Reason Start Date Expiration Date V isits Requested Visits Authorized [id number] Pending Review 09/04/2023 999 999 Reason for Visit * Reason Comments Follow Up Encounter Details Date Type Department Care Team (Latest Contact Info) Description 09/04/2023 9:00 AM EST Telemedicine Urology Amanda Anthony [address] [place] [address] Kp Fisher MD [address] [place] [address] 7, Telemed [facility] Urology Ex Rm [address] [place] [address] BPH with obstruction/lower urinary tract symptoms*; Hydronephrosis, [...] Fisher MD - 09/04/2023 9:00 AM EST [id number] PCP: TOMY DELGADO [address] [place] [address] Shubham Calles is a 72 year [...] has tried finasteride and terazosin, obtains via [facility]. He has previously had prostate biopsy [...] performed by Aurelia Daniel MD at ENDOSCOPY [facility] REPAIR OF KNEE CARTILAGE 07/08/2010 left knee SINUS SURGERY PROCEDURE NEC 5-6 years ago Past Medical History: Diagnosis Date BPH (benign prostatic hyperplasia) Dyslipidemia Hypertension [place] (myocardial infarction) (HCC) 5-6 years ago Tobacco [...] Description 09/10/2023 9:15 AM EST Imaging Radiology [facility] 1st [facility], [address] [place] [address] 09/11/2023 11:00 AM EST Office Visit Hematology/Oncology Malaika Andrews [place] [address] [place] [phone] Gopi Cheung MD [facility] [place] [address] 09/24/2023 9:00 AM EDT Pharmacy Pharmacy Hematology Oncology [facility] [address] [place] [address] [facility], [facility] Hem/Onc [address] [place] [address] 11/04/2023 2:30 PM EDT Procedure Only Urology, [facility] [address] [place] [address] Kp Fisher MD [address] [address] [place] [address] 11/11/2023 1:30 PM EDT Office Visit Cardiology, [facility] 132 [facility] [place] [address] Maria Dolores Mas PA-C 400 [facility] [place] [address] 02/12/2024 1:00 PM EDT Hospital Encounter ENDO [facility], Endoscopy Room [facility] [address] [facility] [place] [phone] Vish Mukherjee MD [address] [place] [address] 02/12/2024 1:00 PM EDT - 02/12/2024 1:30 PM EDT Surgery ENDO [facility], Endoscopy Room [facility] [address] [place] [phone] Vish Mukherjee MD [address] [place] [address] COLONOSCOPY FLEXIBLE PROXIMAL DIAGNOSTIC Scheduled Orders Name [...] Comments DISCUSS TOBACCO CESSATION (REFER TO SMARTSET #7868) 1950 COVID-19 Vaccine (#1) 1954 Albumin/Creatinine Ratio 10/13/1967 CKD PHOS USE SMARTSET 82710 10/13/1967 Colonoscopy 1994 Sigmoidoscopy 1994 Zoster Vaccines (1 of 2) 03/23/2016 01/27/2016 Depression Screening 02/04/2021 02/05/2020 Cologuard 03/25/2021 03/25/2018 Colorectal Cancer Screening 10/23/2022 Fecal Occult Blood Test 10/23/2022 10/23/2021 GFR 02/24/2024 08/26/2023, 07/10, 07/30/2023, Additional history exists HbA1c 05/03/2024 05/03/2023, 12/2020, 10/09/2018 CKD HGB USE SMARTSET 23324 08/26/202408/26, 08/26/2023, 08/13/2023, Additional history exists DTaP,Tdap,and Td Vaccines (3 - Td or Tdap) 02/20/2033 02/20/2023, 09/25/2012 Pneumococcal Vaccine: 65+ Years Completed 03/18/2017, 11/30/2015, 03/13/2009 LUNG CANCER SCREENING - USE SMARTSET 98834 Completed 10/06/2021, 05/24/2017, 12/04/2016 AAA Screening Completed [...] Advance Directives occurred with: Patient Care Teams Charge Entry Relationship Specialty Start Date End Date Tomy Delgado MD [address] [place] [address] PCP - General Family Medicine 03/20/16 documented as of this encounter
--- OUTSIDE RECORDS SUMMARY | 2023-11-12 15:57 | External Medical Summary | Summary of Care ---
Author Name Unknown Organization [facility] Address [address] [place] [address] Phone [phone] Care Team Providers Care Manager Special Events Name Role Phone Taurus Delgado MD Primary Care Provider [phone] Reason for Visit * Reason Comments Medication Management Encounter Details Date Type Department Care Team (Late st Contact Info) Description 08/14/2023 9:00 AM [facility] Pharmacy Pharmacy Hematology Oncology [facility] [address] [place] [address] [facility], [facility] Hem/Onc [address] [place] [address] JAK2 [id number] mutation* Allergies No known active allergiesdocumented as of this encounter (statuses as of 08/14/2023) Medications Medication Sig Dispensed Refills Start Date [...] as of this encounter (statuses as of 08/14/2023) Active Problems Problem Noted Date Diagnosed Date [...] as of this encounter (statuses as of 08/14/2023) Resolved Problems Problem Noted Date Diagnosed Date Resolved Date NSTEMI (non-ST elevated myoc ardial infarction) 12/07/2013 12/07/2013 documented as of this encounter (statuses as of 08/14/2023) Immunizations Name Administration Dates Next Due Pneumococcal [...] this encounter Progress Notes * Pat Tolliver, [facility] - 08/14/2023 11:35 AM EST MEDICATION THERAPY MANAGEMENT HYDROXYUREA TREATMENT PROGRESS NOTE Shubham Calles [id number] Patient Phone Numbers Preferred Lab: [facility]: [facility] Communication: Spoke to: Patient Treatment: Medication: Hydroxyurea (Hydrea) Indication/Staging/Diagnosis Code: ET, JAK2+ / D47.3 Dose: 1000mg three days per week and 500mg four days per week ( 08/07/23) Administration: +/- food Start Date: 06/03/23 PLT goal: < 400K Primary Bread Packer/Oncologist: Dr. Cheung Prophylactic Meds: ASA 81mg daily Dose adjustment / medication hold: 06/11/23: dose increase to 500mg M-F and 1000mg Sat/Sun 07/03/23: dose increase to 500mg M-Th and 1000mg Fr/Sat/Sun 07/23/23: dose increase to 500mg MWF and 1000mg AOD 08/07/23: dose reduce to 1000mg three days per week and 500mg four days per week Interval History: No concerns, tolerating therapy well Changes to medication list since last visit? No Assessment and Plan: PLT at goal and improving WBC elevated but declining All other labs stable Continue current hydrea dose Repeat labs in 2 weeks (pt to walk in for labs after PCP OV 08/26) Assessment of compliance: compliant Dose adjustment needed based on lab or adverse drug reaction? No Follow up: 2 weeks Pat Tolliver, PharmD, BCOP Clinical Pharmacist, [facility] Oral Chemotherapy [facility] 08/14/2023, 11:41 AM Monitoring Parameters: Estimated CrCl Serum creatinine: 1.3 mg/dL (H) 08/06/23 1051 Estimated creatinine clearance: 57.2 mL/min (A) Hepatitis [...] Pertinent Labs: Latest Reference Range & Units 07/30/23 10:39 08/06/23 10:51 08/13/23 10:48 WBC 4.00 - 10.80 K/uL 11.48 (H) 13.04 (H) 11.10 (H) HGB 14.0 - 16.8 g/dL 13.9 (L) 14.2 14.2 HCT 40.0 - 48.4 % 43.8 47.1 44.5 MCV 82.0 - 99.5 fL 95.8 101.5 96.1 PLT 140 - 400 K/uL 384 239 380 Absolute Neutrophils 1.80 - 7.70 K/uL 8.88 (H) 9.98 (H) 7.96 (H) Time Spent on Encounter: 6 - 10 minutes Encounter Group: Hematology Encounter Interventions Item Category: Oral Chemotherapy Hydroxurea Problem/Rationale: Effectiveness: Needs additional monitoring - Medication Requires monitoring Safety: Needs additional monitoring - Medication Requires monitoring Pharmacist Intervention(s): Lab monitoring and Toxicity monitoring Magnitude of Intervention: Monitoring with direction (Level 1) documented in this encounter Plan of Treatment Upcoming Encounters Date Type Department Care Team (Latest Contact Info) Description 08/19/2023 1:30 PM EST Procedure Only Urology, [facility] 132 [facility] [place] [address] Kp Fisher MD 27 [facility] [address] [place] [address] 08/26/2023 12:20 PM EST Office Visit [facility] [address] [place] [phone] Taurus Delgado MD [address] [place], [place] [phone] 08/27/2023 9:00 AM EST Pharmacy Pharmacy Hematology Oncology [facility] [place] [address] [place] [address] [facility], [facility] Hem/Onc [address] [place] [address] 09/11/2023 11:00 AM EST Office Visit Hematology/Oncology [facility] [address] [place] [address] Gopi Cheung MD [address] [place] [address] 09/25/2023 1:00 PM EDT Hospital Encounter ENDO [facility], Endoscopy Room [facility] 132 [place] [address] Nader Iglesias MD 09/25/2023 1:00 PM EDT - 09/25/2023 1:30 PM EDT Surgery ENDO [facility], Endoscopy Room [facility] 132 [place] [address] Nader Iglesias MD COLONOSCOPY FLEXIBLE PROXIMAL DIAGNOSTIC 11/11/2023 1:30 PM EDT Office Visit Cardiology, [facility] 132 [place] [address] Maria Dolores Mas PA-C [address] [place] [address] Scheduled Procedures Name Priority Associated Diagnoses Date/Ti me COLONOSCOPY FLEXIBLE PROXIMAL DIAGNOSTIC Screen for colon cancer 09/25/2023 1:00 PM EDT Health Maintenance Due Date Last Done Comments DISCUSS TOBACCO CESSATION (REFER TO SMARTSET #3341) 1950 COVID-19 Vaccine (#1) 1954 Albumin/Creatinine Ratio 10/13/1967 CKD PHOS USE SMARTSET 27895 10/13/1967 Colonoscopy 1994 Sigmoidoscopy 1994 Zoster Vaccines (1 of 2) 03/23/2016 01/27/2016 Depression Screening 02/04/2021 02/05/2020 Cologuard 03/25/2021 03/25/2018 Colorectal Cancer Screening 10/23/2022 Fecal Occult Blood Test 10/23/2022 10/23/2021 GFR 02/04/2024 08/06/2023, 07/09, 07/02/2023, Additional history exists HbA1c 05/03/2024 05/03/2023, 04/0 12/2020, 10/09/2018 CKD HGB USE SMARTSET 11736 08/13/202408/13, 08/13/2023, 08/06/2023, Additional history exists DTaP,Tdap,and Td Vaccines (3 - Td or Tdap) 02/20/2033 02/20/2023, 09/25/2012 Pneumococcal Vaccine: 65+ Years Completed 03/18/2017, 11/30/2015, 03/13/2009 LUNG CANCER SCREENING - USE SMARTSET 08582 Completed 10/06/2021, 05/24/2017, 12/04/2016 AAA Screening Completed [...] Directives occurred with: Patient Care Teams Manager Special Events Relationship Specialty Start Date End Date Taurus Delgado MD [address] [place] [address] PCP - General Family Medicine 9/13/16 documented as of this encounter
--- OUTSIDE RECORDS SUMMARY | 2023-11-12 15:57 | External Medical Summary ---
Author Name Unknown Address Unknown Organization K01:[facility] - [address] [place] [address] Laboratory Report Ordering Provider Test Date Status JUANJO HERMOSILLO 08/26/2023 13:07:10 Final Observation Date Value Abnormality Reference (Units ) Status WBC, Total 08/26/2023 13:07:10 12.08 Above high normal 4.00-10.80 (K/uL) Final RBC 08/26/2023 13:07:10 4.73 4.50-5.25 (M/uL) Final Hemoglobin 08/26/2023 13:07:10 14.9 14.0-16.8 (g/dL) Final HCT 08/26/2023 13:07:10 46.7 40.0-48.4 (%) Final MCV 08/26/2023 13:07:10 98.7 82.0-99.5 (fL) Final MCH 08/26/2023 13:07:10 31.5 27.0-34.0 (pg) Final MCHC 08/26/2023 13:07:10 31.9 32.0-36.0 (g/dL) Final RDW 08/26/2023 13:07:10 19.2 11.5-15.5 (%) Final Platelets 08/26/2023 13:07:10 336 140-400 (K/uL) Final MPV 08/26/2023 13:07:10 11.2 6.6-11.1 (fL) Final Nucleated erythrocytes/100 leukocytes [Ratio] in Blood by Automated count 08/26/2023 13:07:10 0 <=0 (/100 WBCs) Final Performing Location [facility] - [address] [place] [address]
--- OUTSIDE RECORDS SUMMARY | 2023-11-12 15:58 | External Medical Summary | Summary of Care ---
Author Name Unknown Organization [facility] Address [address] [place] [address] Phone [phone] Care Team Providers Care Gaming Department Head Name Role Phone Taurus Delgado MD Primary Care Provider [phone] Reason for Visit * Reason Comments Medication Management Encounter Details Date Type Department Care Team (Late st Contact Info) Description 08/07/2023 9:00 AM [facility] Pharmacy Pharmacy Hematology Oncology [facility] [address] [place] [address] [facility], [facility] Clinic Hem/Onc [address] [place] [address] JAK2 V617F mutation* Allergies No known active allergiesdocumented as of this encounter (statuses as of 08/07/2023) Medications Medication Sig Dispensed Refills Start Date [...] as of this encounter (statuses as of 08/07/2023) Active Problems Problem Noted Date Diagnosed Date [...] as of this encounter (statuses as of 08/07/2023) Resolved Problems Problem Noted Date Diagnosed Date Resolved Date NSTEMI (non-ST elevated myoc ardial infarction) 12/07/2013 12/07/2013 documented as of this encounter (statuses as of 08/07/2023) Immunizations Name Administration Dates Next Due Pneumococcal [...] this encounter Progress Notes * Pat Tolliver, [facility] - 08/07/2023 8:11 AM EST MEDICATION THERAPY MANAGEMENT HYDROXYUREA TREATMENT PROGRESS NOTE Shubham Calles [phone] Patient Phone Numbers Preferred Lab: [facility]: [facility] Communication: Spoke to: Patient Treatment: Medication: Hydroxyurea (Hydrea) Indication/Staging/Diagnosis Code: ET, JAK2+ / D47.3 Dose: 1000mg three days per week and 500mg four days per week ( 08/07/23) Administration: +/- food Start Date: 06/03/23 PLT goal: < 400K Primary Tank Stave Assembler/Oncologist: Dr. Cheung Prophylactic Meds: ASA 81mg daily [...] Assessment and Plan: PLT at goal and declining WBC elevated H/H improving to WNL All other labs stable Due to rapidly declining PLT, reduce dose to 1000mg three days per week and 500mg four days per week Pt repeated instructions back with understanding Med rec updated Repeat labs in 1 week (scheduled 08/13 @1100) Assessment of compliance: N/A Dose adjustment needed based on lab or adverse drug reaction? Yes, dose reduce Follow up: 1 week Pat Tolliver, PharmD, BCOP Clinical Pharmacist, [facility] Oral Chemotherapy [facility] 08/07/2023, 9:18 AM Monitoring Parameters: Estimated CrCl Serum creatinine: [...] Pertinent Labs: Latest Reference Range & Units 07/22/23 11:52 07/30/23 10:39 08/06/23 10:51 WBC 4.00 - 10.80 K/uL 15.34 (H) 11.48 (H) 13.04 (H) HGB 14.0 - 16.8 g/dL 14.3 13.9 (L) 14.2 HCT 40.0 - 48.4 % 44.2 43.8 47.1 MCV 82.0 - 99.5 fL 94.8 95.8 101.5 PLT 140 - 400 K/uL 461 (H) 384 239 Absolute Neutrophils 1.80 - 7.70 K/uL 11.90 (H) 8.88 (H) 9.98 (H) Time Spent on Encounter: 6 - 10 minutes Encounter Group: Hematology Encounter Interventions Item Category: Oral Chemotherapy Hydroxurea Problem/Rationale: Safety: Dosage too high - Dose too high Pharmacist Intervention(s): Care coordination, Dose decreased, Lab monitoring, Medication reconciliation, and Toxicity monitoring Magnitude of Intervention: Modification of medication for asymtomatic patients (Level 2) documented in this encounter Plan of Treatment Upcoming Encounters Date Type Department Care Team (Latest Contact Info) Description 08/13/2023 11:00 AM EST Laboratory Laboratory, [facility] [address] [place] [phone] [facility] [address] [place] [address] 08/14/2023 9:00 AM EST Pharmacy Pharmacy Hematology Oncology [facility] [address] [place] [address] [facility], [facility] Clinic Hem/Onc [address] [place] [address] 08/19/2023 1:30 PM EST Procedure Only Urology, [facility] [address] [facility] [place] [address] Kp Fisher MD [address] [address] [place] [address] 08/26/2023 12:20 PM EST Office Visit [facility] [address] [place] [phone] Taurus Delgado MD [address], [place] [id number] 09/11/2023 11:00 AM EST Office Visit Hematology/Oncolog y [facility] [address] [place] [address] Gopi Cheung MD [address] [place] [address] 09/25/2023 1:00 PM EDT Hospital Encounter ENDO OSSC, Endoscopy Room [facility] [address] [facility] [place] [phone] Nader Iglesias MD 09/25/2023 1:00 PM EDT - 09/25/2023 1:30 PM EDT Surgery ENDO OSS, Endoscopy Room [facility] [address] [facility] [place] [phone] Nader Iglesias MD COLONOSCOPY FLEXIBLE PROXIMAL DIAGNOSTIC 11/11/2023 1:30 PM EDT Office Visit Cardiology, [facility] 132 [facility] [place] [address] Maria Dolores Mas PA-C [address] [facility] [place] [address] Scheduled Procedures Name Priority Associated Diagnoses Date/Ti me COLONOSCOPY FLEXIBLE PROXIMAL DIAGNOSTIC Screen for colon cancer 09/25/2023 1:00 PM EDT Health Maintenance Due Date Last Done Comments DISCUSS TOBACCO CESSATION (REFER TO SMARTSET #4748) 1950 COVID-19 Vaccine (#1) 1954 Albumin/Creatinine Ratio 10/13/1967 CKD PHOS USE SMARTSET 13596 10/13/1967 Colonoscopy 1994 Sigmoidoscopy 1994 Zoster Vaccines (1 of 2) 03/23/2016 01/27/2016 Depression Screening 02/04/2021 02/05/2020 Cologuard 03/25/2021 03/25/2018 Colorectal Cancer Screening 10/23/2022 Fecal Occult Blood Test 10/23/2022 10/23/2021 GFR 02/04/2024 08/06/2023, 07/09, 07/02/2023, Additional history exists HbA1c 05/03/2024 05/03/2023, 04/0 12/2020, 10/09/2018 CKD HGB USE SMARTSET 88907 08/06/202408/06, 08/06/2023, 07/30/2023, Additional history exists DTaP,Tdap,and Td Vaccines (3 - Td or Tdap) 02/20/2033 02/20/2023, 09/25/2012 Pneumococcal Vaccine: 65+ Years Completed 03/18/2017, 11/30/2015, 03/13/2009 LUNG CANCER SCREENING - USE SMARTSET 47944 Completed 10/06/2021, 05/24/2017, 12/04/2016 AAA Screening Completed [...] Advance Directives occurred with: Patient Care Teams Gaming Department Head Relationship Specialty Start Date End Date Taurus Delgado MD [address] [place] [address] PCP - General Family Medicine 03/20/16 documented as of this encounter
--- OUTSIDE RECORDS SUMMARY | 2023-11-12 15:58 | External Medical Summary ---
Author Name Unknown Address Unknown Organization K01:LABORATORY [facility] - [address] [facility] [place] [address] Laboratory Report Ordering Provider Test Date Status JUANJO HERMOSILLO 07/30/2023 10:39:35 Final Observation Date Value Abnormality Reference (Units ) Status BUN 07/30/2023 10:39:35 22 Above high normal 6-20 (mg/dL) Final Creatinine 07/30/2023 10:39:35 1.3 Above high normal 0.6-1.2 (mg/dL) Final Glomerular filtration rate/1.73 sq M.predicted [Volume Rate/Area] in Serum, Plasma or Blood by Creatinine-based formula (CKD-EPI) 07/30/2023 10:39:35 56 Below low normal >=60 (mL/min) Final eGFR is calculated based on the CKD-EPI 2020 equation SODIUM 07/30/2023 10:39:35 141 135-146 (m mol/L) Final Potassium 07/30/2023 10:39:35 4.7 3.5-5.1 (m mol/L) Final Cl 07/30/2023 10:39:35 107 98-107 (mm ol/L) Final CO2 07/30/2023 10:39:35 27 22-32 (mmo l/L) Final Anion gap 07/30/2023 10:39:35 7 7-15 (mmol /L) Final Glucose 07/30/2023 10:39:35 120 70-120 (mg /dL) Final Albumin 07/30/2023 10:39:35 4.1 3.8-5.0 (g /dL) Final AST (Aspartate aminotransferase) 07/30/2023 10:39:35 19 10-50 (U/L) Final Alk Phos 07/30/2023 10:39:35 100 35-130 (U/ L) Final Bilirubin, Total 07/30/2023 10:39:35 0.4 <=1 .2 (mg/dL) Final Calcium 07/30/2023 10:39:35 9.0 8.4-10.2 ( mg/dL) Final Protein 07/30/2023 10:39:35 6.5 6.0-8.3 (g /dL) Final ALT (Alanine aminotransferase) 07/30/2023 10:39:35 16 10-50 (U/L) Final Performing Location LABORATORY [facility] - [address] [facility] [address]
--- OUTSIDE RECORDS SUMMARY | 2023-11-12 15:58 | External Medical Summary | Summary of Care ---
Author Name Unknown Organization [facility] Address [address] [place] [address] Phone [phone] Care Team Providers Care Finishing Manager Name Role Phone Taurus Delgado MD Primary Care Provider [phone] Reason for Visit * Reason Comments Medication Management Encounter Details Date Type Department Care Team (Late st Contact Info) Description 07/23/2023 9:00 AM [facility] Pharmacy Pharmacy Hematology Oncology [facility] [address] [place] [address] [facility], [facility] Hem/Onc [address] [place] [address] JAK2 V617F mutation* Allergies No known active allergiesdocumented as of this encounter (statuses as of 07/23/2023) Medications Medication Sig Dispensed Refills Start Date End Date Status NITROGLYCERIN 0.[address] under the tongue. times 3 doses 25 11 01/02/2005 Active PROSCAR 5 MG PO TABSIndications:Ch ronic coronary artery disease 1 TABLET DAILY 30 0 04/17/2007 Active FLONASE 50 MCG/ACT NA SUSPIndications:Dy slipidemia, goal to be determined,Sleep apnea,Aortocoronar y bypass status,Chronic coronary artery disease 2 puffs each nostril daily 1 34 04/26/2008 Active cyclobenzaprine (FLEXERIL) 10 MG Tablet Take 1 Tablet by mouth 2 times a day as needed for Muscle spasms. 20 Tab 0 03/20/2016 Active acetaminophen (TYLENOL) 500 MG Tablet 0 Active Multiple Vitamins-Minerals (PRESERVISION AREDS 2+MULTI VIT) CAPS Take by mouth. 0 Active atorvaSTATin (LIPITOR) 80 MG Tablet Take 1 Tablet by mouth in the morning. Takes in the evening . 30 Tab 0 02/14/2018 Active metoprolol tartrate (LOPRESSOR) 50 MG TabletIndications: Aortocoronary bypass status Take 1/2 tab in the [...] Recomb Adjuvanted 50 MCG/0.5ML Intramuscular Suspension Reconstituted (Shingrix)Indicati ons:Need for vaccination for zoster Inject 0.5 mL into a large muscle now and repeat dose in 60 to 180 days 1 Each 0 08/07/2022 Active Terazosin HCl 5 MG Oral Capsule (Hytrin)Indication s:Chronic coronary artery disease Take 1 Capsule by mouth in the morning. 100 Capsule 3 08/07/2022 Active Terazosin HCl 2 MG Oral CapsuleIndications :BPH without obstruction/lower urinary tract symptoms Take 1 Capsule by mouth at bedtime. 30 Capsule 5 08/07/2022 Active Aspirin 81 MG Oral Tablet Delayed ReleaseIndications :JAK2 V617F mutation Take 1 Tablet by mouth in the morning. 30 Tablet 5 05/21/2023 Active Hydroxyurea 500 MG Oral Capsule (Hydrea)Indication s:JAK2 V617F mutation Take one 500mg cap by mouth daily M-F and two 500mg caps (1000mg total) by mouth daily Sat/Sun 40 Capsule 5 06/26/2023 4 Discontinue d(Refill) documented as of this encounter (statuses as of 07/23/2023) Active Problems Problem Noted Date Diagnosed Date [...] as of this encounter (statuses as of 07/23/2023) Resolved Problems Problem Noted Date Diagnosed Date Resolved Date NSTEMI (non-ST elevated myoc ardial infarction) 12/07/2013 12/07/2013 documented as of this encounter (statuses as of 07/23/2023) Immunizations Name Administration Dates Next Due Pneumococcal [...] Progress Notes * Pat Tolliver, [facility] - 07/23/2023 8:48 AM EST MEDICATION THERAPY MANAGEMENT HYDROXYUREA TREATMENT PROGRESS NOTE Shubham Calles [phone] Patient Phone Numbers Preferred Lab: [facility]: [facility] Communication: Spoke to: Patient Treatment: Medication: Hydroxyurea (Hydrea) Indication/Staging/Diagnosis Code: ET, JAK2+ / D47.3 Dose: 500mg MWF and 1000mg AOD (DI 07/23/23) Administration: +/- food Start Date: 06/03/23 PLT goal: < 400K Primary Vice Admiral/Oncologist: Dr. Cheung Prophylactic Meds: ASA 81mg daily Dose adjustment / medication hold: 06/11/23: dose increase to 500mg M-F and 1000mg Sat/Sun 07/03/23: dose increase to 500mg M-Th and 1000mg Fr/Sat/Sun 07/23/23: dose increase to 500mg MWF and 1000mg AOD Interval History: No concerns, tolerating therapy well Changes to medication list since last visit? No Assessment and Plan: PLT remain above goal WBC elevated All other labs stable Increase hydrea to 500mg MWF and 1000mg AOD Pt repeated instructions back with understanding Updated RX sent to [place] Repeat labs in 1 week (scheduled 07/30 @1100) Assessment of compliance: Compliant Dose adjustment needed based on lab or adverse drug reaction? Yes, dose increase Follow up: 1 week Pat Tolliver, PharmD, BCOP Clinical Pharmacist, [facility] Oral Chemotherapy [facility] 07/23/2023, 9:33 AM Monitoring Parameters: Estimated CrCl Serum creatinine: 1.4 mg/dL (H) 07/02/23 1057 Estimated creatinine clearance: 53.1 mL/min (A) Hepatitis panel Latest Reference Range [...] Pertinent Labs: Latest Reference Range & Units 07/09/23 10:49 07/15/23 11:03 07/22/23 11:52 WBC 4.00 - 10.80 K/uL 15.96 (H) 12.91 (H) 15.34 (H) HGB 14.0 - 16.8 g/dL 14.0 13.2 (L) 14.3 HCT 40.0 - 48.4 % 45.0 42.4 44.2 MCV 82.0 - 99.5 fL 95.7 96.1 94.8 PLT 140 - 400 K/uL 511 (H) 476 (H) 461 (H) Absolute Neutrophils 1.80 - 7.70 K/uL 12.32 (H) 10.31 (H) 11.90 (H) Time Spent on Encounter: 11 - 15 minutes Encounter Group: Hematology Encounter Interventions Item Category: Oral Chemotherapy Hydroxurea Problem/Rationale: Effectiveness: Dosage too low - Dose too low Pharmacist Intervention(s): Care coordination, Dose increased, Lab monitoring, Medication prescribed, and Toxicity monitoring Magnitude of Intervention: Modification of medication for asymtomatic patients (Level 2) documented in this encounter Plan of Treatment Upcoming Encounters Date Type Department Care Team (Latest Contact Info) Description 07/30/2023 11:00 AM EST Laboratory Laboratory, [place] [address] [place] [phone] [place] [address] [place] [address] 07/31/2023 9:00 AM EST Pharmacy Pharmacy Hematology Oncology [facility] [address] [place] [address] [facility], [facility] Hem/Onc [address] [place] [address] 08/19/2023 1:30 PM EST Procedure Only Urology, [facility] 132 [facility] [place] [address] Kp Fisher MD 27 [facility] [address] [place] [address] 08/26/2023 12:20 PM EST Office Visit [facility] [address] [place] [address] Taurus Delgado MD [address] [place] [address] 09/11/2023 11:00 AM EST Office Visit Hematology/Oncolog y [facility] [address] [place] [address] Gopi Cheung MD [address] [place] [address] 09/25/2023 1:00 PM EDT Hospital Encounter ENDO OSSC, Endoscopy Room [facility] [address] [facility] [phone] Nader Iglesias MD 09/25/2023 1:00 PM EDT - 09/25/2023 1:30 PM EDT Surgery ENDO OSSC, Endoscopy Room [facility] [address] [facility] [phone] Nader Iglesias MD COLONOSCOPY FLEXIBLE PROXIMAL DIAGNOSTIC 11/11/2023 1:30 PM EDT Office Visit Cardiology, [facility] [address] [facility] [place] [address] Maria Dolores Mas PA-Ganesh [address] [place] [address] [place] [address] Scheduled Procedures Name Priority Associated Diagnoses Date/Ti me COLONOSCOPY FLEXIBLE PROXIMAL DIAGNOSTIC Screen for colon cancer 09/25/2023 1:00 PM EDT Health Maintenance Due Date Last Done Comments DISCUSS TOBACCO CESSATION (REFER TO SMARTSET #9232) 1950 COVID-19 Vaccine (#1) 1954 Albumin/Creatinine Ratio 10/13/1967 CKD PHOS USE SMARTSET 09025 10/13/1967 Colonoscopy 1994 Sigmoidoscopy 1994 Zoster Vaccines (1 of 2) 03/23/2016 01/27/2016 Depression Screening 02/04/2021 02/05/2020 Cologuard 03/25/2021 03/25/2018 Colorectal Cancer Screening 10/23/2022 Fecal Occult Blood Test 10/23/2022 10/23/2021 GFR 01/01/2024 07/02/2023, 1210/2022, 05/03/2023, Additional history exists HbA1c 05/03/2024 05/03/2023, 12/2020, 10/09/2018 CKD HGB USE SMARTSET 99790 07/22/202407/22, 07/22/2023, 07/15/2023, Additional history exists DTaP,Tdap,and Td Vaccines (3 - Td or Tdap) 02/20/2033 02/20/2023, 09/25/2012 Pneumococcal Vaccine: 65+ Years Completed 03/18/2017, 11/30/2015, 03/13/2009 LUNG CANCER SCREENING - USE SMARTSET 83935 Completed 10/06/2021, 05/24/2017, 12/04/2016 AAA Screening Completed [...] Advance Directives occurred with: Patient Care Teams Finishing Manager Relationship Specialty Start Date End Date Taurus Delgado MD [address] [place] [address] PCP - General Family Medicine 03/20/16 documented as of this encounter
--- OUTSIDE RECORDS SUMMARY | 2023-11-12 15:58 | External Medical Summary | Summary of Care ---
Author Name Unknown Organization [facility] Address [address] [facility] [place] [address] Phone [phone] Care Team Providers Care Punch Card Operator Name Role Phone Taurus Delgado MD Primary Care Provider [phone] Reason for Visit * Reason Comments Outpatient Testing Encounter Details Date Type Department Care Team (Latest Contact Info) Description 07/30/2023 11:00 AM EST Laboratory Laboratory, [place] [address] [place] [address] [place] [address] [place] [address] BPH with obstruction/lower urinary tract symptoms; JAK2 V617F mutation; Essential thrombocythemia (HCC) Allergies No known active allergiesdocumented as of this encounter (statuses as of 07/30/2023) Medications Medication Sig Dispensed Refills Start Date End Date Status NITROGLYCERIN 0.[address] under the tongue. times 3 doses 25 11 01/02/2005 Active PROSCAR 5 MG PO TABSIndications:Ware Dresser feliberto coronary artery disease 1 TABLET DAILY 30 0 04/17/2007 Active FLONASE 50 MCG/ACT NA SUSPIndications:Dysl ipidemia, goal to be determined,Sleep apnea,Aortocoronary bypass status,Chronic [...] 02/14/2018 Active metoprolol tartrate (LOPRESSOR) 50 MG TabletIndications:Ao rtocoronary bypass status Take 1/2 tab in the [...] Recomb Adjuvanted 50 MCG/0.5ML Intramuscular Suspension Reconstituted (Shingrix)Indication s:Need for vaccination for zoster Inject 0.5 mL into a large muscle now and repeat dose in 60 to 180 days 1 Each 0 08/07/2022 Active Terazosin HCl 5 MG Oral Capsule (Hytrin)Indications: Chronic coronary artery disease Take 1 Capsule by mouth in the morning. 100 Capsule 3 08/07/2022 Active Terazosin HCl 2 MG Oral CapsuleIndications:B PH without obstruction/lower urinary tract symptoms Take 1 Capsule by mouth at bedtime. 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 30 Tablet 5 05/21/2023 Active Hydroxyurea 500 MG Oral Capsule (Hydrea)Indications: JAK2 V617F mutation Take one 500mg cap by mouth daily Saturday, Saturday, and Saturday and two 500mg caps (1000mg total) by mouth daily Saturday, Saturday, , Saturday 50 Capsule 5 07/23/2023 Active documented as of this encounter (statuses as of 07/30/2023) Active Problems Problem Noted Date Diagnosed Date [...] as of this encounter (statuses as of 07/30/2023) Resolved Problems Problem Noted Date Diagnosed Date Resolved Date NSTEMI (non-ST elevated myoc ardial infarction) 12/07/2013 12/07/2013 documented as of this encounter (statuses as of 07/30/2023) Immunizations Name Administration Dates Next Due Pneumococcal [...] Department Care Team (Latest Contact Info) Description 07/31/2023 9:00 AM EST Pharmacy Pharmacy Hematology Oncology [facility] [address] [place] [address] [facility], [facility] Hem/Onc [address] [place] [address] 08/19/2023 1:30 PM EST Procedure Only Urology, [facility] [address] [place] [address] Kp Fisher MD [address] [address] [place] [address] 08/26/2023 12:20 PM EST Office Visit [facility] [address] [place] [phone] Taurus Delgado MD [address] [place] [address] 09/11/2023 11:00 AM EST Office Visit Hematology/Oncology [facility] [address] [place] [address] Gopi Cheung MD 200 [facility] [place] [address] 09/25/2023 1:00 PM EDT Hospital Encounter ENDO OSSC, Endoscopy Room [facility] 132 [facility] [place] [phone] Nader Iglesias MD 09/25/2023 1:00 PM EDT - 09/25/2023 1:30 PM EDT Surgery ENDO OSSC, Endoscopy Room [facility] [address] [place] [phone] Nader Iglesias MD COLONOSCOPY FLEXIBLE PROXIMAL DIAGNOSTIC 11/11/2023 1:30 PM EDT Office Visit Cardiology, [facility] [address] [place] [address] Maria Dolores Mas PA-C [address] [place] [address] Pending Results Name Type Priority Associated Diagnoses Date /Time PSA Lab Routine BPH with obstruction/lower urinary tract symptoms 07/30/2023 10:39 AM EST CBC WITH WBC DIFFERENTIAL Lab STAT Essential thrombocythemia ([facility]) 07/30/2023 10:39 AM EST COMPREHENSIVE METABOLIC PANEL Lab STAT Essential thrombocythemia (HCC) 07/30/2023 10:39 AM EST CBC Lab STAT Essential thrombocythemia ([facility]) 07/30/2023 10:39 AM EST DIFFERENTIAL, AUTOMATED Lab STAT Essential thrombocythemia ([facility]) 07/30/2023 10:39 AM EST Scheduled Procedures Name Priority Associated Diagnoses Date/Ti me COLONOSCOPY FLEXIBLE PROXIMAL DIAGNOSTIC Screen for colon cancer 09/25/2023 1:00 PM EDT Health Maintenance Due Date Last Done Comments DISCUSS TOBACCO CESSATION (REFER TO SMARTSET #7131) 1950 COVID-19 Vaccine (#1) 1954 Albumin/Creatinine Ratio 10/13/1967 CKD PHOS USE SMARTSET 19516 10/13/1967 Colonoscopy 1994 Sigmoidoscopy 1994 Zoster Vaccines (1 of 2) 03/23/2016 01/27/2016 Depression Screening 02/04/2021 02/05/2020 Cologuard 03/25/2021 03/25/2018 Colorectal Cancer Screening 10/23/2022 Fecal Occult Blood Test 10/23/2022 10/23/2021 GFR 01/01/2024 07/02/2023, 12/0 10/2022, 05/03/2023, Additional history exists HbA1c 05/03/2024 05/03/2023, 04/0 12/2020, 10/09/2018 CKD HGB USE SMARTSET 51543 07/22/202407/22, 07/22/2023, 07/15/2023, Additional history exists DTaP,Tdap,and Td Vaccines (3 - Td or Tdap) 02/20/2033 02/20/2023, 09/25/2012 Pneumococcal Vaccine: 65+ Years Completed 03/18/2017, 11/30/2015, 03/13/2009 LUNG CANCER SCREENING - USE SMARTSET 86813 Completed 10/06/2021, 05/24/2017, 12/04/2016 AAA Screening Completed [...] Diagnoses Diagnosis BPH with obstruction/lower urinary tract symptoms Hypertrophy of prostate with urinary obstruction and other lower urinary tract symptoms (LUTS) JAK2 V617F mutation Other ill-defined conditions Essential thrombocythemia (HCC) Essential thrombocythemia Screen for [...] Advance Directives occurred with: Patient Care Teams Punch Card Operator Relationship Specialty Start Date End Date Taurus Delgado MD [address] [place] [address] PCP - General Family Medicine 03/20/16 documented as of this encounter
--- OUTSIDE RECORDS SUMMARY | 2023-11-12 15:58 | External Medical Summary | Summary of Care ---
Author Name Unknown Organization [facility] Address [address] [place] [address] Phone [phone] Care Team Providers Care Rubber Vulcanizing Machine Operator Name Role Phone Taurus Delgado MD Primary Care Provider [phone] Reason for Visit * Reason Comments Medication Management Encounter Details Date Type Department Care Team (Late st Contact Info) Description 07/31/2023 9:00 AM [facility] Pharmacy Pharmacy Hematology Oncology [facility] [address] [place] [address] [facility] [place], [facility] Hem/Onc [address] [place] [address] JAK2 [id number] mutation* Allergies No known active allergiesdocumented as of this encounter (statuses as of 07/31/2023) Medications Medication Sig Dispensed Refills Start Date End Date Status NITROGLYCERIN 0.[address] under the tongue. times 3 doses 25 11 01/02/2005 Active PROSCAR 5 MG PO TABSIndications:Catalyst Operator Gasoline feliberto coronary artery disease 1 TABLET DAILY [...] as of this encounter (statuses as of 07/31/2023) Active Problems Problem Noted Date Diagnosed Date [...] as of this encounter (statuses as of 07/31/2023) Resolved Problems Problem Noted Date Diagnosed Date Resolved Date NSTEMI (non-ST elevated myoc ardial infarction) 12/07/2013 12/07/2013 documented as of this encounter (statuses as of 07/31/2023) Immunizations Name Administration Dates Next Due Pneumococcal [...] this encounter Progress Notes * Pat Tolliver, [facility] - 07/31/2023 9:05 AM EST MEDICATION THERAPY MANAGEMENT HYDROXYUREA TREATMENT PROGRESS NOTE Shubham Calles [phone] Patient Phone Numbers Preferred Lab: [facility]: [facility] Communication: Left message Treatment: Medication: Hydroxyurea (Hydrea) Indication/Staging/Diagnosis Code: ET, 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 Cheung Prophylactic Meds: ASA 81mg daily Dose adjustment / medication hold: 06/11/23: dose increase to 500mg M-F and 1000mg Sat/Sun 07/03/23: dose increase to 500mg M-Th and 1000mg Fr/Sat/Sun 07/23/23: dose increase to 500mg MWF and 1000mg AOD Interval History: N/A Changes to medication list since last visit? No Assessment and Plan: PLT at goal WBC elevated but declining All other labs stable Continue current hydrea dose Repeat labs in 1 week Assessment of compliance: N/A Dose adjustment needed based on lab or adverse drug reaction? No Follow up: 1 week Pat Tolliver, PharmD, BCOP Clinical Pharmacist, [facility] Oral Chemotherapy [facility] 07/31/2023, 10:02 AM Monitoring Parameters: Estimated CrCl Serum creatinine: 1.3 mg/dL (H) 07/30/23 1039 Estimated creatinine clearance: 57.2 mL/min (A) Hepatitis [...] Pertinent Labs: Latest Reference Range & Units 07/15/23 11:03 07/22/23 11:52 07/30/23 10:39 WBC 4.00 - 10.80 K/uL 12.91 (H) 15.34 (H) 11.48 (H) HGB 14.0 - 16.8 g/dL 13.2 (L) 14.3 13.9 (L) HCT 40.0 - 48.4 % 42.4 44.2 43.8 MCV 82.0 - 99.5 fL 96.1 94.8 95.8 PLT 140 - 400 K/uL 476 (H) 461 (H) 384 Absolute Neutrophils 1.80 - 7.70 K/uL 10.31 (H) 11.90 (H) 8.88 (H) Latest Reference Range & Units 06/10/23 11:00 07/02/23 10:57 07/30/23 10:39 Albumin 3.8 - 5.0 g/dL 4.2 4.1 4.1 AST 10 - 50 U/L 19 25 19 ALT 10 - 50 U/L 16 19 16 Alkaline Phosphatase 35 - 130 U/L 94 98 100 Bilirubin, Total <=1.2 mg/dL 0.7 0.5 0.4 Time Spent on Encounter: 6 - 10 [...] Department Care Team (Latest Contact Info) Description 08/07/2023 9:00 AM EST Pharmacy Pharmacy Hematology Oncology [facility] [address] [place] [address] [facility] [place], [facility] Hem/Onc [address] [place] [address] 08/19/2023 1:30 PM EST Procedure Only Urology, [facility] 132 [facility] [place] [address] Kp Fisher MD 27 [facility] [address] [place] [address] 08/26/2023 12:20 PM EST Office Visit Family Practice, [facility] [address] [place] [phone] Taurus Delgado MD [address] [place] [address] 09/11/2023 11:00 AM EST Office Visit Hematology/Oncology [facility] 200 [facility] [place] [address] Gopi Cheung MD [address] [place] [address] 09/25/2023 1:00 PM EDT Hospital Encounter ENDO [facility], Endoscopy Room [facility] 132 [facility] [place] [phone] Nader Iglesias MD 09/25/2023 1:00 PM EDT - 09/25/2023 1:30 PM EDT Surgery ENDO [facility], Endoscopy Room [facility] [address] [facility] [place] [phone] Nader Iglesias MD COLONOSCOPY FLEXIBLE PROXIMAL DIAGNOSTIC 11/11/2023 1:30 PM EDT Office Visit Cardiology, [facility] [address] [place] [address] Maria Dolores Mas PA-C 400 [facility] [place] [address] Scheduled Procedures Name Priority Associated Diagnoses Date/Ti me COLONOSCOPY FLEXIBLE PROXIMAL DIAGNOSTIC Screen for colon cancer 09/25/2023 1:00 PM EDT Health Maintenance Due Date Last Done Comments DISCUSS TOBACCO CESSATION (REFER TO SMARTSET #5068) 1950 COVID-19 Vaccine (#1) 1954 Albumin/Creatinine Ratio 10/13/1967 CKD PHOS USE SMARTSET 10599 10/13/1967 Colonoscopy 1994 Sigmoidoscopy 1994 Zoster Vaccines (1 of 2) 03/23/2016 01/27/2016 Depression Screening 02/04/2021 02/05/2020 Cologuard 03/25/2021 03/25/2018 Colorectal Cancer Screening 10/23/2022 Fecal Occult Blood Test 10/23/2022 10/23/2021 GFR 01/28/2024 07/30/2023, 12/12/2022, 06/10/2023, Additional history exists HbA1c 05/03/2024 05/03/2023, 04/0 12/2020, 10/09/2018 CKD HGB USE SMARTSET 05504 07/30/202407/30, 07/30/2023, 07/22/2023, Additional history exists DTaP,Tdap,and Td Vaccines (3 - Td or Tdap) 02/20/2033 02/20/2023, 09/25/2012 Pneumococcal Vaccine: 65+ Years Completed 03/18/2017, 11/30/2015, 03/13/2009 LUNG CANCER SCREENING - USE SMARTSET 97410 Completed 10/06/2021, 05/24/2017, 12/04/2016 AAA Screening Completed [...] Advance Directives occurred with: Patient Care Teams Rubber Vulcanizing Machine Operator Relationship Specialty Start Date End Date Taurus Delgado MD [address] [place] [address] PCP - General Family Medicine 03/20/16 documented as of this encounter
--- OUTSIDE RECORDS SUMMARY | 2023-11-12 15:58 | External Medical Summary | Summary of Care ---
Author Name Unknown Organization [facility] Address [address] [facility] [place] [address] Phone [phone] Care Team Providers Care Dye Colorist Dyer Name Role Phone Taurus Delgado MD Primary Care Provider [phone] Reason for Visit * Reason Comments Outpatient Testing Encounter Details Date Type Department Care Team (Latest Contact Info) Description 07/22/2023 12:00 PM EST Laboratory Laboratory, [place] [address] [place] [address] [place] [address] [place] [address] Essential thrombocythemia (HCC) Allergies No known active allergiesdocumented as of this encounter (statuses as of 07/22/2023) Medications Medication Sig Dispensed Refills Start Date [...] Take one 500mg cap by mouth daily M- and two 500mg caps (1000mg total) by mouth daily Sat/Sun 40 Capsule 5 06/26/2023 Active Additional Information Patient taking differently: Take one 500mg cap by mouth daily M- and two 500mg caps (1000mg total) by mouth daily Sat/Sat/Sun, Reported on 07/03/2023 documented as of this encounter (statuses as of 07/22/2023) Active Problems Problem Noted Date Diagnosed Date [...] as of this encounter (statuses as of 07/22/2023) Resolved Problems Problem Noted Date Diagnosed Date Resolved Date NSTEMI (non-ST elevated myoc ardial infarction) 12/07/2013 12/07/2013 documented as of this encounter (statuses as of 07/22/2023) Immunizations Name Administration Dates Next Due Pneumococcal [...] Department Care Team (Latest Contact Info) Description 07/23/2023 9:00 AM EST Pharmacy Pharmacy Hematology Oncology [facility] [place] [address] [place] [address] [facility], [facility] Hem/Onc [address] [place] [address] 08/19/2023 1:30 PM EST Procedure Only Urology, [facility] [address] [place] [address] Kp Fisher MD [address] [place] [address] 08/26/2023 12:20 PM EST Office Visit [place] [address] [place] [phone] Taurus Delgado MD [address] [place] [address] 09/11/2023 11:00 AM EST Office Visit Hematology/Oncology [facility] 200 [facility] [place] [address] Gopi Cheung MD 200 [facility] [place] [address] 09/25/2023 1:00 PM EDT Hospital Encounter ENDO [facility], Endoscopy Room [facility] [address] [place] [phone] Nader Iglesias MD 09/25/2023 1:00 PM EDT - 09/25/2023 1:30 PM EDT Surgery ENDO [facility], Endoscopy Room [facility] [address] [place] [phone] Nader Iglesias MD COLONOSCOPY FLEXIBLE PROXIMAL DIAGNOSTIC 11/11/2023 1:30 PM EDT Office Visit Cardiology, [facility] [address] [place] [address] Maria Dolores Mas PAHeraclio [address] [place] [address] [place] [address] Pending Results Name Type Priority Associated Diagnoses Date /Time CBC WITH WBC DIFFERENTIAL Lab STAT Essential thrombocythemia ([facility]) 07/22/2023 11:52 AM EST CBC Lab STAT Essential thrombocythemia ([facility]) 07/22/2023 11:52 AM EST DIFFERENTIAL, AUTOMATED Lab STAT Essential thrombocythemia ([facility]) 07/22/2023 11:52 AM EST Scheduled Procedures Name Priority Associated Diagnoses Date/Ti me COLONOSCOPY FLEXIBLE PROXIMAL DIAGNOSTIC Screen for colon cancer 09/25/2023 1:00 PM EDT Health Maintenance Due Date Last Done Comments DISCUSS TOBACCO CESSATION (REFER TO SMARTSET #3291) 1950 COVID-19 Vaccine (#1) 1954 Albumin/Creatinine Ratio 10/13/1967 CKD PHOS USE SMARTSET 40263 10/13/1967 Colonoscopy 1994 Sigmoidoscopy 1994 Zoster Vaccines (1 of 2) 03/23/2016 01/27/2016 Depression Screening 02/04/2021 02/05/2020 Cologuard 03/25/2021 03/25/2018 Colorectal Cancer Screening 10/23/2022 Fecal Occult Blood Test 10/23/2022 10/23/2021 GFR 01/01/2024 07/02/2023, 12/10/2022, 05/03/2023, Additional history exists HbA1c 05/03/2024 05/03/2023, 04/0 12/2020, 10/09/2018 CKD HGB USE SMARTSET 99716 07/15/202407/15, 07/15/2023, 07/09/2023, Additional history exists DTaP,Tdap,and Td Vaccines (3 - Td or Tdap) 02/20/2033 02/20/2023, 09/25/2012 Pneumococcal Vaccine: 65+ Years Completed 03/18/2017, 11/30/2015, 03/13/2009 LUNG CANCER SCREENING - USE SMARTSET 22003 Completed 10/06/2021, 05/24/2017, 12/04/2016 AAA Screening Completed [...] Advance Directives occurred with: Patient Care Teams Dye Colorist Dyer Relationship Specialty Start Date End Date Taurus Delgado MD [address] [place] [address] PCP - General Family Medicine 03/20/16 documented as of this encounter
--- OUTSIDE RECORDS SUMMARY | 2023-11-12 15:58 | External Medical Summary | Summary of Care ---
Author Name Unknown Organization [facility] Address [address] [facility] [place] [address] Phone [phone] Care Team Providers Care Salesman/Owner Name Role Phone Taurus Delgado MD Primary Care Provider Reason for Visit * Reason Comments Outpatient Testing Encounter Details Date Type Department Care Team (Latest Contact Info) Description 08/06/2023 11:00 AM EST Laboratory Laboratory, [place] [address] [place] [address] [place], [facility] [address] [place] [address] Essential thrombocythemia (HCC) Allergies No known active allergiesdocumented as of this encounter (statuses as of 08/06/2023) Medications Medication Sig Dispensed Refills Start Date End Date Status NITROGLYCERIN 0.[address] under the tongue. times 3 doses 25 11 01/02/2005 Active PROSCAR 5 MG PO TABSIndications:Internal Communications Intern feliberto coronary artery disease 1 TABLET DAILY [...] as of this encounter (statuses as of 08/06/2023) Active Problems Problem Noted Date Diagnosed Date [...] as of this encounter (statuses as of 08/06/2023) Resolved Problems Problem Noted Date Diagnosed Date Resolved Date NSTEMI (non-ST elevated myoc ardial infarction) 12/07/2013 12/07/2013 documented as of this encounter (statuses as of 08/06/2023) Immunizations Name Administration Dates Next Due Pneumococcal [...] 9:00 AM EST Pharmacy Pharmacy Hematology Oncology [address] [address] [facility] [place], [facility] Hem/Onc [address] [facility] [place] [address] 08/19/2023 1:30 PM EST Procedure Only Urology, [facility] 132 [facility] [place] [address] Kp Fisher MD [address] [place] [address] [place] [address] 08/26/2023 12:20 PM EST Office Visit [facility] [address] [place] [phone] Taurus Delgado MD [address] [place] [address] 09/11/2023 11:00 AM EST Office Visit Hematology/Oncology [facility] [address] [facility] [place] [address] Gopi Cheung MD [address] [facility] [place] [address] 09/25/2023 1:00 PM EDT Hospital Encounter ENDO [facility], Endoscopy Room [facility] 132 [facility] [place] [phone] Nader Iglesias MD 09/25/2023 1:00 PM EDT - 09/25/2023 1:30 PM EDT Surgery ENDO [facility], Endoscopy Room [facility] 132 [facility] [place] [phone] Nader Iglesias MD COLONOSCOPY FLEXIBLE PROXIMAL DIAGNOSTIC 11/11/2023 1:30 PM EDT Office Visit Cardiology, [facility] 132 [facility] [place] [address] Maria Dolores Mas PA-C [address] [place] [address] [place] [address] Pending Results Name Type Priority Associated Diagnoses Date /Time CBC WITH WBC DIFFERENTIAL Lab STAT Essential thrombocythemia ([facility]) 08/06/2023 10:51 AM EST COMPREHENSIVE METABOLIC PANEL Lab STAT Essential thrombocythemia ([facility]) 08/06/2023 10:51 AM EST CBC Lab STAT Essential thrombocythemia ([facility]) 08/06/2023 10:51 AM EST DIFFERENTIAL, AUTOMATED Lab STAT Essential thrombocythemia ([facility]) 08/06/2023 10:51 AM EST Scheduled Procedures Name Priority Associated Diagnoses Date/Ti me COLONOSCOPY FLEXIBLE PROXIMAL DIAGNOSTIC Screen for colon cancer 09/25/2023 1:00 PM EDT Health Maintenance Due Date Last Done Comments DISCUSS TOBACCO CESSATION (REFER TO SMARTSET #3291) 1950 COVID-19 Vaccine (#1) 1954 Albumin/Creatinine Ratio 10/13/1967 CKD PHOS USE SMARTSET 49746 10/13/1967 Colonoscopy 1994 Sigmoidoscopy 1994 Zoster Vaccines (1 of 2) 03/23/2016 01/27/2016 Depression Screening 02/04/2021 02/05/2020 Cologuard 03/25/2021 03/25/2018 Colorectal Cancer Screening 10/23/2022 Fecal Occult Blood Test 10/23/2022 10/23/2021 GFR 01/28/2024 07/30/2023, 06/08, 06/10/2023, Additional history exists HbA1c 05/03/2024 05/03/2023, 04/0 12/2020, 10/09/2018 CKD HGB USE SMARTSET 99178 07/30/202407/30, 07/30/2023, 07/22/2023, Additional history exists DTaP,Tdap,and Td Vaccines (3 - Td or Tdap) 02/20/2033 02/20/2023, 09/25/2012 Pneumococcal Vaccine: 65+ Years Completed 03/18/2017, 11/30/2015, 03/13/2009 LUNG CANCER SCREENING - USE SMARTSET 56447 Completed 10/06/2021, 05/24/2017, 12/04/2016 AAA Screening Completed [...] Advance Directives occurred with: Patient Care Teams Salesman/Owner Relationship Specialty Start Date End Date Taurus Delgado MD [address] [place] [address] PCP - General Family Medicine 03/20/16 documented as of this encounter
--- OUTSIDE RECORDS SUMMARY | 2023-11-12 15:58 | External Medical Summary ---
Author Name Unknown Address Unknown Organization [id number]:[facility] [place] [address] [facility] [address] Laboratory Report Ordering Provider Test Date Status JUANJO HERMOSILLO 08/06/2023 10:51:37 Final Observation Date Value Abnormality Reference (Units ) Status BUN 08/06/2023 10:51:37 29 Above high normal 6-20 (mg/dL) Final Creatinine 08/06/2023 10:51:37 1.3 Above high normal 0.6-1.2 (mg/dL) Final Glomerular filtration rate/1.73 sq M.predicted [Volume Rate/Area] in Serum, Plasma or Blood by Creatinine-based formula (CKD-EPI) 08/06/2023 10:51:37 59 Below low normal >=60 (mL/min) Final eGFR is calculated based on the CKD-EPI 2020 equation SODIUM 08/06/2023 10:51:37 140 135-146 (m mol/L) Final Potassium 08/06/2023 10:51:37 4.7 3.5-5.1 (m mol/L) Final Cl 08/06/2023 10:51:37 105 98-107 (mm ol/L) Final CO2 08/06/2023 10:51:37 21 Below low normal 22- 32 (mmol/L) Final Anion gap 08/06/2023 10:51:37 14 7-15 (mmol /L) Final Glucose 08/06/2023 10:51:37 128 Above high normal 70 -120 (mg/dL) Final Albumin 08/06/2023 10:51:37 4.2 3.8-5.0 (g /dL) Final AST (Aspartate aminotransferase) 08/06/2023 10:51:37 24 10-50 (U/L) Fin al Result may be falsely elevat ed due to hemolysis. Alk Phos 08/06/2023 10:51:37 101 35-130 (U/ L) Final Bilirubin, Total 08/06/2023 10:51:37 0.6 <=1 .2 (mg/dL) Final Calcium 08/06/2023 10:51:37 9.1 8.4-10.2 ( mg/dL) Final Protein 08/06/2023 10:51:37 6.7 6.0-8.3 (g /dL) Final ALT (Alanine aminotransferase) 08/06/2023 10:51:37 20 10-50 (U/L) Final Performing Location LAB[facility]ORY [facility] [place] - [facility] [address] [facility] [address]
--- OUTSIDE RECORDS SUMMARY | 2023-11-12 15:58 | External Medical Summary ---
Author Name Unknown Address Unknown Organization [id number]:[facility] [place] [address] [facility] [address] [place] [address] Laboratory Report Ordering Provider Test Date Status JUANJO HERMOSILLO 08/13/2023 10:48:01 Final Observation Date Value Abnormality Reference (Units ) Status WBC, Total 08/13/2023 10:48:01 11.10 Above high normal 4.00-10.80 (K/uL) Final RBC 08/13/2023 10:48:01 4.63 4.50-5.25 (M/uL) Final Hemoglobin 08/13/2023 10:48:01 14.2 14.0-16.8 (g/dL) Final HCT 08/13/2023 10:48:01 44.5 40.0-48.4 (%) Final MCV 08/13/2023 10:48:01 96.1 82.0-99.5 (fL) Final MCH 08/13/2023 10:48:01 30.7 27.0-34.0 (pg) Final MCHC 08/13/2023 10:48:01 31.9 32.0-36.0 (g/dL) Final RDW 08/13/2023 10:48:01 19.6 11.5-15.5 (%) Final Platelets 08/13/2023 10:48:01 380 140-400 (K/uL) Final MPV 08/13/2023 10:48:01 10.9 6.6-11.1 (fL) Final Nucleated erythrocytes/100 leukocytes [Ratio] in Blood by Automated count 08/13/2023 10:48:01 0 <=0 (/100 WBCs) Final Performing Location [facility]ORY [facility] [place] [address] [place] [address]
--- OUTSIDE RECORDS SUMMARY | 2023-11-12 15:58 | External Medical Summary ---
Author Name Unknown Address Unknown Organization [id number]:[facility]ATORY [facility] [place] - [address] [facility] [address] Laboratory Report Ordering Provider Test Date Status JUANJO HERMOSILLO 08/13/2023 10:48:01 Final Observation Date Value Abnormality Reference (Units ) Status SYNC LEUKOCYTES IN BLOOD BY AUTOMATED COUNT 08/13/2023 10:48:01 11.10 Above high normal 4.00-10.80 (K/uL) Final Segs 08/13/2023 10:48:01 71.6 40.0-75.0 (%) Final Lymphs % 08/13/2023 10:48:01 14.6 Below low normal 18.0-42.0 (%) Final Monos 08/13/2023 10:48:01 10.3 1.0-11.0 (%) Final Eosinophils 08/13/2023 10:48:01 1.7 0.0-6.0 (%) Final Basos 08/13/2023 10:48:01 1.3 0.0-2.0 (%) Final Immature Granulocyte, Percent 08/13/2023 10:48:01 0.5 0.0-2.0 (%) Final Absolute Segs 08/13/2023 10:48:01 7.96 Above high normal 1.80-7.70 (K/uL) Final Lymphs, absolute 08/13/2023 10:48:01 1.62 1.00-4.80 (K/ul) Final Monos, Abs 08/13/2023 10:48:01 1.14 Above high normal 0.00-1.10 (K/uL) Final Eos, Abs 08/13/2023 10:48:01 0.19 0.00-0.70 (K/uL) Final Basos, Abs 08/13/2023 10:48:01 0.14 0.00-0.20 (K/uL) Final Immature Granulocytes, Number 08/13/2023 10:48:01 0.05 0.00-0.20 (K/uL) Final Performing Location LABORATORY [facility] [place] - [facility] [address] [facility] [address]
--- OUTSIDE RECORDS SUMMARY | 2023-11-12 15:58 | External Medical Summary ---
Author Name Unknown Address Unknown Organization [id number]:[facility] [place] [address] [facility] [address] [facility] [place] [address] Laboratory Report Ordering Provider Test Date Status JUANJO HERMOSILLO 08/06/2023 10:51:37 Final Observation Date Value Abnormality Reference (Units ) Status WBC, Total 08/06/2023 10:51:37 13.04 Above high normal 4.00-10.80 (K/uL) Final RBC 08/06/2023 10:51:37 4.64 4.50-5.25 (M/uL) Final Hemoglobin 08/06/2023 10:51:37 14.2 14.0-16.8 (g/dL) Final HCT 08/06/2023 10:51:37 47.1 40.0-48.4 (%) Final MCV 08/06/2023 10:51:37 101.5 82.0-99.5 (fL) Final MCH 08/06/2023 10:51:37 30.6 27.0-34.0 (pg) Final MCHC 08/06/2023 10:51:37 30.1 32.0-36.0 (g/dL) Final RDW 08/06/2023 10:51:37 19.8 11.5-15.5 (%) Final Platelets 08/06/2023 10:51:37 239 140-400 (K/uL) Final MPV 08/06/2023 10:51:37 11.1 6.6-11.1 (fL) Final Nucleated erythrocytes/100 leukocytes [Ratio] in Blood by Automated count 08/06/2023 10:51:37 0 <=0 (/100 WBCs) Final Performing Location [facility] [place] [address] [place] [address]
--- OUTSIDE RECORDS SUMMARY | 2023-11-12 15:58 | External Medical Summary ---
Author Name Unknown Address Unknown Organization [id number]:LABORATORY [facility] - [address] [place] [address] Laboratory Report Ordering Provider Test Date Status BERTHA PRESCOTT 07/30/2023 10:39:35 Final Observation Date Value Abnormality Reference (Units ) Status PSA 07/30/2023 10:39:35 1.13 <4.10 (ng/ mL) Final Performing Location LABORATORY [facility] - [address] [place] [address]
--- OUTSIDE RECORDS SUMMARY | 2023-11-12 15:58 | External Medical Summary | Summary of Care ---
Author Name Unknown Organization [facility] Address [address] [place] [address] Phone [phone] Care Team Providers Care Terrazzo Polisher Name Role Phone Taurus Delgado MD Primary Care Provider [phone] Reason for Visit * Reason Onset Date Comments FYI 07/31/2023 Encounter Details Date Type Department Care Team (Late st Contact Info) Description 07/31/2023 Telephone Hematology/Oncology, [facility] [address] [place] [address] Gopi Cheung MD [address] [place] [address] FYI Allergies No known active allergiesdocumented as of this encounter (statuses as of 07/31/2023) Medications Medication Sig Dispensed Refills Start Date End Date Status NITROGLYCERIN 0.[address] under the tongue. times 3 doses 25 11 01/02/2005 Active PROSCAR 5 MG PO TABSIndications:Youth Development Professional feliberto coronary artery disease 1 TABLET DAILY [...] encounter Miscellaneous Notes * Telephone Encounter - Yudi Barnett CPhT - 07/31/2023 1:17 PM EST MEDICATION THERAPY MANAGEMENT HYDROXYUREA TREATMENT PROGRESS NOTE Shubham Calles [phone] Patient Phone Numbers Communication: Spoke to Caller Treatment: Medication: Hydroxyurea (Hydrea) Indication/Staging/Diagnosis Code: ET, JAK2+ / D47.3 Dose: 500mg MWF and 1000mg AOD (DI 07/23/23) Administration: +/- food Start Date: 06/03/23 PLT goal: < 400K Primary Sap Bw Developer/Oncologist: Dr. Cheung Caller: Patient Incoming Request: Returning missed call from oral chemo clinic:Lab results review Action: Scheduled lab appointment Additional Notes: Informed him per [facility] notes, PLT at goal, WBC elevated but declining, all other labs stable. To continue current Hydrea dose and repeat labs in 1 week. Labs scheduled for 08/06 in [place]. Yudi Barnett Hide Sorter II [facility] Oral Chemotherapy Clinic 07/31/2023 1:20 PM Time Spent on Encounter: 6 - 10 minutes documented in this encounter Plan of Treatment Upcoming Encounters Date Type Department Care Team (Latest Contact Info) Description 08/06/2023 11:00 AM EST Laboratory Laboratory, [place] [address] [place] [address] [place], Laboratory [facility] [place] [address] 08/07/2023 9:00 AM EST Pharmacy Pharmacy Hematology Oncology [facility] [address] [place] [address] [facility], [facility] Hem/Onc [address] [place] [address] 08/19/2023 1:30 PM EST Procedure Only Urology, [facility] [address] [facility] [place] [address] Kp Fisher MD 27 [facility] [address] [place] [address] 08/26/2023 12:20 PM EST Office Visit [facility] [address] [place] [facility] [place] [address] Taurus Delgado MD [address] [place] [address] 09/11/2023 11:00 AM EST Office Visit Hematology/Oncolog y [facility] [address] [place] [address] Gopi Cheung MD [address] [place] [address] 09/25/2023 1:00 PM EDT Hospital En[facility] Room [facility] 132 [facility] [place] [phone] Nader Iglesias MD 09/25/2023 1:00 PM EDT - 09/25/2023 1:30 PM EDT Surgery ENDO [facility], Endoscopy Room [facility] [place] [phone] Nader Iglesias MD COLONOSCOPY FLEXIBLE PROXIMAL DIAGNOSTIC 11/11/2023 1:30 PM EDT Office Visit Cardiology, [facility] [address] [facility] [place] [address] Maria Dolores Mas PA-C [address] [place] [address] [place] [address] Scheduled Procedures Name Priority Associated Diagnoses Date/Ti me COLONOSCOPY FLEXIBLE PROXIMAL DIAGNOSTIC Screen for colon cancer 09/25/2023 1:00 PM EDT Health Maintenance Due Date Last Done Comments DISCUSS TOBACCO CESSATION (REFER TO SMARTSET #6057) 1950 COVID-19 Vaccine (#1) 1954 Albumin/Creatinine Ratio 10/13/1967 CKD PHOS USE SMARTSET 11183 10/13/1967 Colonoscopy 1994 Sigmoidoscopy 1994 Zoster Vaccines (1 of 2) 03/23/2016 01/27/2016 Depression Screening 02/04/2021 02/05/2020 Cologuard 03/25/2021 03/25/2018 Colorectal Cancer Screening 10/23/2022 Fecal Occult Blood Test 10/23/2022 10/23/2021 GFR 01/28/2024 07/30/2023, 12/2 12/2022, 06/10/2023, Additional history exists HbA1c 05/03/2024 05/03/2023, 04/0 12/2020, 10/09/2018 CKD HGB USE SMARTSET 92351 07/30/202407/30, 07/30/2023, 07/22/2023, Additional history exists DTaP,Tdap,and Td Vaccines (3 - Td or Tdap) 02/20/2033 02/20/2023, 09/25/2012 Pneumococcal Vaccine: 65+ Years Completed 03/18/2017, 11/30/2015, 03/13/2009 LUNG CANCER SCREENING - USE SMARTSET 45869 Completed 10/06/2021, 05/24/2017, 12/04/2016 AAA Screening Completed [...] Advance Directives occurred with: Patient Care Teams Terrazzo Polisher Relationship Specialty Start Date End Date Taurus Delgado MD [address] [place] [address] PCP - General Family Medicine 03/20/16 documented as of this encounter
--- OUTSIDE RECORDS SUMMARY | 2023-11-12 15:58 | External Medical Summary | Summary of Care ---
Author Name Unknown Organization [facility] Address [address] [facility] [address] Phone [phone] Care Team Providers Care Artificial Plastic Eye Maker Name Role Phone Taurus Delgado MD Primary Care Provider [phone] Reason for Visit * Reason Comments Outpatient Testing Encounter Details Date Type Department Care Team (Latest Contact Info) Description 07/30/2023 11:00 AM EST Laboratory Laboratory, [place] [address] [place] [address] [place], Laboratory [address] [place] [address] BPH with obstruction/lower urinary tract symptoms; JAK2 V617F mutation; Essential thrombocythemia (HCC) Allergies No known active allergiesdocumented as of this encounter (statuses as of 07/30/2023) Medications Medication Sig Dispensed Refills Start Date End Date Status NITROGLYCERIN 0.[address] under the tongue. times 3 doses 25 11 01/02/2005 Active PROSCAR 5 MG PO TABSIndications:Referral Nurse feliberto coronary artery disease 1 TABLET DAILY [...] Oncology [facility] [address] [place] [address] [facility], [facility] Hem/Onc [address] [place] [address] 08/19/2023 1:30 PM EST Procedure Only Urology, [facility] [address] [place] [address] Kp Fisher MD [address] [place] [address] [place] [address] 08/26/2023 12:20 PM EST Office Visit [facility] [address] [place] [phone] Taurus Delgado MD [address] [place] [address] 09/11/2023 11:00 AM EST Office Visit Hematology/Oncology [facility] [address] [place] [address] Gopi Cheung MD 200 [facility] [place] [address] 09/25/2023 1:00 PM EDT Hospital Encounter ENDO [facility], Endoscopy Room [facility] 132 [facility] [place] [phone] Nader Iglesias MD 09/25/2023 1:00 PM EDT - 09/25/2023 1:30 PM EDT Surgery ENDO [facility], Endoscopy Room [facility] [address] [place] [phone] Nader Iglesias MD COLONOSCOPY FLEXIBLE PROXIMAL DIAGNOSTIC 11/11/2023 1:30 PM EDT Office Visit Cardiology, [facility] [address] [place] [address] Maria Dolores Mas PA-C [address] [place] [address] Pending Results Name Type Priority Associated Diagnoses Date /Time PSA Lab Routine BPH with obstruction/lower urinary tract symptoms 07/30/2023 10:39 AM EST CBC WITH WBC DIFFERENTIAL Lab STAT Essential thrombocythemia ([facility]) 07/30/2023 10:39 AM EST COMPREHENSIVE METABOLIC PANEL Lab STAT Essential thrombocythemia (HCC) 07/30/2023 10:39 AM EST CBC Lab STAT Essential thrombocythemia ([facility]) 07/30/2023 10:39 AM EST DIFFERENTIAL, AUTOMATED Lab STAT Essential thrombocythemia ([facility]) 07/30/2023 10:39 AM EST Scheduled Procedures Name Priority Associated Diagnoses Date/Ti me COLONOSCOPY FLEXIBLE PROXIMAL DIAGNOSTIC Screen for colon cancer 09/25/2023 1:00 PM EDT Health Maintenance Due Date Last Done Comments DISCUSS TOBACCO CESSATION (REFER TO SMARTSET #3731) 1950 COVID-19 Vaccine (#1) 1954 Albumin/Creatinine Ratio 10/13/1967 CKD PHOS USE SMARTSET 39238 10/13/1967 Colonoscopy 1994 Sigmoidoscopy 1994 Zoster Vaccines (1 of 2) 03/23/2016 01/27/2016 Depression Screening 02/04/2021 02/05/2020 Cologuard 03/25/2021 03/25/2018 Colorectal Cancer Screening 10/23/2022 Fecal Occult Blood Test 10/23/2022 10/23/2021 GFR 01/01/2024 07/02/2023, 12/0 10/2022, 05/03/2023, Additional history exists HbA1c 05/03/2024 05/03/2023, 04/0 12/2020, 10/09/2018 CKD HGB USE SMARTSET 75352 07/22/202407/22, 07/22/2023, 07/15/2023, Additional history exists DTaP,Tdap,and Td Vaccines (3 - Td or Tdap) 02/20/2033 02/20/2023, 09/25/2012 Pneumococcal Vaccine: 65+ Years Completed 03/18/2017, 11/30/2015, 03/13/2009 LUNG CANCER SCREENING - USE SMARTSET 15722 Completed 10/06/2021, 05/24/2017, 12/04/2016 AAA Screening Completed [...] Advance Directives occurred with: Patient Care Teams Artificial Plastic Eye Maker Relationship Specialty Start Date End Date Taurus Delgado MD [address] [place] [address] PCP - General Family Medicine 03/20/16 documented as of this encounter
--- OUTSIDE RECORDS SUMMARY | 2023-11-12 15:58 | External Medical Summary | Summary of Care ---
Author Name Unknown Organization [facility] Address [address] [facility] [place] [address] Phone [phone] Care Team Providers Care Woodworking Shop Hand Name Role Phone Taurus Delgado MD Primary Care Provider Reason for Visit * Reason Onset Date Comments Medication Refill 07/23/2023 Encounter Details Date Type Department Care Team (Late st Contact Info) Description 07/23/2023 Refill Hematology/Oncology [facility] [place] [address] [facility] [place] [address] Gopi Cheung MD [address] [place] [address] JAK2 V617F mutation Allergies No known active allergiesdocumented as of [...] , Saturday 50 Capsule 5 07/23/2023 Active Hydroxyurea 500 MG Oral Capsule (Hydrea)Indication [...] encounter Miscellaneous Notes * Telephone Encounter - Pat Tolliver RPh - 07/23/2023 9:34 AM EST Hydrea RX per 07/23 [facility] encounter documented in this encounter Plan of Treatment Upcoming Encounters Date Type Department Care Team (Latest Contact Info) Description 07/30/2023 11:00 AM EST Laboratory Laboratory, [place] [address] [place] [facility] [place] [phone] [facility] [address] [place], [place] [address] 07/31/2023 9:00 AM EST Pharmacy Pharmacy Hematology Oncology [facility] [address] [place] [address] [facility] Hem/Onc [address] [place] [address] 08/19/2023 1:30 PM EST Procedure Only Urology, [facility] [address] [facility] [place] [address] Kp Fisher MD [address] [place] [address] 08/26/2023 12:20 PM EST Office Visit [facility] [address] [place] [facility] [place] [address] Taurus Delgado MD [address] [place], [place] [address] 09/11/2023 11:00 AM EST Office Visit Hematology/Oncolog y [facility] [address] [place] [address] Gopi Cheung MD [address] [place] [facility] [place] [address] 09/25/2023 1:00 PM EDT Hospital Encounter ENDO [facility], [facility]oscopy [facility] [address] [facility] [place] [phone] Nader Iglesias MD 09/25/2023 1:00 PM EDT - 09/25/2023 1:30 PM EDT Surgery ENDO [facility], Endoscopy Room [facility] [address] [facility] [place] [phone] Nader Iglesias MD COLONOSCOPY FLEXIBLE PROXIMAL DIAGNOSTIC 11/11/2023 1:30 PM EDT Office Visit Cardiology, [facility] [address] [place] [address] Maria Dolores Mas PA-C [address] [place] [address] [place] [address] Scheduled Procedures Name Priority Associated Diagnoses Date/Ti me COLONOSCOPY FLEXIBLE PROXIMAL DIAGNOSTIC Screen for colon cancer 09/25/2023 1:00 PM EDT Health Maintenance Due Date Last Done Comments DISCUSS TOBACCO CESSATION (REFER TO SMARTSET #3291) 1950 COVID-19 Vaccine (#1) 1954 Albumin/Creatinine Ratio 10/13/1967 CKD PHOS USE SMARTSET 08012 10/13/1967 Colonoscopy 1994 Sigmoidoscopy 1994 Zoster Vaccines (1 of 2) 03/23/2016 01/27/2016 Depression Screening 02/04/2021 02/05/2020 Cologuard 03/25/2021 03/25/2018 Colorectal Cancer Screening 10/23/2022 Fecal Occult Blood Test 10/23/2022 10/23/2021 GFR 01/01/2024 07/02/2023, 1210/2022, 05/03/2023, Additional history exists HbA1c 05/03/2024 05/03/2023, 04/0 12/2020, 10/09/2018 CKD HGB USE SMARTSET 22240 07/22/202407/22, 07/22/2023, 07/15/2023, Additional history exists DTaP,Tdap,and Td Vaccines (3 - Td or Tdap) 02/20/2033 02/20/2023, 09/25/2012 Pneumococcal Vaccine: 65+ Years Completed 03/18/2017, 11/30/2015, 03/13/2009 LUNG CANCER SCREENING - USE SMARTSET 73358 Completed 10/06/2021, 05/24/2017, 12/04/2016 AAA Screening Completed [...] this encounter Visit Diagnoses Diagnosis JAK2 V617F mutation Other ill-defined conditions Screen for colon cancer Special screening for malignant neoplasms, colon documented in this encounter Advance Directives Latest Code Status on File Code Status Date Activated Date Inactivated Comments Full Code 12/06/2013 1:46 PM 12/07/2013 7:34 PM This or chastity reflects the patients wishes and were consensually agreed upon. Question Answer Comments Discussion of Advance Directives occurred with: Patient Care Teams Woodworking Shop Hand Relationship Specialty Start Date End Date Taurus Delgado MD [address] [place] [address] PCP - General Family Medicine 03/20/16 documented as of this encounter
--- OUTSIDE RECORDS SUMMARY | 2023-11-12 15:58 | External Medical Summary ---
Author Name Unknown Address Unknown Organization [id number][place] [place] 100 [facility] [address] Laboratory Report Ordering Provider Test Date Status JUANJO HERMOSILLO 07/30/2023 10:39:35 Final Observation Date Value Abnormality Reference (Units ) Status SYNC LEUKOCYTES IN BLOOD BY AUTOMATED COUNT 07/30/2023 10:39:35 11.48 Above high normal 4.00-10.80 (K/uL) Final Segs 07/30/2023 10:39:35 77.5 Above high normal 40.0-75.0 (%) Final Lymphs % 07/30/2023 10:39:35 10.5 Below low normal 18.0-42.0 (%) Final Monos 07/30/2023 10:39:35 9.3 1.0-11.0 (%) Final Eosinophils 07/30/2023 10:39:35 1.4 0.0-6.0 (%) Final Basos 07/30/2023 10:39:35 1.0 0.0-2.0 (%) Final Immature Granulocyte, Percent 07/30/2023 10:39:35 0.3 0.0-2.0 (%) Final Absolute Segs 07/30/2023 10:39:35 8.88 Above high normal 1.80-7.70 (K/uL) Final Lymphs, absolute 07/30/2023 10:39:35 1.21 1.00-4.80 (K/ul) Final Monos, Abs 07/30/2023 10:39:35 1.07 0.00-1.10 (K/uL) Final Eos, Abs 07/30/2023 10:39:35 0.16 0.00-0.70 (K/uL) Final Basos, Abs 07/30/2023 10:39:35 0.12 0.00-0.20 (K/uL) Final Immature Granulocytes, Number 07/30/2023 10:39:35 0.04 0.00-0.20 (K/uL) Final Performing Location [facility] [place] [facility] [address] [facility] [address]
--- OUTSIDE RECORDS SUMMARY | 2023-11-12 15:58 | External Medical Summary ---
Author Name Unknown Address Unknown Organization [id number]:[facility] [place] - 100 [facility] [address] Laboratory Report Ordering Provider Test Date Status JUANJO HERMOSILLO 08/06/2023 10:51:37 Final Observation Date Value Abnormality Reference (Units ) Status SYNC LEUKOCYTES IN BLOOD BY AUTOMATED COUNT 08/06/2023 10:51:37 13.04 Above high normal 4.00-10.80 (K/uL) Final Segs 08/06/2023 10:51:37 76.5 Above high normal 40.0-75.0 (%) Final Lymphs % 08/06/2023 10:51:37 11.6 Below low normal 18.0-42.0 (%) Final Monos 08/06/2023 10:51:37 8.9 1.0-11.0 (%) Final Eosinophils 08/06/2023 10:51:37 1.5 0.0-6.0 (%) Final Basos 08/06/2023 10:51:37 0.9 0.0-2.0 (%) Final Immature Granulocyte, Percent 08/06/2023 10:51:37 0.6 0.0-2.0 (%) Final Absolute Segs 08/06/2023 10:51:37 9.98 Above high normal 1.80-7.70 (K/uL) Final Lymphs, absolute 08/06/2023 10:51:37 1.51 1.00-4.80 (K/ul) Final Monos, Abs 08/06/2023 10:51:37 1.16 Above high normal 0.00-1.10 (K/uL) Final Eos, Abs 08/06/2023 10:51:37 0.19 0.00-0.70 (K/uL) Final Basos, Abs 08/06/2023 10:51:37 0.12 0.00-0.20 (K/uL) Final Immature Granulocytes, Number 08/06/2023 10:51:37 0.08 0.00-0.20 (K/uL) Final Performing Location [facility] [place] - [facility] [place] [address] [facility] [address]
--- OUTSIDE RECORDS SUMMARY | 2023-11-12 15:58 | External Medical Summary ---
Author Name Unknown Address Unknown Organization [id number]:[facility] [place] - [facility] [address] [facility] [address] [facility] [place] [address] Laboratory Report Ordering Provider Test Date Status JUANJO HERMOSILLO 07/30/2023 10:39:35 Final Observation Date Value Abnormality Reference (Units ) Status WBC, Total 07/30/2023 10:39:35 11.48 Above high normal 4.00-10.80 (K/uL) Final RBC 07/30/2023 10:39:35 4.57 4.50-5.25 (M/uL) Final Hemoglobin 07/30/2023 10:39:35 13.9 Below low normal 14.0-16.8 (g/dL) Final HCT 07/30/2023 10:39:35 43.8 40.0-48.4 (%) Final MCV 07/30/2023 10:39:35 95.8 82.0-99.5 (fL) Final MCH 07/30/2023 10:39:35 30.4 27.0-34.0 (pg) Final MCHC 07/30/2023 10:39:35 31.7 32.0-36.0 (g/dL) Final RDW 07/30/2023 10:39:35 19.6 11.5-15.5 (%) Final Platelets 07/30/2023 10:39:35 384 140-400 (K/uL) Final MPV 07/30/2023 10:39:35 10.6 6.6-11.1 (fL) Final Nucleated erythrocytes/100 leukocytes [Ratio] in Blood by Automated count 07/30/2023 10:39:35 0 <=0 (/100 WBCs) Final Performing Location [facility] [place] - [address] [place] [address]
--- OUTSIDE RECORDS SUMMARY | 2023-11-12 15:59 | External Medical Summary | Summary of Care ---
Author Name Unknown Organization [facility] Address [address] [facility] [place] [address] Phone [phone] Care Team Providers Care Consultant Intern Name Role Phone Taurus Delgado MD Primary Care Provider [phone] Reason for Visit * Reason Onset Date Comments FYI 07/17/2023 Encounter Details Date Type Department Care Team (Late st Contact Info) Description 07/17/2023 Telephone Hematology/Oncology [facility] [place] 200 [facility] [place] [address] Gopi Cheung MD 200 [facility] [place] [address] FYI Allergies No known active allergiesdocumented as of this encounter (statuses as of 07/17/2023) Medications Medication Sig Dispensed Refills Start Date [...] Take one 500mg cap by mouth daily - and two 500mg caps (1000mg total) by mouth daily Sat/Sun 40 Capsule 5 06/26/2023 Active Additional Information Patient taking differently: Take one 500mg cap by mouth daily M- and two 500mg caps (1000mg total) by mouth daily Sat/Sat/Sun, Reported on 07/03/2023 documented as of this encounter (statuses as of 07/17/2023) Active Problems Problem Noted Date Diagnosed Date [...] as of this encounter (statuses as of 07/17/2023) Resolved Problems Problem Noted Date Diagnosed Date Resolved Date NSTEMI (non-ST elevated myoc ardial infarction) 12/07/2013 12/07/2013 documented as of this encounter (statuses as of 07/17/2023) Immunizations Name Administration Dates Next Due Pneumococcal [...] Telephone Encounter - Yudi Barnett CPhT - 07/17/2023 9:29 AM EST MEDICATION THERAPY MANAGEMENT HYDROXYUREA TREATMENT PROGRESS NOTE Shubham Calles [phone] Patient Phone Numbers Communication: Spoke to Caller Treatment: Medication: Hydroxyurea (Hydrea) Indication/Staging/Diagnosis Code: ET, JAK2+ / D47.3 Dose: 500mg M-Th and 1000mg Fri/Sat/Sun (DI 07/03/23) Administration: +/- food Start Date: 06/03/23 PLT goal: < 400K Primary Associate Manager/Oncologist: Dr. Cheung Caller: Patient Incoming Request: Returning missed call from oral chemo clinic:Lab results review Action: Scheduled lab appointment Additional Notes: Advised to continue current Hydrea dose per [facility] progress notes and repeat labs in1 week. Scheduled lab appt for 07/22 @ 12pm Yudi Barnett Utilization Review Specialist II [facility] Oral Chemotherapy Clinic 07/17/2023 9:31 AM Time Spent on Encounter: < 5 minutes documented in this encounter Plan of Treatment Upcoming Encounters Date Type Department Care Team (Latest Contact Info) Description 07/22/2023 12:00 PM EST Laboratory Laboratory, [address] [address] [address] 07/23/2023 9:00 AM EST Pharmacy Pharmacy Hematology Oncology [place] [address] [place] [address] [facility] Hem/Onc [address] [place] [address] 08/19/2023 1:30 PM EST Procedure Only Urology, [facility] 132 [facility] [place] [address] Kp Fisher MD 27 [facility] [address] [place] [address] 08/26/2023 12:20 PM EST Office Visit [facility] [address] [place] [facility] [place] [address] Taurus Delgado MD [address] [place] [facility] [place] [address] 09/11/2023 11:00 AM EST Office Visit Hematology/Oncolog y [facility] [address] [place] [address] Gopi Cheung MD [address] [place] [address] 09/25/2023 1:00 PM EDT Hospital Encounter ENDO [facility], [facility] [place] [phone] Nader Iglesias MD 09/25/2023 1:00 PM EDT - 09/25/2023 1:30 PM EDT Surgery ENDO [facility], Endoscopy Room [facility] [address] [place] [phone] Nader Iglesias MD COLONOSCOPY FLEXIBLE PROXIMAL DIAGNOSTIC 11/11/2023 1:30 PM EDT [facility] [address] [facility] [place] [phone] Maria Dolores Mas PA-C [address] [place] [address] [place] [address] Scheduled Procedures Name Priority Associated Diagnoses Date/Ti me COLONOSCOPY FLEXIBLE PROXIMAL DIAGNOSTIC Screen for colon cancer 09/25/2023 1:00 PM EDT Health Maintenance Due Date Last Done Comments DISCUSS TOBACCO CESSATION (REFER TO SMARTSET #8991) 1950 COVID-19 Vaccine (#1) 1954 Albumin/Creatinine Ratio 10/13/1967 CKD PHOS USE SMARTSET 46335 10/13/1967 Colonoscopy 1994 Sigmoidoscopy 1994 Zoster Vaccines (1 of 2) 03/23/2016 01/27/2016 Depression Screening 02/04/2021 02/05/2020 Cologuard 03/25/2021 03/25/2018 Colorectal Cancer Screening 10/23/2022 Fecal Occult Blood Test 10/23/2022 10/23/2021 GFR 01/01/2024 07/02/2023, 12/10/2022, 05/03/2023, Additional history exists HbA1c 05/03/2024 05/03/2023, 04/0 12/2020, 10/09/2018 CKD HGB USE SMARTSET 13865 07/15/202407/15, 07/15/2023, 07/09/2023, Additional history exists DTaP,Tdap,and Td Vaccines (3 - Td or Tdap) 02/20/2033 02/20/2023, 09/25/2012 Pneumococcal Vaccine: 65+ Years Completed 03/18/2017, 11/30/2015, 03/13/2009 LUNG CANCER SCREENING - USE SMARTSET 02706 Completed 10/06/2021, 05/24/2017, 12/04/2016 AAA Screening Completed [...] Advance Directives occurred with: Patient Care Teams Consultant Intern Relationship Specialty Start Date End Date Taurus Delgado MD [address] [place] [facility] [place] [address] PCP - General Family Medicine 03/20/16 documented as of this encounter
--- OUTSIDE RECORDS SUMMARY | 2023-11-12 15:59 | External Medical Summary | Summary of Care ---
Author Name Unknown Organization [facility] Address [address] [place] [address] Phone [phone] Care Team Providers Care Barrel Bung Remover And Dumper Name Role Phone Taurus Delgado MD Primary Care Provider [phone] Reason for Visit * Reason Comments Medication Management Encounter Details Date Type Department Care Team (Late st Contact Info) Description 07/16/2023 9:00 AM [facility] Pharmacy Pharmacy Hematology Oncology [facility] [address] [place] [address] [facility], [facility] Hem/Onc [address] [place] [address] JAK2 [id number] mutation* Allergies No known active allergiesdocumented as of this encounter (statuses as of 07/16/2023) Medications Medication Sig Dispensed Refills Start Date [...] as of this encounter (statuses as of 07/16/2023) Active Problems Problem Noted Date Diagnosed Date [...] as of this encounter (statuses as of 07/16/2023) Resolved Problems Problem Noted Date Diagnosed Date Resolved Date NSTEMI (non-ST elevated myoc ardial infarction) 12/07/2013 12/07/2013 documented as of this encounter (statuses as of 07/16/2023) Immunizations Name Administration Dates Next Due Pneumococcal [...] of this encounter Progress Notes * Pat Tolliver [facility] - 07/16/2023 9:33 AM EST MEDICATION THERAPY MANAGEMENT HYDROXYUREA TREATMENT PROGRESS NOTE Shubham Calles [phone] Patient Phone Numbers Preferred Lab: [facility]: [facility] Communication: Left message Treatment: Medication: Hydroxyurea (Hydrea) Indication/Staging/Diagnosis Code: ET, 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 Cheung Prophylactic Meds: ASA 81mg daily Dose adjustment / medication hold: 06/11/23: dose increase to 500mg M-F and 1000mg Sat/Sun 07/03/23: dose increase to 500mg M-Th and 1000mg Fr/Sat/Sun Interval History: N/A Changes to medication list since last visit? No Assessment and Plan: PLT above goal but declining WBC elevated but declining All other labs stable Continue current hydrea dose Repeat labs in 1 week Assessment of compliance: N/A Dose adjustment needed based on lab or adverse drug reaction? No Follow up: 1 week Pat Tolliver, PharmD, BCOP Clinical Pharmacist, [facility] Oral Chemotherapy [facility] 07/16/2023, 9:36 AM Monitoring Parameters: Estimated CrCl Serum creatinine: [...] Pertinent Labs: Latest Reference Range & Units 07/02/23 10:57 07/09/23 10:49 07/15/23 11:03 WBC 4.00 - 10.80 K/uL 11.42 (H) 15.96 (H) 12.91 (H) HGB 14.0 - 16.8 g/dL 13.3 (L) 14.0 13.2 (L) HCT 40.0 - 48.4 % 41.8 45.0 42.4 MCV 82.0 - 99.5 fL 93.5 95.7 96.1 PLT 140 - 400 K/uL 531 (H) 511 (H) 476 (H) Absolute Neutrophils 1.80 - 7.70 K/uL 8.38 (H) 12.32 (H) 10.31 (H) Time Spent on Encounter: 6 - [...] 9:00 AM EST Pharmacy Pharmacy Hematology Oncology [facility] [address] [place] [address] [facility], [facility] Hem[facility]Onc [address] [place] [address] 08/19/2023 1:30 PM EST Procedure Only Urology, [facility] [address] [facility] [place] [address] Kp Fisher MD 27 [facility] [address] [place] [address] 08/26/2023 12:20 PM EST Office Visit [facility] [address] [place] [phone] Taurus Delgado MD [address] [place], [place] [phone] 09/11/2023 11:00 AM EST Office Visit Hematology/Oncology [facility] [address] [place] [address] Goip Cheung MD [address] [place] [address] 09/25/2023 1:00 PM EDT Hospital Encounter ENDO [facility], Endoscopy Room [facility] [address] [place] [phone] Nader Iglesias MD 09/25/2023 1:00 PM EDT - 09/25/2023 1:30 PM EDT Surgery ENDO [facility], Endoscopy Room [facility] [address] [place] [address] Nader Iglesias MD COLONOSCOPY FLEXIBLE PROXIMAL DIAGNOSTIC 11/11/2023 1:30 PM EDT Office Visit Cardiology, [facility] [address] [facility] [place] [address] Maria Dolores Mas PA-C 400 [facility] [place] [phone] Scheduled Procedures Name Priority Associated Diagnoses Date/Ti me COLONOSCOPY FLEXIBLE PROXIMAL DIAGNOSTIC Screen for colon cancer 09/25/2023 1:00 PM EDT Health Maintenance Due Date Last Done Comments DISCUSS TOBACCO CESSATION (REFER TO SMARTSET #3291) 1949 COVID-19 Vaccine (#1) 1954 Albumin/Creatinine Ratio 10/13/1967 CKD PHOS USE SMARTSET 49877 10/13/1967 Colonoscopy 1994 Sigmoidoscopy 1994 Zoster Vaccines (1 of 2) 03/23/2016 01/27/2016 Depression Screening 02/04/2021 02/05/2020 Cologuard 03/25/2021 03/25/2018 Colorectal Cancer Screening 10/23/2022 Fecal Occult Blood Test 10/23/2022 10/23/2021 GFR 01/01/2024 07/02/2023, 120 10/2022, 05/03/2023, Additional history exists HbA1c 05/03/2024 05/03/2023, 04/12/2020, 10/09/2018 CKD HGB USE SMARTSET 66126 07/15/202407/15, 07/15/2023, 07/09/2023, Additional history exists DTaP,Tdap,and Td Vaccines (3 - Td or Tdap) 02/20/2033 02/20/2023, 09/25/2012 Pneumococcal Vaccine: 65+ Years Completed 03/18/2017, 11/30/2015, 03/13/2009 LUNG CANCER SCREENING - USE SMARTSET 10219 Completed 10/06/2021, 05/24/2017, 12/04/2016 AAA Screening Completed [...] Advance Directives occurred with: Patient Care Teams Barrel Bung Remover And Dumper Relationship Specialty Start Date End Date Taurus Delgado MD [address] [place] [address] PCP - General Family Medicine 03/20/16 documented as of this encounter
--- OUTSIDE RECORDS SUMMARY | 2023-11-12 15:59 | External Medical Summary ---
Author Name Unknown Address Unknown Organization K01:LABORATORY [facility] - 100 [facility] [address] Laboratory Report Ordering Provider Test Date Status JUANJO HERMOSILLO 07/22/2023 11:52:04 Final Observation Date Value Abnormality Reference (Units ) Status SYNC LEUKOCYTES IN BLOOD BY AUTOMATED COUNT 07/22/2023 11:52:04 15.34 Above high normal 4.00-10.80 (K/uL) Final Segs 07/22/2023 11:52:04 77.7 Above high normal 40.0-75.0 (%) Final Lymphs % 07/22/2023 11:52:04 9.8 Below low normal 18.0-42.0 (%) Final Monos 07/22/2023 11:52:04 9.8 1.0-11.0 (%) Final Eosinophils 07/22/2023 11:52:04 1.1 0.0-6.0 (%) Final Basos 07/22/2023 11:52:04 0.9 0.0-2.0 (%) Final Immature Granulocyte, Percent 07/22/2023 11:52:04 0.7 0.0-2.0 (%) Final Absolute Segs 07/22/2023 11:52:04 11.90 Above high normal 1.80-7.70 (K/uL) Final Lymphs, absolute 07/22/2023 11:52:04 1.51 1.00-4.80 (K/ul) Final Monos, Abs 07/22/2023 11:52:04 1.51 Above high normal 0.00-1.10 (K/uL) Final Eos, Abs 07/22/2023 11:52:04 0.17 0.00-0.70 (K/uL) Final Basos, Abs 07/22/2023 11:52:04 0.14 0.00-0.20 (K/uL) Final Immature Granulocytes, Number 07/22/2023 11:52:04 0.11 0.00-0.20 (K/uL) Final Performing Location [facility] - [facility] [address]. [facility] [address]
--- OUTSIDE RECORDS SUMMARY | 2023-11-12 15:59 | External Medical Summary | Summary of Care ---
Author Name Unknown Organization [facility] Address [address] [facility] [place] [address] Phone [phone] Care Team Providers Care Pastry Chef Name Role Phone Taurus Delgado MD Primary Care Provider [phone] Reason for Visit * Reason Comments Outpatient Testing Encounter Details Date Type Department Care Team (Latest Contact Info) Description 07/15/2023 11:00 AM EST Laboratory Laboratory, [place] [address] [place] [address] [place] [address] [place] [address] Essential thrombocythemia (HCC) Allergies No known active allergiesdocumented as of this encounter (statuses as of 07/15/2023) Medications Medication Sig Dispensed Refills Start Date [...] as of this encounter (statuses as of 07/15/2023) Active Problems Problem Noted Date Diagnosed Date [...] as of this encounter (statuses as of 07/15/2023) Resolved Problems Problem Noted Date Diagnosed Date Resolved Date NSTEMI (non-ST elevated myoc ardial infarction) 12/07/2013 12/07/2013 documented as of this encounter (statuses as of 07/15/2023) Immunizations Name Administration Dates Next Due Pneumococcal [...] Department Care Team (Latest Contact Info) Description 07/16/2023 9:00 AM EST Pharmacy Pharmacy Hematology Oncology [facility] [place] [address] [place] [address] [facility], [facility] Hem/Onc [address] [place] [address] 08/19/2023 1:30 PM EST Procedure Only Urology, [facility] [address] [place] [address] Kp Fisher MD 27 [facility] [place] [address] [place] [address] 08/26/2023 12:20 PM EST Office Visit [place] [address] [place] [phone] Taurus Delgado MD [address] [place] [address] 09/11/2023 11:00 AM EST Office Visit Hematology/Oncology [facility] [address] [facility] [place] [address] Gopi Cheung MD [address] [facility] [place] [address] 09/25/2023 1:00 PM EDT Hospital Encounter ENDO [facility], Endoscopy Room [facility] [address] [place] [phone] Nader Iglesias MD 09/25/2023 1:00 PM EDT - 09/25/2023 1:30 PM EDT Surgery ENDO [facility], Endoscopy Room [facility] [address] [place] [phone] Nader Iglesias MD COLONOSCOPY FLEXIBLE PROXIMAL DIAGNOSTIC 11/11/2023 1:30 PM EDT Office Visit Cardiology, [facility] [address] [place] [address] Maria Dolores Mas PAHeraclio [address] [place] [address] [place] [address] Pending Results Name Type Priority Associated Diagnoses Date /Time CBC WITH WBC DIFFERENTIAL Lab STAT Essential thrombocythemia ([facility]) 07/15/2023 11:03 AM EST CBC Lab STAT Essential thrombocythemia ([facility]) 07/15/2023 11:03 AM EST DIFFERENTIAL, AUTOMATED Lab STAT Essential thrombocythemia ([facility]) 07/15/2023 11:03 AM EST Scheduled Procedures Name Priority Associated Diagnoses Date/Ti me COLONOSCOPY FLEXIBLE PROXIMAL DIAGNOSTIC Screen for colon cancer 09/25/2023 1:00 PM EDT Health Maintenance Due Date Last Done Comments DISCUSS TOBACCO CESSATION (REFER TO SMARTSET #3291) 1950 COVID-19 Vaccine (#1) 1954 Albumin/Creatinine Ratio 10/13/1967 CKD PHOS USE SMARTSET 24759 10/13/1967 Colonoscopy 1994 Sigmoidoscopy 1994 Zoster Vaccines (1 of 2) 03/23/2016 01/27/2016 Depression Screening 02/04/2021 02/05/2020 Cologuard 03/25/2021 03/25/2018 Colorectal Cancer Screening 10/23/2022 Fecal Occult Blood Test 10/23/2022 10/23/2021 GFR 01/01/2024 07/02/2023, 1210/2022, 05/03/2023, Additional history exists HbA1c 05/03/2024 05/03/2023, 04/0 12/2020, 10/09/2018 CKD HGB USE SMARTSET 91076 07/09/202407/09, 07/09/2023, 07/02/2023, Additional history exists DTaP,Tdap,and Td Vaccines (3 - Td or Tdap) 02/20/2033 02/20/2023, 09/25/2012 Pneumococcal Vaccine: 65+ Years Completed 03/18/2017, 11/30/2015, 03/13/2009 LUNG CANCER SCREENING - USE SMARTSET 88677 Completed 10/06/2021, 05/24/2017, 12/04/2016 AAA Screening Completed [...] Advance Directives occurred with: Patient Care Teams Pastry Chef Relationship Specialty Start Date End Date Taurus Delgado MD [address] [place] [address] PCP - General Family Medicine 03/20/16 documented as of this encounter
--- OUTSIDE RECORDS SUMMARY | 2023-11-12 15:59 | External Medical Summary | Summary of Care ---
Author Name Unknown Organization [facility] Address [address] [place] [address] Phone [phone] Care Team Providers Care Stevedore Dock Name Role Phone Taurus Delgado MD Primary Care Provider [phone] Reason for Visit * Reason Comments Medication Management Encounter Details Date Type Department Care Team (Late st Contact Info) Description 07/10/2023 9:00 AM [facility] Pharmacy Hematology Oncology [facility] [address] [place] [address] [facility] Hem/Onc [address] [place] [address] JAK2 [id number] mutation* Allergies No known active allergiesdocumented as of this encounter (statuses as of 07/10/2023) Medications Medication Sig Dispensed Refills Start Date [...] as of this encounter (statuses as of 07/10/2023) Active Problems Problem Noted Date Diagnosed Date [...] as of this encounter (statuses as of 07/10/2023) Resolved Problems Problem Noted Date Diagnosed Date Resolved Date NSTEMI (non-ST elevated myoc ardial infarction) 12/07/2013 12/07/2013 documented as of this encounter (statuses as of 07/10/2023) Immunizations Name Administration Dates Next Due Pneumococcal [...] this encounter Progress Notes * Pat Tolliver, [facility] - 07/10/2023 8:48 AM EST MEDICATION THERAPY MANAGEMENT HYDROXYUREA TREATMENT PROGRESS NOTE Shubham Calles [phone] Patient Phone Numbers Preferred Lab: [facility]: [facility] Communication: Spoke to: Patient Treatment: Medication: Hydroxyurea (Hydrea) Indication/Staging/Diagnosis Code: ET, JAK2+ / D47.3 Dose: 500mg M-Th and 1000mg Fri/Sat/Sun (DI 07/03/23) Administration: +/- food Start Date: 06/03/23 PLT goal: < 400K Primary Logger/Oncologist: Dr. Cheung Prophylactic Meds: ASA 81mg daily Dose adjustment / medication hold: 06/11/23: dose increase to 500mg M-F and 1000mg Sat/Sun 07/03/23: dose increase to 500mg M-Th and 1000mg Fr/Sat/Sun Interval History: Confirms dose increase as above No concerns, tolerating therapy well Changes to medication list since last visit? No Assessment and Plan: PLT above goal but declining WBC elevated Hgb stable All other labs stable Continue current hydrea dose Repeat labs in 1 week (scheduled 07/15 @1100) Assessment of compliance: compliant Dose adjustment needed based on lab or adverse drug reaction? No Follow up: 1 week Pat Tolliver, PharmD, BCOP Clinical Pharmacist, [facility] Oral Chemotherapy [facility] 07/10/2023, 9:27 AM Monitoring Parameters: Estimated CrCl Serum creatinine: [...] Pertinent Labs: Latest Reference Range & Units 06/25/23 12:07 07/02/23 10:57 07/09/23 10:49 WBC 4.00 - 10.80 K/uL 12.49 (H) 11.42 (H) 15.96 (H) HGB 14.0 - 16.8 g/dL 13.4 (L) 13.3 (L) 14.0 HCT 40.0 - 48.4 % 42.7 41.8 45.0 MCV 82.0 - 99.5 fL 93.0 93.5 95.7 PLT 140 - 400 K/uL 577 (H) 531 (H) 511 (H) Absolute Neutrophils 1.80 - 7.70 K/uL 8.92 (H) 8.38 (H) 12.32 (H) Time Spent on Encounter: 6 - [...] Description 07/15/2023 11:00 AM EST Laboratory Laboratory, [address] [phone] [address] [address] 07/16/2023 9:00 AM EST Pharmacy Pharmacy Hematology Oncology [facility] [address] [place] [address] [facility] Hem/Onc [address] [place] [address] 08/19/2023 1:30 PM EST Procedure Only Urology, [facility] 132 [facility] [place] [id number] Kp Fisher MD 27 [facility] [address] [place] [address] 08/26/2023 12:20 PM EST Office Visit [facility] [address] [facility] [place] [address] Taurus Delgado MD [address] [place] [facility] [place] [address] 09/11/2023 11:00 AM EST Office Visit Hematology/Oncolog y [facility] [address] [place] [address] Gopi Cheung MD [address] [place] [address] 09/25/2023 1:00 PM EDT Hospital Encounter ENDO [facility], [facility] [place] [phone] Nader Iglesias MD 09/25/2023 1:00 PM EDT - 09/25/2023 1:30 PM EDT Surgery ENDO [facility], Endoscopy Room [facility] [address] [place] [phone] Nader Iglesias MD COLONOSCOPY FLEXIBLE PROXIMAL DIAGNOSTIC 11/11/2023 1:30 PM EDT Office Visit Cardiology, [facility] [place] [phone] Maria Dolores Mas PA-C 400 [facility] [place] [address] Scheduled Procedures Name Priority Associated Diagnoses Date/Ti me COLONOSCOPY FLEXIBLE PROXIMAL DIAGNOSTIC Screen for colon cancer 09/25/2023 1:00 PM EDT Health Maintenance Due Date Last Done Comments DISCUSS TOBACCO CESSATION (REFER TO SMARTSET #0164) 1950 COVID-19 Vaccine (#1) 1954 Albumin/Creatinine Ratio 10/13/1967 CKD PHOS USE SMARTSET 63569 10/13/1967 Colonoscopy 1994 Sigmoidoscopy 1994 Zoster Vaccines (1 of 2) 03/23/2016 01/27/2016 Depression Screening 02/04/2021 02/05/2020 Cologuard 03/25/2021 03/25/2018 Colorectal Cancer Screening 10/23/2022 Fecal Occult Blood Test 10/23/2022 10/23/2021 GFR 01/01/2024 07/02/2023, 1210/2022, 05/03/2023, Additional history exists HbA1c 05/03/2024 05/03/2023, 0 12/2020, 10/09/2018 CKD HGB USE SMARTSET 89863 07/09/202407/09, 07/09/2023, 07/02/2023, Additional history exists DTaP,Tdap,and Td Vaccines (3 - Td or Tdap) 02/20/2033 02/20/2023, 09/25/2012 Pneumococcal Vaccine: 65+ Years Completed 03/18/2017, 11/30/2015, 03/13/2009 LUNG CANCER SCREENING - USE SMARTSET 05766 Completed 10/06/2021, 05/24/2017, 12/04/2016 AAA Screening Completed [...] Advance Directives occurred with: Patient Care Teams Stevedore Dock Relationship Specialty Start Date End Date Taurus Delgado MD [address] [place] [address] PCP - General Family Medicine 03/20/16 documented as of this encounter
--- OUTSIDE RECORDS SUMMARY | 2023-11-12 15:59 | External Medical Summary | Summary of Care ---
Author Name Unknown Organization [facility] Address [address] [place] [address] Phone [phone] Care Team Providers Care Evp Head Of [employer] Experience Strategy Name Role Phone Taurus Delgado MD Primary Care Provider [phone] Reason for Visit * Reason Comments Medication Management Encounter Details Date Type Department Care Team (Late st Contact Info) Description 07/16/2023 9:00 AM [facility] Pharmacy Pharmacy Hematology Oncology [facility] [address] [place] [address] [facility], [facility] Hem/Onc [address] [place] [address] JAK2 V617F mutation* Allergies No known active [...] 07/17/2023) Immunizations Name Administration Dates Next Due Influenza, [...] Progress Notes * Pat Tolliver, [facility] - 07/16/2023 9:33 AM EST MEDICATION THERAPY MANAGEMENT HYDROXYUREA TREATMENT PROGRESS NOTE Shubham Calles [phone] Patient Phone Numbers Preferred Lab: [facility] [place] Communication: Left message Treatment: Medication: Hydroxyurea (Hydrea) Indication/Staging/Diagnosis Code: ET, JAK2+ / D47.3 Dose: 500mg M-Th and 1000mg Fri/Sat/Sun (DI 07/03/23) Administration: +/- food Start Date: 06/03/23 PLT goal: < 400K Primary Station Manager/Oncologist: Dr. Cheung Prophylactic Meds: ASA 81mg daily [...] hydrea dose Repeat labs in 1 week ADDENDUM: Pt reports he is doing well with no missed doses Pt reports being started on a new medication at the [facility] for his toenails which he has not received and he will provide us with name once received Assessment of compliance: Compliant Dose adjustment needed based on lab or adverse drug reaction? No Follow up: 1 week Pat Tolliver, BarbieD, BCOP Clinical Pharmacist, [facility] Oral Chemotherapy [facility] 07/16/2023, 9:36 AM Andree Banegas PharmD, BCOP Clinical Pharmacist [facility] 07/17/2023, 11:03 AM Monitoring Parameters: Estimated CrCl Serum creatinine: [...] (H) 10.31 (H) Time Spent on Encounter: 11 - [...] Description 07/22/2023 12:00 PM EST Laboratory Laboratory, [place] [address] [place] [address] [place] [address] [place] [address] 07/23/2023 9:00 AM EST Pharmacy Pharmacy Hematology Oncology [address] [address] [facility], [facility] Hem/Onc [facility] [place] [address] 08/19/2023 1:30 PM EST Procedure Only Urology, [facility] [place] [address] Kp Fisher MD [address] [place] [address] [place] [address] 08/26/2023 12:20 PM EST Office Visit [facility] [address] [place] [phone] Taurus Delgado MD [address] [place] [address] 09/11/2023 11:00 AM EST Office Visit Hematology/Oncolog y [facility] [address] [place] [address] Gopi Cheung MD [address] [place] [address] 09/25/2023 1:00 PM EDT Hospital Encounter ENDO [facility], Endoscopy Room [facility] [address] [facility] [place] [phone] Nader Iglesias MD 09/25/2023 1:00 PM EDT - 09/25/2023 1:30 PM EDT Surgery ENDO [facility], Endoscopy Room [facility] [address] [facility] [place] [phone] Nader Iglesias MD COLONOSCOPY FLEXIBLE PROXIMAL DIAGNOSTIC 11/11/2023 1:30 PM EDT Office Visit Cardiology, [facility] [address] [facility] [place] [address] Maria Dolores Mas PA-C [address] [place] [address] [place] [address] Scheduled Procedures Name Priority Associated Diagnoses Date/Ti me COLONOSCOPY FLEXIBLE PROXIMAL DIAGNOSTIC Screen for colon cancer 09/25/2023 1:00 PM EDT Health Maintenance Due Date Last Done Comments DISCUSS TOBACCO CESSATION (REFER TO SMARTSET #0631) 1950 COVID-19 Vaccine (#1) 1954 Albumin/Creatinine Ratio 10/13/1967 CKD PHOS USE SMARTSET 41741 10/13/1967 Colonoscopy 1994 Sigmoidoscopy 1994 Zoster Vaccines (1 of 2) 03/23/2016 01/27/2016 Depression Screening 02/04/2021 02/05/2020 Cologuard 03/25/2021 03/25/2018 Colorectal Cancer Screening 10/23/2022 Fecal Occult Blood Test 10/23/2022 10/23/2021 GFR 01/01/2024 07/02/2023, 1210/2022, 05/03/2023, Additional history exists HbA1c 05/03/2024 05/03/2023, 12/2020, 10/09/2018 CKD HGB USE SMARTSET 26652 07/15/202407/15, 07/15/2023, 07/09/2023, Additional history exists DTaP,Tdap,and Td Vaccines (3 - Td or Tdap) 02/20/2033 02/20/2023, 09/25/2012 Pneumococcal Vaccine: 65+ Years Completed 03/18/2017, 11/30/2015, 03/13/2009 LUNG CANCER SCREENING - USE SMARTSET 34415 Completed 10/06/2021, 05/24/2017, 12/04/2016 AAA Screening Completed [...] Advance Directives occurred with: Patient Care Teams Evp Head [employer] Experience Strategy Relationship Specialty Start Date End Date Taurus Delgado MD [address] [place] [address] PCP - General Family Medicine 03/20/16 documented as of this encounter
--- OUTSIDE RECORDS SUMMARY | 2023-11-12 15:59 | External Medical Summary ---
Author Name Unknown Address Unknown Organization K01:LABORATORY [facility] - [address] [facility] [place] [address] Laboratory Report Ordering Provider Test Date Status JUANJO HERMOSILLO 07/15/2023 11:03:07 Final Observation Date Value Abnormality Reference (Units ) Status SYNC LEUKOCYTES IN BLOOD BY AUTOMATED COUNT 07/15/2023 11:03:07 12.91 Above high normal 4.00-10.80 (K/uL) Final Segs 07/15/2023 11:03:07 79.9 Above high normal 40.0-75.0 (%) Final Lymphs % 07/15/2023 11:03:07 10.5 Below low normal 18.0-42.0 (%) Final Monos 07/15/2023 11:03:07 7.0 1.0-11.0 (%) Final Eosinophils 07/15/2023 11:03:07 1.1 0.0-6.0 (%) Final Basos 07/15/2023 11:03:07 1.1 0.0-2.0 (%) Final Immature Granulocyte, Percent 07/15/2023 11:03:07 0.4 0.0-2.0 (%) Final Absolute Segs 07/15/2023 11:03:07 10.31 Above high normal 1.80-7.70 (K/uL) Final Lymphs, absolute 07/15/2023 11:03:07 1.36 1.00-4.80 (K/ul) Final Monos, Abs 07/15/2023 11:03:07 0.91 0.00-1.10 (K/uL) Final Eos, Abs 07/15/2023 11:03:07 0.14 0.00-0.70 (K/uL) Final Basos, Abs 07/15/2023 11:03:07 0.14 0.00-0.20 (K/uL) Final Immature Granulocytes, Number 07/15/2023 11:03:07 0.05 0.00-0.20 (K/uL) Final Performing Location LABORATORY [facility] - [facility] [address]. [facility] [address]
--- OUTSIDE RECORDS SUMMARY | 2023-11-12 15:59 | External Medical Summary ---
Author Name Unknown Address Unknown Organization [id number]:[facility] [place] [facility] [address] [facility] [address] [place] [address] Laboratory Report Ordering Provider Test Date Status JUANJO HERMOSILLO 07/15/2023 11:03:07 Final Observation Date Value Abnormality Reference (Units ) Status WBC, Total 07/15/2023 11:03:07 12.91 Above high normal 4.00-10.80 (K/uL) Final RBC 07/15/2023 11:03:07 4.41 4.50-5.25 (M/uL) Final Hemoglobin 07/15/2023 11:03:07 13.2 Below low normal 14.0-16.8 (g/dL) Final HCT 07/15/2023 11:03:07 42.4 40.0-48.4 (%) Final MCV 07/15/2023 11:03:07 96.1 82.0-99.5 (fL) Final MCH 07/15/2023 11:03:07 29.9 27.0-34.0 (pg) Final MCHC 07/15/2023 11:03:07 31.1 32.0-36.0 (g/dL) Final RDW 07/15/2023 11:03:07 19.5 11.5-15.5 (%) Final Platelets 07/15/2023 11:03:07 476 Above high normal 140-400 (K/uL) Final MPV 07/15/2023 11:03:07 11.0 6.6-11.1 (fL) Final Nucleated erythrocytes/100 leukocytes [Ratio] in Blood by Automated count 07/15/2023 11:03:07 0 <=0 (/100 WBCs) Final Performing Location LAB[facility]ORY [facility] [place] [address] [place] [address]
--- OUTSIDE RECORDS SUMMARY | 2023-11-12 15:59 | External Medical Summary ---
Author Name Unknown Address Unknown Organization [id number]:[place] [facility] [place] [facility] [place] [address] [place] [address] Laboratory Report Ordering Provider Test Date Status JUANJO HERMOSILLO 07/22/2023 11:52:04 Final Observation Date Value Abnormality Reference (Units ) Status WBC, Total 07/22/2023 11:52:04 15.34 Above high normal 4.00-10.80 (K/uL) Final RBC 07/22/2023 11:52:04 4.66 4.50-5.25 (M/uL) Final Hemoglobin 07/22/2023 11:52:04 14.3 14.0-16.8 (g/dL) Final HCT 07/22/2023 11:52:04 44.2 40.0-48.4 (%) Final MCV 07/22/2023 11:52:04 94.8 82.0-99.5 (fL) Final MCH 07/22/2023 11:52:04 30.7 27.0-34.0 (pg) Final MCHC 07/22/2023 11:52:04 32.4 32.0-36.0 (g/dL) Final RDW 07/22/2023 11:52:04 19.4 11.5-15.5 (%) Final Platelets 07/22/2023 11:52:04 461 Above high normal 140-400 (K/uL) Final MPV 07/22/2023 11:52:04 10.8 6.6-11.1 (fL) Final Nucleated erythrocytes/100 leukocytes [Ratio] in Blood by Automated count 07/22/2023 11:52:04 0 <=0 (/100 WBCs) Final Performing Location [facility] [place] [address] [place] [address]
--- OUTSIDE RECORDS SUMMARY | 2023-11-12 16:00 | External Medical Summary | Summary of Care ---
Author Name Unknown Organization [facility] Address [address] [place] [address] Phone [phone] Care Team Providers Care Rubber Cutting Machine Tender Name Role Phone Taurus Delgado MD Primary Care Provider [phone] Reason for Visit * Reason Comments Medication Management Encounter Details Date Type Department Care Team (Late st Contact Info) Description 07/03/2023 9:00 AM [facility] Pharmacy Pharmacy Hematology Oncology [facility] [address] [place] [address] [facility], [facility] Hem/Onc [address] [place] [address] JAK2 [id number] mutation* Allergies No known active allergiesdocumented as of this encounter (statuses as of 07/03/2023) Medications Medication Sig Dispensed Refills Start Date [...] as of this encounter (statuses as of 07/03/2023) Active Problems Problem Noted Date Diagnosed Date [...] as of this encounter (statuses as of 07/03/2023) Resolved Problems Problem Noted Date Diagnosed Date Resolved Date NSTEMI (non-ST elevated myoc ardial infarction) 12/07/2013 12/07/2013 documented as of this encounter (statuses as of 07/03/2023) Immunizations Name Administration Dates Next Due Pneumococcal [...] Pat Tolliver, [facility] - 07/03/2023 8:40 AM EST MEDICATION THERAPY MANAGEMENT HYDROXYUREA TREATMENT PROGRESS NOTE Shubham Calles [id number] Patient Phone Numbers Preferred Lab: [place] [facility]: [facility] Communication: Spoke to: Patient Treatment: Medication: Hydroxyurea (Hydrea) Indication/Staging/Diagnosis Code: ET, 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 Cheung Prophylactic Meds: ASA 81mg daily Dose adjustment / medication hold: 06/11/23: dose increase to 500mg M-F and 1000mg Sat/Sun 07/03/23: dose increase to 500mg M-Th and 1000mg Fr/Sat/Sun Interval History: Pt inquiring if hydrea can cause ocular toxicity as he was recently referred to an eye care professional No other concerns Changes to medication list since last visit? No Assessment and Plan: PLT above goal but declining WBC elevated but declining Hgb stable All other labs stable Per PI, there are no reported incidence of ocular toxicity. Will monitor closely Advised pt to increase hydrea to 500mg M-Th and 1000mg Fr/Sat/Sun Med rec updated Pt repeated instructions back with understanding Repeat labs in 1 week (scheduled 07/09/23 @1100) Assessment of compliance: compliant Dose adjustment needed based on lab or adverse drug reaction? Yes, dose increase Follow up: 1 week Pat Tolliver, PharmD, BCOP Clinical Pharmacist, [facility] Oral Chemotherapy [facility] 07/03/2023, 11:04 AM Monitoring Parameters: Estimated CrCl Serum creatinine: [...] Pertinent Labs: Latest Reference Range & Units 06/17/23 10:50 06/25/23 12:07 07/02/23 10:57 WBC 4.00 - 10.80 K/uL 16.62 (H) 12.49 (H) 11.42 (H) HGB 14.0 - 16.8 g/dL 13.7 (L) 13.4 (L) 13.3 (L) HCT 40.0 - 48.4 % 43.2 42.7 41.8 MCV 82.0 - 99.5 fL 91.3 93.0 93.5 PLT 140 - 400 K/uL 671 (H) 577 (H) 531 (H) Absolute Neutrophils 1.80 - 7.70 K/uL 12.94 (H) 8.92 (H) 8.38 (H) Latest Reference Range & Units 04/24/23 10:38 06/10/23 11:00 07/02/23 10:57 Albumin 3.8 - 5.0 g/dL 4.3 4.2 4.1 AST 10 - 50 U/L 26 19 25 ALT 10 - 50 U/L 22 16 19 Alkaline Phosphatase 35 - 130 U/L 125 94 98 Bilirubin, Total <=1.2 mg/dL 0.4 0.7 0.5 Time Spent on Encounter: 11 - 15 minutes Encounter Group: Hematology Encounter Interventions Item Category: Oral Chemotherapy Hydroxurea Problem/Rationale: Effectiveness: Dosage too low - Dose too low Pharmacist Intervention(s): Care coordination, Dose increased, Lab monitoring, Medication reconciliation, and Toxicity monitoring Magnitude of Intervention: Modification of medication for asymtomatic patients (Level 2) documented in this encounter Plan of Treatment Upcoming Encounters Date Type Department Care Team (Latest Contact Info) Description 07/09/2023 11:00 AM EST Laboratory [facility] [place] [address] [facility] [place] [phone] [place] [address] [facility] [place] [phone] 07/10/2023 9:00 AM EST Pharmacy Pharmacy Hematology Oncology [facility] [place] [address] [place] [address] [facility], [facility] Hem/Onc [address] [place] [address] 08/19/2023 1:30 PM EST Procedure Only Urology, [facility] [address] [facility] [place] [address] Kp Fisher MD [address] [address] [place] [address] 08/26/2023 12:20 PM EST Office Visit [facility] [address] [place] [phone] Taurus Delgado MD [address] [place] [address] 09/11/2023 11:00 AM EST Office Visit Hematology/Oncolog y [facility] [address] [place] [address] Gopi Cheung MD [address] [place] [address] 09/25/2023 1:00 PM EDT Hospital Encounter ENDO OSSC, Endoscopy Room [facility] [address] [facility] [place] [phone] Nader Iglesias MD 09/25/2023 1:00 PM EDT - 09/25/2023 1:30 PM EDT Surgery ENDO OSSC, Endoscopy Room [facility] [place] [phone] Nader Iglesias MD COLONOSCOPY FLEXIBLE PROXIMAL DIAGNOSTIC 11/11/2023 1:30 PM EDT Office Visit Cardiology, [facility] [address] [place] [address] Maria Dolores Mas PA-C [address] [place] [address] [place] [address] Scheduled Procedures Name Priority Associated Diagnoses Date/Ti me COLONOSCOPY FLEXIBLE PROXIMAL DIAGNOSTIC Screen for colon cancer 09/25/2023 1:00 PM EDT Health Maintenance Due Date Last Done Comments DISCUSS TOBACCO CESSATION (REFER TO SMARTSET #2738) 1950 COVID-19 Vaccine (#1) 1954 Albumin/Creatinine Ratio 10/13/1967 CKD PHOS USE SMARTSET 35495 10/13/1967 Colonoscopy 1994 Sigmoidoscopy 1994 Zoster Vaccines (1 of 2) 03/23/2016 01/27/2016 Depression Screening 02/04/2021 02/05/2020 Cologuard 03/25/2021 03/25/2018 Colorectal Cancer Screening 10/23/2022 Fecal Occult Blood Test 10/23/2022 10/23/2021 GFR 01/01/2024 07/02/2023, 12/10/2022, 05/03/2023, Additional history exists HbA1c 05/03/2024 05/03/2023, 04/0 12/2020, 10/09/2018 CKD HGB USE SMARTSET 25877 07/02/202407/02, 07/02/2023, 06/25/2023, Additional history exists DTaP,Tdap,and Td Vaccines (3 - Td or Tdap) 02/20/2033 02/20/2023, 09/25/2012 Pneumococcal Vaccine: 65+ Years Completed 03/18/2017, 11/30/2015, 03/13/2009 LUNG CANCER SCREENING - USE SMARTSET 91886 Completed 10/06/2021, 05/24/2017, 12/04/2016 AAA Screening Completed [...] Directives occurred with: Patient Care Teams Rubber Cutting Machine Tender Relationship Specialty Start Date End Date Taurus Delgado MD [address] [place] [address] PCP - General Family Medicine 03/20/16 documented as of this encounter
--- OUTSIDE RECORDS SUMMARY | 2023-11-12 16:00 | External Medical Summary ---
Author Name Unknown Address Unknown Organization K01:[facility] [place] [address] [facility] [place] [address] Laboratory Report Ordering Provider Test Date Status JUANJO HERMOSILLO 07/02/2023 10:57:16 Final Observation Date Value Abnormality Reference (Units ) Status BUN 07/02/2023 10:57:16 28 Above high normal 6-20 (mg/dL) Final Creatinine 07/02/2023 10:57:16 1.4 Above high normal 0.6-1.2 (mg/dL) Final Glomerular filtration rate/1.73 sq M.predicted [Volume Rate/Area] in Serum, Plasma or Blood by Creatinine-based formula (CKD-EPI) 07/02/2023 10:57:16 55 Below low normal >=60 (mL/min) Final eGFR is calculated based on the CKD-EPI 2020 equation SODIUM 07/02/2023 10:57:16 142 135-146 (m mol/L) Final Potassium 07/02/2023 10:57:16 4.7 3.5-5.1 (m mol/L) Final Cl 07/02/2023 10:57:16 105 98-107 (mm ol/L) Final CO2 07/02/2023 10:57:16 27 22-32 (mmo l/L) Final Anion gap 07/02/2023 10:57:16 10 7-15 (mmol /L) Final Glucose 07/02/2023 10:57:16 111 70-120 (mg /dL) Final Albumin 07/02/2023 10:57:16 4.1 3.8-5.0 (g /dL) Final AST (Aspartate aminotransferase) 07/02/2023 10:57:16 25 10-50 (U/L) Final Alk Phos 07/02/2023 10:57:16 98 35-130 (U/ L) Final Bilirubin, Total 07/02/2023 10:57:16 0.5 <=1 .2 (mg/dL) Final Calcium 07/02/2023 10:57:16 9.1 8.4-10.2 ( mg/dL) Final Protein 07/02/2023 10:57:16 6.4 6.0-8.3 (g /dL) Final ALT (Alanine aminotransferase) 07/02/2023 10:57:16 19 10-50 (U/L) Final Performing Location [facility] [place] [address] [facility] [address]
--- OUTSIDE RECORDS SUMMARY | 2023-11-12 16:00 | External Medical Summary ---
Author Name Unknown Address Unknown Organization K01:LABORATORY [facility] [place] - 100 [facility] [address] Laboratory Report Ordering Provider Test Date Status JUANJO HERMOSILLO 07/02/2023 10:57:16 Final Observation Date Value Abnormality Reference (Units ) Status SYNC LEUKOCYTES IN BLOOD BY AUTOMATED COUNT 07/02/2023 10:57:16 11.42 Above high normal 4.00-10.80 (K/uL) Final Segs 07/02/2023 10:57:16 73.5 40.0-75.0 (%) Final Lymphs % 07/02/2023 10:57:16 12.3 Below low normal 18.0-42.0 (%) Final Monos 07/02/2023 10:57:16 10.3 1.0-11.0 (%) Final Eosinophils 07/02/2023 10:57:16 2.2 0.0-6.0 (%) Final Basos 07/02/2023 10:57:16 1.2 0.0-2.0 (%) Final Immature Granulocyte, Percent 07/02/2023 10:57:16 0.5 0.0-2.0 (%) Final Absolute Segs 07/02/2023 10:57:16 8.38 Above high normal 1.80-7.70 (K/uL) Final Lymphs, absolute 07/02/2023 10:57:16 1.41 1.00-4.80 (K/ul) Final Monos, Abs 07/02/2023 10:57:16 1.18 Above high normal 0.00-1.10 (K/uL) Final Eos, Abs 07/02/2023 10:57:16 0.25 0.00-0.70 (K/uL) Final Basos, Abs 07/02/2023 10:57:16 0.14 0.00-0.20 (K/uL) Final Immature Granulocytes, Number 07/02/2023 10:57:16 0.06 0.00-0.20 (K/uL) Final Performing Location LABORATORY [facility] [place] - [facility] [address] [facility] [address]
--- OUTSIDE RECORDS SUMMARY | 2023-11-12 16:00 | External Medical Summary | Summary of Care ---
Author Name Unknown Organization [facility] Address [address] [facility] [place] [address] Phone [phone] Care Team Providers Care Building Drafting Officer Name Role Phone Taurus Delgado MD Primary Care Provider [phone] Reason for Visit * Reason Comments Outpatient Testing Encounter Details Date Type Department Care Team (Latest Contact Info) Description 07/09/2023 11:00 AM EST Laboratory Laboratory, [place] [address] [place] [address] [place], [facility] [address] [place] [address] Essential thrombocythemia (HCC) Allergies No known active allergiesdocumented as of this encounter (statuses as of 07/09/2023) Medications Medication Sig Dispensed Refills Start Date [...] as of this encounter (statuses as of 07/09/2023) Active Problems Problem Noted Date Diagnosed Date [...] as of this encounter (statuses as of 07/09/2023) Resolved Problems Problem Noted Date Diagnosed Date Resolved Date NSTEMI (non-ST elevated myoc ardial infarction) 12/07/2013 12/07/2013 documented as of this encounter (statuses as of 07/09/2023) Immunizations Name Administration Dates Next Due Pneumococcal [...] Department Care Team (Latest Contact Info) Description 07/10/2023 9:00 AM EST Pharmacy Pharmacy Hematology Oncology [facility] [place] [address] [place] [address] [facility], [facility] Hem/Onc [address] [place] [address] 08/19/2023 1:30 PM EST Procedure Only Urology, [facility] [address] [place] [address] Kp Fisher MD 27 [facility] [address] [place] [address] 08/26/2023 12:20 PM EST Office Visit [place] [address] [place] [phone] Taurus Delgado MD [address] [place] [address] 09/11/2023 11:00 AM EST Office Visit Hematology/Oncology [facility] [place] [address] Gopi Cheung MD [address] [facility] [place] [address] 09/25/2023 1:00 PM EDT Hospital Encounter ENDO OSSC, Endoscopy Room [facility] [address] [place] [phone] Nader Iglesias MD 09/25/2023 1:00 PM EDT - 09/25/2023 1:30 PM EDT Surgery ENDO OSSC, Endoscopy Room [facility] [address] [place] [phone] Nader Iglesias MD COLONOSCOPY FLEXIBLE PROXIMAL DIAGNOSTIC 11/11/2023 1:30 PM EDT Office Visit Cardiology, [facility] [address] [place] [address] Maria Dolores Mas PAHeraclio [address] [place] [address] [place] [address] Pending Results Name Type Priority Associated Diagnoses Date /Time CBC WITH WBC DIFFERENTIAL Lab STAT Essential thrombocythemia ([facility]) 07/09/2023 10:49 AM EST CBC Lab STAT Essential thrombocythemia ([facility]) 07/09/2023 10:49 AM EST DIFFERENTIAL, AUTOMATED Lab STAT Essential thrombocythemia ([facility]) 07/09/2023 10:49 AM EST Scheduled Procedures Name Priority Associated Diagnoses Date/Ti me COLONOSCOPY FLEXIBLE PROXIMAL DIAGNOSTIC Screen for colon cancer 09/25/2023 1:00 PM EDT Health Maintenance Due Date Last Done Comments DISCUSS TOBACCO CESSATION (REFER TO SMARTSET #3291) 1950 COVID-19 Vaccine (#1) 1954 Albumin/Creatinine Ratio 10/13/1967 CKD PHOS USE SMARTSET 54889 10/13/1967 Colonoscopy 1994 Sigmoidoscopy 1994 Zoster Vaccines (1 of 2) 03/23/2016 01/27/2016 Depression Screening 02/04/2021 02/05/2020 Cologuard 03/25/2021 03/25/2018 Colorectal Cancer Screening 10/23/2022 Fecal Occult Blood Test 10/23/2022 10/23/2021 GFR 01/01/2024 07/02/2023, 12/10/2022, 05/03/2023, Additional history exists HbA1c 05/03/2024 05/03/2023, 04/0 12/2020, 10/09/2018 CKD HGB USE SMARTSET 75596 07/02/202407/02, 07/02/2023, 06/25/2023, Additional history exists DTaP,Tdap,and Td Vaccines (3 - Td or Tdap) 02/20/2033 02/20/2023, 09/25/2012 Pneumococcal Vaccine: 65+ Years Completed 03/18/2017, 11/30/2015, 03/13/2009 LUNG CANCER SCREENING - USE SMARTSET 36363 Completed 10/06/2021, 05/24/2017, 12/04/2016 AAA Screening Completed [...] Advance Directives occurred with: Patient Care Teams Building Drafting Officer Relationship Specialty Start Date End Date Taurus Delgado MD [address] [place] [address] PCP - General Family Medicine 03/20/16 documented as of this encounter
--- OUTSIDE RECORDS SUMMARY | 2023-11-12 16:00 | External Medical Summary | Summary of Care ---
Author Name Unknown Organization [facility] Address [address] [facility] [address] Phone [phone] Care Team Providers Care Rn Infusion Name Role Phone Taurus Delgado MD Primary Care Provider [phone] Reason for Visit * Reason Comments Outpatient Testing Encounter Details Date Type Department Care Team (Latest Contact Info) Description 07/02/2023 11:10 AM EST Laboratory Laboratory, [place] [address] [place] [address] [place], Laboratory [address] [place] [address] Essential thrombocythemia (HCC) Allergies No known active allergiesdocumented as of this encounter (statuses as of 07/02/2023) Medications Medication Sig Dispensed Refills Start Date End Date Status NITROGLYCERIN 0.[address] under the tongue. times 3 doses 25 11 01/02/2005 Active PROSCAR 5 MG PO TABSIndications:Technical Communication Teacher feliberto coronary artery disease 1 TABLET DAILY [...] daily Sat/Sun 40 Capsule 5 06/26/2023 Active documented as of this encounter (statuses as of 07/02/2023) Active Problems Problem Noted Date Diagnosed Date [...] as of this encounter (statuses as of 07/02/2023) Resolved Problems Problem Noted Date Diagnosed Date Resolved Date NSTEMI (non-ST elevated myoc ardial infarction) 12/07/2013 12/07/2013 documented as of this encounter (statuses as of 07/02/2023) Immunizations Name Administration Dates Next Due Pneumococcal [...] Department Care Team (Latest Contact Info) Description 07/03/2023 9:00 AM EST Pharmacy Pharmacy Hematology Oncology [address] [address] [facility], [facility] Hem/Onc [address] [place] [address] 08/19/2023 1:30 PM EST Procedure Only Urology, [facility] 132 [facility] [place] [address] Kp Fisher MD [address] [place] [address] [place] [address] 08/26/2023 12:20 PM EST Office Visit [facility] [address] [place] [address] Taurus Delgado MD [address] [place] [address] 09/11/2023 11:00 AM EST Office Visit Hematology/Oncology [facility] [address] [place] [address] Gopi Cheung MD 200 [facility] [place] [address] 09/25/2023 1:00 PM EDT Hospital Encounter ENDO OSSC, Endoscopy Room [address] [place] [phone] Nader Iglesias MD 09/25/2023 1:00 PM EDT - 09/25/2023 1:30 PM EDT Surgery ENDO OSSC, Endoscopy Room [address] [place] [phone] Nader Iglesias MD COLONOSCOPY FLEXIBLE PROXIMAL DIAGNOSTIC 11/11/2023 1:30 PM EDT Office Visit Cardiology, [facility] 132 [facility] [place] [address] Maria Dolores Mas PA-C 400 [facility] [place] [phone] Pending Results Name Type Priority Associated Diagnoses Date /Time CBC WITH WBC DIFFERENTIAL Lab STAT Essential thrombocythemia (HCC) 07/02/2023 10:57 AM EST COMPREHENSIVE METABOLIC PANEL Lab STAT Essential thrombocythemia ([facility]) 07/02/2023 10:57 AM EST CBC Lab STAT Essential thrombocythemia ([facility]) 07/02/2023 10:57 AM EST DIFFERENTIAL, AUTOMATED Lab STAT Essential thrombocythemia ([facility]) 07/02/2023 10:57 AM EST Scheduled Procedures Name Priority Associated Diagnoses Date/Ti me COLONOSCOPY FLEXIBLE PROXIMAL DIAGNOSTIC Screen for colon cancer 09/25/2023 1:00 PM EDT Health Maintenance Due Date Last Done Comments DISCUSS TOBACCO CESSATION (REFER TO SMARTSET #3291) 1950 COVID-19 Vaccine (#1) 1954 Albumin/Creatinine Ratio 10/13/1967 CKD PHOS USE SMARTSET 11970 10/13/1967 Colonoscopy 1994 Sigmoidoscopy 1994 Zoster Vaccines (1 of 2) 03/23/2016 01/27/2016 Depression Screening 02/04/2021 02/05/2020 Cologuard 03/25/2021 03/25/2018 Colorectal Cancer Screening 10/23/2022 Fecal Occult Blood Test 10/23/2022 10/23/2021 GFR 12/10/2023 06/10/2023, 04/08, 04/24/2023, Additional history exists HbA1c 05/03/2024 05/03/2023, 04/0 12/2020, 10/09/2018 CKD HGB USE SMARTSET 52453 06/25/202406/25, 06/25/2023, 06/17/2023, Additional history exists DTaP,Tdap,and Td Vaccines (3 - Td or Tdap) 02/20/2033 02/20/2023, 09/25/2012 Pneumococcal Vaccine: 65+ Years Completed 03/18/2017, 11/30/2015, 03/13/2009 LUNG CANCER SCREENING - USE SMARTSET 80977 Completed 10/06/2021, 05/24/2017, 12/04/2016 AAA Screening Completed [...] Advance Directives occurred with: Patient Care Teams Rn Infusion Relationship Specialty Start Date End Date Taurus Delgado MD [address] [place] [address] PCP - General Family Medicine 03/20/16 documented as of this encounter
--- OUTSIDE RECORDS SUMMARY | 2023-11-12 16:00 | External Medical Summary | Summary of Care ---
Author Name Unknown Organization [facility] Address [address] [facility] [place] [address] Phone [phone] Care Team Providers Care Diesel Engineer Name Role Phone Taurus Delgado MD Primary Care Provider [phone] Reason for Visit * Reason Onset Date Comments Medication Refill 06/26/2023 Encounter Details Date Type Department Care Team (Late st Contact Info) Description 06/26/2023 Refill Hematology/Oncology [facility] Julinaa [place] 200 [facility] [place] [address] Gopi Cheung MD [address] [place] [address] JAK2 V617F mutation Allergies No known active allergiesdocumented as of this encounter (statuses as of 06/26/2023) Medications Medication Sig Dispensed Refills Start Date [...] daily Sat/Sun 40 Capsule 5 06/26/2023 Active Hydroxyurea 500 MG Oral Capsule (Hydrea)Indication s:JAK2 V617F mutation Take 1 Capsule by mouth in the morning. 30 Capsule 3 05/21/2023 3 Discontinue d(Refill) documented as of this encounter (statuses as of 06/26/2023) Active Problems Problem Noted Date Diagnosed Date [...] as of this encounter (statuses as of 06/26/2023) Resolved Problems Problem Noted Date Diagnosed Date Resolved Date NSTEMI (non-ST elevated myoc ardial infarction) 12/07/2013 12/07/2013 documented as of this encounter (statuses as of 06/26/2023) Immunizations Name Administration Dates Next Due Pneumococcal [...] Notes * Telephone Encounter - Pat Tolliver [facility] - 06/26/2023 9:53 AM EST Hydrea RX per 06/26 [facility] encounter documented in this encounter Plan of Treatment Upcoming Encounters Date Type Department Care Team (Latest Contact Info) Description 07/02/2023 11:10 AM EST Laboratory Laboratory, [place] [address] [place] [address] [facility] Laboratory [address] [place] [address] 07/03/2023 9:00 AM EST Pharmacy Pharmacy Hematology Oncology [address] [address] [facility], [facility] Clinic Hem/[place] [address] 08/19/2023 1:30 PM EST Procedure Only Urology, [facility] [address] [facility] [place] [address] Kp Fisher MD 27 [facility] [address] [place] [address] 08/26/2023 12:20 PM EST Office Visit [facility] [address] [place] [address] Taurus Delgado MD [address] [place] [address] 09/11/2023 11:00 AM EST Office Visit Hematology/Oncolog y Malaika Andrews [place] [address] Mal[address] [place] [address] Gopi Cheung MD [address] [place] [address] 09/25/2023 1:00 PM EDT Hospital Encounter ENDO OSSC, Endoscopy Room [facility] [address] [place] [phone] Nader Iglesias MD [address] [place] [address] 09/25/2023 1:00 PM EDT - 09/25/2023 1:30 PM EDT Surgery ENDO OSSC, Endoscopy Room [facility] [address] [place] [address] Nader Iglesias MD [address] [place] [address] COLONOSCOPY FLEXIBLE PROXIMAL DIAGNOSTIC 11/11/2023 1:30 PM EDT Office Visit Cardiology, [facility] [address] [place] [address] Maria Dolores Mas PA-C [address] [place] [address] Scheduled Procedures Name Priority Associated Diagnoses Date/Ti me COLONOSCOPY FLEXIBLE PROXIMAL DIAGNOSTIC Screen for colon cancer 09/25/2023 1:00 PM EDT Health Maintenance Due Date Last Done Comments DISCUSS TOBACCO CESSATION (REFER TO SMARTSET #3291) 1949 COVID-19 Vaccine (#1) 1954 Albumin/Creatinine Ratio 10/13/1967 CKD PHOS USE SMARTSET 61453 10/13/1967 Colonoscopy 1994 Sigmoidoscopy 1994 Zoster Vaccines (1 of 2) 03/23/2016 01/27/2016 Depression Screening 02/04/2021 02/05/2020 Cologuard 03/25/2021 03/25/2018 Colorectal Cancer Screening 10/23/2022 Fecal Occult Blood Test 10/23/2022 10/23/2021 GFR 12/10/2023 06/10/2023, 04/08, 04/24/2023, Additional history exists HbA1c 05/03/2024 05/03/2023, 0412/2020, 10/09/2018 CKD HGB USE SMARTSET 05217 06/25/202406/25, 06/25/2023, 06/17/2023, Additional history exists DTaP,Tdap,and Td Vaccines (3 - Td or Tdap) 02/20/2033 02/20/2023, 09/25/2012 Pneumococcal Vaccine: 65+ Years Completed 03/18/2017, 11/30/2015, 03/13/2009 LUNG CANCER SCREENING - USE SMARTSET 66475 Completed 10/06/2021, 05/24/2017, 12/04/2016 AAA Screening Completed [...] Advance Directives occurred with: Patient Care Teams Diesel Engineer Relationship Specialty Start Date End Date Taurus Delgado MD [address] [facility] [place] [address] PCP - General Family Medicine 03/20/16 documented as of this encounter
--- OUTSIDE RECORDS SUMMARY | 2023-11-12 16:00 | External Medical Summary ---
Author Name Unknown Address Unknown Organization K01:[facility] - [address] [facility] [address] Laboratory Report Ordering Provider Test Date Status JUANJO HERMOSILLO 06/25/2023 12:07:34 Final Observation Date Value Abnormality Reference (Units ) Status SYNC LEUKOCYTES IN BLOOD BY AUTOMATED COUNT 06/25/2023 12:07:34 12.49 Above high normal 4.00-10.80 (K/uL) Final Segs 06/25/2023 12:07:34 71.3 40.0-75.0 (%) Final Lymphs % 06/25/2023 12:07:34 14.2 Below low normal 18.0-42.0 (%) Final Monos 06/25/2023 12:07:34 10.6 1.0-11.0 (%) Final Eosinophils 06/25/2023 12:07:34 2.2 0.0-6.0 (%) Final Basos 06/25/2023 12:07:34 1.2 0.0-2.0 (%) Final Immature Granulocyte, Percent 06/25/2023 12:07:34 0.5 0.0-2.0 (%) Final Absolute Segs 06/25/2023 12:07:34 8.92 Above high normal 1.80-7.70 (K/uL) Final Lymphs, absolute 06/25/2023 12:07:34 1.77 1.00-4.80 (K/ul) Final Monos, Abs 06/25/2023 12:07:34 1.32 Above high normal 0.00-1.10 (K/uL) Final Eos, Abs 06/25/2023 12:07:34 0.27 0.00-0.70 (K/uL) Final Basos, Abs 06/25/2023 12:07:34 0.15 0.00-0.20 (K/uL) Final Immature Granulocytes, Number 06/25/2023 12:07:34 0.06 0.00-0.20 (K/uL) Final Performing Location [facility] - [facility] [address]. [facility] [address]
--- OUTSIDE RECORDS SUMMARY | 2023-11-12 16:00 | External Medical Summary | Summary of Care ---
Author Name Unknown Organization [facility] Address [address] [place] [address] Phone [phone] Care Team Providers Care Weaver Hand Loom Name Role Phone Taurus Delgado MD Primary Care Provider [phone] Reason for Visit * Reason Comments Medication Management Encounter Details Date Type Department Care Team (Late st Contact Info) Description 06/26/2023 9:00 AM [facility] Pharmacy Pharmacy Hematology Oncology [facility] [address] [place] [address] [facility], [facility] Clinic Hem/Onc [address] [place] [address] JAK2 V617F mutation* Allergies No known active allergiesdocumented as of this encounter (statuses as of 06/26/2023) Medications Medication Sig Dispensed Refills Start Date End Date Status NITROGLYCERIN 0.[address] under the tongue. 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 Cheung Prophylactic Meds: ASA 81mg daily Dose adjustment / medication hold: 06/11/23: dose increase to 500mg M-F and 1000mg Sat/Sun Interval History: No other concerns, tolerating therapy well Changes to medication list since last visit? No Assessment and Plan: PLT above goal but declining WBC elevated but declining Hgb stable All other labs stable Continue current hydrea dose Updated RX sent to [place] Repeat labs scheduled 07/02 @1110 Assessment of compliance: compliant Assessment of adverse effects attributed to drug therapy: Impaired wound healing- absent Ulcers (skin or oral) - absent Nausea/vomiting - absent Dose adjustment needed based on lab or adverse drug reaction? No Follow up: 1 week Pat Tolliver, PharmD, BCOP Clinical Pharmacist, [facility] Oral Chemotherapy [facility] 06/26/2023, 9:59 AM Monitoring Parameters: Estimated CrCl Serum creatinine: 1.3 mg/dL (H) 06/10/23 1100 Estimated creatinine clearance: 57.2 mL/min (A) Hepatitis [...] Pertinent Labs: Latest Reference Range & Units 06/10/23 11:00 06/17/23 10:50 06/25/23 12:07 WBC 4.00 - 10.80 K/uL 12.61 (H) 16.62 (H) 12.49 (H) HGB 14.0 - 16.8 g/dL 13.7 (L) 13.7 (L) 13.4 (L) HCT 40.0 - 48.4 % 44.0 43.2 42.7 MCV 82.0 - 99.5 fL 90.7 91.3 93.0 PLT 140 - 400 K/uL 786 (H) 671 (H) 577 (H) Absolute Neutrophils 1.80 - 7.70 K/uL 9.35 (H) 12.94 (H) 8.92 (H) Time Spent on Encounter: 11 - 15 minutes Encounter Group: Hematology Encounter Interventions Item Category: Oral Chemotherapy Hydroxurea Problem/Rationale: Effectiveness: Needs additional monitoring - Medication Requires monitoring Safety: Needs additional monitoring - Medication Requires monitoring Adherence - Medication product not available Pharmacist Intervention(s): Lab monitoring, Medication prescribed, and Toxicity monitoring Magnitude of Intervention: Monitoring with direction (Level 1) documented in this encounter Plan of Treatment Upcoming Encounters Date Type Department Care Team (Latest Contact Info) Description 07/02/2023 11:10 AM EST Laboratory Laboratory, [place] [address] [place] [address] [place] [address] [place] [address] 07/03/2023 9:00 AM EST Pharmacy Pharmacy Hematology Oncology [facility] [address] [place] [address] [facility], [facility] Clinic Hem/Onc [address] [place] [address] 08/19/2023 1:30 PM EST Procedure Only Urology, [facility] 132 [facility] [place] [address] Kp Fisher MD 27 [facility] [address] [place] [address] 08/26/2023 12:20 PM EST Office Visit [address] [place], [place] [phone] Taurus Delgado MD [address] [place] [facility] [place] [address] 09/11/2023 11:00 AM EST Office Visit Hematology/Oncolog y [facility] 200 [facility] [place] [address] Gopi Cheung MD 200 [facility] [place] [address] 09/25/2023 1:00 PM EDT Hospital Encounter ENDO OSSC, Endoscopy Room [facility] [address] [place] [phone] Nader Iglesias MD [address] [place] [address] 09/25/2023 1:00 PM EDT - 09/25/2023 1:30 PM EDT Surgery ENDO OSSC, Endoscopy Room [facility] [address] [place] [phone] Nader Iglesias MD [address] [place] [address] COLONOSCOPY FLEXIBLE PROXIMAL DIAGNOSTIC 11/11/2023 1:30 PM EDT Office Visit Cardiology, [facility] [address] [place] [address] Maria Dolores Mas PA-C [address] [place] [address] Scheduled Procedures Name Priority Associated Diagnoses Date/Ti me COLONOSCOPY FLEXIBLE PROXIMAL DIAGNOSTIC Screen for colon cancer 09/25/2023 1:00 PM EDT Health Maintenance Due Date Last Done Comments DISCUSS TOBACCO CESSATION (REFER TO SMARTSET #3961) 1950 COVID-19 Vaccine (#1) 1954 Albumin/Creatinine Ratio 10/13/1967 CKD PHOS USE SMARTSET 08987 10/13/1967 Colonoscopy 1994 Sigmoidoscopy 1994 Zoster Vaccines (1 of 2) 03/23/2016 01/27/2016 Depression Screening 02/04/2021 02/05/2020 Cologuard 03/25/2021 03/25/2018 Colorectal Cancer Screening 10/23/2022 Fecal Occult Blood Test 10/23/2022 10/23/2021 GFR 12/10/2023 06/10/2023, 04/08, 04/24/2023, Additional history exists HbA1c 05/03/2024 05/03/2023, 04/0 12/2020, 10/09/2018 CKD HGB USE SMARTSET 10780 06/25/202406/25, 06/25/2023, 06/17/2023, Additional history exists DTaP,Tdap,and Td Vaccines (3 - Td or Tdap) 02/20/2033 02/20/2023, 09/25/2012 Pneumococcal Vaccine: 65+ Years Completed 03/18/2017, 11/30/2015, 03/13/2009 LUNG CANCER SCREENING - USE SMARTSET 92780 Completed 10/06/2021, 05/24/2017, 12/04/2016 AAA Screening Completed [...] Advance Directives occurred with: Patient Care Teams Weaver Hand Loom Relationship Specialty Start Date End Date Taurus Delgado MD [address] [place] [address] PCP - General Family Medicine 03/20/16 documented as of this encounter
--- OUTSIDE RECORDS SUMMARY | 2023-11-12 16:00 | External Medical Summary | Summary of Care ---
Author Name Unknown Organization [facility] Address [address] [place] [address] Phone [phone] Care Team Providers Care Smudger Name Role Phone Taurus Delgado MD Primary Care Provider [phone] Reason for Visit * Reason Comments Medication Management Encounter Details Date Type Department Care Team (Late st Contact Info) Description 06/25/2023 9:00 AM [facility] Pharmacy Pharmacy Hematology Oncology [facility] [address] [place] [address] [facility], [facility] Clinic Hem/Onc [address] [place] [address] JAK2 V617F mutation* Allergies No known active allergiesdocumented as of this encounter (statuses as of 06/25/2023) Medications Medication Sig Dispensed Refills Start Date [...] at bedtime. 30 Capsule 5 08/07/2022 Active Hydroxyurea 500 MG Oral Capsule (Hydrea)Indications :JAK2 V617F mutation Take 1 Capsule by mouth in the morning. 30 Capsule 3 05/21/2023 Active Additional Information Patient taking differently:500 mg Oral Daily(AM),Take one 500mg cap daily M-F and two 500mg caps (1000mg total) Sat/Sun, Reported on 06/11/2023 Aspirin 81 MG Oral Tablet Delayed ReleaseIndications: JAK2 V617F mutation Take 1 Tablet by mouth in the morning. 30 Tablet 5 05/21/2023 Active documented as of this encounter (statuses as of 06/25/2023) Active Problems Problem Noted Date Diagnosed Date [...] as of this encounter (statuses as of 06/25/2023) Resolved Problems Problem Noted Date Diagnosed Date Resolved Date NSTEMI (non-ST elevated myoc ardial infarction) 12/07/2013 12/07/2013 documented as of this encounter (statuses as of 06/25/2023) Immunizations Name Administration Dates Next Due Pneumococcal [...] of this encounter Progress Notes * Chelle Vargas, [facility] - 06/25/2023 9:00 AM EST MEDICATION THERAPY MANAGEMENT HYDROXYUREA TREATMENT PROGRESS NOTE Shubham Calles [phone] Patient Phone Numbers Preferred Lab: [place]: [place] Communication: Spoke to: Patient Treatment: Medication: Hydroxyurea (Hydrea) Indication/Staging/Diagnosis Code: ET, 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 Cheung Patient can stop at the lab today in [place] at 12. Appointment made. Also made appointment for patient on 07/02 at 11 [facility] Hematology Oncology Oral Chemotherapy Clinic Medication Therapy Disease Management [facility] 06/25/23 11:00 AM Time Spent on Encounter: 6 - [...] Department Care Team (Latest Contact Info) Description 06/25/2023 12:00 PM EST Laboratory Laboratory, [place] [address] [place] [phone] [place], [facility] [address] [place] [address] 06/26/2023 9:00 AM EST Pharmacy Pharmacy Hematology Oncology [place] [address] [place] [address] [facility], [facility] Clinic Hem/Onc [address] [place] [address] 07/02/2023 11:10 AM EST Laboratory Laboratory, [place] [address] [place] [phone] [facility] [address] [place] [address] 08/19/2023 1:30 PM EST Procedure Only Urology, [facility] [address] [facility] [place], [place] [address] Kp Fisher MD 27 [address]nn [address] [place] [address] 08/26/2023 12:20 PM EST Office Visit [facility] [address] [place] [address] Taurus Delgado MD [address] [place] [address] 09/11/2023 11:00 AM EST Office Visit Hematology/Oncolog y [facility] [address] [place] [address] Gopi Cheung MD [address] [place], [place] [address] 09/25/2023 1:00 PM EDT Hospital Encounter ENDO OSSC, Endoscopy Room [facility] [address] [facility] [place] [place] [phone] Nader Iglesias MD [address] [place], [place] [address] 09/25/2023 1:00 PM EDT - 09/25/2023 1:30 PM EDT Surgery ENDO O[facility], Endoscopy Room [facility] [address] [place] [phone] Nader Iglesias MD [address] [place] [address] COLONOSCOPY FLEXIBLE PROXIMAL DIAGNOSTIC 11/11/2023 1:30 PM EDT Office Visit Cardiology, [facility] 132 [facility] [place] [address] Maria Dolores Mas PA-C [address] [place] [address] [place] [address] Scheduled Procedures Name Priority Associated Diagnoses Date/Ti me COLONOSCOPY FLEXIBLE PROXIMAL DIAGNOSTIC Screen for colon cancer 09/25/2023 1:00 PM EDT Health Maintenance Due Date Last Done Comments DISCUSS TOBACCO CESSATION (REFER TO SMARTSET #3291) 1950 COVID-19 Vaccine (#1) 1954 Albumin/Creatinine Ratio 10/13/1967 CKD PHOS USE SMARTSET 65110 10/13/1967 Colonoscopy 1994 Sigmoidoscopy 1994 Zoster Vaccines (1 of 2) 03/23/2016 01/27/2016 Depression Screening 02/04/2021 02/05/2020 Cologuard 03/25/2021 03/25/2018 Colorectal Cancer Screening 10/23/2022 Fecal Occult Blood Test 10/23/2022 10/23/2021 GFR 12/10/2023 06/10/2023, 04/08, 04/24/2023, Additional history exists HbA1c 05/03/2024 05/03/2023, 0412/2020, 10/09/2018 CKD HGB USE SMARTSET 38676 06/17/202406/17, 06/17/2023, 06/10/2023, Additional history exists DTaP,Tdap,and Td Vaccines (3 - Td or Tdap) 02/20/2033 02/20/2023, 09/25/2012 Pneumococcal Vaccine: 65+ Years Completed 03/18/2017, 11/30/2015, 03/13/2009 LUNG CANCER SCREENING - USE SMARTSET 73942 Completed 10/06/2021, 05/24/2017, 12/04/2016 AAA Screening Completed [...] Advance Directives occurred with: Patient Care Teams Smudger Relationship Specialty Start Date End Date Taurus Delgado MD [address] [place] [address] PCP - General Family Medicine 03/20/16 documented as of this encounter
--- OUTSIDE RECORDS SUMMARY | 2023-11-12 16:00 | External Medical Summary ---
Author Name Unknown Address Unknown Organization K01:[facility] - [facility] [address] [place] [address] Laboratory Report Ordering Provider Test Date Status JUANJO HERMOSILLO 07/02/2023 10:57:16 Final Observation Date Value Abnormality Reference (Units ) Status WBC, Total 07/02/2023 10:57:16 11.42 Above high normal 4.00-10.80 (K/uL) Final RBC 07/02/2023 10:57:16 4.47 4.50-5.25 (M/uL) Final Hemoglobin 07/02/2023 10:57:16 13.3 Below low normal 14.0-16.8 (g/dL) Final HCT 07/02/2023 10:57:16 41.8 40.0-48.4 (%) Final MCV 07/02/2023 10:57:16 93.5 82.0-99.5 (fL) Final MCH 07/02/2023 10:57:16 29.8 27.0-34.0 (pg) Final MCHC 07/02/2023 10:57:16 31.8 32.0-36.0 (g/dL) Final RDW 07/02/2023 10:57:16 19.9 11.5-15.5 (%) Final Platelets 07/02/2023 10:57:16 531 Above high normal 140-400 (K/uL) Final MPV 07/02/2023 10:57:16 10.8 6.6-11.1 (fL) Final Nucleated erythrocytes/100 leukocytes [Ratio] in Blood by Automated count 07/02/2023 10:57:16 0 <=0 (/100 WBCs) Final Performing Location [facility] - [address] [place] [address]
--- OUTSIDE RECORDS SUMMARY | 2023-11-12 16:00 | External Medical Summary | Summary of Care ---
Author Name Unknown Organization [facility] Address [address] [facility] [place] [address] Phone [phone] Care Team Providers Care Cash Applications Specialist Name Role Phone Taurus Delgado MD Primary Care Provider [phone] Reason for Visit * Reason Comments Outpatient Testing Encounter Details Date Type Department Care Team (Latest Contact Info) Description 06/25/2023 12:00 PM EST Laboratory Laboratory, [place] [address] [place] [address] [place], [facility] [address] [place] [address] Essential thrombocythemia (HCC) Allergies No [...] Department Care Team (Latest Contact Info) Description 06/26/2023 9:00 AM EST Pharmacy Pharmacy Hematology Oncology [place] [address] [place] [address] [facility], [facility] Hem/Onc [address] [place] [address] 07/02/2023 11:10 AM EST Laboratory Laboratory, [place] [address] [place] [address] [facility] Laboratory [address] [place], [place] [phone] 08/19/2023 1:30 PM EST Procedure Only Urology, [facility] [address] [facility] [place] [address] Kp Fisher MD 27 [facility] [address] [place] [address] 08/26/2023 12:20 PM EST Office Visit Family [facility], [place] [address] [place] [address] Taurus Delgado MD [address] [place] [address] 09/11/2023 11:00 AM EST Office Visit Hematology/Oncolog y [facility] [address] [place], [place] [address] Gopi Cheung MD [address] [place] [address] 09/25/2023 1:00 PM EDT Hospital Encounter ENDO [facility], Endoscopy Room [facility] [address] [place] [phone] Nader Iglesias MD [address] [place] [address] 09/25/2023 1:00 PM EDT - 09/25/2023 1:30 PM EDT Surgery ENDO [facility], Endoscopy Room [facility] [address] [place] [phone] Nader Iglesias MD [address] [place] [address] COLONOSCOPY FLEXIBLE PROXIMAL DIAGNOSTIC 11/11/2023 1:30 PM EDT Office Visit Cardiology, [facility] [address] [place] [address] Maria Dolores Mas PA-C [address] [place] [address] Pending Results Name Type Priority Associated Diagnoses Date /Time CBC WITH WBC DIFFERENTIAL Lab STAT Essential thrombocythemia (HCC) 06/25/2023 12:07 PM EST CBC Lab STAT Essential thrombocythemia (HCC) 06/25/2023 12:07 PM EST DIFFERENTIAL, AUTOMATED Lab STAT Essential thrombocythemia (HCC) 06/25/2023 12:07 PM EST Scheduled Procedures Name Priority Associated Diagnoses Date/Ti me COLONOSCOPY FLEXIBLE PROXIMAL DIAGNOSTIC Screen for colon cancer 09/25/2023 1:00 PM EDT Health Maintenance Due Date Last Done Comments DISCUSS TOBACCO CESSATION (REFER TO SMARTSET #9036) 1950 COVID-19 Vaccine (#1) 1954 Albumin/Creatinine Ratio 10/13/1967 CKD PHOS USE SMARTSET 59699 10/13/1967 Colonoscopy 1994 Sigmoidoscopy 1994 Zoster Vaccines (1 of 2) 03/23/2016 01/27/2016 Depression Screening 02/04/2021 02/05/2020 Cologuard 03/25/2021 03/25/2018 Colorectal Cancer Screening 10/23/2022 Fecal Occult Blood Test 10/23/2022 10/23/2021 GFR 12/10/2023 06/10/2023, 04/08, 04/24/2023, Additional history exists HbA1c 05/03/2024 05/03/2023, 04/0 12/2020, 10/09/2018 CKD HGB USE SMARTSET 34623 06/17/202406/17, 06/17/2023, 06/10/2023, Additional history exists DTaP,Tdap,and Td Vaccines (3 - Td or Tdap) 02/20/2033 02/20/2023, 09/25/2012 Pneumococcal Vaccine: 65+ Years Completed 03/18/2017, 11/30/2015, 03/13/2009 LUNG CANCER SCREENING - USE SMARTSET 83196 Completed 10/06/2021, 05/24/2017, 12/04/2016 AAA Screening Completed [...] Advance Directives occurred with: Patient Care Teams Cash Applications Specialist Relationship Specialty Start Date End Date Taurus Delgado MD [address] [facility] [place] [address] PCP - General Family Medicine 03/20/16 documented as of this encounter
--- OUTSIDE RECORDS SUMMARY | 2023-11-12 16:00 | External Medical Summary | Summary of Care ---
Author Name Unknown Organization [facility] Address [address] [place] [address] Phone [phone] Care Team Providers Care Stock Car Driver Name Role Phone Taurus Delgado MD Primary Care Provider [phone] Reason for Referral * Evaluate & Treat - Unlimited Visits (Within 10 days (routine)) - Pending Review Specialty Diagnoses / Procedures Referred By Sonja ledbetter Referred To Contact Gastroenterology Diagnoses Special screening for malignant neoplasm of colon Taurus Delgado MD [address] [place] [address] Referral ID Status Reason Start Date Expiration Date Visits Requested Visits Authorized [id number] Pending Review Ancillary Services Required 3 1 1 Question Answer Referral Priority Within 10 days (routine) Where should this appointment be scheduled? Robert Comments ALERT: Do not order for pediatric patients (18 years or younger). Cancel off screen and order PEDS GASTROENTEROLOGY CONSULT (Type: 1 visit only-Evaluate and Treat) The following Pt. Instructions are available: - Gastro Colonoscopy Prep Instructions [89110] - Gastro Colonoscopy Prep Instructions (Chinese Version) [60078] Go to the Pt. Instructions section within the Visit Navigator to access. Colonoscopy ASGE Guidelines: Positive LGI flag ADDITIONAL INFORMATION 1. Is the patient on Coumadin? No 2. Is the patient on Pradaxa? No Reason for Visit * Reason Onset Date Comments FYI 06/20/2023 LGI Encounter Details Date Type Department Care Team ([facility] Contact Info) Description 06/20/2023 Telephone [facility] [address] [place] [address] Taurus Delgado MD [address] [place] [address] ASH (LGI) Allergies No known active allergiesdocumented as of this encounter (statuses as of 06/21/2023) Medications Medication Sig Dispensed Refills Start Date [...] mg Oral Daily(AM),Take one 500mg cap daily - and two 500mg caps (1000mg total) Sat/Sun, Reported on 06/11/2023 Aspirin 81 MG Oral Tablet Delayed ReleaseIndications: JAK2 V617F mutation Take 1 Tablet by mouth in the morning. 30 Tablet 5 05/21/2023 Active documented as of this encounter (statuses as of 06/21/2023) Active Problems Problem Noted Date Diagnosed Date [...] as of this encounter (statuses as of 06/21/2023) Resolved Problems Problem Noted Date Diagnosed Date Resolved Date NSTEMI (non-ST elevated myoc ardial infarction) 12/07/2013 12/07/2013 documented as of this encounter (statuses as of 06/21/2023) Immunizations Name Administration Dates Next Due Influenza, [...] as of this encounter Miscellaneous Notes * Addendum Note - Humberto Hebert LPN - 06/21/2023 8:47 AM ESTAddended by: HUMBERTO HEBERT on: 06/21/2023 08:47 AM Modules accepted: Orders * Telephone Encounter - Humberto Hebert LPN - 06/21/2023 8:45 AM EST Through advanced analysis/trending of this patients Complete Blood Counts (CBC), they have been identified to have a positive LGI flag and at a higher risk for hidden bleeding in the intestine dueto several conditions such as ulcers, colon polyps, harmless conditions, or even colon cancer. This advanced analysis estimates the patient's risk of these kinds of conditions. It only indicatesthat the patient's chances to have one of these conditions are higher compared to most people. It does not indicate that the patient has any of these conditions but is highly recommended the patient have a colonoscopy for further evaluation. Patients with a positive LGI flag have a 40% chance (six times more likely) of having a serious GI pathology finding versus unflagged patients. I have contacted the patient regarding scheduling a colonoscopy. Colonoscopy outreach: Colonoscopy ordered scheduled Thank you. Humberto Hebert LPN * Telephone Encounter - Humberto Hebert LPN - 06/20/2023 11:13 AM EST Through advanced analysis/trending of this patients Complete Blood Counts (CBC), they have been identified to have a positive LGI flag and at a higher risk for hidden bleeding in the intestine dueto several conditions such as ulcers, colon polyps, harmless conditions, or even colon cancer. This advanced analysis estimates the patient's risk of these kinds of conditions. It only indicatesthat the patient's chances to have one of these conditions are higher compared to most people. It does not indicate that the patient has any of these conditions but is highly recommended the patient have a colonoscopy for further evaluation. Patients with a positive LGI flag have a 40% chance (six times more likely) of having a serious GI pathology finding versus unflagged patients. I have contacted the patient regarding scheduling a colonoscopy. Colonoscopy outreach: Left message (Pt declined LGI 11/29/22) Thank you. Humberto Hebert LPN documented in this encounter Plan of Treatment Upcoming Encounters Date Type Department Care Team (Latest Contact Info) Description 06/24/2023 11:00 AM EST Laboratory Laboratory, [place] [address] [place] [address] [facility] [address] [place] [address] 06/25/2023 9:00 AM EST Pharmacy Pharmacy Hematology Oncology [address] [address] [facility] Hem/Onc [facility] [place] [address] 08/19/2023 1:30 PM EST Procedure Only Urology, [facility] [address] [place] [address] Kp Fisher MD [address] [facility] [address] [place] [address] 08/26/2023 12:20 PM EST Office Visit [facility] [address] [place] [facility] [phone] Taurus Delgado MD [address], [place] [phone] 09/11/2023 11:00 AM EST Office Visit Hematology/Oncolog y [facility] [address] [place] [address] Gopi Cheung MD [address] [place] [address] 09/25/2023 1:00 PM EDT Hospital Encounter ENDO [facility], Endoscopy Room [facility] [address] [place] [phone] Nader Iglesias MD [address] [place] [address] 09/25/2023 1:00 PM EDT - 09/25/2023 1:30 PM EDT Surgery ENDO [facility], Endoscopy Room [facility] [address] [place] [phone] Nader Iglesias MD [address] [place] [address] COLONOSCOPY FLEXIBLE PROXIMAL DIAGNOSTIC 11/11/2023 1:30 PM EDT Office Visit Cardiology, [facility] [address] [place] [address] Maria Dolores Mas PA-C [address] [place] [address] Scheduled Procedures Name Priority Associated Diagnoses Date/Ti me COLONOSCOPY FLEXIBLE PROXIMAL DIAGNOSTIC Screen for colon cancer 09/25/2023 1:00 PM EDT Scheduled Referrals Name Type Priority Associated Diagnoses Orde r Schedule COLONOSCOPY, GI REFERRAL OP Referral Within 10 days (routine) Special screening for malignant neoplasm of colon Ordered: 06/21/2023 Health Maintenance Due Date Last Done Comments DISCUSS TOBACCO CESSATION (REFER TO SMARTSET #3291) 1949 COVID-19 Vaccine (#1) 1954 Albumin/Creatinine Ratio 10/13/1967 CKD PHOS USE SMARTSET 90442 10/13/1967 Colonoscopy 1994 Sigmoidoscopy 1994 Zoster Vaccines (1 of 2) 03/23/2016 01/27/2016 Depression Screening 02/04/2021 02/05/2020 Cologuard 03/25/2021 03/25/2018 Colorectal Cancer Screening 10/23/2022 Fecal Occult Blood Test 10/23/2022 10/23/2021 GFR 12/10/2023 06/10/2023, 04/08, 04/24/2023, Additional history exists HbA1c 05/03/2024 05/03/2023, 04/0 12/2020, 10/09/2018 CKD HGB USE SMARTSET 89153 06/17/202406/17, 06/17/2023, 06/10/2023, Additional history exists DTaP,Tdap,and Td Vaccines (3 - Td or Tdap) 02/20/2033 02/20/2023, 09/25/2012 Pneumococcal Vaccine: 65+ Years Completed 03/18/2017, 11/30/2015, 03/13/2009 LUNG CANCER SCREENING - USE SMARTSET 02174 Completed 10/06/2021, 05/24/2017, 12/04/2016 AAA Screening Completed [...] as of this encounter Visit Diagnoses Diagnosis Special screening for malignant neoplasm of colon- Primary Special screening for malignant neoplasms, colon Screen for colon cancer Special screening for malignant neoplasms, colon documented in this encounter Advance Directives Latest Code Status on File Code Status Date Activated Date Inactivated Comments Full Code 12/06/2013 1:46 PM 12/07/2013 7:34 PM This or chastity reflects the patients wishes and were consensually agreed upon. Question Answer Comments Discussion of Advance Directives occurred with: Patient Care Teams Stock Car Driver Relationship Specialty Start Date End Date Taurus Delgado MD [address] [place] [address] PCP - General Family Medicine 03/20/16 documented as of this encounter
--- OUTSIDE RECORDS SUMMARY | 2023-11-12 16:00 | External Medical Summary ---
Author Name Unknown Address Unknown Organization K01:LABORATORY [facility] [place] - [facility] [address] [facility] [address] [facility] [address] Laboratory Report Ordering Provider Test Date Status JUANJO HERMOSILLO 07/09/2023 10:49:28 Final Observation Date Value Abnormality Reference (Units ) Status WBC, Total 07/09/2023 10:49:28 15.96 Above high normal 4.00-10.80 (K/uL) Final RBC 07/09/2023 10:49:28 4.70 4.50-5.25 (M/uL) Final Hemoglobin 07/09/2023 10:49:28 14.0 14.0-16.8 (g/dL) Final HCT 07/09/2023 10:49:28 45.0 40.0-48.4 (%) Final MCV 07/09/2023 10:49:28 95.7 82.0-99.5 (fL) Final MCH 07/09/2023 10:49:28 29.8 27.0-34.0 (pg) Final MCHC 07/09/2023 10:49:28 31.1 32.0-36.0 (g/dL) Final RDW 07/09/2023 10:49:28 19.9 11.5-15.5 (%) Final Platelets 07/09/2023 10:49:28 511 Above high normal 140-400 (K/uL) Final MPV 07/09/2023 10:49:28 10.9 6.6-11.1 (fL) Final Nucleated erythrocytes/100 leukocytes [Ratio] in Blood by Automated count 07/09/2023 10:49:28 0 <=0 (/100 WBCs) Final Performing Location LAB[facility]ORY [facility] - [address] [place] [address]
--- OUTSIDE RECORDS SUMMARY | 2023-11-12 16:00 | External Medical Summary ---
Author Name Unknown Address Unknown Organization K01:[facility] [facility] [place] [facility] [address] [facility] [address] [place] [address] Laboratory Report Ordering Provider Test Date Status JUANJO HERMOSILLO 06/25/2023 12:07:34 Final Observation Date Value Abnormality Reference (Units ) Status WBC, Total 06/25/2023 12:07:34 12.49 Above high normal 4.00-10.80 (K/uL) Final RBC 06/25/2023 12:07:34 4.59 4.50-5.25 (M/uL) Final Hemoglobin 06/25/2023 12:07:34 13.4 Below low normal 14.0-16.8 (g/dL) Final HCT 06/25/2023 12:07:34 42.7 40.0-48.4 (%) Final MCV 06/25/2023 12:07:34 93.0 82.0-99.5 (fL) Final MCH 06/25/2023 12:07:34 29.2 27.0-34.0 (pg) Final MCHC 06/25/2023 12:07:34 31.4 32.0-36.0 (g/dL) Final RDW 06/25/2023 12:07:34 18.4 11.5-15.5 (%) Final Platelets 06/25/2023 12:07:34 577 Above high normal 140-400 (K/uL) Final MPV 06/25/2023 12:07:34 10.7 6.6-11.1 (fL) Final Nucleated erythrocytes/100 leukocytes [Ratio] in Blood by Automated count 06/25/2023 12:07:34 0 <=0 (/100 WBCs) Final Performing Location [facility] [place] [facility] [place] [address] [place] [address]
--- OUTSIDE RECORDS SUMMARY | 2023-11-12 16:01 | External Medical Summary ---
Author Name Unknown Address Unknown Organization K01:[facility] [place] - [address] [facility] [address] Laboratory Report Ordering Provider Test Date Status JUANJO HERMOSILLO 06/17/2023 10:50:15 Final Observation Date Value Abnormality Reference (Units ) Status SYNC LEUKOCYTES IN BLOOD BY AUTOMATED COUNT 06/17/2023 10:50:15 16.62 Above high normal 4.00-10.80 (K/uL) Final Segs 06/17/2023 10:50:15 77.9 Above high normal 40.0-75.0 (%) Final Lymphs % 06/17/2023 10:50:15 10.3 Below low normal 18.0-42.0 (%) Final Monos 06/17/2023 10:50:15 9.7 1.0-11.0 (%) Final Eosinophils 06/17/2023 10:50:15 1.0 0.0-6.0 (%) Final Basos 06/17/2023 10:50:15 0.7 0.0-2.0 (%) Final Immature Granulocyte, Percent 06/17/2023 10:50:15 0.4 0.0-2.0 (%) Final Absolute Segs 06/17/2023 10:50:15 12.94 Above high normal 1.80-7.70 (K/uL) Final Lymphs, absolute 06/17/2023 10:50:15 1.71 1.00-4.80 (K/ul) Final Monos, Abs 06/17/2023 10:50:15 1.61 Above high normal 0.00-1.10 (K/uL) Final Eos, Abs 06/17/2023 10:50:15 0.17 0.00-0.70 (K/uL) Final Basos, Abs 06/17/2023 10:50:15 0.12 0.00-0.20 (K/uL) Final Immature Granulocytes, Number 06/17/2023 10:50:15 0.07 0.00-0.20 (K/uL) Final Performing Location [facility] [place] - [facility] [address] [facility] [address]
--- OUTSIDE RECORDS SUMMARY | 2023-11-12 16:01 | External Medical Summary | Summary of Care ---
Author Name Unknown Organization [facility] Address [address] [facility] [place] [address] Phone [phone] Care Team Providers Care Road Monkey Name Role Phone Taurus Delgado MD Primary Care Provider [phone] Reason for Visit * Reason Comments Outpatient Testing Encounter Details Date Type Department Care Team (Latest Contact Info) Description 06/17/2023 11:00 AM EST Laboratory Laboratory, [place] [address] [place] [address] [place] [address] [place] [address] Essential thrombocythemia (HCC) Allergies No known active allergiesdocumented as of this encounter (statuses as of 06/17/2023) Medications Medication Sig Dispensed Refills Start Date [...] as of this encounter (statuses as of 06/17/2023) Active Problems Problem Noted Date Diagnosed Date [...] as of this encounter (statuses as of 06/17/2023) Resolved Problems Problem Noted Date Diagnosed Date Resolved Date NSTEMI (non-ST elevated myoc ardial infarction) 12/07/2013 12/07/2013 documented as of this encounter (statuses as of 06/17/2023) Immunizations Name Administration Dates Next Due Pneumococcal Conjugate Vacc, 13 Valent (Prevnar) 11/30/2015 Pneumococcal Polysaccharide PPV23 (Pneumovax) 03/18/2017,03/13/2009 SEASONAL INFLUENZA, PF, 6 M & Above, IM , (FLULAVAL or FLUZONE) 04/30/2018,05/17/2017 Season Influenza, Quad, PF, Adjuvanted, 65+ Yrs, IM (FLUAD) 05/15/2022,05/15/2020,05/05/2020,05/15,05/15/2013 Seasonal Influenza, Quadriva lent Hd (Fluzone Hd) [...] Upcoming Encounters Date Type Department Care Team (Late st Contact Info) Description 06/18/2023 9:00 AM EST Pharmacy Pharmacy Hematology Oncology [place] [address] [place] [address] [facility] [place] Hem/Onc [address] [place] [address] 08/19/2023 1:30 PM EST Procedure Only Urology, [facility] [address] [place] [address] Kp Fisher MD [address] [address] [place] [address] 08/26/2023 12:20 PM EST Office Visit [address] [phone] Taurus Delgado MD [address], [place] [phone] 09/11/2023 11:00 AM EST Office Visit Hematology/Oncology [facility] 200 [facility] [place] [address] Gopi Cheung MD [address] [facility] [place] [address] 11/11/2023 1:30 PM EDT Office Visit Cardiology, [facility] [address] [place] [address] Maria Dolores Mas PA-C [address] [facility] [place] [address] Pending Results Name Type Priority Associated Diagnoses Date /Time CBC WITH WBC DIFFERENTIAL Lab STAT Essential thrombocythemia (HCC) 06/17/2023 10:50 AM EST CBC Lab STAT Essential thrombocythemia (HCC) 06/17/2023 10:50 AM EST DIFFERENTIAL, AUTOMATED Lab STAT Essential thrombocythemia (HCC) 06/17/2023 10:50 AM EST Health Maintenance Due Date Last Done Comments DISCUSS TOBACCO CESSATION (REFER TO SMARTSET #6811) 1950 COVID-19 Vaccine (#1) 1954 Albumin/Creatinine Ratio 10/13/1967 Colonoscopy 1994 Sigmoidoscopy 1994 Zoster Vaccines (1 of 2) 03/23/2016 01/27/2016 Depression Screening 02/04/2021 02/05/2020 Cologuard 03/25/2021 03/25/2018 Colorectal Cancer Screening 10/23/2022 Fecal Occult Blood Test 10/23/2022 10/23/2021 GFR 12/10/2023 06/10/2023, 04/08, 04/24/2023, Additional history exists HbA1c 05/03/2024 05/03/2023, 12/2020, 10/09/2018 DTaP,Tdap,and Td Vaccines (3 - Td or Tdap) 02/20/2033 02/20/2023, 09/25/2012 Pneumococcal Vaccine: 65+ Years Completed 03/18/2017, 11/30/2015, 03/13/2009 LUNG CANCER SCREENING - USE SMARTSET 76385 Completed 10/06/2021, 05/24/2017, 12/04/2016 AAA Screening Completed [...] Diagnoses Diagnosis Essential thrombocythemia (HCC) Essential thrombocythemia documented in this encounter Advance Directives Latest Code Status on File Code Status Date Activated Date Inactivated Comments Full Code 12/06/2013 1:46 PM 12/07/2013 7:34 PM This or chastity reflects the patients wishes and were consensually agreed upon. Question Answer Comments Discussion of Advance Directives occurred with: Patient Care Teams Road Monkey Relationship Specialty Start Date End Date Taurus Delgado MD [address] [place] [facility] [place] [address] PCP - General Family Medicine 03/20/16 documented as of this encounter
--- OUTSIDE RECORDS SUMMARY | 2023-11-12 16:01 | External Medical Summary | Summary of Care ---
Author Name Unknown Organization [facility] Address [address] [place] [address] Phone [phone] Care Team Providers Care [place] Machine Operator Name Role Phone Taurus Delgado MD Primary Care Provider [phone] Reason for Visit * Reason Comments Medication Management Encounter Details Date Type Department Care Team (Late st Contact Info) Description 06/18/2023 9:[address] [facility] Pharmacy Pharmacy Hematology Oncology [facility] [address] [place] [address] [facility] Hem/Onc [address] [place] [address] JAK2 V617F mutation* Allergies No known active allergiesdocumented as of this encounter (statuses as of 06/18/2023) Medications Medication Sig Dispensed Refills Start Date [...] as of this encounter (statuses as of 06/18/2023) Active Problems Problem Noted Date Diagnosed Date [...] as of this encounter (statuses as of 06/18/2023) Resolved Problems Problem Noted Date Diagnosed Date Resolved Date NSTEMI (non-ST elevated myoc ardial infarction) 12/07/2013 12/07/2013 documented as of this encounter (statuses as of 06/18/2023) Immunizations Name Administration Dates Next Due Pneumococcal [...] Progress Notes * Pat Tolliver, [facility] - 06/18/2023 10:28 AM EST MEDICATION THERAPY MANAGEMENT HYDROXYUREA TREATMENT PROGRESS NOTE Shubham Calles [phone] Patient Phone Numbers Preferred Lab: [facility]: [facility] Communication: Spoke to: Patient Treatment: Medication: Hydroxyurea (Hydrea) Indication/Staging/Diagnosis Code: ET, JAK2+ / D47.3 Dose: 500mg M-F and 1000mg Sat/Sun (DI 06/11/23) Administration: +/- food Start Date: 06/03/23 PLT goal: < 400K Primary Litigation Docket Manager/Oncologist: Dr. Cheung Prophylactic Meds: ASA 81mg daily Dose adjustment / medication hold: 06/11/23: dose increase to 500mg M-F and 1000mg Sat/Sun Interval History: No other concerns, tolerating therapy well Changes to medication list since last visit? No Assessment and Plan: PLT above goal but declining WBC increasing Hgb stable All other labs stable Continue current hydrea dose Repeat labs scheduled 06/24 @1100 Assessment of compliance: compliant Assessment of adverse effects attributed to drug therapy: Impaired wound healing- absent Ulcers (skin or oral) - absent Nausea/vomiting - absent Dose adjustment needed based on lab or adverse drug reaction? No Follow up: 1 week Pat Tolliver, PharmD, BCOP Clinical Pharmacist, [facility] Oral Chemotherapy [facility] 06/18/2023, 10:40 AM Monitoring Parameters: Estimated CrCl Serum creatinine: [...] Pertinent Labs: Latest Reference Range & Units 05/03/23 09:11 06/10/23 11:00 06/17/23 10:50 WBC 4.00 - 10.80 K/uL 15.80 (H) 12.61 (H) 16.62 (H) HGB 14.0 - 16.8 g/dL 14.2 13.7 (L) 13.7 (L) HCT 40.0 - 48.4 % 43.6 44.0 43.2 MCV 82.0 - 99.5 fL 88.6 90.7 91.3 PLT 140 - 400 K/uL 647 (H) 786 (H) 671 (H) Absolute Neutrophils 1.80 - 7.70 K/uL 12.27 (H) 9.35 (H) 12.94 (H) Time Spent on Encounter: 6 - [...] Care Team (Late st Contact Info) Description 06/24/2023 11:00 AM EST Laboratory Laboratory, [place] [address] [place] [address] [place] [address] [place] [address] 06/25/2023 9:00 AM EST Pharmacy Pharmacy Hematology Oncology [facility] [address] [place] [address] [facility] Hem/Onc [address] [place] [address] 08/19/2023 1:30 PM EST Procedure Only Urology, [facility] [address] [facility] [place] [address] Kp Fisher MD [address] [facility] [address] [place] [address] 08/26/2023 12:20 PM EST [facility] [address] [place] [phone] Taurus Delgado MD [address] [place] [address] 09/11/2023 11:00 AM EST Office Visit Hematology/Oncology [facility] 200 [facility] [place] [address] Gopi Cheung MD [address] [facility] [place] [address] 11/11/2023 1:30 PM EDT Office Visit Cardiology, [facility] [address] [facility] [place] [address] Maria Dolores Mas PA-C [address] [place] [address] Health Maintenance Due Date Last Done Comments DISCUSS TOBACCO CESSATION (REFER TO SMARTSET #3291) 1950 COVID-19 Vaccine (#1) 1954 Albumin/Creatinine Ratio 10/13/1967 Colonoscopy 1994 Sigmoidoscopy 1994 Zoster Vaccines (1 of 2) 03/23/2016 01/27/2016 Depression Screening 02/04/2021 02/05/2020 Cologuard 03/25/2021 03/25/2018 Colorectal Cancer Screening 10/23/2022 Fecal Occult Blood Test 10/23/2022 10/23/2021 GFR 12/10/2023 06/10/2023, 04/08, 04/24/2023, Additional history exists HbA1c 05/03/2024 05/03/2023, 0412/2020, 10/09/2018 DTaP,Tdap,and Td Vaccines (3 - Td or Tdap) 02/20/2033 02/20/2023, 09/25/2012 Pneumococcal Vaccine: 65+ Years Completed 03/18/2017, 11/30/2015, 03/13/2009 LUNG CANCER SCREENING - USE SMARTSET 55764 Completed 10/06/2021, 05/24/2017, 12/04/2016 AAA Screening Completed [...] JAK2 V617F mutation- Primary Other ill-defined conditions documented in this encounter Advance Directives Latest Code Status on File Code Status Date Activated Date Inactivated Comments Full Code 12/06/2013 1:46 PM 12/07/2013 7:34 PM This or chastity reflects the patients wishes and were consensually agreed upon. Question Answer Comments Discussion of Advance Directives occurred with: Patient Care Teams [place] Machine Operator Relationship Specialty Start Date End Date Taurus Delgado MD [address] [facility] [place] [address] PCP - General Family Medicine 03/20/16 documented as of this encounter
--- OUTSIDE RECORDS SUMMARY | 2023-11-12 16:01 | External Medical Summary | Summary of Care ---
Author Name Unknown Organization [facility] Address [address] [place] [address] Phone [phone] Care Team Providers Care Chip Frier Name Role Phone Taurus Delgado MD Primary Care Provider [phone] Reason for Visit * Reason Comments Medication Management Encounter Details Date Type Department Care Team (Late st Contact Info) Description 06/11/2023 9:00 AM [facility] Pharmacy Pharmacy Hematology Oncology [facility] [address] [place] [address] [facility], [facility] Hem/Onc [address] [place] [address] JAK2 V617F mutation* Allergies No known active allergiesdocumented as of this encounter (statuses as of 06/11/2023) Medications Medication Sig Dispensed Refills Start Date [...] as of this encounter (statuses as of 06/11/2023) Active Problems Problem Noted Date Diagnosed Date [...] as of this encounter (statuses as of 06/11/2023) Resolved Problems Problem Noted Date Diagnosed Date Resolved Date NSTEMI (non-ST elevated myoc ardial infarction) 12/07/2013 12/07/2013 documented as of this encounter (statuses as of 06/11/2023) Immunizations Name Administration Dates Next Due Pneumococcal [...] encounter Progress Notes * Pat Tolliver, [facility] - 06/11/2023 10:40 AM EST MEDICATION THERAPY MANAGEMENT HYDROXYUREA TREATMENT PROGRESS NOTE Shubham Calles [phone] Patient Phone Numbers Preferred Lab: [facility] [place] Communication: Spoke to: Patient Treatment: Medication: Hydroxyurea (Hydrea) Indication/Staging/Diagnosis Code: ET, 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 Cheung Prophylactic Meds: ASA 81mg daily Dose adjustment / medication hold: 06/11/23: dose increase to 500mg M-F and 1000mg Sat/Sun Interval History: Confirms start date as above Reports occasional nosebleeds that resolve on own No other concerns, tolerating therapy well Changes to medication list since last visit? No Assessment and Plan: Hepatitis B panel unremarkable - no further action needed PLT above goal and increasing WBC elevated but declining Hgb declining. Will monitor closely All other labs stable Advised pt to keep nares moisturized and contact office if nosebleeds increase in frequency or severity Increase hydrea to 500mg M-F and 1000mg Sat/Sun Pt repeated instructions back with understanding Med rec updated Will send updated RX to [place] once stable dose established Repeat labs scheduled 06/17 @1100 Assessment of compliance: compliant Assessment of adverse effects attributed to drug therapy: Impaired wound healing- absent Ulcers (skin or oral) - absent Nausea/vomiting - absent Dose adjustment needed based on lab or adverse drug reaction? Yes, dose increase Follow up: 1 week Pat Tolliver, PharmD, BCOP Clinical Pharmacist, [facility] Oral Chemotherapy [facility] 06/11/2023, 1:15 PM Monitoring Parameters: Estimated CrCl Serum creatinine: 1.3 [...] Range & Units 05/03/23 09:11 06/10/23 11:00 WBC 4.00 - 10.80 K/uL 15.80 (H) 12.61 (H) HGB 14.0 - 16.8 g/dL 14.2 13.7 (L) HCT 40.0 - 48.4 % 43.6 44.0 MCV 82.0 - 99.5 fL 88.6 90.7 PLT 140 - 400 K/uL 647 (H) 786 (H) Absolute Neutrophils 1.80 - 7.70 K/uL 12.27 (H) 9.35 (H) Latest Reference Range & Units 04/24/23 10:38 06/10/23 11:00 Albumin 3.8 - 5.0 g/dL 4.3 4.2 AST 10 - 50 U/L 26 19 ALT 10 - 50 U/L 22 16 Alkaline Phosphatase 35 - 130 U/L 125 94 Bilirubin, Total <=1.2 mg/dL 0.4 0.7 Time Spent on Encounter: 11 - 15 minutes Encounter Group: Hematology Encounter Interventions Item Category: Oral Chemotherapy Hydroxurea Problem/Rationale: Effectiveness: Dosage too low - Dose too low Pharmacist Intervention(s): Dose increased, Lab monitoring, Medication reconciliation, Non-pharmacological intervention provided, and Toxicity monitoring Magnitude of Intervention: Modification of medication for asymtomatic patients (Level 2) documented in this encounter Plan of Treatment Upcoming Encounters Date Type Department Care Team (Late st Contact Info) Description 06/17/2023 11:00 AM EST Laboratory Laboratory, [place] [address] [place] [facility] [place] [phone] [place] [address] [place] [address] 06/18/2023 9:00 AM EST Pharmacy Pharmacy Hematology Oncology [address] [address] [facility], [facility] Hem/Onc [address] [place] [address] 08/19/2023 1:30 PM EST Procedure Only Urology, [facility] [address] [facility] [place] [address] Kp Fisher MD [address] [address] [place] [address] 08/26/2023 12:20 PM EST Office Visit [facility] [address] [place] [address] Taurus Delgado MD [address] [place] [address] 09/11/2023 11:00 AM EST Office Visit Hematology/Oncology [facility] [address] [facility] [place] [address] Gopi Cheung MD [address] [facility] [place] [address] 11/11/2023 1:30 PM EDT Office Visit Cardiology, [facility] 132 [facility] [place] [address] Maria Dolores Mas PA-C [address] [facility] [place] [address] Health Maintenance Due Date Last Done Comments [...] 03/13/2009 LUNG CANCER SCREENING - USE SMARTSET 18474 Completed 10/06/2021, 05/24/2017, 12/04/2016 AAA Screening Completed [...] Advance Directives occurred with: Patient Care Teams Chip Frier Relationship Specialty Start Date End Date Taurus Delgado MD [address] [place] [address] PCP - General Family Medicine 03/20/16 documented as of this encounter
--- OUTSIDE RECORDS SUMMARY | 2023-11-12 16:01 | External Medical Summary | Summary of Care ---
Author Name Unknown Organization [facility] Address [address] [facility] [place] [address] Phone [phone] Care Team Providers Care Entertainment Dancer Name Role Phone Taurus Delgado MD Primary Care Provider [phone] Encounter Details Date Type Department Care Team (Late st Contact Info) Description 06/20/2023 External Data Patient Risk Medial Allergies No known active allergiesdocumented as of this encounter (statuses as of 06/20/2023) Medications Medication Sig Dispensed Refills Start Date [...] mg Oral Daily(AM),Take one 500mg cap daily M- and two 500mg caps (1000mg total) Sat/Sun, Reported on 06/11/2023 Aspirin 81 MG Oral Tablet Delayed ReleaseIndications: JAK2 V617F mutation Take 1 Tablet by mouth in the morning. 30 Tablet 5 05/21/2023 Active documented as of this encounter (statuses as of 06/20/2023) Active Problems Problem Noted Date Diagnosed Date [...] as of this encounter (statuses as of 06/20/2023) Resolved Problems Problem Noted Date Diagnosed Date Resolved Date NSTEMI (non-ST elevated myoc ardial infarction) 12/07/2013 12/07/2013 documented as of this encounter (statuses as of 06/20/2023) Immunizations Name Administration Dates Next Due Pneumococcal [...] Description 06/24/2023 11:00 AM EST Laboratory Laboratory, [place] [address] [facility] [address] [place], [facility] [address] [place] [facility] [place] [address] 06/25/2023 9:00 AM EST Pharmacy Pharmacy Hematology Oncology [address] [place] [address] [facility], [facility] Hem[facility]Onc [address] [place] [address] 08/19/2023 1:30 PM EST Procedure Only Urology, [facility] 132 [place] [address] Kp Fisher MD [address] [address] [place] [address] 08/26/2023 12:20 PM EST Office Visit Family [address] [phone] Taurus Delgado MD [address] [place] [address] 09/11/2023 11:00 AM EST Office Visit Hematology/Oncology [facility] 200 [facility] [place] [address] Gopi Cheung MD [address] [facility] [place] [address] 11/11/2023 1:30 PM EDT Office Visit Cardiology, [facility] 132 [facility] [place] [address] Maria Dolores Mas PA-C 400 [facility] [place] [address] Health Maintenance Due Date Last Done Comments [...] exists HbA1c 05/03/2024 05/03/2023, 04/0 12/2020, 10/09/2018 DTaP,Tdap,and Td Vaccines (3 - Td or Tdap) 02/20/2033 02/20/2023, 09/25/2012 Pneumococcal Vaccine: 65+ Years Completed 03/18/2017, 11/30/2015, 03/13/2009 LUNG CANCER SCREENING - USE SMARTSET [id number] Completed 10/06/2021, 05/24/2017, 12/04/2016 AAA Screening Completed [...] Advance Directives occurred with: Patient Care Teams Entertainment Dancer Relationship Specialty Start Date End Date Taurus Delgado MD [address] [place] [address] PCP - General Family Medicine 03/20/16 documented as of this encounter
--- OUTSIDE RECORDS SUMMARY | 2023-11-12 16:01 | External Medical Summary | Summary of Care ---
Author Name Unknown Organization [facility] Address [address] [facility] [address] Phone [phone] Care Team Providers Care Coat Maker Name Role Phone Taurus Delgado MD Primary Care Provider Reason for Visit * Reason Onset Date Comments FYI 06/20/2023 LGI Encounter Details Date Type Department Care Team (Late st Contact Info) Description 06/20/2023 Telephone [facility] [address] [place] [address] Taurus Delgado MD [address] [place] [address] FYI (LGI) Allergies No known active allergiesdocumented as [...] encounter Miscellaneous Notes * Telephone Encounter - Humberto Haynes LPN - 06/20/2023 11:13 AM EST Through [...] (Pt declined LGI 11/29/22) Thank you. Humberto Haynes LPN documented in this encounter Plan of Treatment Upcoming Encounters Date Type Department Care Team (Late st Contact Info) Description 06/24/2023 11:00 AM EST Laboratory Laboratory, [place] [address] [place] [address] [facility] [address] [place] [address] 06/25/2023 9:00 AM EST Pharmacy Pharmacy Hematology Oncology [address] [address] [facility], [facility] Hem/Onc [address] [place] [address] 08/19/2023 1:30 PM EST Procedure Only Urology, [facility] 132 [facility] [place] [address] Kp Fisher MD 27 [facility] [address] [place] [address] 08/26/2023 12:20 PM EST Office Visit Family [facility] [address] [place] [phone] Taurus Delgado MD [address] [place] [address] 09/11/2023 11:00 AM EST Office Visit Hematology/Oncology [facility] 200 [facility] [place] [address] Gopi Cheung MD 200 [facility] [place] [address] 11/11/2023 1:30 PM EDT Office Visit Cardiology, [facility] 132 [facility] [place] [address] Maria Dolores Mas PA-C 400 [facility] [place] [address] Health Maintenance Due Date Last Done Comments DISCUSS TOBACCO CESSATION (REFER TO SMARTSET #3291) 1950 COVID-19 Vaccine (#1) 1954 Albumin/Creatinine Ratio 10/13/1967 CKD PHOS USE SMARTSET 04123 10/13/1967 Colonoscopy 1994 Sigmoidoscopy 1994 Zoster Vaccines (1 of 2) 03/23/2016 01/27/2016 Depression Screening 02/04/2021 02/05/2020 Cologuard 03/25/2021 03/25/2018 Colorectal Cancer Screening 10/23/2022 Fecal Occult Blood Test 10/23/2022 10/23/2021 GFR 12/10/2023 06/10/2023, 04/08, 04/24/2023, Additional history exists HbA1c 05/03/2024 05/03/2023, 04/0 12/2020, 10/09/2018 CKD HGB USE SMARTSET 52058 06/17/202406/17, 06/17/2023, 06/10/2023, Additional history exists DTaP,Tdap,and Td Vaccines (3 - Td or Tdap) 02/20/2033 02/20/2023, 09/25/2012 Pneumococcal Vaccine: 65+ Years Completed 03/18/2017, 11/30/2015, 03/13/2009 LUNG CANCER SCREENING - USE SMARTSET 53562 Completed 10/06/2021, 05/24/2017, 12/04/2016 AAA Screening Completed [...] Advance Directives occurred with: Patient Care Teams Coat Maker Relationship Specialty Start Date End Date Taurus Delgado MD [address] [facility] [place] [address] PCP - General Family Medicine 03/20/16 documented as of this encounter
--- OUTSIDE RECORDS SUMMARY | 2023-11-12 16:01 | External Medical Summary ---
Author Name Unknown Address Unknown Organization [id number]:LABORATORY [facility] - [facility] [address] [place] [address] Laboratory Report Ordering Provider Test Date Status JUANJO HERMOSILLO 06/17/2023 10:50:15 Final Observation Date Value Abnormality Reference (Units ) Status WBC, Total 06/17/2023 10:50:15 16.62 Above high normal 4.00-10.80 (K/uL) Final RBC 06/17/2023 10:50:15 4.73 4.50-5.25 (M/uL) Final Hemoglobin 06/17/2023 10:50:15 13.7 Below low normal 14.0-16.8 (g/dL) Final HCT 06/17/2023 10:50:15 43.2 40.0-48.4 (%) Final MCV 06/17/2023 10:50:15 91.3 82.0-99.5 (fL) Final MCH 06/17/2023 10:50:15 29.0 27.0-34.0 (pg) Final MCHC 06/17/2023 10:50:15 31.7 32.0-36.0 (g/dL) Final RDW 06/17/2023 10:50:15 17.7 11.5-15.5 (%) Final Platelets 06/17/2023 10:50:15 671 Above high normal 140-400 (K/uL) Final MPV 06/17/2023 10:50:15 10.8 6.6-11.1 (fL) Final Nucleated erythrocytes/100 leukocytes [Ratio] in Blood by Automated count 06/17/2023 10:50:15 0 <=0 (/100 WBCs) Final Performing Location LABORATORY [facility] - [address] [place] [address]
--- OUTSIDE RECORDS SUMMARY | 2023-11-12 16:02 | External Medical Summary ---
Author Name Unknown Address Unknown Organization [id number]:LABORATORY [place] [address] [place] [address] Laboratory Report Ordering Provider Test Date Status HERMOSILLOJUANJO 06/10/2023 11:00:23 Final Observation Date Value Abnormality Reference (Units) Status Hepatitis B virus surface Ab [Units/volume] in Serum or Plasma by Immunoassay 06/10/2023 11:00:23 <3.5 (mIU/mL) Final Hepatitis B virus surface Ab [Presence] in Serum by Immunoassay 06/10/2023 11:00:23 Negative Final HEPATITIS B SURFACE ANTIBODY, INTERPRETATION 06/10/2023 11:00:23 NOT immune to Hepatitis B Virus Final POSITIVE: >=11.5 mIU/mL
INDETERMINATE: 8.5-<11.5 mIU/mL
NEGATIVE: <8.5 mIU/mL Performing Location LABORATORY [place] [address] [place] [address]
--- OUTSIDE RECORDS SUMMARY | 2023-11-12 16:02 | External Medical Summary | Summary of Care ---
Author Name Unknown Organization [facility] Address [address] [facility] [place] [address] Phone [phone] Care Team Providers Care Arcade Game Technician Name Role Phone Taurus Delgado MD Primary Care Provider [phone] Encounter Details Date Type Department Care Team (Late st Contact Info) Description 06/07/2023 Telephone Urology Amanda Anthony [address] [place] [address] [place] [address] Kp Fisher MD [address] [place] [address] [place] [address] Allergies No known active allergiesdocumented as of this encounter (statuses as of 06/07/2023) Medications Medication Sig Dispensed Refills Start Date End Date Status NITROGLYCERIN 0.[address] under the tongue. times 3 doses 25 11 01/02/2005 Active PROSCAR 5 MG PO TABSIndications:Rn Diabetes feliberto coronary artery disease 1 TABLET DAILY [...] 08/07/2022 Active Hydroxyurea 500 MG Oral Capsule (Hydrea)Indications: JAK2 V617F mutation Take 1 Capsule by mouth in the morning. 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 30 Tablet 5 05/21/2023 Active documented as of this encounter (statuses as of 06/07/2023) Active Problems Problem Noted Date Diagnosed Date [...] as of this encounter (statuses as of 06/07/2023) Resolved Problems Problem Noted Date Diagnosed Date Resolved Date NSTEMI (non-ST elevated myoc ardial infarction) 12/07/2013 12/07/2013 documented as of this encounter (statuses as of 06/07/2023) Immunizations Name Administration Dates Next Due Pneumococcal [...] Care Team (Late st Contact Info) Description 06/10/2023 11:00 AM EST Laboratory Laboratory, [place] [address] [facility] [place] [address] [place] [facility] [address] [facility] [place] [id number] 06/11/2023 9:00 AM EST Pharmacy Pharmacy Hematology Oncology [facility] [place] [address] [place] [address] [facility], [facility] Hem/Onc [address] [place] [address] 08/19/2023 1:30 PM EST Procedure Only Urology, [facility] 132 [facility] [place] [address] Kp Fisher MD [address] [address] [place] [address] 08/26/2023 12:20 PM EST Office Visit [address] [phone] Taurus Delgado MD [address] [place] [address] 09/11/2023 11:00 AM EST Office Visit Hematology/Oncology [facility] 200 [facility] [place] [address] Gopi Cheung MD 200 [place] [address] 11/11/2023 1:30 PM EDT Office Visit Cardiology, [facility] 132 [facility] [place] [address] Maria Dolores Mas PA-C 400 [facility] [place] [address] Health Maintenance Due Date Last Done Comments DISCUSS TOBACCO CESSATION (REFER TO SMARTSET #3461) 1950 COVID-19 Vaccine (#1) 1954 Albumin/Creatinine Ratio 10/13/1967 Colonoscopy 1994 Sigmoidoscopy 1994 Zoster Vaccines (1 of 2) 03/23/2016 01/27/2016 Depression Screening 02/04/2021 02/05/2020 Cologuard 03/25/2021 03/25/2018 Colorectal Cancer Screening 10/23/2022 Fecal Occult Blood Test 10/23/2022 10/23/2021 GFR 11/02/2023 05/03/2023, 04/07, 01/16/2023, Additional history exists HbA1c 05/03/2024 05/03/2023, 04/0 12/2020, 10/09/2018 DTaP,Tdap,and Td Vaccines (3 - Td or Tdap) 02/20/2033 02/20/2023, 09/25/2012 Pneumococcal Vaccine: 65+ Years Completed 03/18/2017, 11/30/2015, 03/13/2009 LUNG CANCER SCREENING - USE SMARTSET [id number] Completed 10/06/2021, 05/24/2017, 12/04/2016 AAA Screening Completed [...] Advance Directives occurred with: Patient Care Teams Arcade Game Technician Relationship Specialty Start Date End Date Taurus Delgado MD [address] [facility] [place] [address] PCP - General Family Medicine 03/20/16 documented as of this encounter
--- OUTSIDE RECORDS SUMMARY | 2023-11-12 16:02 | External Medical Summary ---
Author Name Unknown Address Unknown Organization K01:LABORATORY [facility] - [address] [place] [address] Laboratory Report Ordering Provider Test Date Status JUANJO HERMOSILLO 06/10/2023 11:00:23 Final Observation Date Value Abnormality Reference (Units ) Status Hep B surface Ag 06/10/2023 11:00:23 Negative Neg ative Final Performing Location LABORATORY [facility] - [address] [place] [address]
--- OUTSIDE RECORDS SUMMARY | 2023-11-12 16:02 | External Medical Summary ---
Author Name Unknown Address Unknown Organization K01:[facility]ORY [facility] [place] - [facility] [address] [place] [address] Laboratory Report Ordering Provider Test Date Status JUANJO HERMOSILLO 06/10/2023 11:00:23 Final Observation Date Value Abnormality Reference (Units ) Status Hepatitis B virus core Ab [Presence] in Serum 06/10/2023 11:00:23 Negative Negative Final Performing Location LAB[facility] [place] [address] [place] [address]
--- OUTSIDE RECORDS SUMMARY | 2023-11-12 16:02 | External Medical Summary | Summary of Care ---
Author Name Unknown Organization [facility] Address [address] [facility] [place] [address] Phone [phone] Care Team Providers Care Computerized Mill Recorder Name Role Phone Taurus Delgado MD Primary Care Provider [phone] Encounter Details Date Type Department Care Team (Late st Contact Info) Description 06/05/2023 Telephone Urology Amanda Anthony [address] [place] [phone] Kp Fisher MD [address] [place] [address] Allergies No known active allergiesdocumented as of this encounter (statuses as of 06/05/2023) Medications Medication Sig Dispensed Refills Start Date End Date Status NITROGLYCERIN 0.[address] under the tongue. times 3 doses 25 11 01/02/2005 Active PROSCAR 5 MG PO TABSIndications:Expediter Clerk feliberto coronary artery disease 1 TABLET DAILY [...] VIT) CAPS Take by mouth. 0 Act saitsh atorvaSTATin (LIPITOR) 80 MG Tablet Take 1 [...] as of this encounter (statuses as of 06/05/2023) Active Problems Problem Noted Date Diagnosed Date [...] as of this encounter (statuses as of 06/05/2023) Resolved Problems Problem Noted Date Diagnosed Date Resolved Date NSTEMI (non-ST elevated myoc ardial infarction) 12/07/2013 12/07/2013 documented as of this encounter (statuses as of 06/05/2023) Immunizations Name Administration Dates Next Due Pneumococcal [...] Description 06/10/2023 11:00 AM EST Laboratory Laboratory, [place] [address] [facility] [place] [address] [place] [facility] [address] [facility] [place] [id number] 06/11/2023 9:00 AM EST Pharmacy Pharmacy Hematology Oncology [facility] [place] [address] [place] [address] [facility], [facility] Hem/Onc [address] [place] [address] 08/07/2023 2:30 PM EST Procedure Only Urology, [facility] 132 [facility] [place] [address] Kp Fisher MD [address] [address] [place] [address] 08/26/2023 12:20 PM EST Office Visit [address] [phone] Taurus Delgado MD [address] [place] [address] 09/11/2023 11:00 AM EST Office Visit Hematology/Oncology [facility] 200 [facility] [place] [address] Gopi Cheung MD 200 [facility] [place] [address] 11/11/2023 1:30 PM EDT Office Visit Cardiology, [facility] 132 [facility] [place] [address] Maria Dolores Mas PA-C 400 [facility] [place] [address] Health Maintenance Due Date Last Done Comments DISCUSS TOBACCO CESSATION (REFER TO SMARTSET #4671) 1950 COVID-19 Vaccine (#1) 1954 Albumin/Creatinine Ratio [...] 03/13/2009 LUNG CANCER SCREENING - USE SMARTSET 95999 Completed 10/06/2021, 05/24/2017, 12/04/2016 AAA Screening Completed [...] Advance Directives occurred with: Patient Care Teams Computerized Mill Recorder Relationship Specialty Start Date End Date Taurus Delgado MD [address] [facility] [place] [address] PCP - General Family Medicine 03/20/16 documented as of this encounter
--- OUTSIDE RECORDS SUMMARY | 2023-11-12 16:02 | External Medical Summary ---
Author Name Unknown Address Unknown Organization K01:LABORATORY [facility] [place] - 100 [facility] [address] Laboratory Report Ordering Provider Test Date Status JUANJO HERMOSILLO 06/10/2023 11:00:23 Final Observation Date Value Abnormality Reference (Units ) Status SYNC LEUKOCYTES IN BLOOD BY AUTOMATED COUNT 06/10/2023 11:00:23 12.61 Above high normal 4.00-10.80 (K/uL) Final Segs 06/10/2023 11:00:23 74.1 40.0-75.0 (%) Final Lymphs % 06/10/2023 11:00:23 12.5 Below low normal 18.0-42.0 (%) Final Monos 06/10/2023 11:00:23 10.4 1.0-11.0 (%) Final Eosinophils 06/10/2023 11:00:23 1.5 0.0-6.0 (%) Final Basos 06/10/2023 11:00:23 1.0 0.0-2.0 (%) Final Immature Granulocyte, Percent 06/10/2023 11:00:23 0.5 0.0-2.0 (%) Final Absolute Segs 06/10/2023 11:00:23 9.35 Above high normal 1.80-7.70 (K/uL) Final Lymphs, absolute 06/10/2023 11:00:23 1.58 1.00-4.80 (K/ul) Final Monos, Abs 06/10/2023 11:00:23 1.31 Above high normal 0.00-1.10 (K/uL) Final Eos, Abs 06/10/2023 11:00:23 0.19 0.00-0.70 (K/uL) Final Basos, Abs 06/10/2023 11:00:23 0.12 0.00-0.20 (K/uL) Final Immature Granulocytes, Number 06/10/2023 11:00:23 0.06 0.00-0.20 (K/uL) Final Performing Location LABORATORY [facility] [place] - [facility] [address] [facility] [address]
--- OUTSIDE RECORDS SUMMARY | 2023-11-12 16:02 | External Medical Summary | Summary of Care ---
Author Name Unknown Organization [facility] Address [address] [place] [address] Phone [phone] Care Team Providers Care Eligibility Consultant Name Role Phone Taurus Delgado MD Primary Care Provider [phone] Reason for Visit * Reason Comments Outpatient Testing Encounter Details Date Type Department Care Team (Latest Contact Info) Description 06/10/2023 11:00 AM EST Laboratory Laboratory, [place] [address] [place] [address] [place], Laboratory [address] [place] [address] Essential thrombocythemia (HCC); Screening for viral disease Allergies No known active allergiesdocumented as of this encounter (statuses as of 06/10/2023) Medications Medication Sig Dispensed Refills Start Date End Date Status NITROGLYCERIN 0.[address] under the tongue. times 3 doses 25 11 01/02/2005 Active PROSCAR 5 MG PO TABSIndications:Form Setter Steel Pan Forms feliberto coronary artery disease 1 TABLET DAILY [...] as of this encounter (statuses as of 06/10/2023) Active Problems Problem Noted Date Diagnosed Date [...] as of this encounter (statuses as of 06/10/2023) Resolved Problems Problem Noted Date Diagnosed Date Resolved Date NSTEMI (non-ST elevated myoc ardial infarction) 12/07/2013 12/07/2013 documented as of this encounter (statuses as of 06/10/2023) Immunizations Name Administration Dates Next Due Pneumococcal [...] st Contact Info) Description 06/11/2023 9:00 AM EST Pharmacy Pharmacy Hematology Oncology [address] [address] [facility] Hem/Onc [address] [place] [address] 08/19/2023 1:30 PM EST Procedure Only Urology, [facility] [address] [place] [address] Kp Fisher MD [address] [address] [place] [address] 08/26/2023 12:20 PM EST Office Visit [facility] [address] [place] [address] Taurus Delgado MD [address] [place] [address] 09/11/2023 11:00 AM EST Office Visit Hematology/Oncology [facility] [address] [facility] [place] [address] Gopi Cheung MD [address] [facility] [place] [address] 11/11/2023 1:30 PM EDT Office Visit Cardiology, [facility] [address] [place] [address] Maria Dolores Mas PA-C [address] [facility] [place] [address] Pending Results Name Type Priority Associated Diagnoses Date /Time CBC WITH WBC DIFFERENTIAL Lab STAT Essential thrombocythemia (HCC) 06/10/2023 11:00 AM EST COMPREHENSIVE METABOLIC PANEL Lab STAT Essential thrombocythemia (HCC) 06/10/2023 11:00 AM EST HEPATITIS B SURFACE ANTIGEN Lab Routine Screening for viral disease 06/10/2023 11:00 AM EST HEPATITIS B CORE ANTIBODIES IGG AND IGM Lab Routine Screening for viral disease 06/10/2023 11:00 AM EST HEPATITIS B SURFACE ANTIBODY Lab Routine Screening for viral disease 06/10/2023 11:00 AM EST CBC Lab STAT Essential thrombocythemia (HCC) 06/10/2023 11:00 AM EST DIFFERENTIAL, AUTOMATED Lab STAT Essential thrombocythemia (HCC) 06/10/2023 11:00 AM EST Health Maintenance Due Date Last Done Comments DISCUSS TOBACCO CESSATION (REFER TO SMARTSET #8221) 1949 COVID-19 Vaccine (#1) 1954 Albumin/Creatinine Ratio 10/13/1967 Colonoscopy 1994 Sigmoidoscopy 1994 Zoster Vaccines (1 of 2) 03/23/2016 01/27/2016 Depression Screening 02/04/2021 02/05/2020 Cologuard 03/25/2021 03/25/2018 Colorectal Cancer Screening 10/23/2022 Fecal Occult Blood Test 10/23/2022 10/23/2021 GFR 11/02/2023 05/03/2023, 04/07, 01/16/2023, Additional history exists HbA1c 05/03/2024 05/03/2023, 12/2020, 10/09/2018 DTaP,Tdap,and Td Vaccines (3 - Td or Tdap) 02/20/2033 02/20/2023, 09/25/2012 Pneumococcal Vaccine: 65+ Years Completed 03/18/2017, 11/30/2015, 03/13/2009 LUNG CANCER SCREENING - USE SMARTSET 36032 Completed 10/06/2021, 05/24/2017, 12/04/2016 AAA Screening Completed [...] Diagnoses Diagnosis Essential thrombocythemia (HCC) Essential thrombocythemia Screening for viral disease Special screening examination for unspecified viral disease documented in this encounter Advance Directives Latest Code Status on File Code Status Date Activated Date Inactivated Comments Full Code 12/06/2013 1:46 PM 12/07/2013 7:34 PM This or chastity reflects the patients wishes and were consensually agreed upon. Question Answer Comments Discussion of Advance Directives occurred with: Patient Care Teams Eligibility Consultant Relationship Specialty Start Date End Date Taurus Delgado MD [address] [place] [address] PCP - General Family Medicine 03/20/16 documented as of this encounter
--- OUTSIDE RECORDS SUMMARY | 2023-11-12 16:02 | External Medical Summary ---
Author Name Unknown Address Unknown Organization K01:[facility] [place] - [facility] [address] [facility] [address] [place] [address] Laboratory Report Ordering Provider Test Date Status JUANJO HERMOSILLO 06/10/2023 11:00:23 Final Observation Date Value Abnormality Reference (Units ) Status WBC, Total 06/10/2023 11:00:23 12.61 Above high normal 4.00-10.80 (K/uL) Final RBC 06/10/2023 11:00:23 4.85 4.50-5.25 (M/uL) Final Hemoglobin 06/10/2023 11:00:23 13.7 Below low normal 14.0-16.8 (g/dL) Final HCT 06/10/2023 11:00:23 44.0 40.0-48.4 (%) Final MCV 06/10/2023 11:00:23 90.7 82.0-99.5 (fL) Final MCH 06/10/2023 11:00:23 28.2 27.0-34.0 (pg) Final MCHC 06/10/2023 11:00:23 31.1 32.0-36.0 (g/dL) Final RDW 06/10/2023 11:00:23 16.1 11.5-15.5 (%) Final Platelets 06/10/2023 11:00:23 786 Above high normal 140-400 (K/uL) Final MPV 06/10/2023 11:00:23 10.6 6.6-11.1 (fL) Final Nucleated erythrocytes/100 leukocytes [Ratio] in Blood by Automated count 06/10/2023 11:00:23 0 <=0 (/100 WBCs) Final Performing Location [facility] [place] - [address] [place] [address]
--- OUTSIDE RECORDS SUMMARY | 2023-11-12 16:03 | External Medical Summary | Summary of Care ---
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) Procedures eval/treat Vish Hernandez CRNP [address] [place] [address] Referral ID Status Reason Start Date Expiration Date Visits Requested Visits Authorized [id number] Authorized Specialty Services Required 10/11/2022 [phone] Encounter Details Date Type Department Care Team (Late st Contact Info) Description 05/20/2023 10:30 AM EST Office Visit Hematology/Oncology Malaika Andrews [place] [address] [facility] [place] [address] Gopi Cheung MD [address] [facility] [place] [address] JAK2 V617F mutation*; Essential thrombocythemia (HCC) Allergies No known active allergiesdocumented as of this encounter (statuses as of 05/20/2023) Medications Medication Sig Dispensed Refills Start Date End Date Status NITROGLYCERIN 0.[address] under the tongue. times 3 doses 25 11 01/02/2005 Active PROSCAR 5 MG PO TABSIndications:Clinical Unit Coordinator feliberto coronary artery disease 1 TABLET DAILY [...] at bedtime. 30 Capsule 5 08/07/2022 Active documented as of this encounter (statuses as of 05/20/2023) Active Problems Problem Noted Date Diagnosed Date JAK2 V617F mutation 12/20/2022 Iron deficiency anemia [...] as of this encounter (statuses as of 05/20/2023) Resolved Problems Problem Noted Date Diagnosed Date Resolved Date NSTEMI (non-ST elevated myoc ardial infarction) 12/07/2013 12/07/2013 documented as of this encounter (statuses as of 05/20/2023) Immunizations Name Administration Dates Next Due Pneumococcal [...] Sign Reading Time Taken Comments Blood Pressure 162/86 05/20/2023 10:23 AM EST Pulse 62 05/20/2023 10:20 AM EST Temperature 35.5 C (95.9 F) 05/20/2023 10:[address] Respiratory Rate 18 05/20/2023 10:20 AM EST Oxygen Saturation 98% 05/20/2023 10:20 AM EST Inhaled Oxygen Concentration - - Weight 92.6 kg (204 lb 3.2 oz) 05/20/2023 10:20 AM EST Height - - Body Mass Index 26.95 02/20/2023 10:19 AM EDT documented in this [...] as of this encounter Progress Notes * Gopi Cheung MD - 05/20/2023 10:14 AM EST Images from the original note were not included. Outpatient Consult Note Data Source: Patient, Epic record. Data Source: Patient, Epic record. 05/20/2023 10:14 AM Shubham Calles [id number] 72 year old Patient Encounter: HEMATOLOGY/ONCOLOGY [facility] Diagnosis: Patient was seen by Razia Sheriff. 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 Patient struggles with chronic joint pains for many years. Tolerable with oral medications. Feels that this may have gotten worseover the last year. Was having issues with bruising on DAPT. Reviewed with his summer babysitter a couple months ago. Ok to stop [...] found when he had one of his IA. Believes this was found at [facility]. Has never had a colonoscopy. Does do cologuard testing. Interval History: Overall clinically he is stable without any new symptoms complain. Denies any headache, dizziness, chest pain, palpitation abdominal pain or distention, nausea, vomiting, fever, night sweats, weight loss. LABS/IMAGING: Results for orders placed or performed in visit on 05/03/23 IRON SCREEN, INCLUDING TIBC Result Value Ref Range Iron 53 45 - 176 ug/dL Iron Binding Capacity 329 250 - 425 ug/dL Transferrin Saturation Percent 16 15 - 55 % FERRITIN Result Value Ref Range Ferritin 34 30 - 400 ng/mL HEMOGLOBIN A1C Result Value Ref Range Hemoglobin A1C 5.9 (H) 4.0 - 5.6 % Estimated Average Glucose 123 <126 mg/dL BASIC METABOLIC PANEL Result Value Ref Range BUN 26 (H) 6 - 20 mg/dL Creatinine 1.3 (H) 0.6 - 1.2 mg/dL Estimated Glomerular Filtration Rate 58 (L) >=60 mL/min Sodium 141 135 - 146 mmol/L Potassium 5.0 3.5 - 5.1 mmol/L Chloride 106 98 - 107 mmol/L CO2 21 (L) 22 - 32 mmol/L Anion Gap 14 7 - 15 mmol/L Glucose 122 (H) 70 - 120 mg/dL Calcium 9.2 8.4 - 10.2 mg/dL CBC Result Value Ref Range WBC 15.80 (H) 4.00 - 10.80 K/uL RBC 4.92 4.50 - 5.25 M/uL HGB 14.2 14.0 - 16.8 g/dL HCT 43.6 40.0 - 48.4 % MCV 88.6 82.0 - 99.5 fL MCH 28.9 27.0 - 34.0 pg MCHC 32.6 32.0 - 36.0 g/dL RDW 15.5 11.5 - 15.5 % PLT 647 (H) 140 - 400 K/uL MPV 10.5 6.6 - 11.1 fL DIFFERENTIAL, AUTOMATED Result Value Ref Range WBC 15.80 (H) 4.00 - 10.80 K/uL Neutrophils % 77.6 (H) 40.0 - 75.0 % Lymphocytes % 10.5 (L) 18.0 - 42.0 % Monocytes % 10.3 1.0 - 11.0 % Eosinophils % 1.3 0.0 - 6.0 % Basophils % 0.3 0.0 - 2.0 % Absolute Neutrophils 12.27 (H) 1.80 - 7.70 K/uL Absolute Lymphocytes 1.66 1.00 - 4.80 K/ul Absolute Monocytes 1.62 (H) 0.00 - 1.10 K/uL Absolute Eosinophils 0.20 0.00 - 0.70 K/uL Absolute Basophils 0.05 0.00 - 0.20 K/uL He continues to have elevated white cell count and platelet counts with normal hemoglobin and iron studies. REVIEW OF SYSTEMS: General: No Fever, chills, [...] vomiting, diarrhea, rectal pain or bleeding Genitourinary: Denies Hematuria or dysuria Musculoskeletal: No bone pain Skin: No skin rash or lesions noted Neurologic: No numbness, weakness, neuropathic pain or change in cognitive function Psychiatric: No vegetative signs of depression Endocrine: No symptoms of hypothyroidism or hyperglycemia Hematologic: No bleeding or lymph nodes noted As mentioned above, all of the systems were reviewed in full and are unremarkable. Past Medical History: Diagnosis Date BPH (benign prostatic hyperplasia) Dyslipidemia Hypertension IA (myocardial infarction) (HCC) 5-6 years ago Tobacco [...] by mouth at bedtime. 30 Capsule 5 No current facility-administered medications for this visit. Social History Tobacco Use Smoking status: Every Day Packs/day: 0.75 Years: 30.00 Additional pack years: 0.00 Total pack years: 22.50 Types: Cigarettes Smokeless tobacco: Never Vaping Use Vaping Use: Never used Substance Use Topics Alcohol use: Yes Comment: occassional rum and vodka Drug use: Never Review of patient's allergies indicates: No Known Allergies PHYSICAL EXAMINATION: General Appearance: Healthy appearing patient in no acute distress There were no vitals taken for this visit. Vitals reviewed. HEENT: No oral or pharyngeal [...] Extremeties: Good pulses bilaterally, no peripheral edema. Skin: Normal skin tone with no rash, petechiae, ecchymosis noted. Musculoskeletal: No pain on palpation over bony prominence, no edema, no evidence of gout, no jointor bony deformity ASSESSMENT: 72-year-old male with history of iron [...] without any new symptoms. His hemoglobin is normal with normal iron studies. He continues to have elevated WBC count and platelet count which is because of underlying myeloproliferative disorder/essential thrombocytosis. Because of the high platelet counts, he continues to be at risk for the stroke and DVT. I would like to start him on hydroxyurea 500 mg on daily basis and monitor his blood count. Discussed with the patient in detail about the diagnosis reviewed all the available blood test result with him. Discussed with him about the benefit, risk, side effects toxicity of the treatment. After detailed discussion heagreed to proceed with treatment and signed the consent form. PLAN: As above. Patient will be followed by the [facility] pharmacy. He will return clinic for follow-up in 3 months with CBC and CMP. The patient [...] documented in this encounter Nursing Notes * Sandra Begum LPN - 05/20/2023 10:22 AM EST Patient identifed by name and birthdate Do you have any concerns about pain management for today's visit? No Living Will or Advance Directive for Health Care as noted on the problem list. [facility] is a way you can talk to your provider on line through e-mail. Would you like to sign up? I can activate it for you? NO Filed Vitals: 05/20/23 1020 05/20/23 1023 BP: 164/94 162/86 Pulse: 62 Resp: 18 Temp: 35.5 C (95.9 F) TempSrc: Tympanic SpO2: 98% Weight: 92.6 kg (204 lb 3.2 oz) Patient was instructed to not get up [...] Care Team (Late st Contact Info) Description 08/09/2023 2:30 PM EST Procedure Only Urology, [facility] [address] [facility] [place] [address] Kp Fisher MD [address] [address] [place] [address] 08/26/2023 12:20 PM EST Office Visit [address] [phone] Taurus Delgado MD [address] [place] [address] 09/11/2023 11:00 AM EST Office Visit Hematology/Oncology [facility] [place] [address] [place] [address] Gopi Cheung MD [address] [place] [address] 11/11/2023 1:30 PM EDT Office Visit Cardiology, [facility] [address] [facility] [place] [address] Maria Dolores Mas PA-C [address] [place] [address] [place] [address] Scheduled Orders Name Type Priority Associated Diagnoses Orde r Schedule CBC WITH WBC DIFFERENTIAL Lab Routine JAK2 V617F mutation Essential thrombocythemia (HCC) Expected: 08/12/2023, Expires: 12/23/2023 COMPREHENSIVE METABOLIC PANEL Lab Routine JAK2 V617F mutation Essential thrombocythemia (HCC) Expected: 08/12/2023, Expires: 12/23/2023 Health Maintenance Due Date Last Done Comments DISCUSS TOBACCO CESSATION (REFER TO SMARTSET #6981) 1950 COVID-19 Vaccine (#1) 04/13/1950 Colonoscopy 1994 Sigmoidoscopy 1994 Zoster Vaccines (2 of 3) 03/23/2016 01/27/2016 Depression Screening 02/04/2021 02/05/2020 Cologuard 03/25/2021 03/25/2018 Colorectal Cancer Screening 10/23/2022 Fecal Occult Blood Test 10/23/2022 10/23/2021 HbA1c 05/03/2024 05/03/2023, 04/0 12/2020, 10/09/2018 DTaP,Tdap,and Td Vaccines (3 - Td or Tdap) 02/20/2033 02/20/2023, 09/25/2012 Pneumococcal Vaccine: 65+ Years Completed 03/18/2017, 11/30/2015, 03/13/2009 LUNG CANCER SCREENING - USE SMARTSET 29000 Completed 10/06/2021, 05/24/2017, 12/04/2016 AAA Screening Completed [...] JAK2 V617F mutation- Primary Other ill-defined conditions Essential thrombocythemia (HCC) Essential thrombocythemia documented in this encounter Advance Directives Latest Code Status on File Code Status Date Activated Date Inactivated Comments Full Code 12/06/2013 1:46 PM 12/07/2013 7:34 PM This or chastity reflects the patients wishes and were consensually agreed upon. Question Answer Comments Discussion of Advance Directives occurred with: Patient Care Teams Nc Machinist Relationship Specialty Start Date End Date Taurus Delgado MD [address] [facility] [place] [address] PCP - General Family Medicine 03/20/16 documented as of this encounter
--- OUTSIDE RECORDS SUMMARY | 2023-11-12 16:03 | External Medical Summary | Summary of Care ---
Author Name Unknown Organization [facility] Address [address] [facility] [place] [address] Phone [phone] Care Team Providers Care Custom Decorating Consultant Name Role Phone Taurus Delgado MD Primary Care Provider [phone] Reason for Visit * Reason Onset Date Comments Medication Refill 05/21/2023 Encounter Details Date Type Department Care Team (Late st Contact Info) Description 05/21/2023 Refill Hematology/Oncology [facility] Juliana Nel[place] [address] [facility] [place] [address] Bay Geiger MD [address] [place] [address] JAK2 V617F mutation* Allergies No known active allergiesdocumented as of this encounter (statuses as of 05/21/2023) Medications Medication Sig Dispensed Refills Start Date End Date Status NITROGLYCERIN 0.[address] under the tongue. times 3 doses 25 11 01/02/2005 Active PROSCAR 5 MG PO TABSIndications:Psychiatric Social Worker Supervisor feliberto coronary artery disease 1 TABLET DAILY [...] as of this encounter (statuses as of 05/21/2023) Active Problems Problem Noted Date Diagnosed Date [...] as of this encounter (statuses as of 05/21/2023) Resolved Problems Problem Noted Date Diagnosed Date Resolved Date NSTEMI (non-ST elevated myoc ardial infarction) 12/07/2013 12/07/2013 documented as of this encounter (statuses as of 05/21/2023) Immunizations Name Administration Dates Next Due Pneumococcal [...] encounter Miscellaneous Notes * Telephone Encounter - Bay Geiger MD - 05/21/2023 1:17 PM ESTSigned Prescriptions: Disp Refills Hydroxyurea 500 MG Oral Capsule (Hydrea) 30 Cap*3 Sig: Take 1 Capsule by mouth in the morning. Authorizing Provider: BAY GEIGER Aspirin 81 MG Oral Tablet Delayed Release 30 Tab*5 Sig: Take 1 Tablet by mouth in the morning. Authorizing Provider: BAY GEIGER --------- * Telephone Encounter - Pat Tolliver RPh - 05/21/2023 12:55 PM EST Hydrea and ASA RX per 05/20 MTM encounter documented in this encounter Plan of Treatment Upcoming Encounters Date Type Department Care Team (Late st Contact Info) Description 08/09/2023 2:30 PM EST Procedure Only Urology, [facility] 132 [facility] [place] [address] Kp Fisher MD [address] [place] [address] 08/26/2023 12:20 PM EST Office Visit [facility] [address] [place] [phone] Taurus Delgado MD [address] [place] [address] 09/11/2023 11:00 AM EST Office Visit Hematology/Oncology Malaika Andrews [place] [address] [place] [address] Bay Geiger MD [address] [place] [address] 11/11/2023 1:30 PM EDT Office Visit Cardiology, [facility] [address] [facility] [place] [address] Maria Dolores Mas PA-C [address] [place] [address] [place] [phone] Health Maintenance Due Date Last Done Comments DISCUSS TOBACCO CESSATION (REFER TO SMARTSET #9422) 1950 COVID-19 Vaccine (#1) [birth year]/13/1950 Colonoscopy 1994 Sigmoidoscopy 1994 Zoster Vaccines (2 of 3) 03/23/2016 01/27/2016 Depression Screening 02/04/2021 02/05/2020 Cologuard 03/25/2021 03/25/2018 Colorectal Cancer Screening 10/23/2022 Fecal Occult Blood Test 10/23/2022 10/23/2021 HbA1c 05/03/2024 05/03/2023, 12/2020, 10/09/2018 DTaP,Tdap,and Td Vaccines (3 - Td or Tdap) 02/20/2033 02/20/2023, 09/25/2012 Pneumococcal Vaccine: 65+ Years Completed 03/18/2017, 11/30/2015, 03/13/2009 LUNG CANCER SCREENING - USE SMARTSET 21943 Completed 10/06/2021, 05/24/2017, 12/04/2016 AAA Screening Completed [...] Advance Directives occurred with: Patient Care Teams Custom Decorating Consultant Relationship Specialty Start Date End Date Taurus Delgado MD [address] [place] [address] PCP - General Family Medicine 03/20/16 documented as of this encounter
--- OUTSIDE RECORDS SUMMARY | 2023-11-12 16:03 | External Medical Summary | Summary of Care ---
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) Procedures eval/treat Vish Hernandez CRNP [address] [place] [address] Referral ID Status Reason Start Date Expiration Date Visits Requested Visits Authorized [id number] Authorized Specialty Services Required 10/11/2022 12/19/2023 [id number] Encounter Details Date Type Department Care Team (Late st Contact Info) Description 05/20/2023 1:00 PM [facility] Pharmacy Pharmacy Hematology Oncology [facility] [place] [address] [place] [address] [facility] [place] [facility] Hem/Onc [address] [place] [address] JAK2 [id number] mutation* Allergies No known active allergiesdocumented as of this encounter (statuses as of 05/21/2023) Medications Medication Sig Dispensed Refills Start Date End Date Status NITROGLYCERIN 0.[address] under the tongue. times 3 doses 25 11 01/02/2005 Active PROSCAR 5 MG PO TABSIndications:Health Information Managers feliberto coronary artery disease 1 TABLET DAILY [...] this encounter Progress Notes * Pat Tolliver, [facility] - 05/21/2023 10:26 AM EST MEDICATION THERAPY MANAGEMENT HYDROXYUREA INITIAL INTAKE NOTE Shubham Calles [phone] Patient Phone Numbers Preferred Lab: Specialty Pharmacy: [place] in [place] ([facility] copy below into specialty comments) Treatment consent complete: yes Date: 05/20/23 - provided verbal consent per OV Precertification complete: no Date: N/A Communication: Left message and Chart review Treatment: Medication: Hydroxyurea (Hydrea) Indication/Staging/Diagnosis Code: ET, JAK2+ / D47.3 Dose: 500mg daliy Administration: +/- food Start Date: TBD PLT goal: < 400K Primary Wig Dresser/Oncologist: Dr. Cheung Prophylactic Meds: ASA 81mg daily Review of therapy: Line of therapy: first Previous therapy: none Reviewed dosage prescribed for appropriateness (based on indication, hepatic function,renal function, etc): no changes Are appropriate supportive care medications prescribed? No, none needed Are appropriate prophylactic medications prescribed? No, per discussion with Dr. Cheung, pt to startASA 81mg daily along with hydrea Have baseline labs/tests been obtained? Yes Has hepatitis B screening been completed? No, ordered Potential drug-drug drug-herbal, drug-food, drug-disease interactions: No The Hematology/Oncology Oral Chemotherapy Clinic will assess medication compliance at each patient encounter Treatment History: None Medication education: not complete Confirmed pt has received information regarding goals and duration of therapy: no Reviewed dosing and administration: no Reviewed importance of medication compliance (document recommendations if barriers identified): no Reviewed appropriate storage conditions: no Reviewed handling precautions: no Reviewed handling body fluids and waste: no Reviewed side effects, monitoring, and supportive care measures: no Impaired wound healing This medication may affect your body's ability to heal, specifically after a surgery or procedure Please inform the clinic of any upcoming surgeries of procedures, including dental work like extractions or root canals. We will provide you with instructions on how long to hold your chemotherapy. Ulcers (skin or oral) This medication can cause mouth soreness or sores Maintain good oral hygiene: use a soft bristle toothbrush; rinse mouth after meals and at bedtime with a non-alcohol based mouthwash Salt water/baking soda rinse: 1/8 tsp salt + tsp baking soda + 8 oz warm water; swish and spit PRN If sore develop, continue supportive care above. Also avoid spicy, acidic, citrus foods When to call clinic: If sores become painful or affecting oral intake Nausea/vomiting This medication may cause nausea or vomiting Low/Minimal emetic risk: Zofran/Compazine PRN, but if consistently nauseated, can administer Dvoepm83 minutes prior to chemotherapy Moderate/high emetic risk: Zofran 30 minutes prior to chemotherapy and q8h PRN. Compazine for breakthrough N/V Dietary modifications: avoid spicy, greasy, fatty foods If vomiting, increase water intake to avoid dehydration When to call clinic: N/V refractory to antiemetics or if unable to keep up with oral intake Confirmed pt has received written information about drug therapy: no Changes to medication list since last visit: no Drug interaction assessment: Treatment plan and current medication list evaluated for drug-drug interactions. No clinically significant drug interaction identified Does patient rely on caregiver for medication management? no Assessment and plan: Per new oral chemotherapy plan, [facility] Per discussion with Dr. Cheung, PLT goal < 400K Ordered weekly standing cbcd, monthly cmp, and baseline hep b panel LM requesting call back for medication education Follow up: 05/24 Pat Tolliver, PharmD, BCOP Clinical Pharmacist, [facility] Oral Chemotherapy [facility] 05/21/2023, 4:09 PM Monitoring Parameters: Estimated CrCl Serum creatinine: 1.3 mg/dL (H) 05/03/23 0911 Estimated creatinine clearance: 57.2 mL/min (A) Hepatitis panel N/A - ordered and to be completed with next routine labs test N/A Suggested lab monitoring Suggested labs (antineoplastic): CBCd weekly until stable, then monthly; CMP q3-4mon; status prior to initiation (if of reproductive potential) Treatment Parameters Pertinent Labs: Latest Reference Range & Units 05/03/23 09:11 WBC 4.00 - 10.80 K/uL 15.80 (H) HGB 14.0 - 16.8 g/dL 14.2 HCT 40.0 - 48.4 % 43.6 MCV 82.0 - 99.5 fL 88.6 PLT 140 - 400 K/uL 647 (H) Absolute Neutrophils 1.80 - 7.70 K/uL 12.27 (H) Latest Reference Range & Units 04/24/23 10:38 Albumin 3.8 - 5.0 g/dL 4.3 AST 10 - 50 U/L 26 ALT 10 - 50 U/L 22 Alkaline Phosphatase 35 - 130 U/L 125 Bilirubin, Total <=1.2 mg/dL 0.4 Time Spent on Encounter: 26 - 30 minutes Encounter Group: Hematology Encounter Interventions Item Category: Oral Chemotherapy Hydroxurea Problem/Rationale: Indication: Needs additional medication therapy - Untreated condition Education: Initial education Pharmacist Intervention(s): Clarification with Provider, Drug Interaction Screen, Lab monitoring, Orders labs, and Referral review Magnitude of Intervention: Monitoring with direction (Level 1) documented in this encounter Plan of Treatment Upcoming Encounters Date Type Department Care Team (Late st Contact Info) Description 05/24/2023 9:15 AM EST Pharmacy Pharmacy Hematology Oncology [facility] [place] [address] [place] [address] [facility] [place] [facility] Hem/Onc [facility] [place] [address] 08/09/2023 2:30 PM EST Procedure Only Urology, [facility] [address] [facility] [place] [address] Kp Fisher MD [address] [address] [place] [address] 08/26/2023 12:20 PM EST Office Visit [facility] [address] [place] [phone] Taurus Delgado MD [address] [place] [address] 09/11/2023 11:00 AM EST Office Visit Hematology/Oncology [facility] [place] [address] [place] [address] Gopi Cheung MD 200 [facility] [place] [address] 11/11/2023 1:30 PM EDT Office Visit Cardiology, [facility] [address] [facility] [place] [address] Maria Dolores Mas PA-C [address] [place] [address] [place] [address] Health Maintenance Due Date Last Done Comments DISCUSS TOBACCO CESSATION (REFER TO SMARTSET #3291) 1950 COVID-19 Vaccine (#1) 04[birth year]13/1950 Colonoscopy 1994 Sigmoidoscopy 1994 Zoster Vaccines (2 of 3) 03/23/2016 01/27/2016 Depression Screening 02/04/2021 02/05/2020 Cologuard 03/25/2021 03/25/2018 Colorectal Cancer Screening 10/23/2022 Fecal Occult Blood Test 10/23/2022 10/23/2021 HbA1c 05/03/2024 05/03/2023, 0412/2020, 10/09/2018 DTaP,Tdap,and Td Vaccines (3 - Td or Tdap) 02/20/2033 02/20/2023, 09/25/2012 Pneumococcal Vaccine: 65+ Years Completed 03/18/2017, 11/30/2015, 03/13/2009 LUNG CANCER SCREENING - USE SMARTSET 22230 Completed 10/06/2021, 05/24/2017, 12/04/2016 AAA Screening Completed [...] Advance Directives occurred with: Patient Care Teams Supervisor Vendor Quality Relationship Specialty Start Date End Date Taurus Delgado MD [address] [place] [address] PCP - General Family Medicine 03/20/16 documented as of this encounter
--- OUTSIDE RECORDS SUMMARY | 2023-11-12 16:03 | External Medical Summary | Summary of Care ---
Author Name Unknown Organization [facility] Address [address] [place] [address] Phone [phone] Care Team Providers Care Commercial Crabber Name Role Phone Taurus Delgado MD Primary Care Provider Reason for Visit * Reason Comments Medication Management Encounter Details Date Type Department Care Team (Late st Contact Info) Description 05/29/2023 9:15 AM [facility] Pharmacy Pharmacy Hematology Oncology [facility] [address] [place] [address] [facility], [facility] Clinic Hem/Onc [address] [place] [address] JAK2 V617F mutation* Allergies No known active allergiesdocumented as of this encounter (statuses as of 05/29/2023) Medications Medication Sig Dispensed Refills Start Date End Date Status NITROGLYCERIN 0.[address] under the tongue. times 3 doses 25 11 01/02/2005 Active PROSCAR 5 MG PO TABSIndications:Switch Adjuster feliberto coronary artery disease 1 TABLET DAILY [...] as of this encounter (statuses as of 05/29/2023) Active Problems Problem Noted Date Diagnosed Date [...] as of this encounter (statuses as of 05/29/2023) Resolved Problems Problem Noted Date Diagnosed Date Resolved Date NSTEMI (non-ST elevated myoc ardial infarction) 12/07/2013 12/07/2013 documented as of this encounter (statuses as of 05/29/2023) Immunizations Name Administration Dates Next Due Pneumococcal [...] this encounter Progress Notes * Pat Tolliver, [facility] - 05/29/2023 1:01 PM EST MEDICATION THERAPY MANAGEMENT HYDROXYUREA TREATMENT PROGRESS NOTE Shubham Calles [phone] Patient Phone Numbers Preferred Lab: [facility]: [facility] Communication: Spoke to: Patient Treatment: Medication: Hydroxyurea (Hydrea) Indication/Staging/Diagnosis Code: ET, JAK2+ / D47.3 Dose: 500mg daliy Administration: +/- food Start Date: 06/03/23 PLT goal: < 400K Primary Criminal Investigator/Oncologist: Dr. Cheung Prophylactic Meds: ASA 81mg daily Interval History: States he received hydroxyurea in the mail today Wishes to delay treatment start until after holiday and weekend in the event side effects occur Changes to medication list since last visit? No Assessment and Plan: Advised pt to start hydroxyurea 06/03/23 when office reopens Weekly labs scheduled 06/10/23 @1100 Assessment of compliance: N/A Assessment of adverse effects attributed to drug therapy: N/A Dose adjustment needed based on lab or adverse drug reaction? No Follow up: 06/11 Pat Tolliver, PharmD, BCOP Clinical Pharmacist, [facility] Oral Chemotherapy [facility] 05/29/2023, 1:57 PM Monitoring Parameters: Estimated CrCl Serum creatinine: 1.3 mg/dL (H) 05/03/23 0911 Estimated creatinine clearance: 57.2 mL/min (A) Hepatitis panel N/A - ordered and to be completed with next routine labs test N/A Suggested lab monitoring Suggested labs (antineoplastic): CBCd weekly until stable, then monthly; CMP q3-4mon; status prior to initiation (if of reproductive potential) Treatment Parameters Pertinent Labs: N/A Time Spent on Encounter: 6 - 10 minutes Encounter Group: Hematology Encounter Interventions Item Category: Oral Chemotherapy Hydroxurea Problem/Rationale: Indication: Needs additional medication therapy - Untreated condition Pharmacist Intervention(s): Care coordination Magnitude of Intervention: Monitoring with no interventions (Level 0) documented in this encounter Plan of Treatment Upcoming Encounters Date Type Department Care Team (Late st Contact Info) Description 06/10/2023 11:00 AM EST Laboratory Laboratory, [place] [address] [facility] [place] [phone] [place] [address] [facility] [place] [address] 08/09/2023 2:30 PM EST Procedure Only Urology, [facility] [address] [facility] [place] [address] Kp Fisher MD [address] [address] [place] [address] 08/26/2023 12:20 PM EST Office Visit [facility] [address] [place] [address] Taurus Delgado MD [address] [place] [address] 09/11/2023 11:00 AM EST Office Visit Hematology/Oncology [facility] 200 [facility] [place] [address] Gopi Cheung MD [address] [facility] [place] [address] 11/11/2023 1:30 PM EDT Office Visit Cardiology, [facility] [address] [facility] [place] [address] Maria Dolores Mas PA-C [address] [facility] [place] [phone] Health Maintenance Due Date Last Done Comments [...] 03/13/2009 LUNG CANCER SCREENING - USE SMARTSET [id number] Completed 10/06/2021, 05/24/2017, 12/04/2016 AAA Screening Completed [...] Advance Directives occurred with: Patient Care Teams Commercial Crabber Relationship Specialty Start Date End Date Taurus Delgado MD [address] [facility] [place] [place] [address] PCP - General Family Medicine 03/20/16 documented as of this encounter
--- OUTSIDE RECORDS SUMMARY | 2023-11-12 16:03 | External Medical Summary | Summary of Care ---
Author Name Unknown Organization [facility] Address [address] [facility] [place] [address] Phone [phone] Care Team Providers Care Excel Specialist Name Role Phone Taurus Delgado MD Primary Care Provider [phone] Encounter Details Date Type Department Care Team (Late st Contact Info) Description 05/21/2023 Orders Only Hematology/Oncology [facility] [place] [place] [address] [place] [address] Gopi Cheung MD [address] [place] [address] Essential thrombocythemia (HCC)*; Screening for viral disease Allergies No known active allergiesdocumented as of this encounter (statuses as of 05/21/2023) Medications Medication Sig Dispensed Refills Start Date End Date Status NITROGLYCERIN 0.[address] under the tongue. times 3 doses 25 11 01/02/2005 Active PROSCAR 5 MG PO TABSIndications:Green Promotions Specialist feliberto coronary artery disease 1 TABLET DAILY [...] 08/09/2023 2:30 PM EST Procedure Only Urology, [facility] [address] [facility] [place] [address] Kp Fisher MD [address] [place] [address] [place] [address] 08/26/2023 12:20 PM EST [facility] [place] [address] [facility] [phone] Taurus Delgado MD [address] [place] [address] 09/11/2023 11:00 AM EST Office Visit Hematology/Oncology [facility] 200 [facility] [place], [place] [address] Gopi Cheung MD [address] [place] [address] 11/11/2023 1:30 PM EDT Office Visit Cardiology, [facility] 132 [facility] [place] [address] Maria Dolores Mas PA-C [address] [facility] [place] [address] Scheduled Orders Name Type Priority Associated Diagnoses Orde r Schedule CBC WITH WBC DIFFERENTIAL Lab STAT Essential thrombocythemia (HCC) Every Week for 52 Occurrences starting 05/21/2023 until 05/21/2024 COMPREHENSIVE METABOLIC PANEL Lab STAT Essential thrombocythemia (HCC) Every Month for 12 Occurrences starting 05/21/2023 until 05/21/2024 HEPATITIS B SURFACE ANTIGEN Lab Routine Screening for viral disease Expected: 05/28/2023 (Approximate), Expires: 07/21/2023 HEPATITIS B CORE ANTIBODIES IGG AND IGM Lab Routine Screening for viral disease Expected: 05/28/2023 (Approximate), Expires: 07/21/2023 HEPATITIS B SURFACE ANTIBODY Lab Routine Screening for viral disease Expected: 05/28/2023 (Approximate), Expires: 07/21/2023 Health Maintenance Due Date Last Done Comments DISCUSS TOBACCO CESSATION (REFER TO SMARTSET #2388) 1950 COVID-19 Vaccine (#1) 04/13/1951 Colonoscopy 1994 [...] 03/13/2009 LUNG CANCER SCREENING - USE SMARTSET 32851 Completed 10/06/2021, 05/24/2017, 12/04/2016 AAA Screening Completed [...] this encounter Visit Diagnoses Diagnosis Essential thrombocythemia (HCC)- Primary Essential thrombocythemia Screening for viral disease Special screening examination for unspecified viral disease documented in this encounter Advance Directives Latest Code Status on File Code Status Date Activated Date Inactivated Comments Full Code 12/06/2013 1:46 PM 12/07/2013 7:34 PM This or chastity reflects the patients wishes and were consensually agreed upon. Question Answer Comments Discussion of Advance Directives occurred with: Patient Care Teams Excel Specialist Relationship Specialty Start Date End Date Taurus Delgado MD [address] [place] [address] PCP - General Family Medicine 03/20/16 documented as of this encounter
--- OUTSIDE RECORDS SUMMARY | 2023-11-12 16:03 | External Medical Summary | Summary of Care ---
Author Name Unknown Organization [facility] Address [address] [place] [address] Phone [phone] Care Team Providers Care Energy Economist Name Role Phone Taurus eDlgado MD Primary Care Provider [phone] Reason for Visit * Reason Comments Medication Management Encounter Details Date Type Department Care Team (Late st Contact Info) Description 05/24/2023 9:15 AM [facility] Pharmacy Pharmacy Hematology Oncology [facility] [address] [place] [address] [facility], [facility] Hem/Onc [address] [place] [address] JAK2 V617F mutation* Allergies No known active allergiesdocumented as of this encounter (statuses as of 05/22/2023) Medications Medication Sig Dispensed Refills Start Date End Date Status NITROGLYCERIN 0.[address] under the tongue. times 3 doses 25 11 01/02/2005 Active PROSCAR 5 MG PO TABSIndications:Adoption Social Worker feliberto coronary artery disease 1 TABLET DAILY [...] as of this encounter (statuses as of 05/22/2023) Active Problems Problem Noted Date Diagnosed Date [...] as of this encounter (statuses as of 05/22/2023) Resolved Problems Problem Noted Date Diagnosed Date Resolved Date NSTEMI (non-ST elevated myoc ardial infarction) 12/07/2013 12/07/2013 documented as of this encounter (statuses as of 05/22/2023) Immunizations Name Administration Dates Next Due Pneumococcal [...] as of this encounter Progress Notes * Andree Banegas, [facility] - 05/22/2023 9:39 AM EST MEDICATION THERAPY MANAGEMENT HYDROXYUREA INITIAL INTAKE NOTE Shubham Calles [phone] Patient Phone Numbers Preferred Lab: Specialty Pharmacy: [place] in [place] ([facility] copy below into specialty comments) Treatment consent complete: yes Date: 05/20/23 - provided verbal consent per OV Precertification complete: no Date: N/A Communication: Spoke to: Patient Treatment: Medication: Hydroxyurea (Hydrea) Indication/Staging/Diagnosis Code: ET, JAK2+ / D47.3 Dose: 500mg daliy Administration: +/- food Start Date: TBD PLT goal: < 400K Primary Md Physician Dermatologist/Oncologist: Dr. Cheung Prophylactic Meds: ASA 81mg daily [...] information regarding goals and duration of therapy: yes Reviewed dosing and administration: yes Reviewed importance of medication compliance (document recommendations if barriers identified): yes Reviewed appropriate storage conditions: yes Reviewed handling precautions: yes Reviewed handling body fluids and waste: yes Reviewed side effects, monitoring, and supportive care measures: yes Impaired wound healing This medication may affect [...] PRN, but if consistently nauseated, can administer Svtngm34 minutes prior to chemotherapy Moderate/high emetic risk: Zofran 30 minutes prior to chemotherapy and q8h PRN. Compazine for breakthrough N/V Dietary modifications: avoid spicy, greasy, fatty foods If vomiting, increase water intake to avoid dehydration When to call clinic: N/V refractory to antiemetics or if unable to keep up with oral intake Confirmed pt has received written information about drug therapy: yes Changes to medication list since last visit: no Drug interaction assessment: Treatment plan and current medication list evaluated for drug-drug interactions. No clinically significant drug interaction identified Does patient rely on caregiver for medication management? no Assessment and plan: Spoke to patient and provided MTM telephone number and education for hydrea Pt will begin aspirin 81mg daily Pt is aware to call MTM once medication received from the [facility] Pt is aware that the goal of platelet count is less than 400k Pt is aware that labs to be ordered weekly at start of therapy Pt gets labs drawn at [facility] to follow up in one week to confirm receipt of hydrea and to set up labs Follow up: 1 week Andree Banegas, BarbieD, BCOP Clinical Pharmacist [facility] 05/22/2023, 9:55 AM Monitoring Parameters: Estimated CrCl Serum creatinine: [...] <=1.2 mg/dL 0.4 Time Spent on Encounter: 16 - 20 minutes Encounter Group: Hematology Encounter Interventions Item Category: Oral Chemotherapy Hydroxurea Problem/Rationale: Safety: Needs additional monitoring - Medication Requires monitoring Pharmacist Intervention(s): Education provided Magnitude of Intervention: Monitoring with direction (Level 1) documented in this encounter Plan of Treatment Upcoming Encounters Date Type Department Care Team (Late st Contact Info) Description 08/09/2023 2:30 PM EST Procedure Only Urology, [facility] [address] [facility] [place] [address] Kp Fisher MD [address] [address] [place] [address] 08/26/2023 12:20 PM EST Office Visit [facility] [address] [place] [phone] Taurus Delgado MD [address] [place] [address] 09/11/2023 11:00 AM EST Office Visit Hematology/Oncology [facility] 200 [facility] [place] [address] Gopi Cheung MD 200 [facility] [place] [address] 11/11/2023 1:30 PM EDT Office Visit Cardiology, [facility] [address] [facility] [place] [address] Maria Dolores Mas PA-C 400 [facility] [place] [address] Health Maintenance Due Date Last Done Comments DISCUSS TOBACCO CESSATION (REFER TO SMARTSET #3291) 1950 COVID-19 Vaccine (#1) 1955 Colonoscopy 1994 Sigmoidoscopy 1994 Zoster Vaccines (1 of 2) 03/23/2016 01/27/2016 Depression Screening 02/04/2021 02/05/2020 Cologuard 03/25/2021 03/25/2018 Colorectal Cancer Screening 10/23/2022 Fecal Occult Blood Test 10/23/2022 10/23/2021 HbA1c 05/03/2024 05/03/2023, 04/0 12/2020, 10/09/2018 DTaP,Tdap,and Td Vaccines (3 - Td or Tdap) 02/20/2033 02/20/2023, 09/25/2012 Pneumococcal Vaccine: 65+ Years Completed 03/18/2017, 11/30/2015, 03/13/2009 LUNG CANCER SCREENING - USE SMARTSET [id number] Completed 10/06/2021, 05/24/2017, 12/04/2016 AAA Screening Completed [...] Advance Directives occurred with: Patient Care Teams Energy Economist Relationship Specialty Start Date End Date Taurus Delgado MD [address] [facility] [place] [address] PCP - General Family Medicine 03/20/16 documented as of this encounter
--- NOTE | 2023-11-12 18:16 | Hospitalist Progress Note ---
Date of Service November 12, 2023 Assessment & Plan (1) Syncope: Plan: likely Orthostatic hypotension - patient recalls feeling dizzy, "wobbly" prior to falling over to his , lowered to the ground by family, lost consciousness for about 3 seconds as per patient, no confusion (+) orthostasis noted at the ER only drinks 2-3 cups of fluid per day as per patient Terazosin and Lisinopril on hold - given IV fluids - BP improving continue to monitor BP - A fib initially suspected, but EKG where a fib was seen does not belong to the patient Cardiology consulted no arrhythmias on Tele - CT head: pending Complicated UTI, recent instrumentation, no sepsis for now - blood culture: pending urine culture: gram negative bacilli - continue Ceftriaxone IV chronic systolic heart failure, patient on the dry side - given IV fluids hx CAD status post CABG history SVT status post ablation valvular heart disease (moderate MR, mild TR) hyperlipidemia, on statin Rx BPH, TURP contemplated by urologist prediabetes, hemoglobin A1c of 5.9 last year ongoing tobacco abuse DVT prophylaxis SCDs Full code Disposition anticipate d/c home tomorrow when medically stable Admission and Anticipated Discharge Date Admission Date: November 11, 2023 Subjective ff up for syncope, etc seen resting in bed, sitting up at the edge of the bed in good spirits oriented, answering all questions appropriately no chest pain, dyspnea, palpitations, dizziness no presyncope/syncope no headache, fever/chills no problems with urination no other symptoms Review of Systems Review of Systems: all noted and negative except for above Physical Exam Physical Exam: General- oriented x 3, not in distress, speaks in sentences with no effort or accessory muscle use Eyes- anicteric Neck- no JVD Lungs- clear breath sounds bilaterally, no rales/wheezes Heart- normal rate, regular rhythm; no murmurs Abdomen- normal bowel sounds, nondistended, soft, nontender Extremities- no pretibial edema, no calf tenderness Neuro- alert, oriented x 3; no gross focal neurologic deficits Skin- warm & dry Results & Data Results & Data Vital Signs (Past 12 Hours) Vital Signs Temp Pulse Pulse Resp BP Pulse Ox O2 Del Method 11/12/23 15:31 57 L 11/12/23 14:41 37.2 C 85 18 134/83 98 Room Air 05/07/24 12:33 36.7 C 63 16 150/85 H 98 Room Air 11/12/23 10:00 63 11/12/23 08:49 37.2 C 63 16 128/74 97 Room Air all noted and reviewed including below
--- NOTE | 2023-11-12 18:44 | CT Scan Report ---
CT OF THE HEAD WITHOUT CONTRAST CLINICAL HISTORY: syncope, r/o CVA COMPARISON STUDY: Head CT October 14, 2017. CT DOSE: 703.85 mGy.cm TECHNIQUE: Helical axial images of the head were obtained without IV contrast. Automated exposure con trol was utilized for the study. A dose lowering technique was utilized adhering to the principles o f ALARA. FINDINGS: No acute intracranial hemorrhage, midline shift or mass effect is present. The ventricular system is unremarkable. The basal cisterns are patent. No extra-axial collections are present. There are no findings to suggest acute dural sinus thrombosis or acute territorial infarct. No significant calvarial abnormalities are present. Visualized portions of the sinuses and mastoid air cells are muriel ar. IMPRESSION: No acute intracranial findings. ACT 112: Negative or not required by law. Electronically signed by: Murray Gary M.D. 11/12/2023 6:43 PM
--- OUTSIDE RECORDS SUMMARY | 2023-11-12 19:18 | External Medical Summary | Summary of Care ---
Author Name Unknown Organization [facility] Address [address] [facility] [place] [address] Phone [phone] Care Team Providers Care Environmental Construction Engineer Name Role Phone Tomy Delgado MD Primary Care Provider Encounter Details Date Type Department Care Team (Latest Contact Info) Description 11/11/2023 2:00 PM EDT Office Visit Urology, [facility] [address] [facility] [place] [address] Kp Fisher MD 27 [facility] [address] [place] [address] BPH with obstruction/lower urinary tract symptoms*; Hydronephrosis, bilateral; Incomplete emptying of bladder; Renal insufficiency Allergies No known active allergiesdocumented as of this encounter (statuses as of 11/11/2023) Medications Medication Sig Dispensed Refills Start Date [...] Saturday, Saturday, and , Reported on 08/07/2023 Hospital, Clinic, or Other Facility Administered Medication Ordered Dose Route Frequency Start Date End Date Status sulfamethoxazole-trimethopr im DS (Bactrim DS) 800-160 MG 1 TabletIndications:BPH with obstruction/lower urinary tract symptoms,Hydronephrosis, bilateral,Incomplete emptying of bladder,Renal insufficiency 1 Tablet OR ONCE 11/11/2023 11/11/2023 Ended documented as of this encounter (statuses as of 11/11/2023) Active Problems Problem Noted Date Diagnosed Date BPH with obstruction/lower urinary tract symptom s 11/11/2023 Hydronephrosis, bilateral 11/11/2023 Incomplete emptying of bladder 11/11/2023 Renal insufficiency 11/11/2023 Chronic kidney disease, stage 3a 05/20/2023 Overview: [...] as of this encounter (statuses as of 11/11/2023) Resolved Problems Problem Noted Date Diagnosed Date Resolved Date NSTEMI (non-ST elevated myoc ardial infarction) 12/07/2013 12/07/2013 documented as of this encounter (statuses as of 11/11/2023) Immunizations Name Administration Dates Next Due Influenza, [...] Progress Notes * Kp Fisher MD - 11/11/2023 2:00 PM EDT [id number] PCP: TOMY DELGADO [address] [place], [place] [id number] Shubham Calles is a 73 year old male, who presents for cystoscopy for evaluation of his incomplete bladder emptying and detrusor decompensation. Patient's past notes reviewed. Noncontrast CT scan suggests continued upper tract deterioration/obstructive uropathy. Patient notes he is doing better with self-cath. Patient notes he is doing better patient notes he is doing better with self catheterization. Complex renal cyst: Presented to Urology June of 2022. BPH: Patient is being seen for BPH today. He has previously had the following symptoms: slow stream, intermittency, postvoid dribbling, nocturia x 2-3, hesitancy and incomplete emptying. Severity is moderate. He has tried finasteride and terazosin, obtains via [facility]. He has previously had prostate biopsy done, no cancer. Cystoscopy November 2023: Gargantuan median lobe. Problem has been present for years. Problem is stable. Renal US November 2022: IMPRESSION 1. Minimally enlarged spleen. 2. Moderate right hydronephrosis. 3. Moderate left hydronephrosis. 4. Distended urinary bladder. CT scan November 2023: IMPRESSION Moderate bilateral hydronephrosis with moderate bladder wall thickening and indentation of the prostate into the bladder base. Correlate for bladder outlet obstruction. Current Outpatient Medications Medication Sig Dispense Refill [...] Use Never User Vaping/E-Cigarette Substances Vaping/E-Cigarette Devices Past Surgical History: Procedure Laterality Date CABG, ARTERIAL, THREE 07/08/1998 Dr. Perez EGD, FLEXIBLE, DIAGNOSTIC 12/20/2022 + H pylori / ESOPHAGOGASTRODUODENOSCOPY (EGD), FLEXIBLE, TRANSORAL, DIAGNOSTIC performed by Aurelia Daniel MD at ENDOSCOPY [facility] REPAIR OF KNEE CARTILAGE 07/08/2010 left knee SINUS SURGERY PROCEDURE NEC 5-6 years ago Past Medical History: Diagnosis Date BPH (benign prostatic hyperplasia) Dyslipidemia Hypertension [place] (myocardial infarction) ([facility]) 5-6 years ago Tobacco abuse 1 ppd for 30 years Patient Active Problem List Diagnosis Code Aortocoronary bypass status Z95.1 Chronic coronary artery disease I25.10 Hyperplasia of prostate without lower urinary tract symptoms (LUTS) N40.0 ADVANCE DIRECTIVE INFORMATION BPH without obstruction/lower urinary tract symptoms N40.0 Tobacco abuse Z72.0 Hyperlipidemia with target LDL less than 100 E78.5 Sinus bradycardia R00.1 SVT (supraventricular tachycardia) ([facility]) I47.10 Prediabetes R73.03 Abnormal CBC R79.89 Iron deficiency anemia D50.9 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 Exam conducted with a overlay operator present. Constitutional: General: He is not in acute distress. Appearance: Normal appearance. He is not ill-appearing or toxic-appearing. HENT: Head: Normocephalic and atraumatic. Right Ear: External ear normal. Left Ear: External ear normal. Nose: Nose normal. Mouth/Throat: Mouth: Mucous membranes are moist. Cardiovascular: Pulses: Normal pulses. Pulmonary: Effort: Pulmonary effort is normal. Abdominal: Palpations: Abdomen is soft. Tenderness: There is no abdominal tenderness. Genitourinary: Penis: Normal. Musculoskeletal: Cervical back: Normal range of motion and neck supple. Lymphadenopathy: Cervical: No cervical adenopathy. Skin: Coloration: Skin is not cyanotic or pale. Neurological: Mental Status: He is alert and oriented to person, place, and time. Psychiatric: Attention and Perception: Attention normal. Mood and Affect: Mood and affect normal. Cystoscopy Procedure Note: Patient was properly identified and appropriate consent was confirmed. Risks and benefits of the procedure were reviewed and the patient was prepped and draped in the standard fashion for the procedure. A well lubricated 16 Dutch flexible cystoscope was introduced through the meatus into the urethra. Urethra demonstrated no abnormalities. Prostatic urethra demonstrated significant obstructive lateral lobe hypertrophy and enormous intravesical extension of median lobe occupying significant intravesical volume with inflammatory urine and debris. Bladder neck was visualized and bladder was entered. Sterile saline irrigation was used to distend the bladder which was noted to have mobile debris and mucosal inflammation without tumor with grade 3 trabeculation with cellules. Bladder was completely inspected including retroflexion of the scope. Ureteral orifices were noted to be in the normalanatomic position bilaterally. [place] of urine was taken for culture. After this was completed thecystoscope was removed. Patient tolerated the procedure well without complications or difficulties. Line Service Supervisor was present for entire procedure. Perioperative Bactrim was provided. Impression/Plan: 73-year-old male with bladder outlet obstruction, large median lobe element. Findings reviewed with the patient. As suspected, Transurethral resection prostate will likely be required to alleviate his symptoms. Due to the volume of tissue involved we will proceed [facility] in case admission and CBI as needed postoperatively. Will allow for extended time for intervention as well. Informed consent obtained. Risks and benefits reviewed. The possibility of detrusor decompensation requiring continued clean intermittent catheterization in the future is alsoreviewed. Bipolar TURP. 5-7 day trial of void. Three week postop check with . Kp Fisher MD 1:08 PM 11/11/2023 documented in this encounter Nursing Notes * Raine Villar LPN - 11/11/2023 2:57 PM EDT Pt presents in office for cystoscopy, consent signed Patient's skin was prepped with hibiclens, and 2% lidocaine jelly was inserted into urethra for cystoscopy. Patient tolerated well. Patient notes significant improvement in symptoms since CIC. documented in this encounter Miscellaneous Notes * Addendum Note - Thais Joel LPN - 11/11/2023 3:23 PM EDTAddended by: THAIS JOEL on: 11/11/2023 03:23 PM Modules accepted: Orders documented in this encounter Plan of Treatment Upcoming Encounters Date Type Department Care Team (Latest Contact Info) Description 12/11/2023 11:00 AM EDT Laboratory Laboratory, [place] [address] [place] [facility] [place] [phone] [place], Laboratory [address] [place] [facility] [place] [address] 12/12/2023 9:00 AM EDT Pharmacy Pharmacy Hematology Oncology [address] [address] [facility], [facility] Hem/Onc [facility] [place] [address] 01/14/2024 11:00 AM EDT Laboratory [facility], [place] [address] [facility] [phone] [place], Laboratory [address] [place] [facility] [place] [address] 02/12/2024 1:00 PM EDT Hospital Encounter ENDO [facility], Endoscopy Room [facility] [address] [place] [phone] Vish Mukherjee MD [address] [place] [address] 02/12/2024 1:00 PM EDT - 02/12/2024 1:30 PM EDT Surgery ENDO [facility], Endoscopy Room [facility] [address] [place] [phone] Vish Mukherjee MD [address] [place] [address] COLONOSCOPY FLEXIBLE PROXIMAL DIAGNOSTIC 03/06/2024 3:00 PM EDT Office Visit Cardiology, [facility] [address] [place] [address] Maria Dolores Mas PA-C [address] [facility] [place] [address] 03/16/2024 10:30 AM EDT Office Visit Hematology/Oncolog y [facility] [address] [facility] [place] [phone] Gopi Cheung MD [address] [facility] [place] [address] Scheduled Orders Name Type Priority Associated Diagnoses Orde r Schedule CULTURE, URINE, QUANTITATIVE Lab Routine BPH with obstruction/lower urinary tract symptoms Hydronephrosis, bilateral Incomplete emptying of bladder Renal insufficiency Expected: 11/11/2023, Expires: 11/10/2024 XR CHEST 2 VIEWS Medical Imaging Routine BPH with obstruction/lower urinary tract symptoms Hydronephrosis, bilateral Incomplete emptying of bladder Renal insufficiency Ordered: 11/11/2023 CULTURE, URINE, QUANTITATIVE Lab Routine BPH with obstruction/lower urinary tract symptoms Hydronephrosis, bilateral Incomplete emptying of bladder Renal insufficiency Expected: 11/11/2023, Expires: 11/10/2024 Scheduled Procedures Name Priority Associated Diagnoses Date/Ti in COLONOSCOPY FLEXIBLE PROXIMAL DIAGNOSTIC Screen for colon cancer 02/12/2024 1:00 PM EDT TRANSURETHRAL RESECTION PROSTATE ELECTROSURGICAL BPH with obstruction/lower urinary tract symptoms Hydronephrosis, bilateral Incomplete emptying of bladder Renal insufficiency Health Maintenance Due Date Last Done Comments DISCUSS TOBACCO CESSATION (REFER TO SMARTSET #3607) 1950 COVID-19 Vaccine (#1) 1954 Albumin/Creatinine Ratio 10/13/1967 CKD PHOS USE SMARTSET 62981 10/13/1967 Colonoscopy 1994 Sigmoidoscopy 1994 Zoster Vaccines (1 of 2) 03/23/2016 01/27/2016 Depression Screening 02/04/2021 02/05/2020 Cologuard 03/25/2021 03/25/2018 Colorectal Cancer Screening 10/23/2022 Fecal Occult Blood Test 10/23/2022 10/23/2021 GFR 05/06/2024 11/05/2023, 10/06, 10/01/2023, Additional history exists HbA1c 10/16/2024 10/17/2023, 04/08, 10/11/2020, Additional history exists CKD HGB USE SMARTSET 35982 11/04/202411/04, 11/05/2023, 10/17/2023, Additional history exists DTaP,Tdap,and [...] malignant neoplasms, colon documented in this encounter Administered Medications Inactive Administered Medications - up to 3 most recent administrations Medication Order MAR Action Action Date Dose Rate Site sulfamethoxazole-trimethoprim DS (Bactrim DS) 800-160 MG 1 Tablet 1 Tablet, Oral, ONCE, On Sat11/11/23 at 1530, For 1 dose Given 11/11/2023 3:03 PM EDT 1 Tablet documented in this encounter Advance Directives Latest Code Status on File Code Status Date Activated Date Inactivated Comments Full Code 12/06/2013 1:46 PM 12/07/2013 7:34 PM This or chastity reflects the patients wishes and were consensually agreed upon. Question Answer Comments Discussion of Advance Directives occurred with: Patient Care Teams Environmental Construction Engineer Relationship Specialty Start Date End Date Tomy Delgado MD [address] [place] [address] PCP - General Family Medicine 03/20/16 documented as of this encounter
--- OUTSIDE RECORDS SUMMARY | 2023-11-12 19:18 | External Medical Summary | Summary of Care ---
Author Name Unknown Organization [facility] Address [address] [place] [place] [address] Phone [phone] Care Team Providers Care Historical Site Guide Name Role Phone Tomy Delgado MD Primary Care Provider [phone] Encounter Details Date Type Department Care Team (Latest Contact Info) Description 11/11/2023 2:00 PM EDT Office Visit Urology, [facility] [address] [facility] [place] [address] Kp Fisher MD 27 [facility] [address] [place] [address] BPH with obstruction/lower urinary tract [...] Fisher MD - 11/11/2023 2:00 PM EDT [id number] PCP: TOMY DELGADO [address] [place], [place] [phone] Shubham Calles is a 73 year old [...] has tried finasteride and terazosin, obtains via [facility]. He has previously had prostate biopsy [...] performed by Aurelia Daniel MD at ENDOSCOPY [facility] REPAIR OF KNEE CARTILAGE 07/08/2010 left knee SINUS SURGERY PROCEDURE NEC 5-6 years ago Past Medical History: Diagnosis Date BPH (benign prostatic hyperplasia) Dyslipidemia Hypertension [place] (myocardial infarction) ([facility]) 5-6 years ago Tobacco abuse 1 ppd for 30 years Patient Active Problem List Diagnosis Code Aortocoronary bypass status Z95.1 Chronic coronary artery disease I25.10 Hyperplasia of prostate without lower urinary tract symptoms (LUTS) N40.0 ADVANCE DIRECTIVE INFORMATION BPH without obstruction/lower urinary tract symptoms N40.0 Tobacco abuse Z72.0 Hyperlipidemia with target LDL less than 100 E78.5 Sinus bradycardia R00.1 SVT (supraventricular tachycardia) ([facility]) I47.10 Prediabetes R73.03 Abnormal CBC R79.89 Iron deficiency anemia D50.9 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 Exam conducted with a tag stringer present. Constitutional: General: He is not in [...] for the procedure. A well lubricated 16 [place]ran flexible cystoscope was introduced through the meatus [...] the procedure well without complications or difficulties. Duck Operator was present for entire procedure. Perioperative Bactrim was provided. Impression/Plan: 73-year-old male with bladder outlet obstruction, large median lobe element. Findings reviewed with the patient. As suspected, Transurethral resection prostate will likely be required to alleviate his symptoms. Due to the volume of tissue involved we will proceed [facility] in case admission and CBI as needed [...] documented in this encounter Nursing Notes * Thais Joel LPN - 11/11/2023 3:25 PM EDT Patient scheduled at [facility] for TURP with Dr Kp Fisher. Date of Surgery: to be scheduled Medications reviewed. Aware to d/c aspirin 7 days prior, brlinta 5 days prior unless otherwise instructed by cardiology. CXR: ordered Labs: on file UAC&S: ordered, to be done 1 week prior to surgery Cardiology clearance: to be scheduled Post op appts needed: TOTolu 5-7 days postop, Dr Fisher 3 weeks postop. Permit signed. Patient verbalizes understanding of pre- and post op instructions. Written instructions given for review at later date. Thais Joel LPN 11/11/2023 * Raine Villar LPN - 11/11/2023 2:57 [...] Description 12/11/2023 11:00 AM EDT Laboratory Laboratory, [place] [address] [facility] [place] [phone] [place], Laboratory [address] [facility] [place] [phone] 12/12/2023 9:00 AM EDT Pharmacy Pharmacy Hematology Oncology [facility], [place] [address] [place] [address] [facility], [facility] Hem/Onc [address] [facility] [place] [address] 01/14/2024 11:00 AM EDT Laboratory Laboratory, [place] [address] [place] [phone] [facility] [address] [place] [address] 02/12/2024 1:00 PM EDT Hospital Encounter ENDO [facility], Endoscopy Room [facility] [address] [place] [phone] Vish Mukherjee MD [address] [place] [address] 02/12/2024 1:00 PM EDT - 02/12/2024 1:30 PM EDT Surgery ENDO [facility], Endoscopy Room [facility] [address] [place] [phone] Vish Mukherjee MD [address] [place] [address] COLONOSCOPY FLEXIBLE PROXIMAL DIAGNOSTIC 03/06/2024 3:00 PM EDT Office Visit Cardiology, [facility] [address] [place] [address] Maria Dolores Mas PA-C [address] [facility] [place] [id number] 03/16/2024 10:30 AM EDT Office Visit Hematology/Oncolog y [facility] [place] [address] [place] [phone] Gopi Cheung MD [address] [place] [address] Scheduled Orders Name Type Priority Associated Diagnoses [...] Albumin/Creatinine Ratio 10/13/1967 CKD PHOS USE SMARTSET 40869 10/13/1967 Colonoscopy 1994 Sigmoidoscopy 1994 Zoster Vaccines (1 of 2) 03/23/2016 01/27/2016 Depression Screening 02/04/2021 02/05/2020 Cologuard 03/25/2021 03/25/2018 Colorectal Cancer Screening 10/23/2022 Fecal Occult Blood Test 10/23/2022 10/23/2021 GFR 05/06/2024 11/05/2023, 10/06, 10/01/2023, Additional history exists HbA1c 10/16/2024 10/17/2023, 04/08, 10/11/2020, Additional history exists CKD HGB USE SMARTSET 66926 11/04/202411/04, 11/05/2023, 10/17/2023, Additional history exists DTaP,Tdap,and [...] 1 Tablet 1 Tablet, Oral, ONCE, On 11/11/23 at 1530, For 1 dose Given 11/11/2023 3:03 PM EDT 1 Tablet documented in this encounter Advance Directives Latest Code Status on File Code Status Date Activated Date Inactivated Comments Full Code 12/06/2013 1:46 PM 12/07/2013 7:34 PM This or chastity reflects the patients wishes and were consensually agreed upon. Question Answer Comments Discussion of Advance Directives occurred with: Patient Care Teams Historical Site Guide Relationship Specialty Start Date End Date Tomy Delgado MD [address] [place] [address] PCP - General Family Medicine 03/20/16 documented as of this encounter
--- OUTSIDE RECORDS SUMMARY | 2023-11-12 19:18 | External Medical Summary | Summary of Care ---
Author Name Unknown Organization [facility] Address [address] [place] [address] Phone [phone] Care Team Providers Care Filling Hauler Name Role Phone Tomy Delgado MD Primary Care Provider [phone] Encounter Details Date Type Department Care Team (Latest Contact Info) Description 11/11/2023 2:00 PM EDT Office Visit Urology, [facility] [address] [facility] [place] [address] Kp Fisher MD [address] [facility] [address] [place] [id number] BPH with obstruction/lower urinary tract [...] Fisher MD - 11/11/2023 2:00 PM EDT [id number] PCP: TOMY DELGADO [address] [place], [place] [id number] Shubham Calles is a 73 year old [...] has tried finasteride and terazosin, obtains via [facility]. He has previously had prostate biopsy [...] Date BPH (benign prostatic hyperplasia) Dyslipidemia Hypertension MT (myocardial infarction) ([facility]) 5-6 years ago Tobacco abuse 1 ppd for 30 years Patient Active Problem List Diagnosis Code Aortocoronary bypass status Z95.1 Chronic coronary artery disease I25.10 Hyperplasia of prostate without lower urinary tract symptoms (LUTS) N40.0 ADVANCE DIRECTIVE INFORMATION BPH without obstruction/lower urinary tract symptoms N40.0 Tobacco abuse Z72.0 Hyperlipidemia with target LDL less than 100 E78.5 Sinus bradycardia R00.1 SVT (supraventricular tachycardia) ([facility]) I47.10 Prediabetes R73.03 Abnormal CBC R79.89 Iron deficiency anemia D50.9 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 Exam conducted with a cobol engineer present. Constitutional: General: He is not in [...] for the procedure. A well lubricated 16 Somali flexible cystoscope was introduced through the meatus [...] the procedure well without complications or difficulties. Plunger Shovel Operator was present for entire procedure. Perioperative Bactrim was provided. Impression/Plan: 73-year-old male with bladder outlet obstruction, large median lobe element. Findings reviewed with the patient. As suspected, Transurethral resection prostate will likely be required to alleviate his symptoms. Due to the volume of tissue involved we will proceed [facility] in case admission and CBI as needed [...] 11/11/2023 3:25 PM EDT Patient scheduled at [facility] for TURP with Dr Kp Fisher. [...] Description 12/11/2023 11:00 AM EDT Laboratory Laboratory, [place] [address] [facility] [place] [id number] [place], Laboratory [address] [facility] [id number] 12/12/2023 9:00 AM EDT Pharmacy Pharmacy Hematology Oncology [facility] [place] [address] [place] [address] [facility] [place] [facility] Hem/Onc [address] [facility] [place] [address] 01/14/2024 11:00 AM EDT Laboratory Laboratory, [place] [address] [place] [phone] [facility] [address] [place] [address] 02/12/2024 1:00 PM EDT Hospital Encounter ENDO OSSC, Endoscopy Room [facility] [address] [place] [phone] Vish Mukherjee MD [address] [place] [address] 02/12/2024 1:00 PM EDT - 02/12/2024 1:30 PM EDT Surgery ENDO OSS, Endoscopy Room [facility] [address] [place] [phone] Vish Mukherjee MD [address] [place] [address] COLONOSCOPY FLEXIBLE PROXIMAL DIAGNOSTIC 03/06/2024 3:00 PM EDT Office Visit Cardiology, [facility] [address] [place] [address] Maria Dolores Mas PA-C [address] [facility] [place] [id number] 03/16/2024 10:30 AM EDT Office Visit Hematology/Oncolog y Malaika [place] [address] [place] [phone] Gopi Cheung MD [address] [place] [address] Scheduled Orders Name Type Priority Associated Diagnoses [...] Albumin/Creatinine Ratio 10/13/1967 CKD PHOS USE SMARTSET 37740 10/13/1967 Colonoscopy 1994 Sigmoidoscopy 1994 Zoster Vaccines (1 of 2) 03/23/2016 01/27/2016 Depression Screening 02/04/2021 02/05/2020 Cologuard 03/25/2021 03/25/2018 Colorectal Cancer Screening 10/23/2022 Fecal Occult Blood Test 10/23/2022 10/23/2021 GFR 05/06/2024 11/05/2023, 10/06, 10/01/2023, Additional history exists HbA1c 10/16/2024 10/17/2023, 04/08, 10/11/2020, Additional history exists CKD HGB USE SMARTSET 65242 11/04/202411/04, 11/05/2023, 10/17/2023, Additional history exists DTaP,Tdap,and [...] Advance Directives occurred with: Patient Care Teams Filling Hauler Relationship Specialty Start Date End Date Tomy Delgado MD [address] [place] [address] PCP - General Family Medicine 03/20/16 documented as of this encounter
[2023-11-12] MEDS: FINASTERIDE 5 MG TAB PO SCH (20:36)
[2023-11-12] MEDS: cefTRIAXone SODIUM 2,000 MG/50 ML BAG IV SCH (20:36)
[2023-11-12] MEDS: ATORVASTATIN 40 MG TAB PO SCH (20:36)
[2023-11-12] MEDS: FLUTICASONE PROPIONATE NA SPR 16 GM BTL SCH (20:36)
--- NOTE | 2023-11-13 04:07 | Electrocardiogram Report ---
Test Reason : Blood Pressure : / mmHG Vent. Rate : 068 BPM Atrial Rate : 068 BPM P-R Int : 154 ms QRS Dur : 108 ms QT Int : 418 ms P-R-T Axes : 070 -17 071 degrees QTc Int : 444 ms Normal sinus rhythm Normal ECG When compared with ECG of 28-JAN-2020 23:27, Criteria for Inferior-posterior infarct are no longer Present Confirmed by Abdirahman Nix ([id number]) on 11/13/2023 4:07:39 AM Referred By: REFERRED SELF Confirmed By:Abdirahman Nix
--- NOTE | 2023-11-13 11:21 | Hospitalist Progress Note ---
Date of Service November 13, 2023 Assessment & Plan (1) Syncope: Plan: Secondary to orthostatic hypotension - patient recalls feeling dizzy, "wobbly" prior to falling over to his , lowered to the ground by family, lost consciousness for about 3 seconds as per patient, no confusion (+) orthostasis noted at the ER only drinks 2-3 cups of fluid per day as per patient Terazosin and Lisinopril on hold - given IV fluids -Symptomatically much improved -Blood pressure is maintaining at the lower end at 119/78 -He will be discharged home this afternoon -Advised not to take lisinopril for now and will continue with terazosin -Discussed with the patient and he is agreeable to the plan Atrial fibrillation has been ruled out - A fib initially suspected, but EKG where a fib was seen does not belong to the patient Cardiology consulted-appreciate cardiology input and recommendation no arrhythmias on Tele - CT head: Did not show any intracranial lesions blood cultures Complicated UTI, recent instrumentation, no sepsis for now blood cultures when not taking of any pain - urine culture: gram negative bacilli and sensitive to ceftriaxone - continue Ceftriaxone IV -Will change to oral Keflex on discharge chronic systolic heart failure, patient on the dry side - given IV fluids -Advised to drink more fluid to maintain volume status Other significant medical conditions remained stable as below: hx CAD status post CABG history SVT status post ablation valvular heart disease (moderate MR, mild TR) hyperlipidemia, on statin Rx BPH, TURP contemplated by urologist prediabetes, hemoglobin A1c of 5.9 last year ongoing tobacco abuse DVT prophylaxis SCDs Full code Disposition anticipate d/c home tomorrow when medically stable Will be discharged home this afternoon Admission and Anticipated Discharge Date Admission Date: November 11, 2023 Subjective 11/13/2023 The patient was seen and examined in telemetry He has been feeling a lot better and wants to go home Denies any significant symptoms Review of Systems Review of Systems: all noted and negative except for above Physical Exam Physical Exam: Sitting on a chair without any acute distress Constitutional: well developed and well nourished; not ill appearing Eyes: PERRL, conjunctivae normal, anicteric sclerae ENMT: external ear and nose normal, oropharynx normal Neck: trachea midline, no thyromegaly Respiratory: no respiratory distress Auscultation: lungs clear to auscultation bilaterally Cardiovascular: Rate/Rhythm: regular rate and regular rhythm; not tachycardic Heart Sounds: normal S1 and normal S2; no murmur Extremities: no edema Gastrointestinal (Abdomen): Inspection/Auscultation: normal bowel sounds; abdomen not distended Percussion/Palpation: abdomen soft; abdomen nontender Musculoskeletal: No acute arthritis involving any of the joint Neurologic: normal touch/pain/proprioception and moves all extremities; no focal motor deficits Psychiatric: A+Ox3, euthymic affect Lymphatic: no cervical or axillary lymphadenopathy Results & Data Results & Data Vital Signs (Past 12 Hours) Vital Signs Temp Pulse Pulse Resp BP Pulse Ox O2 Del Method 11/13/23 08:45 61 11/13/23 07:00 51 L 11/13/23 03:42 36.9 C 56 L 15 119/78 94 Room Air 11/12/23 23:32 36.9 C 61 20 135/77 97 Room Air Medications Administered Current Inpatient Medications Acetaminophen (Acetaminophen 325 Mg Tab) 650 mg PO QID PRN PRN Reason: pain/fever Stop: 12/11/23 22:50 Acetaminophen (Acetaminophen 325 Mg Tab) 650 mg PO Q4H PRN PRN Reason: Pain or Fever Stop: 12/11/23 23:49 Aspirin (Aspirin 81 Mg Ectab) 81 mg PO DAILY [place] Stop: 12/12/23 08:59 Last Admin: 11/13/23 08:44 Dose: 81 mg Atorvastatin Calcium (Atorvastatin 40 Mg Tab) 80 mg PO HS [place] Stop: 12/12/23 20:59 Last Admin: 11/12/23 20:36 Dose: 80 mg Finasteride (Finasteride 5 Mg Tab) 5 mg PO PM [place] Stop: 12/12/23 20:59 Last Admin: 11/12/23 20:36 Dose: 5 mg Fluticasone Propionate (Fluticasone Propionate Na Spr 16 Gm Btl) 2 sprays NA HS [place] Stop: 12/12/23 20:59 Last Admin: 11/12/23 20:36 Dose: 2 sprays Promethazine HCl 6.25 mg/ (Sodium Chloride) 50.25 mls @ 201 mls/hr IV Q6H PRN PRN Reason: Nausea And Vomiting Stop: 12/11/23 22:50 Ceftriaxone Sodium (Rocephin) 2,000 mg in 50 mls @ 100 mls/hr IV Q24H [place] Stop: 11/22/23 20:59 Last Infusion: 11/12/23 21:10 Dose: Infused Metoprolol Tartrate (Metoprolol Tartrate 25 Mg Tab) 25 mg PO BID [place] Stop: 12/12/23 08:59 Last Admin: 11/13/23 08:44 Dose: 25 mg Multivitamins/Minerals (Cerovite Adv Formula Tab) 1 tab PO BID [place] Stop: 12/12/23 08:59 Last Admin: 11/13/23 08:44 Dose: 1 tab Nitroglycerin (Nitroglycerin Sl 0.4 Mg/Tab Tab) 0.4 mg SL Q5M PRN PRN Reason: Chest Pain Stop: 12/11/23 23:49 Ticagrelor (Ticagrelor 90 Mg Tab) 90 mg PO BID [place] Stop: 12/12/23 08:59 Last Admin: 11/13/23 08:44 Dose: 90 mg Tramadol HCl (Tramadol Hcl 50 Mg Tablet) 25 mg PO Q4H PRN PRN Reason: Pain Stop: 12/11/23 22:50
--- NOTE | 2023-11-13 12:07 | Cardiology Progress Note ---
Date of Service November 13, 2023 Assessment & Plan (1) Acute UTI: (2) Orthostatic hypotension: (3) ASCVD (arteriosclerotic cardiovascular disease): (4) Tobacco abuse disorder: Plan Stable cardiac signs and symptoms. No atrial fibrillation (EKG of concern was for a different patient) Continue metoprolol tartrate, aspirin, Brilinta, and high intensity statin therapy (atorvastatin 80 mg/day). Tobacco cessation recommended. Please contact with any questions or concerns. Routine outpatient cardiology follow-up. I spent a total of 15 minutes on the date of service in preparation, delivery, and documentation of the care provided to this patient excluding any time spent in the performance of separately billed services. This visit was a split-shared visit with the substantive portion of the medical decision making performed by the supervising marine mechanic/billing provider. Admission and Anticipated Discharge Date Admission Date: November 11, 2023 Subjective Patient seen and examined. Chart, medications, telemetry reviewed. Feeling well. No complaints or concerns. Anxious for discharge. Telemetry: Sinus/sinus bradycardia with heart rates in the 50s and 60s. No atrial fibrillation. November 12, 2023 Resting Echocardiogram Interpretation Summary ([facility], Dr. Mendoza): Normal size left ventricle. Mild concentric LVH. Mild hypokinesis of the in ferior posterior and lateral edouard. Left ventricular ejection fraction 45 to 50%. Moderately dilated left atrium. Moderate aortic valve sclerosis without significant stenosis. Mild prolapse of the posterior mitral valve leaflet with mild mitral insufficiency. Trace tricuspid insufficiency. Doppler findings do not suggest pulmonary hypertension. Review of Systems Review of Systems: Complete Review of Systems is as stated above, negative, or noncontributory. Physical Exam Physical Exam: Examined today in the bedside chair General: A&Ox3. NAD. HENT: Normocephalic. Atraumatic. Eyes: PER. Conjunctiva pink, sclera clear. Neck: Carotid bruits. No overt JVD. Heart: RRR. Soft systolic murmur. No diastolic murmur. No rub. Lungs: Clear to auscultation. No wheeze. Abdomen: +BS. Extremities: No clubbing, cyanosis, or edema. Limited neurological examination is without focal deficits. Pulses: Posterior tibial=2/4. Results & Data Vital Signs (Past 12 Hours) Vital Signs Temp Pulse Pulse Resp BP Pulse Ox O2 Del Method 11/13/23 11:47 36.4 C L 52 L 20 130/83 99 11/13/23 11:45 36.4 C L 52 L 20 130/83 99 Room Air 11/13/23 08:45 61 11/13/23 07:00 51 L 11/13/23 03:42 36.9 C 56 L 15 119/78 94 Room Air Laboratory Results Intake and Output 11/12/23 11/13/23 11/13/23 22:59 06:59 14:59 Intake Total 450 / 2768.284 150 / 2768.284 Balance 450 / 2768.284 150 / 2768.284 Intake: IV 50 / 1258.284 cefTRIAXone SODIUM 2,000 mg In 50 / 50 50 ml @ 100 mls/hr IV Q24H [facility] Rx#:[id number] Oral 400 / 1510 150 / 1510 Other: # Unmeasured Voids 1 1 Weight 97.636 kg 97.636 kg Weight Measurement Method Built in [facility] Patient Weight 11/14/23 06:59 Weight 97.636 kg
--- NOTE | 2023-11-14 07:47 | Discharge Summary ---
Date of Service November 13, 2023 Admission HPI Per Admitting Provider History obtained from patient and records. Medical history significant for chronic systolic heart failure EF 45%, TTE 2019, CAD status post CABG, history SVT status post ablation, valvular heart disease (moderate MR, mild TR), hypertension, hyperlipidemia, BPH, prediabetes, ongoing tobacco abuse. Last confinement May 2022 for chronic cholecystitis status post antibiotic Rx. Patient seen at [facility] urologist office on follow-up visit today for BPH symptoms. Outpatient cystoscopy done. TURP contemplated. Patient prescribed Bactrim course postprocedure. Patient got off his car to walk towards a local elementary school to attend grandchild's concert performance. Jackson lightheaded on getting up. Witnessed syncopal event by family. Patient fell down but was caught by son-in-law. No tongue biting or incontinence. Patient denies chest pain or SOB. Family started CPR because they were not sure if he had a pulse. Patient woke up after 1-2 compressions as per report. Patient denies abdominal pain, hematuria, fever, chills Atrial fibrillation noted in one of multiple EKGs done by EMS prior to ED transport. Abnormal orthostatic VS noted at the ER. IV ceftriaxone administered at the ER for UTI. Medical History as above Surgical History : Urologic procedures, CABG, knee surgery, sinus surgery Family History : Heart disease Personal/Social history : 1/2 pack daily, occasional EtOH intake, retired [employer] employee Admission Exam Per Admitting Provider Physical Exam: GENERAL: Comfortable, pleasant, no respiratory distress SKIN: Normal color, warm HEENT: Skelp palpebral conjunctivae, no ptosis, dry buccal mucosa NECK : Supple, no tenderness CHEST : CTA, no tenderness HEART : RRR, no obvious murmurs ABDOMEN: Some distention, nontender EXTREMITIES : No LE swelling/tenderness, no other conspicuous deformities noted NEUROLOGIC : Coherent, no facial asymmetry, no other gross focality Principal Diagnosis Syncope secondary to postural hypotension, UTI Discharge Exam Sitting on a chair without any acute distress Constitutional well developed and well nourished; not ill appearing Eyes PERRL, conjunctivae normal, anicteric sclerae ENMT external ear and nose normal, oropharynx normal Neck trachea midline, no thyromegaly Respiratory no respiratory distress Auscultation: lungs clear to auscultation bilaterally Cardiovascular Rate/Rhythm: regular rate and regular rhythm; not tachycardic Heart Sounds: normal S1 and normal S2; no murmur Extremities: no edema Gastrointestinal (Abdomen) Inspection/Auscultation: normal bowel sounds; abdomen not distended Percussion/Palpation: abdomen soft; abdomen nontender Neurologic normal touch/pain/proprioception and moves all extremities; no focal motor deficits Psychiatric A+Ox3, euthymic affect Lymphatic no cervical or axillary lymphadenopathy Discharge Data Allergies Allergy/AdvReac Type Severity Reaction Status Date / Time No Known Allergies Allergy Unknown Verified 11/11/23 20:09 Consultations 11/11/23 21:58 ED Decision to Admit Stat 11/11/23 23:50 Consult Cardiology Routine Ordered Studies 11/12/23 15:13 CT head/brain wo con Urgent Hospital Course (1) Syncope: Secondary to orthostatic hypotension - patient recalls feeling dizzy, "wobbly" prior to falling over to his , lowered to the ground by family, lost consciousness for about 3 seconds as per patient, no confusion (+) orthostasis noted at the ER only drinks 2-3 cups of fluid per day as per patient Terazosin and Lisinopril on hold - given IV fluids -Symptomatically much improved -Blood pressure is maintaining at the lower end at 119/78 -He will be discharged home this afternoon -Advised not to take lisinopril for now and will continue with terazosin -Discussed with the patient and he is agreeable to the plan Atrial fibrillation has been ruled out - A fib initially suspected, but EKG where a fib was seen does not belong to the patient Cardiology consulted-appreciate cardiology input and recommendation no arrhythmias on Tele - CT head: Did not show any intracranial lesions blood cultures Complicated UTI, recent instrumentation, no sepsis for now blood cultures when not taking of any pain - urine culture: gram negative bacilli and sensitive to ceftriaxone - continue Ceftriaxone IV -Will change to oral Keflex on discharge chronic systolic heart failure, patient on the dry side - given IV fluids -Advised to drink more fluid to maintain volume status Other significant medical conditions remained stable as below: hx CAD status post CABG history SVT status post ablation valvular heart disease (moderate MR, mild TR) hyperlipidemia, on statin Rx BPH, TURP contemplated by urologist prediabetes, hemoglobin A1c of 5.9 last year ongoing tobacco abuse DVT prophylaxis SCDs Full code Disposition anticipate d/c home tomorrow when medically stable Will be discharged home this afternoon Total Time Total Time Spent Total Time Spent (In Minutes): 35 minutes Discharge Plan Discharge Items Patient Disposition: Home - Self-Care Reason For Visit: PAF, COMP UTI Discharge Diagnosis: Syncope secondary to postural hypotension, UTI Condition on Discharge: Good Activity: Resume your previous activity Non-emergency contact: Primary Care Provider Call non-emergency contact if: you have any medication questions and your symptoms worsen Follow-up/Referrals: Taurus Delgado MD [Primary Care Provider] - (Date & Time 11/18/2023 11:20 AM Provider Taurus Delgado MD [facility] ) Diet: Heart Healthy Addtl Attending Provider Instructions: Please take precautions to avoid falls Take your time to initiate any activities as advised Finish the course of antibiotic Your lisinopril will be on hold/discontinued for now Drink more fluid Please give appointment with your healthcare providers Pending Studies at Discharge: No Stand-Alone Forms: My 1calendar, Smoking Cessation Medications and DC Order Prescriptions: New cephalexin 500 mg capsule 500 mg PO Q8H 7 Days Qty: 21 0RF Continued cyclobenzaprine 10 mg Tablet 10 mg PO PM PRN (Reason: Pain) terazosin 5 mg Capsule 5 mg PO HS Rx Instructions: TOTAL DOSE 7 MG--TAKES WITH 2 MG CAP. finasteride [Proscar] 5 mg Tablet 1 tab PO PM fluticasone propionate [Flonase Allergy Relief] 50 mcg/actuation [place],Suspension 2 spray INTRANASAL HS terazosin 2 mg Capsule 2 mg PO HS Patient Comments: with 5mg capsule Rx Instructions: TOTAL DOSE 7 MG--TAKES WITH 5 MG CAP. PreserVision AREDS-2 250-90-40-1 mg Capsule 1 tab PO BID diclofenac sodium 1 % Gel 2 g TOPICAL HS PRN (Reason: Pain) cholecalciferol (vitamin D3) [Vitamin D3] 25 mcg (1,000 unit) Capsule 25 mcg PO QAM atorvastatin [Lipitor] 80 mg Tablet 80 mg PO HS Brilinta 90 mg Tablet 90 mg PO BID metoprolol tartrate 50 mg Tablet 25 mg PO BID aspirin 81 mg Tablet,Delayed Release (Dr/Ec) 81 mg PO DAILY Discontinued lisinopril 5 mg Tablet 5 mg PO HS Discharge Orders: Discharge Order (Routine); Ordered 11/13/23 Ordered By: Loli Nguyen Admission Data Admit Date/Time: 11/11/23 22:48 Attending Provider: Loli Nguyen Admit Provider: Jose Guy Primary Care Provider: Taurus Delgado Other Providers: Jose Guy; Davis Mendoza; [facility] Other Interventions: Discharge Summary Assessment (RN) Last Done: 11/13/23 11:47
== END 2023-11-13 13:26 | disposition home or self-care (01) | DRG 312 ==
LOC: ED 19:19 → EDINP 22:48 → SUATTDRO 22:48 → 2E 23:51
DX: B96.20 Unspecified Escherichia coli [E. coli] as the cause of diseases classified elsewhere; I50.22 Chronic systolic (congestive) heart failure; Z90.79 Acquired absence of other genital organ(s); Z95.1 Presence of aortocoronary bypass graft; E78.5 Hyperlipidemia, unspecified; R73.03 Prediabetes; I25.10 Atherosclerotic heart disease of native coronary artery without angina pectoris; I95.1 Orthostatic hypotension; Z79.82 Long term (current) use of aspirin; Z95.5 Presence of coronary angioplasty implant and graft; I08.1 Rheumatic disorders of both mitral and tricuspid valves; N39.0 Urinary tract infection, site not specified; Z79.899 Other long term (current) drug therapy; I11.0 Hypertensive heart disease with heart failure; F17.210 Nicotine dependence, cigarettes, uncomplicated; N40.0 Benign prostatic hyperplasia without lower urinary tract symptoms